=== PATIENT | female | born 1975 | race Caucasian/White ===

== ENCOUNTER 2017-11-04 00:32 | Emergency (ER) | payer OTHER, SELFPAY ==
[2017-11-04 00:33] VITALS: BP 125/83; PULSE 104; RESP 15; TEMP 37.2; O2SAT 99; BMI 38.2
--- NOTE | 2017-11-04 01:26 | RAD_ITS ---
STUDY: X-RAY CHEST REASON FOR EXAM: Female, 42 years old. Shortness of breath. TECHNIQUE: PA and lateral views of the chest. COMPARISON: Prior comparison studies are not available for review at this time. FINDINGS: The lungs are clear and expanded. There is no demonstrated pleural abnormality. Normal size heart. Normal mediastinum and tristian. Normal visualized pulmonary arteries. Normal visualized aortic arch and descending thoracic aorta. Normal visualized thoracic spine. Normal visualized ribs, clavicles, and shoulders. There is no demonstrated abnormality of the visualized soft tissue structures of the upper abdomen. RAD/Chest PA and Lateral IMPRESSION: Normal x-ray examination of the chest. Electronically Signed: Pérez Britton MD at 2:25 EST Tel , Service support ,
[2017-11-04] MEDS: Triamcinolone Acetonide 40 MG/ML Vial 80 MG IM (01:34)
[2017-11-04 01:36] VITALS: PULSE 98; RESP 18
[2017-11-04] MEDS: Ipratropium/Albuterol Sulfate 3 ML AMPUL.NEB INHALATION (01:36)
[2017-11-04 02:46] VITALS: O2SAT 99
[2017-11-04 02:49] VITALS: BP 117/66; PULSE 106; RESP 20; O2SAT 99
--- NOTE | 2017-11-04 02:56 | ED.VISSUMM ---
- ER Visit Summary Date of Service: 11/04/17 Chief Complaint: [Cough, shortness of breath] History of Present Illness: The patient is a 42 F [] Physical Examination: [Heart rate 106 other vitals within normal limits WN WD NAD PERRL EOMI MMM NECK supple and nontender, no masses RRR no murmur rub or gallop, no peripheral edema, symmetric radial pulses End expiratory wheezing and slightly diminished breath sounds no respiratory distress ABDOMEN is soft and nontender, normal bowel sounds, no distension, no rebound or guarding SKIN is warm and dry no rashes Alert and Oriented x3, CN II-XII in tact, no motor or sensory deficits, gait normal No lymphadenopathy ] Test Results: [] Emergency Department Course and Treatment: [Chest x-ray was obtained and shows no acute process. Influenza swab was negative. Patient was going DuoNeb and felt slightly better. She was given a shot of Kenalog. She continued to have end expiratory wheezing however slightly improved air movement. She is not in any respiratory distress. She was ambulated without respiratory distress. Her pulse ox remained 99%. This time she will go home to do albuterol nebulizers every 4 hours and will take the steroid as prescribed by urgent care earlier today. She is given precautions for which to return. I do not feel antibiotics are indicated at this time.] Treatment Plan: [] Disposition: [Discharge] Impression: [1. Viral URI 2. Acute asthma exacerbation] This note was generated with [employer] dictation software. It may contain incorrect words, spelling, and punctuation that were not noted in review of the chart prior to signing ED Disposition - Plan for ED Patient: Chief Complaint: Asthma Referrals: Jesus Manuel Worley DO [Primary Care Provider] -
--- NOTE | 2017-11-04 02:59 | ED.DEP ---
ED Disposition - Plan for ED Patient: Chief Complaint: Asthma Instructions: ED Bronchitis Asthmatic Referrals: Jesus Manuel Worley DO [Primary Care Provider] - 3-5 Days if not improving
[2017-11-04 03:10] VITALS: PULSE 101; RESP 19; O2SAT 96
--- NOTE | 2017-11-04 03:11 | ED.RN ---
DISCHARGE INSTRUCTIONS GIVEN TO AND REVIEWED WITH PATIENT, PATIENT DENIES QUESTIONS OR CONCERNS AND VOICES UNDERSTANDING OF DISCHARGE INSTRUCTIONS. PT AMBULATES OUT OF ROOM WITHOUT DIFFICULTY.
== END 2017-11-04 03:12 | disposition home or self-care (01) ==
PROVIDERS: Emergency Provider Emergency Medicine; Family Provider Student in an Organized Health Care Education/Training Program; PCP Student in an Organized Health Care Education/Training Program
DX: J06.9 Acute upper respiratory infection, unspecified (principal); J45.901 Unspecified asthma with (acute) exacerbation; F41.9 Anxiety disorder, unspecified; Z79.899 Other long term (current) drug therapy
CPT/HCPCS: 71046; 87804; 94640; 96372; 99282

== ENCOUNTER → 2021-01-02 09:47 | Outpatient (CLI) | payer OTHER, SELFPAY ==
--- NOTE | 2021-01-02 09:56 | ECHOD_ITS ---
Reason For Study: Dyspnea Procedure This was a 2D Doppler, Color Flow transthoracic echocardiogram. Exam performed in department. Left Ventricle Normal LV size. Left ventricular systolic function is normal. The estimated ejection fraction is 55 %. Stage 1 diastolic dysfunction. No regional wall motion abnormalities noted. Right Ventricle Normal RV size. Normal systolic function. Atria Normal left atrium. Normal right atrium. Mitral Valve Normal mitral valve. Tricuspid Valve Normal tricuspid valve. Aortic Valve Normal aortic valve. Trisinus/trileaflet aortic valve. Pulmonic Valve Normal pulmonic valve. Great Vessels Normal aortic root. The pulmonary artery is normal size. Normal inferior vena cava. Pericardium/Pleural No pericardial effusion. MMode/2D Measurements & Calculations LVIDd: 4.4 cm IVSd: 1.1 cm Ao root diam: 3.4 cm LVIDs: 2.4 cm LVPWd: 0.96 cm RVDd: 3.5 cm FS: 44.7 % LAV(MOD-bp): 30.4 ml LA A4 area: 13.2 cm2 LA dimension(2D): 3.7 cm LAV(MOD-bp) Indexed: 15.8 ml/m2 LAV(MOD-sp2): 29.9 ml LAV(MOD-sp4): 27.9 ml RA A4 area: 12.3 cm2 Doppler Measurements & Calculations MV E max kal: 48.7 cm/sec Lat Peak E' Kal: 12.3 cm/sec Med Peak E' Kal: 8.0 cm/sec MV A max kal: 59.6 cm/sec E/E' lat: 4.0 E/E' med: 6.1 MV E/A: 0.82 Ao V2 max: 110.0 cm/sec LV V1 max: 91.3 cm/sec PA V2 max: 75.1 cm/sec Ao max P.8 mmHg LV V1 max P.3 mmHg Ao V2 mean: 79.2 cm/sec Ao mean P.7 mmHg Ao V2 VTI: 21.2 cm ECHO/Echo Complete Interpretation Summary Normal LV size. Left ventricular systolic function is normal. The estimated ejection fraction is 55 %. Stage 1 diastolic dysfunction. Ordering Physician: Jesus Manuel Worley Referring Physician: Jesus Manuel Worley Performed By: Snehal Medina RDCS, RVT
--- NOTE | 2021-01-02 16:43 | STRESSREP ---
Stress Test Report Exercise stress test. 45-year-old lady with a history of dyspnea. Stress protocol: Resting EKG demonstrates sinus bradycardia with a rate of 59 bpm normal intervals are noted resting blood pressure is 122/84 mmHg. Patient exercised according to the regular Boni protocol for a total duration of 9 minutes and 27 seconds. Patient completed 27 seconds into stage IV of the Boni protocol the maximum heart rate attained was 171 bpm which was 96% of max impacted heart rate the maximum workload was 10.8 metabolic equivalents. At rest there were no ST or T wave changes noted to suggest ischemia and at peak exercise upsloping ST changes were noted which did not meet the criteria for ischemia. No clinical angina was noted the test was terminated due to the target heart rate being achieved. No clinical angina was present. The peak blood pressure was 138/90 mmHg which was a good blood pressure response to exercise. No arrhythmias were noted. Conclusion: Exercise stress test with no EKG criteria for ischemia at a high workload. Good functional aerobic capacity. No arrhythmias or angina noted.
== END ==
PROVIDERS: PCP Student in an Organized Health Care Education/Training Program; Referring Provider Student in an Organized Health Care Education/Training Program; Visit Provider Student in an Organized Health Care Education/Training Program
DX: R06.00 Dyspnea, unspecified (principal)
CPT/HCPCS: 93017; 93306

== ENCOUNTER 2022-06-13 00:28 | Emergency (ER) | payer OTHER, SELFPAY ==
[2022-06-13 00:29] VITALS: BP 162/119; PULSE 134; RESP 20; TEMP 37; O2SAT 99; BMI 36.6
--- NOTE | 2022-06-13 00:46 | EX.ED.DYSGE1 ---
HPI History of Present Illness Chief Complaint: Allergic Reaction Informant: patient Narrative Narrative: Presents for evaluation concerning allergic reaction with rash. Concern for secondary antibiotic of Keflex. She was started on this a week ago from urgent care for recurrent UTI. She had previous UTI in May. She is on day 4 or 5 antibiotic noted urticarial lesions. She is self treating with Pepcid and Zyrtec. She returned to urgent care 4 days ago put on prednisone taper was told to try to finish antibiotic due to still having dysuria and UTI. She took a dose that Saturday evening states hives worsen. She called back the following day stop the antibiotic. She has been on prednisone. She has seen urology since then referred by them has outpatient ultrasound at this time. She is seeing urologist in [place]. No current dysuria. She had 2 tabs left of a 7-day supply. This evening concerns for throat tightness she contemplated taking her son's epinephrine however she did not. She took 4 children's Benadryl this evening. She is down to 20 mg of prednisone for which he takes in the morning. No trouble swallowing. There is rash on her arms and abdomen which is improving. Prior similar symptoms: Yes PFSH PFSH Home Medications sertraline 50 mg tablet 50 mg PO DAILY 06/23/16 [History Last Taken 06/23/16] budesonide 180 mcg/actuation breath activated powder inhaler (Pulmicort Flexhaler) 1 puff inhalation BID 11/04/17 [History Last Taken Unknown] epinephrine 0.3 mg/0.3 mL injection, auto-injector (EpiPen 2-Oscar) 0.3 mg (0.3 mL) IM Q10M PRN PRN anaphylaxis #2 ea 06/13/22 [Rx Last Taken Unknown] prednisone 20 mg tablet 60 mg PO DAILY #9 tabs 06/13/22 [Rx Last Taken Unknown] Allergy/AdvReac Type Severity Reaction Status Date / Time azithromycin Allergy Hives Verified 06/13/22 00:33 [From Zithromax Z-Oscar] bacitracin Allergy Hives Verified 06/13/22 00:33 [From Neosporin ([id number])] cephalexin [From Keflex] Allergy Hives Verified 06/13/22 01:52 citric acid [From Bicitra] Allergy Hives Verified 06/13/22 00:33 neomycin Allergy Hives Verified 06/13/22 00:33 [From Neosporin ([id number])] polymyxin B Allergy Hives Verified 06/13/22 00:33 [From Neosporin ([id number])] sodium citrate [From Bicitra] Allergy Hives Verified 06/13/22 00:33 Social History Smoking Status: Never smoker ROS ROS ED Constitutional Constitutional ED: Denies chills, fever(s) or sweats Eyes Eyes: Denies change in vision ENT ENT ED: Denies dysphagia or sore throat Cardiovascular Cardiovascular: Denies chest pain, leg edema, palpitations or racing heartbeat Respiratory/Chest Respiratory/Chest: Denies cough, dyspnea or dyspnea on exertion Gastrointestinal Gastrointestinal: Denies abdominal pain, diarrhea, nausea or vomiting Genitourinary Genitourinary ED: Denies dysuria, hematuria or urinary frequency Musculoskeletal Musculoskeletal: Denies back pain, extremity pain or neck pain Integumentary Reports rash; Denies wounds Neurologic Neurologic: Denies headache(s), paresthesias or weakness EXAM Physical Exam Const Vital Signs: 06/13/22 00:29 Temperature 98.6 F Temperature Source Oral Pulse Rate 134 H Respiratory Rate 20 H Blood Pressure 162/119 H Blood Pressure Mean 133 Pulse Ox 99 Oxygen Delivery Method Room Air Positive well nourished and well developed Constitutional Narrative: Anxious, nontoxic General Appearance ED: well developed and NAD HEENT Reports moist mucous membranes HEENT Narrative: No lip or tongue swelling. No stridor. Airway patent. normocephalic and atraumatic Eyes PERRL, EOMs intact bilaterally and conjunctivae normal General Eye ED: Yes normal appearance of both eyes Neck no lymphadenopathy and supple General: Negative for tenderness Chest Wall Chest: Negative for tenderness Resp normal respiratory effort and normal air movement Effort and Inspection: symmetric chest movement; Negative for respiratory distress Cardio regular rhythm and no murmurs Rate: tachycardic Peripheral Pulses: pulses 2+ throughout GI normal to inspection, nondistended, normoactive bowel sounds and non-tender Palpation: Negative for guarding or rebound tenderness present Back/Spine no CVA tenderness and no thoracic nor lumbar tenderness Extremity normal to inspection General Extremety ED: Negative for edema or tenderness General Extremity: Negative for edema Neuro oriented x3 and no sensory deficits noted Sensorium / Orientation: awake and alert Skin no wounds Skin Narrative: Rash noted bilateral forearms right greater than left. There is erythematous rash abdomen under her breasts. There is no urticarial lesions. MDM MDM MDM Narrative Medical decision making narrative: Patient nontoxic, no airway compromise. No stridor. Denies any new or different foods. Heart rate 134 on arrival during my evaluation in the low 100s. She will be optimized with her prednisone in the ED at 60 mg, additional Pepcid. We will plan on holding Keflex in place as an allergy due to recurrent worsening symptoms when she tried retaking it Saturday night. Is been 4 days since her last dose. She took her Benadryl this evening. 0130: Heart rate improved with monitoring. No progression of symptoms. Treated for additional 3 days of 60 mg prednisone. She will take her Pepcid at home twice a day for 3 days. Benadryl as needed. Prescription also for epinephrine pen. Follow-up as an outpatient. All questions were answered. Discharge Plan Triage Chief Complaint: Allergic Reaction ED Provider: Kong Mai Dx/Rx/DC Orders Clinical Impression: Allergic drug rash, History of UTI Instructions: ED General Allergic Reactions Prescriptions: New prednisone 20 mg tablet 60 mg PO DAILY Qty: 9 0RF epinephrine [EpiPen 2-Oscar] 0.3 mg/0.3 mL auto-injector 0.3 mg IM Q10M PRN PRN (Reason: anaphylaxis) Qty: 2 0RF Rx Instructions: for 2 doses No Action sertraline 50 MG tablet 50 mg PO DAILY Label Comments: mental health Pulmicort Flexhaler 1 PUFF inhaler 1 puff inhalation BID Primary Care Provider: Jesus Manuel Worley Referrals: Jesus Manuel Worley, [Primary Care Provider] - 3-5 Days if not improving Activity Restrictions/Additional Instructions: Start Keflex. Take prednisone 60 mg for 3 more days. Pepcid 20 mg twice a day for 3 days. Benadryl 25 to 50 mg as needed. Disposition Disposition: Home, Self Care Discharge Date/Time: 06/13/22 01:52
[2022-06-13] MEDS: Famotidine 20 MG Tablet PO (00:48)
[2022-06-13] MEDS: predniSONE 20 MG Tablet 60 MG PO (00:48)
== END 2022-06-13 01:52 | disposition home or self-care (01) ==
PROVIDERS: Emergency Provider Emergency Medicine; PCP Student in an Organized Health Care Education/Training Program; Visit Provider Emergency Medicine
DX: L27.0 Generalized skin eruption due to drugs and medicaments taken internally (principal); T36.1X5A Adverse effect of cephalosporins and other beta-lactam antibiotics, initial encounter; N39.0 Urinary tract infection, site not specified; Z87.440 Personal history of urinary (tract) infections
CPT/HCPCS: 99283

== ENCOUNTER 2023-10-05 13:55 | Emergency (ER) | payer OTHER, SELFPAY ==
[2023-10-05 13:56] VITALS: BP 138/100; PULSE 78; RESP 14; TEMP 36.2; O2SAT 99; BMI 29.3
--- NOTE | 2023-10-05 14:05 | ED.VIS.GI ---
HPI HPI - GI History of Present Illness Chief Complaint: Abd Pain Informant: patient Abdominal Pain/Flank Pain Onset: Days Context: Gradual Onset Timing: Waxes and wanes Quality: Dull Location: Epigastric Current Severity: Moderate Maximum Severity: Moderate Narrative Narrative: Patient presents secondary to epigastric abdominal pain. She states pains been present for about a week but has recently become much more severe. She feels nauseated and has not eaten much. She denies fever or chills. No recent diarrhea. No vomiting. She went to urgent care but there was concern for possible pancreatitis that she is on Ozempic and was sent to the emergency room. [facility] Medical History Depression Home Medications sertraline 50 mg tablet 50 mg PO DAILY 06/23/16 [History Last Taken 06/23/16] epinephrine 0.3 mg/0.3 mL injection, auto-injector (EpiPen 2-Oscar) 0.3 mg (0.3 mL) IM Q10M PRN PRN anaphylaxis #2 ea 06/13/22 [Rx Last Taken Unknown] etonogestrel 0.12 mg-ethinyl estradiol 0.015 mg/24 hr vaginal ring (NuvaRing) 1 vag ring vaginal Q4W 09/09/23 [History Last Taken Unknown] metoclopramide HCl 10 mg tablet (Reglan) 10 mg PO Q6H PRN nausea and vomiting #14 tabs 10/05/23 [Rx Last Taken Unknown] ondansetron 4 mg disintegrating tablet 4 mg PO Q8H PRN PRN Nausea #10 tabs 10/05/23 [Rx Last Taken Unknown] pantoprazole 40 mg tablet,delayed release (Protonix) 40 mg PO DAILY #30 tabs 10/05/23 [Rx Last Taken Unknown] Allergy/AdvReac Type Severity Reaction Status Date / Time azithromycin Allergy Hives Verified 10/05/23 13:56 [From Zithromax Z-Oscar] bacitracin Allergy Hives Verified 10/05/23 13:56 [From Neosporin ([id number])] cephalexin [From Keflex] Allergy Hives Verified 10/05/23 13:56 citric acid [From Bicitra] Allergy Hives Verified 10/05/23 13:56 neomycin Allergy Hives Verified 10/05/23 13:56 [From Neosporin ([id number])] polymyxin B Allergy Hives Verified 10/05/23 13:56 [From Neosporin ([id number])] sodium citrate [From Bicitra] Allergy Hives Verified 10/05/23 13:56 Family History Father Cancer, Onset Age: 71 multiple, lymphoma Sudden cardiac Hypertension Mother Fibroids Surgical History History of Hx laparoscopic cholecystectomy Social History adopted: No household members: family number of children: 2 current occupational status: employed 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 - [employer] current occupational exposures/hazards: No pets and animals: Yes (foster cats) leisure activities: exercise history of recent travel: No sexually active: Yes Smoking Status: Never smoker alcohol intake: current alcohol intake frequency: holidays/special occasions only Alcohol type: hard liquor details: very rare, family history of alcohol use substance use type: does not use diet: vegan and vegetarian well-balanced diet: daily or most days caffeine: Yes (black coffee ) eating out: rarely or never during the past year weight has: decreased > 10 lbs what type of physical activity do you participate in: weight training and other details: barre and pilates frequency: 3-4 times per week seatbelt use: always do you feel safe at home: Yes additional social history: Jew[employer]AY ED Constitutional Constitutional ED: Denies chills or fever(s) Eyes Eyes: Denies discharge from eye(s) ENT ENT ED: Denies discharge from eye(s), rhinorrhea or sore throat Cardiovascular Cardiovascular: Denies chest pain or palpitations Respiratory/Chest Respiratory/Chest: Denies cough or dyspnea Gastrointestinal Gastrointestinal: Reports abdominal pain and nausea; Denies diarrhea or vomiting Genitourinary Genitourinary ED: Denies dysuria Musculoskeletal Musculoskeletal: Denies back pain or extremity pain Integumentary Denies Abrasions or rash Neurologic Neurologic: Denies headache(s) or weakness Psychiatric Psychiatric: Denies anxiety or depression Allergic/Immunologic Allergic/Immunologic ED: Denies lip swelling or urticaria EXAM Physical Exam Const Vital Signs: 10/05/23 13:56 Temperature 97.2 F L Temperature Source Temporal Pulse Rate 78 Respiratory Rate 14 Blood Pressure 138/100 H Blood Pressure Mean 112 Pulse Ox 99 Oxygen Delivery Method Room Air Positive well nourished and well developed General Appearance ED: well developed HEENT Reports moist mucous membranes Eyes EOMs intact bilaterally Resp normal respiratory effort and clear to auscultation bilaterally Cardio regular rate and regular rhythm GI GI Narrative: Abdomen soft with mild tenderness in the epigastrium. No guarding or rebound. Hypoactive but present bowel sounds are noted. Extremity full ROM Neuro CN's II-XII intact bilaterally and moves all extremities Skin no wounds MDM MDM MDM Narrative Medical decision making narrative: IV line initiated. Patient given IV fluids and Zofran along with a dose of Protonix. Labwork obtained to evaluate for leukocytosis, anemia, and electrolyte derangement. History & Record Review Discussion w/independent historian: Patient Additional record(s) reviewed:: Prior outpatient record and Prior labs Lab Data Attestation: I reviewed the patient's lab results. Labs: Laboratory Results - last 24 hr 10/05/23 14:42 WBC 11.3 H RBC 4.74 Hgb 13.6 Hct 42.8 MCV 90.3 MCH 28.7 MCHC 31.8 L RDW Std Deviation 43.2 RDW Coeff of [place] 13.1 Plt Count 270 MPV 10.1 Immature Gran % (Auto) 0.400 Neut % (Auto) 76.6 H Lymph % (Auto) 14.9 L [place] % (Auto) 6.3 Eos % (Auto) 1.7 Baso % (Auto) 0.1 Absolute Neuts (auto) 8.6 H Absolute Lymphs (auto) 1.68 Nucleated RBC % 0 Sodium 141 Potassium 3.5 Chloride 110 H Carbon Dioxide 24.0 Anion Gap 7 BUN 10 Creatinine 0.67 Estim Creat Clear Calc 94.41 Est GFR (MDRD) Af Amer 122 Est GFR (MDRD) Non-Af 100 BUN/Creatinine Ratio 14.9 Glucose 90 Calcium 8.5 Total Bilirubin 0.80 Direct Bilirubin 0.40 H AST 88 H ALT 57 H Alkaline Phosphatase 83 Total Protein 6.1 L Albumin 2.9 L Globulin 3.2 Lipase 36 Radiography Diagnostic Testing: Clinical Impression(s) from Imaging Studies Abdomen/Pelvis CT 10/05/23 15:13 IMPRESSION: Mild intrahepatic bile duct distention. No other definite acute or significant abnormality seen. Electronically Signed: Dick Santana MD at 16:16 EST , Treatment and Re-Evaluation :: CBC reveals white count 11.3 with 76% neutrophils. Hemoglobin is 13.6. Chemistry studies reveal normal renal function. Glucose is normal at 90. LFTs significant for an AST of 88 and an ALT of 57. Alk phos is normal. Bilirubin is not significantly elevated. I was able to review prior labs and the patient just had lab work done on October 03. At that time her AST was 14 and her ALT was 16. Lipase is normal. Given the patient has had an acute change in her LFTs in the past [address] scan of the abdomen pelvis with IV contrast is obtained. She has already had a cholecystectomy. CT scan reveals mildly dilated hepatic ducts but no acute abnormality noted. Patient is noted on my review of imaging does still have food debris in her stomach. She states she last ate early this morning. She did receive some improvement in her nausea with Zofran but states it is already returning. I will give her a dose of Reglan. I also gave her IV Protonix. Hepatitis panel will be sent to ensure no evidence of acute hepatitis. She will be given prescriptions for Protonix, Zofran, and Reglan. She is to follow with her PCP in the next 1 to 2 weeks for repeat labs. This was all discussed with her and she is in agreement with the plan. Discharge Plan Triage Chief Complaint: Abd Pain ED Provider: Vane Bradley Dx/Rx/DC Orders Clinical Impression: Elevated LFTs, Nausea, Acute epigastric pain Instructions: ED Abdominal Pain Unkn Cause Fem Prescriptions: New ondansetron 4 mg tablet,disintegrating 4 mg PO Q8H PRN PRN (Reason: Nausea) Qty: 10 0RF metoclopramide HCl [Reglan] 10 mg tablet 10 mg PO Q6H PRN (Reason: nausea and vomiting) Qty: 14 0RF pantoprazole [Protonix] 40 mg tablet,delayed release (DR/EC) 40 mg PO DAILY Qty: 30 0RF No Action etonogestrel-ethinyl estradiol [NuvaRing] 0.12-0.015 mg/24 hr ring 1 vag ring vaginal Q4W Rx Instructions: leave in place for 3 weeks of a 4-week cycle sertraline 50 MG tablet 50 mg PO DAILY Patient Comments: mental health epinephrine [EpiPen 2-Oscar] 0.3 mg/0.3 mL auto-injector 0.3 mg IM Q10M PRN PRN (Reason: anaphylaxis) Qty: 2 0RF Rx Instructions: for 2 doses Primary Care Provider: Jesus Manuel Worley Referrals: Jesus Manuel Worley, DO [Primary Care Provider] - 1-2 Weeks Activity Restrictions/Additional Instructions: As discussed, please follow-up with Dr. Worley in 1 to 2 weeks to have repeat liver testing performed. Disposition Disposition: Home, Self Care
[2023-10-05] MEDS: 0.9% Normal Saline (1000mL) 1,000 ML 1000 ML IV (14:31)
[2023-10-05] MEDS: Pantoprazole Sodium 40 MG in 0.9% Normal Saline (100mL MB+) 100 ML 330 MG IV (14:32)
[2023-10-05] MEDS: Ondansetron 4 MG/2 ML Vial IV (14:33)
--- OUTSIDE RECORDS SUMMARY | 2023-10-05 14:37 | XMS RPT_ITS | CCD ---
Author Name Unknown Address [address] [place] [address] Organization [facility] Care Team Providers Care Recreation Program Specialist Name Role Phone Jesus Manuel Barth DO Primary Care Provider VANI AMOS Attending Unavailable JEN HUMPHREY Referring Unavailable BARTH, JESUS MANUEL Eric Primary Care Unavailable Barth DO Jesus Manuel Eric Primary Care Provider Jesus Manuel Barth DO Primary Care Provider [phone] MEIR JESUS MANUEL L Referring Unavailable BARTH, JESUS MANUEL L Primary Care Unavailable BARTH, JESUS MANUEL L Referring Unavailable BARTH, JESUS MANUEL L Primary Care Unavailable BARTH, JESUS MANUEL L Primary Care Unavailable BARTH, JESUS MANUEL L Attending Unavailable BARTH, JESUS MANUEL L Primary Care Unavailable BARTH, JESUS MANUEL L Primary Care Unavailable SESAR RICHMOND Attending Unavailable BARTH, JESUS MANUEL L Referring Unavailable BARTH, JESUS MANUEL L Primary Care Unavailable BARTH, JESUS MANUEL L Attending Unavailable BARTH, JESUS MANUEL L Primary Care Unavailable BARTH, JESUS MANUEL L Primary Care Unavailable BARTH, JESUS MANUEL L Primary Care Unavailable CHANTAL, ESTEFANÍA Referring Unavailable BARTH, JESUS MANUEL L Primary Care Unavailable MEGHAN HARPER Attending Unavailable BARTH, JESUS MANUEL L Primary Care Unavailable MOSLEY, ESTEFANÍA Attending Unavailable BARTH, JESUS MANUEL L Primary Care Unavailable Allergies Allergy Classification Reported Allergen(s) Allergy Type Date of Onset Reaction(s) Facility (20 sources) Azithromycin; Translations: [AZITHROMYCIN] Drug Allergy 6 Hives, Swelling [facility] Work Phone: (20 sources) bacitracin / neomycin / polymyxin b; Translations: [NEOMYCIN-BACITRA MAHAD-POLYMYXIN] Drug Allergy 5 [facility] Work Phone: (20 sources) Citric Acid / sodium citrate; Translations: [SODIUM CITRATE-CITRIC ACID] Drug Allergy 1 Rash [facility] Work Phone: (20 sources) environmental [Other] Propensity to adverse reactions 5 [facility] Work Phone: (20 sources) seasonal allergies [Other] Propensity to adverse reactions 5 Other: See Comments [facility] Work Phone: (20 sources) Bacitracin; Translations: [BACITRACIN] Drug Allergy 8 Unknown [facility] (20 sources) Citric Acid; Translations: [CITRIC ACID] Drug Allergy 8 Unknown [facility] (20 sources) Neomycin; Translations: [NEOMYCIN] Drug Allergy 8 Unknown [facility] (20 sources) Polymyxin B; Translations: [POLYMYXIN B] Drug Allergy 8 Unknown [facility] (20 sources) Cephalexin; Translations: [CEPHALEXIN] Drug Allergy 2 [facility] Work Phone: (2 sources) OTHER; Translations: [OTHER] Propensity to adverse reactions (disorder) 5 [facility] Other [facility] (2 sources) Pollen; Translations: [POLLEN EXTRACTS] Drug Allergy 3 Itching [facility] Work Phone: Medications Current Medications Medication Drug Class(es) Dates Sig (Normalized) Sig (Original) cephalexin 500 mg oral capsule (5 sources) Cephalosporin Antibacterial Start: 06-03-2022 End: 06-10-2022 take 1 capsule by mouth twice daily cephALEXin (KEFLEX) 500 mg capsule Take 1 capsule by mouth twice daily for 7 days. 14 capsule 0 06/03/2022 06/10/2022 Active Completed/Discontinued Medications Medication Drug Class(es) Dates Sig (Normalized) Sig (Original) [id number] 200 actuat albuterol 0.09 mg/actuat metered dose inhaler (20 sources) beta2-Adrenergic Agonist Start: 10-04-2021 take 2 puff(s) by inhalation every four hours as needed albuterol HFA (VENTOLIN HFA) 90 mcg/actuation inhaler Indications: Asthma, allergic Inhale 2 Puffs as instructed every 4 hours as needed. 36 g 3 07/10/2021 Active Problems Active Problems Problem Classification Problem Date Documented Date Episodic/Chronic Anxiety disorders (20 sources) Mixed anxiety and depressive disorder; Translations: [Other specified anxiety disorders] Onset: 11-13-2019 11-13-2019 Chronic Asthma (20 sources) Mild intermittent asthma; Translations: [Mild intermittent asthma, uncomplicated] Onset: 11-16-2005 10-02-2021 Chronic Benign neoplasm of uterus (2 sources) Uterine leiomyoma; Translations: [Leiomyoma of uterus, unspecified] Episodic Complications of surgical procedures or medical care (1 source) Non dose-related adverse reaction to medication; Translations: [Unspecified adverse effect of drug or medicament, initial encounter] Episodic Contraceptive and procreative management (1 source) Contraception status; Translations: [Encounter for surveillance of vaginal ring hormonal contraceptive device] Episodic Disorders of lipid metabolism (20 sources) Hypertriglyceridemia; Translations: [Pure hyperglyceridemia] Onset: 07-11-2021 07-11-2021 Chronic Genitourinary symptoms and ill-defined conditions (3 sources) Increased frequency of urination; Translations: [Frequency of micturition] Onset: 06-06-2022 Episodic Immunizations and screening for infectious disease (2 sources) Vaccination needed; Translations: [Encounter for immunization] Onset: 08-05-2023 Episodic Menopausal disorders (20 sources) Perimenopausal state; Translations: [Menopausal and female climacteric states] Onset: 08-07-2022 Chronic Mood disorders (20 sources) Depressive disorder; Translations: [Depression] Onset: 10-06-2005 10-24-2015 Chronic Other diseases of bladder and urethra (1 source) Disorder of bladder; Translations: [Overactive bladder] Chronic Other inflammatory condition of skin (4 sources) Seborrheic dermatitis; Translations: [Seborrheic dermatitis, unspecified] Episodic Other inflammatory condition of skin (1 source) Seborrheic dermatitis, unspecified; Translations: [Seborrheic dermatitis] Onset: 09-16-2023 Episodic Other nutritional; endocrine; and metabolic disorders (20 sources) Obese class I; Translations: [Obesity, unspecified] Onset: 12-14-2020 12-14-2020 Chronic Other nutritional; endocrine; and metabolic disorders (20 sources) Obese class II; Translations: [Obesity, unspecified] Onset: 12-14-2020 Chronic Other nutritional; endocrine; and metabolic disorders (2 sources) Metabolic syndrome X; Translations: [Dysmetabolic syndrome] Onset: 09-16-2023 09-16-2023 Chronic Other nutritional; endocrine; and metabolic disorders (1 source) Obesity, unspecified; Translations: [Obesity, Class I, BMI 30-34.9] Onset: 09-16-2023 Chronic Other skin disorders (1 source) History of urticaria; Translations: [Personal history of diseases of the skin and subcutaneous tissue] Episodic Other upper respiratory disease (20 sources) Chronic rhinitis; Translations: [Chronic rhinitis] Onset: 11-16-2005 07-18-2010 Chronic Other upper respiratory disease (1 source) Allergic rhinitis; Translations: [Allergic rhinitis, unspecified] Chronic Skin and subcutaneous tissue infections (1 source) Paronychia of finger of left hand; Translations: [Cellulitis of left finger] Episodic Unclassified (1 source) Dysmetabolic syndrome; Translations: [Dysmetabolic syndrome] Onset: 09-16-2023 Unclassified (1 source) questions about citric acid allergy Onset: 10-31-2022 Urinary tract infections (4 sources) Recurrent urinary tract infection; Translations: [Urinary tract infection, site not specified] Onset: 06-06-2022 Episodic Past or Other Problems Problem Classification Problem Date Documented Date Episodic/Chronic Abdominal pain (20 sources) Epigastric pain; Translations: [Epigastric pain] Onset: 8 09-01-2018 Episodic Allergic reactions (20 sources) Urticaria; Translations: [Urticaria, unspecified] Onset: Episodic Biliary tract disease (20 sources) Postcholecystectomy syndrome; 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] Onset: 5 08-29-2015 Episodic Diabetes mellitus without complication (20 sources) Hyperglycemia; Translations: [Hyperglycemia, unspecified] Onset: 1 07-11-2021 Episodic Other and unspecified benign neoplasm (20 sources) Dysplastic nevus of skin; Translations: [Melanocytic nevi, unspecified] Onset: 8 02-07-2018 Episodic Other circulatory disease (20 sources) Feeling of lump in throat; Translations: [Other specified symptoms and signs involving the circulatory and respiratory systems] Onset: 8 02-07-2018 Episodic Other connective tissue disease (20 sources) Iliotibial band friction syndrome of right knee; Translations: [Iliotibial band syndrome, right leg] Onset: 8 02-07-2018 Episodic Other nutritional; endocrine; and metabolic disorders (20 sources) Body mass index 25-29 - overweight; Translations: [Overweight] Onset: 1 07-11-2021 Episodic Other nutritional; endocrine; and metabolic disorders (20 sources) Weight gain; Translations: [Abnormal weight gain] Onset: 2 Episodic Other screening for suspected conditions (not mental disorders or infectious disease) (9 sources) Patient encounter status; Translations: [Encounter for screening mammogram for malignant neoplasm of breast] Onset: 3 Episodic Viral infection (20 sources) Herpes simplex type 1 infection; Translations: [Herpesviral infection, unspecified] Onset: 1 07-11-2021 Episodic Results Test Name Value Interpretation Reference Range Facil ity Vital Signs Date Time Vital Sign Value Performing Clinician Siria tompkins 09-16-2023 15:58-0500 Body temperature 98.4 [degF] Jesus Manuel Barth DO Work Phone: [facility] 09-16-2023 15:58-0500 Body weight 81.65 kg Jesus Manuel Barth DO Work Phone: [facility] 09-16-2023 15:58-0500 Diastolic blood pressure 80 mm[Hg] Jesus Manuel Barth DO Work Phone: [facility] 09-16-2023 15:58-0500 Heart rate 80 /min Jesus Manuel Barth DO Work Phone: [facility] 09-16-2023 15:58-0500 Respiratory rate 16 /min Jesus Manuel Barth DO Work Phone: [facility] 09-16-2023 15:58-0500 Systolic blood pressure 110 mm[Hg] Jesus Manuel Barth DO Work Phone: [facility] 07-19-2023 07:23-0400 Body temperature 97.3 [degF] Gabriela Praisler-Wood MISSION MANAGER.SHINGLER Work Phone: [facility] 07-19-2023 07:23-0400 Body weight 88.36 kg Gabriela Praisler-Wood MISSION MANAGER.SHINGLER Work Phone: [facility] 07-19-2023 07:23-0400 Diastolic blood pressure 80 mm[Hg] Gabriela Praisler-Wood MISSION MANAGER.SHINGLER Work Phone: [facility] 07-19-2023 07:23-0400 Heart rate 70 /min Gabriela Praisler-Wood MISSION MANAGER.[employer]INGLER Work Phone: [facility] 07-19-2023 07:23-0400 Respiratory rate 21 /min Gabriela Praisler-Wood MISSION MANAGER.SHINGLER Work Phone: [facility] 07-19-2023 07:23-0400 SaO2% (BldA) [Mass fraction] 96 % Gabriela Praisler-Wood MISSION MANAGER.SHINGLER Work Phone: [facility] 07-19-2023 07:23-0400 Systolic blood pressure 104 mm[Hg] Gabriela Praisler-Wood MISSION MANAGER.SHINGLER Work Phone: [facility] 05-22-2023 10:58-0400 Body weight 91.9 kg Estefanía Mosley MISSION MANAGER.[employer] Work Phone: [facility] 05-22-2023 10:58-0400 Diastolic blood pressure 70 mm[Hg] Estefanía Mosley MISSION MANAGER.[employer]ER Work Phone: [facility] 05-22-2023 10:58-0400 Heart rate 72 /min Estefanía Mosley MISSION MANAGER.[employer] Work Phone: [facility] 05-22-2023 10:58-0400 Respiratory rate 12 /min Estefanía Mosley MISSION MANAGER.[employer] Work Phone: [facility] 05-22-2023 10:58-0400 Systolic blood pressure 104 mm[Hg] Estefanía Mosley MISSION MANAGER.[employer]INGLER Work Phone: [facility] 03-13-2023 12:00-0400 Body height 165 cm Jesus Manuel Barth DO Work Phone: [facility] 03-13-2023 12:00-0400 Body temperature 97 [degF] Jesus Manuel Barth DO Work Phone: [facility] 03-13-2023 12:00-0400 Body weight 86.18 kg Jesus Manuel Barth DO Work Phone: [facility] 03-13-2023 12:00-0400 Diastolic blood pressure 60 mm[Hg] Jesus Manuel Barth DO Work Phone: [facility] 03-13-2023 12:00-0400 Heart rate 64 /min Jesus Manuel Barth DO Work Phone: [facility] 03-13-2023 12:00-0400 Respiratory rate 16 /min Jesus Manuel Barth DO Work Phone: [facility] 03-13-2023 12:00-0400 Systolic blood pressure 100 mm[Hg] Jesus Manuel Barth DO Work Phone: [facility] 03-10-2023 10:46-0400 Body temperature 98.91 [degF] Horacio Pendkenyon MISSION MANAGER.SHINGLER Work Phone: [facility] 03-10-2023 10:46-0400 Body weight 88 kg Horacio Blair MISSION MANAGER.[employer]ING[employer]ER Work Phone: [facility] 03-10-2023 10:46-0400 Diastolic blood pressure 78 mm[Hg] Horacio Pendlebury MISSION MANAGER.[employer]INGLER Work Phone: [facility] 03-10-2023 10:46-0400 Heart rate 70 /min Horacio Pendlebury MISSION MANAGER.[employer]INGLER Work Phone: [facility] 03-10-2023 10:46-0400 Respiratory rate 20 /min Horacio Pendlebury MISSION MANAGER.SHINGLER Work Phone: [facility] 03-10-2023 10:46-0400 SaO2% (BldA) [Mass fraction] 96 % Horacio Blair MISSION MANAGER.SHINGLER Work Phone: [facility] 03-10-2023 10:46-0400 Systolic blood pressure 102 mm[Hg] Horacio Blair MISSION MANAGER.SHINGLER Work Phone: [facility] 09-11-2022 15:28-0500 Body temperature 96.8 [degF] Jesus Manuel Barth DO Work Phone: [facility] 09-11-2022 15:28-0500 Body weight 103.42 kg Jesus Manuel Barth DO Work Phone: [facility] 09-11-2022 15:28-0500 Diastolic blood pressure 70 mm[Hg] Jesus Manuel Barth DO Work Phone: [facility] 09-11-2022 15:28-0500 Heart rate 76 /min Jesus Manuel Barth DO Work Phone: [facility] 09-11-2022 15:28-0500 Respiratory rate 16 /min Jesus Manuel Barth DO Work Phone: [facility] 09-11-2022 15:28-0500 Systolic blood pressure 100 mm[Hg] Jesus Manuel Barth DO Work Phone: [facility] 08-06-2022 15:30-0400 Body temperature 97.81 [degF] Jesus Manuel Barth DO Work Phone: [facility] 08-06-2022 15:30-0400 Body weight 103.87 kg Jesus Manuel Barth DO Work Phone: [facility] 08-06-2022 15:30-0400 Diastolic blood pressure 60 mm[Hg] Jesus Manuel Barth DO Work Phone: [facility] 08-06-2022 15:30-0400 Heart rate 64 /min Jesus Manuel Barth DO Work Phone: [facility] 08-06-2022 15:30-0400 Respiratory rate 16 /min Jesus Manuel Barth DO Work Phone: [facility] 08-06-2022 15:30-0400 Systolic blood pressure 120 mm[Hg] Jesus Manuel Barth DO Work Phone: [facility] 06-09-2022 10:05-0400 Body temperature 98.4 [degF] Jen Humphrey APRN.SHINGLER Work Phone: [facility] 06-09-2022 10:05-0400 Body weight 97.07 kg Jen Humphrey APRN.SHINGLER Work Phone: [facility] 06-09-2022 10:05-0400 Diastolic blood pressure 76 mm[Hg] Jen Humphrey APRN.SHINGLER Work Phone: [facility] 06-09-2022 10:05-0400 Heart rate 67 /min Jen Humphrey APRN.SHINGLER Work Phone: [facility] 06-09-2022 10:05-0400 Respiratory rate 16 /min Jen Humphrey APRN.SHINGLER Work Phone: [facility] 06-09-2022 10:05-0400 SaO2% (BldA) [Mass fraction] 99 % Jen Humphrey APRN.SHINGLER Work Phone: [facility] 06-09-2022 10:05-0400 Systolic blood pressure 118 mm[Hg] Jen Humphrey APRN.SHINGLER Work Phone: [facility] 06-06-2022 10:43-0400 Body height 165.1 cm Vani Kovachik PA-C Work Phone: [facility] 06-06-2022 10:43-0400 Body weight 94.35 kg Vani Kovachik PA-C Work Phone: [facility] 06-06-2022 10:43-0400 Diastolic blood pressure 78 mm[Hg] Vani Kovachik PA-C Work Phone: [facility] 06-06-2022 10:43-0400 Systolic blood pressure 132 mm[Hg] Vani Kovachik PA-C Work Phone: [facility] 04-26-2022 19:18-0400 Body temperature 98.6 [degF] Carolina Athy PA-C Work Phone: [facility] 04-26-2022 19:18-0400 Body weight 89.63 kg Carolina Athy PA-C Work Phone: [facility] 04-26-2022 19:18-0400 Diastolic blood pressure 70 mm[Hg] Carolina Athy PA-C Work Phone: [facility] 04-26-2022 19:18-0400 Heart rate 63 /min Carolina Athy PA-C Work Phone: [facility] 04-26-2022 19:18-0400 Respiratory rate 16 /min Carolina Athy PA-C Work Phone: [facility] 04-26-2022 19:18-0400 SaO2% (BldA) [Mass fraction] 98 % Carolina Athy PA-C Work Phone: [facility] 04-26-2022 19:18-0400 Systolic blood pressure 126 mm[Hg] Carolina Athy PA-C Work Phone: [facility] Encounters Encounter Date Encounter Type Care Provider Facility Start: 10-03-2023 End: 10-04-2023 ambulatory JESUS MANUEL BARTH Facility:[facility] Start: 09-16-2023 End: 09-17-2023 ambulatory JESUS MANUEL BARTH Facility:[facility] Start: 09-16-2023 End: 09-16-2023 Patient encounter procedure Jesus Manuel Barth DO Work Phone: [facility] [place] Procedures Date Procedure Procedure Detail Performing Clinician Start: 08-05-2023 [employer] COVI D-19 VACCINE ( SEASON) AGE 12+ YR Meghan Toribio MD Work Phone: Start: 07-19-2023 Urnls dip stick/tabl et rgnt auto w/o microscopy Charlotte Celis MISSION MANAGER.SHINGLER Work Phone: Start: 07-01-2023 Us pelvic nonobstetr ic image dcmtn limited/f/u Estefanía Mosley APRN.SHINGLER Work Phone: Start: 04-29-2023 End: 04-29-2023 Mammography Jesus Manuel Barth DO Work Phone: Start: 09-11-2022 [employer] COVI D-19 BIVALENT BOOSTER VACCINE, AGE 12+ YR Jesus Manuel Barth DO Work Phone: Start: 08-09-2022 Lipid 1996 panel - S colton or Plasma Zohreh Cabrera RN Start: 07-11-2022 Mri pelvis w/o & w/c ontrast material Maria R Humphrey MD Work Phone: Start: 06-15-2022 Us retroperitoneal r eal time w/image complete Vani Amos PA-C Work Phone: Start: 06-06-2022 Urnls dip stick/tabl et rgnt auto w/o microscopy Vani Amos PA-C Work Phone: Start: 04-27-2022 Mammography Mammograph y Coordinator Start: 04-26-2022 Urnls dip stick/tabl et rgnt auto w/o microscopy [facility] Work Phone: Start: 04-20-2021 Mammography Jesus Manuel yeung DO Work Phone: Start: 06-16-2019 Colonoscopy Jen Humphrey APRN.SHINGLER Work Phone: Plan of Treatment Date Care Activity Detail Author Start: 03-13-2028 HPV TESTING HPV TESTING [facility] Start: 03-13-2028 PAP TESTING PAP TESTING [facility] Start: 08-09-2027 Lipid 1996 panel - S colton or Plasma Lipid Screening [facility] Start: 08-09-2027 LIPID SCREEN LIPID SCREEN [facility] Start: 02-05-2027 Urine microalbumin profile [facility] Start: 07-08-2026 LIPID SCREEN LIPID SCREEN [facility] Start: 08-09-2025 DIABETES SCREEN DIABETES SCREEN [facility] Start: 08-09-2025 Diabetes Screening Diabetes Screenin g [facility] Start: 09-16-2024 Annual PCP Team Senior Business Development Analyst lui Disease Visit Annual PCP Team Chronic Disease Visit [facility] Start: 07-08-2024 DIABETES SCREEN DIABETES SCREEN [facility] Start: 06-17-2024 Annual PCP Team Senior Business Development Analyst lui Disease Visit Annual PCP Team Chronic Disease Visit [facility] Start: 05-22-2024 ANNUAL PCP TEAM WARP DRAWER LUI DISEASE VISIT ANNUAL PCP TEAM CHRONIC DISEASE VISIT [facility] Start: 04-29-2024 Mammography [facility] Start: 03-13-2024 ANNUAL PCP TEAM WARP DRAWER LUI DISEASE VISIT ANNUAL PCP TEAM CHRONIC DISEASE VISIT [facility] Start: 09-16-2023 End: 12-16-2023 CBC W Auto Differential panel - Blood CBC + DIFF Lab Routine Well adult exam Expected: 09/16/2023, Expires: 12/16/2023 [facility] Work Phone: Immunizations Immunization Date Immunization Notes Care Provider Ilene salas 08-05-2023 COVID-19 vaccine, ag e 12+ yr, season ([employer]) Nurse Coleman [facility] 06-17-2023 influenza, injectabl e, quadrivalent, contains preservative Zohreh Cabrera RN [facility] 05-22-2023 pneumococcal (PCV20) vaccine, 20 valent (PREVNAR 20) Estefanía Mosley APRN.CNP Work Phone: [facility] 05-22-2023 pneumococcal Conjuga te, unspecified formulation Estefanía Mosley MISSION MANAGERYESSENIA Work Phone: [facility] Work Phone: 09-11-2022 COVID-19 booster vaccine, age 12+ yr, bivalent ([employer]) Jesus Manuel Barth DO Work Phone: [facility] Work Phone: 11-01-2021 influenza, injectabl e, quadrivalent, preservative free Jesus Manuel Barth DO Work Phone: [facility] 07-21-2020 influenza, injectabl e, quadrivalent, contains preservative Jesus Manuel Barth DO Work Phone: [facility] 08-23-2019 influenza virus vaccine, unspecified formulation Jesus Manuel Barth DO Work Phone: [facility] 08-19-2018 influenza, injectabl e, quadrivalent, contains preservative Jesus Manuel Barth DO Work Phone: [facility] 10-31-2017 influenza, injectabl e, quadrivalent, contains preservative Jesus Manuel Barth DO Work Phone: [facility] Work Phone: 02-05-2017 tetanus toxoid, redu zain diphtheria toxoid, and acellular pertussis vaccine, adsorbed Jesus Manuel Barth DO Work Phone: [facility] Work Phone: 05-08-2012 tetanus toxoid, redu zain diphtheria toxoid, and acellular pertussis vaccine, adsorbed Jesus Manuel Barth DO Work Phone: [facility] 08-10-2009 novel [id number], preservative-free, injectable Jesus Manuel Barth DO Work Phone: [facility] 11-16-2005 tetanus and diphther ia toxoids, adsorbed, preservative free, for adult use (2 Lf of tetanus toxoid and 2 Lf of diphtheria toxoid) Jesus Manuel Barth DO Work Phone: [facility] Payers Date Payer Category Payer Unknown O [employer] [id number] 2019-Present [phone] [address] [place] [address] [facility] [id number] 2019 Unknown [id number] 2019 Unknown [id number] Social History Date Type Detail Facility Start: 06-03-2022 Tobacco smoking stat [facility] Never smoked tobacco [facility] Work Phone: Start: 09-16-2021 End: 09-16-2023 Alcohol intake Current non-drinker of alcohol (finding) [facility] Start: 04-20-2020 End: 09-04-2022 History SDOH Alcohol Frequency 2 [facility] Start: 04-20-2020 End: 09-04-2022 History SDOH Alcohol Std Drinks 1 [facility] Start: 07-10-2008 History SDOH Alcohol Comment Rarely,NOT WHILE [facility] Start: 05-04-2020 End: 09-04-2022 History SDOH Social Connections Phone 5 [facility] Start: 05-04-2020 End: 09-04-2022 History SDOH Social Connections Get Together 4 [facility] Start: 11-06-2019 End: 09-04-2022 History SDOH Social Connections Living 3 [facility] Start: 11-06-2019 Education 18 [facility] Start: 1975 Sex Assigned At Not on file C [facility] Start: 04-16-2022 End: 08-06-2022 Exposure to SARS-CoV-2 (event) Not sure [facility] Start: 06-03-2022 Tobacco use and exposure Smoke less tobacco non-user [facility] Start: 09-04-2022 History SDOH Social Connections Living 8 [facility] Start: 09-04-2022 End: 03-13-2023 History of Social function [facility] Start: 09-04-2022 End: 03-13-2023 Social connection and isolation panel [facility] Do you belong to any clubs or organizations such as anabaptist groups, unions, fraternal or athletic groups, or school groups? No [facility] Are you now , , , , never or living with a partner? Living with partner [facility] How often to you hav e a drink containing alcohol? Monthly or less [facility] How many standard dr inks containing alcohol do you have on a typical day? 1 or 2 [facility] How often do you hav e 6 or more drinks on 1 occasion? Never [facility] How hard is it for y ou to pay for the very basics like food, housing, medical care, and heating Not hard at all [facility] Do you feel stress - tense, restless, nervous, or anxious, or unable to sleep at night because your mind is troubled all the time - these days [OSQ] Only a little [facility] (I/We) worried wheth er (my/our) food would run out before (I/we) got money to buy more. Never true [facility] Clinical Notes 10-25-2014 to 09-16-2023 Jesus Manuel Barth, - 09/16/2023 5:17 PM ESTTelephone Encounter - Yvonne Sharpe MA - 07/20/2023 2:32 PM EDTTelephone Encounter - Yvonne Sharpe MA - 07/20/2023 2:28 PM EDT Note Date & Type Note Facility 09-16-2023 Note HNO ID: [id number] Author: Jesus Manuel Barth DO Service: ? Author Type: Physician Type: Progress Notes Filed: 09/16/2023 5:21 PM Note Text: CC: Meghan Jeffrey is a 48 year old female who presents to the office for follow up HPI: IFG, obesity, dysmetabolic syndrome. Has been on ozempic x 1 month through [facility] but not able to afford brand name medication. Was tolerating medication well without any SE, was able to control her appetite and overeating. Then was getting rx through compounding pharmacy semaglutide which she is tolerating. Now weight is down from 202 lbs in May and now weight 180 lbs. She would like to continue through our office with monitoring. Had some pelvic discomfort this last fall, had pelvic US which confirms her known uterine fibroids. PAST MEDICAL HISTORY Diagnosis Date Allergy Seasonal and Environmental Allergies Depressive disorder, not elsewhere classified Diffuse cystic mastopathy History of echocardiogram 01/02/2021 at [facility]-Dr. Swain-EF 55% Low HDL (under 40) 12/05/2014 Unspecified asthma(493.90) Vitamin D deficiency 12/05/2014 PAST SURGICAL HISTORY Procedure Laterality Date DELIVERY ONLY 03/20/2011 , low transverse DELIVERY+ CARE March 02, 2009 COLONOSCOPY FLX DX W/COLLJ SPEC WHEN PFRMD 06/16/2019 Colonoscopy ESOPHAGOGASTRODUODENOSCOPY TRANSORAL DIAGNOSTIC 09/02/2018 EGD LAPS SURG CHOLECYSTECTOMY W/CHOLANGIOGRAPHY 04/2015 in [facility]. PAST SURGICAL HISTORY OF wisdom teeth extraction Current Outpatient Medications Medication Sig sertraline (ZOLOFT) 50 mg tablet Take 1 tablet by mouth once daily. cranberry fruit extract (CRANBERRY EXTRACT ORAL) Take 1 tablet by mouth once daily. Etonogestrel-Ethinyl Estradiol (NUVARING) 0.12-0.015 mg/24 hr vaginal ring Use 1 Each vaginally as directed. Insert vaginally and leave in place for 3 consecutive weeks, then remove and place a new ring and skip menses. budesonide (PULMICORT FLEXHALER) 180 mcg/actuation aepb Inhale 2 Puffs as instructed twice daily. albuterol HFA (VENTOLIN HFA) 90 mcg/actuation inhaler Inhale 2 Puffs as instructed every 4 hours as needed. albuterol (PROVENTIL) 2.5 mg /3 mL (0.083 %) nebulizer solution Use 3 mL via nebulizer every 4 hours as needed. Use over 5-15minutes. ketoconazole (NIZORAL) 2 % shampoo Massage into damp scalp 3 times weekly. Allow to sit for 5 minutes prior to rinsing. ibuprofen (MOTRIN) 600 mg tablet Take 1 tablet by mouth every 6 hours as needed for pain. EPINEPHrine (EPIPEN) 0.3 mg/0.3 mL auto-injector As directed. If needed: have someone drive you the emergency room after for observation. Cholecalciferol, Vitamin D3, 2,000 unit cap Take 1 tablet by mouth once daily. No current facility-administered medications for this visit. ALLERGIES Allergen Reactions Keflex [Cephalexin] Rash Type 4 DTH Drug rash during course of treatment 06/2022. See A/I note 06/13/22 for details Neosporin [Neomycin* Rash Azithromycin Hives, Swelling Urticaria and angioedema Bicitra [Sodium Cit* Rash Patient tolerates foods containing citric acid without adverse reaction Citric Acid Unknown Neomycin Unknown Pollen Extracts Itching trees and grass, allergic rhinitis, asthma dust mites, animal dander, mold Polymyxin B Unknown Social History Tobacco Use Smoking status: Never Smokeless tobacco: Never Vaping Use Vaping Use: Never used Substance Use Topics Alcohol use: No Drug use: No ROS See HPI PE: BP 110/80 Pulse 80 Temp (Src) 98.4 (Right Tympanic) Resp 16 Wt 180 lb (81.6kg) LMP 02/13/2022 Gen: AANDOX3, NAD, non-toxic appearing HEENT: PERRLA, EOMs intact b/l, nares without drainage, pharynx without erythema, exudate, lesions, or drainage. Uvula midline. Neck: No LAD, no thyromegaly, no meningismus. CV: RRR, no murmur Lungs: CTA b/l, no wheezing Skin: No rashes, lesions, or wounds on exposed skin. Central obesity ASSESSMENT/PLAN: 1. IFG (impaired fasting glucose) - ICD9: 790.21, ICD10: R73.01 (primary diagnosis) - diet controlled, has been taking semaglutide medication through [facility] and doing well with this. Will continue rx through [facility]- she is agreeable and she is aware of possible SE with medication 2. Seborrheic dermatitis - ICD9: 690.10, ICD10: L21.9 - KETOCONAZOLE 2 % SHAMPOO 3. Perimenopausal - ICD9: 627.2, ICD10: N95.1 - diet controlled, has been taking semaglutide medication through [facility] and doing well with this. Will continue rx through [facility]- she is agreeable and she is aware of possible SE with medication 4. Well adult exam - ICD9: V70.0, ICD10: Z00.00 - COMP METABOLIC PANEL - CBC + DIFF - HGB A1C - LIPID PANEL BASIC - TSH BLD - T4 FREE/FREE THYROX 5. Obesity, Class I, BMI 30-34.9 - ICD9: 278.00, ICD10: E66.9 - diet controlled, has been taking semagl (more content not included)... [facility] 09-16-2023 History of Present illness Narrative CC: Meghan Jeffrey is a 48 year old female who presents to the office for follow up HPI: IFG, obesity, dysmetabolic syndrome. Has been on ozempic x 1 month through [facility] but not able to afford brand name medication. Was tolerating medication well without any SE, was able to control her appetite and overeating. Then was getting rx through [facility] semaglutide which she is tolerating. Now weight is down from 202 lbs in May and now weight 180 lbs. She would like to continue through our office with monitoring. Had some pelvic discomfort this last fall, had pelvic US which confirms her known uterine fibroids. PAST MEDICAL HISTORY Diagnosis Date Allergy Seasonal and Environmental Allergies Depressive disorder, not elsewhere classified Diffuse cystic mastopathy History of echocardiogram 01/02/2021 at [facility]-Dr. Swain-EF 55% Low HDL (under 40) 12/05/2014 Unspecified asthma(493.90) Vitamin D deficiency 12/05/2014 PAST SURGICAL HISTORY Procedure Laterality Date DELIVERY ONLY 03/20/2011 , low transverse DELIVERY+ CARE March 02, 2009 COLONOSCOPY FLX DX W/COLLJ SPEC WHEN PFRMD 06/16/2019 Colonoscopy ESOPHAGOGASTRODUODENOSCOPY TRANSORAL DIAGNOSTIC 09/02/2018 EGD LAPS SURG CHOLECYSTECTOMY W/CHOLANGIOGRAPHY 04/2015 in [facility]. PAST SURGICAL HISTORY OF wisdom teeth extraction Current Outpatient Medications Medication Sig sertraline (ZOLOFT) 50 mg tablet Take 1 tablet by mouth once daily. cranberry fruit extract (CRANBERRY EXTRACT ORAL) Take 1 tablet by mouth once daily. Etonogestrel-Ethinyl Estradiol (NUVARING) 0.12-0.015 mg/24 hr vaginal ring Use 1 Each vaginally as directed. Insert vaginally and leave in place for 3 consecutive weeks, then remove and place a new ring and skip menses. budesonide (PULMICORT FLEXHALER) 180 mcg/actuation aepb Inhale 2 Puffs as instructed twice daily. albuterol HFA (VENTOLIN HFA) 90 mcg/actuation inhaler Inhale 2 Puffs as instructed every 4 hours as needed. albuterol (PROVENTIL) 2.5 mg /3 mL (0.083 %) nebulizer solution Use 3 mL via nebulizer every 4 hours as needed. Use over 5-15minutes. ketoconazole (NIZORAL) 2 % shampoo Massage into damp scalp 3 times weekly. Allow to sit for 5 minutes prior to rinsing. ibuprofen (MOTRIN) 600 mg tablet Take 1 tablet by mouth every 6 hours as needed for pain. EPINEPHrine (EPIPEN) 0.3 mg/0.3 mL auto-injector As directed. If needed: have someone drive you the emergency room after for observation. Cholecalciferol, Vitamin D3, 2,000 unit cap Take 1 tablet by mouth once daily. No current facility-administered medications for this visit. ALLERGIES Allergen Reactions Keflex [Cephalexin] Rash Type 4 DTH Drug rash during course of treatment 06/2022. See A/I note 06/13/22 for details Neosporin [Neomycin* Rash Azithromycin Hives, Swelling Urticaria and angioedema Bicitra [Sodium Cit* Rash Patient tolerates foods containing citric acid without adverse reaction Citric Acid Unknown Neomycin Unknown Pollen Extracts Itching trees and grass, allergic rhinitis, asthma dust mites, animal dander, mold Polymyxin B Unknown Social History Tobacco Use Smoking status: Never Smokeless tobacco: Never Vaping Use Vaping Use: Never used Substance Use Topics Alcohol use: No Drug use: No ROS See HPI PE: BP 110/80 Pulse 80 Temp (Src) 98.4 (Right Tympanic) Resp 16 Wt 180 lb (81.6kg) LMP 02/13/2022 Gen: A&OX3, NAD, non-toxic appearing HEENT: PERRLA, EOMs intact b/l, nares without drainage, pharynx without erythema, exudate, lesions, or drainage. Uvula midline. Neck: No LAD, no thyromegaly, no meningismus. CV: RRR, no murmur Lungs: CTA b/l, no wheezing Skin: No rashes, lesions, or wounds on exposed skin. Central obesity ASSESSMENT/PLAN: 1. IFG (impaired fasting glucose) - ICD9: 790.21, ICD10: R73.01 (primary diagnosis) - diet controlled, has been taking [facility]ag[facility]ide medication [facility] and doing well with this. Will continue rx through [facility]- she is agreeable and she is aware of possible SE with medication 2. Seborrheic dermatitis - ICD9: 690.10, ICD10: L21.9 - KETOCONAZOLE 2 % SHAMPOO 3. Perimenopausal - ICD9: 627.2, ICD10: N95.1 - diet controlled, has been taking semaglutide medication through [facility] and doing well with this. Will continue rx through [facility]- she is agreeable and she is aware of possible SE with medication 4. Well adult exam - ICD9: V70.0, ICD10: Z00.00 - COMP METABOLIC PANEL - CBC + DIFF - HGB A1C - LIPID PANEL BASIC - TSH BLD - T4 FREE/FREE THYROX 5. Obesity, Class I, BMI 30-34.9 - ICD9: 278.00, ICD10: E66.9 - diet controlled, has been taking semaglutide medication through [facility] and doing well with this. Will continue rx through [facility] pharmacy- she is agreeable and she is aware of possible SE with medication 6. Dysmetabolic syndrome - ICD9: 277.7, ICD10: E88.810 - diet controlled, has been taking semaglutide medication through compounding pharmacy and doing well with this. Will continue rx through [facility] pharmacy- she is agreeable and she is aware of possible SE with medication Jesus Manuel Barth DO Return if no improvement. Follow up with Jesus Manuel Barth DO. To ER if develops chest pain, shortness of breath. Discussed risks, benefits, alternatives, and potential side effects of medications. Patient/Guardian expressed understanding and agreed with the plan. See patient instructions. Jesus Manuel Barth DO [address] [place] [address] documented in this encounter [facility] 07-20-2023 Miscellaneous Notes Patient notified of results, verbalized understanding of instructions given. Yvonne Sharpe MA ----- Message from Gabriela Tristan APRN.SHINGLER sent at 07/20/2023 1:17 PM EDT ----- Urine culture did not show clear evidence of infection, however it appears sample may have been contaminated with skin bacteria during collection. She may continue to take antibiotic if it has been helpful. Recommend follow up with PCP to ensure hematuria has resolved. Gabriela Tristan CNP documented in this encounter [facility] 07-19-2023 Note HNO ID: [id number] Author: Gabriela Tristan APRN.GRANT Service: ? Author Type: Nurse Practitioner Type: Progress Notes Filed: 07/19/2023 8:12 AM Note Text: Subjective UTI Associated symptoms include chills, nausea, frequency and urgency. Pertinent negatives include no vomiting, no hematuria and no flank pain. Meghan Jeffrey is a 48 year old female who presents with UTI symptoms x 6 days. She has had dysuria, frequency and urgency. She has had some chills and nausea. Denies fever or new back pain. She has not taken any medication at home for her symptoms. Review of Systems Constitutional: Positive for chills. Negative for fever. Respiratory: Negative. Cardiovascular: Negative. Gastrointestinal: Positive for nausea. Negative for abdominal pain, diarrhea and vomiting. Genitourinary: Positive for dysuria, frequency and urgency. Negative for flank pain and hematuria. Musculoskeletal: Negative for back pain. BP 104/80 Pulse 70 Temp 36.3 ?C (97.3 ?F) Resp 21 Wt 88.4 kg (194 lb 12.8 oz) LMP 02/13/2022 SpO2 96% BMI 32.46 kg/m? PAST MEDICAL HISTORY Diagnosis Date Allergy Seasonal and Environmental Allergies Depressive disorder, not elsewhere classified Diffuse cystic mastopathy History of echocardiogram 01/02/2021 at [facility]-Dr. Swain-EF 55% Low HDL (under 40) 12/05/2014 Unspecified asthma(493.90) Vitamin D deficiency 12/05/2014 PAST SURGICAL HISTORY Procedure Laterality Date DELIVERY ONLY 03/20/2011 , low transverse DELIVERY+ CARE March 02, 2009 COLONOSCOPY FLX DX W/COLLJ SPEC WHEN PFRMD 06/16/2019 Colonoscopy ESOPHAGOGASTRODUODENOSCOPY TRANSORAL DIAGNOSTIC 09/02/2018 EGD LAPS SURG CHOLECYSTECTOMY W/CHOLANGIOGRAPHY 04/2015 in [facility]. PAST SURGICAL HISTORY OF wisdom teeth extraction ALLERGIES Keflex [Cephalexin], Neosporin [Efljamwg-Vigjvdsopf-Zunqwsgax], Azithromycin, Bacitracin, Bicitra [Sodium Citrate-Citric Acid], Citric Acid, Environmental [Other], Neomycin, Polymyxin B, and Seasonal Allergies [Other] MEDICATIONS albuterol (PROVENTIL) 2.5 mg /3 mL (0.083 %) nebulizer solution Use 3 mL via nebulizer every 4 hours as needed. Use over 5-15minutes. albuterol HFA (VENTOLIN HFA) 90 mcg/actuation inhaler Inhale 2 Puffs as instructed every 4 hours as needed. budesonide (PULMICORT FLEXHALER) 180 mcg/actuation aepb Inhale 2 Puffs as instructed twice daily. buPROPion XL (WELLBUTRIN XL) 150 mg 24 hr tablet Take 1 tablet by mouth once daily. Cholecalciferol, Vitamin D3, 2,000 unit cap Take 1 tablet by mouth once daily. cranberry fruit extract (CRANBERRY EXTRACT ORAL) Take 1 tablet by mouth once daily. EPINEPHrine (EPIPEN) 0.3 mg/0.3 mL auto-injector As directed. If needed: have someone drive you the emergency room after for observation. Etonogestrel-Ethinyl Estradiol (NUVARING) 0.12-0.015 mg/24 hr vaginal ring Use 1 Each vaginally as directed. Insert vaginally and leave in place for 3 consecutive weeks, then remove and place a new ring and skip menses. ibuprofen (MOTRIN) 600 mg tablet Take 1 tablet by mouth every 6 hours as needed for pain. ketoconazole (NIZORAL) 2 % shampoo Massage into damp scalp 3 times weekly. Allow to sit for 5 minutes prior to rinsing. semaglutide (OZEMPIC) 0.25 mg or 0.5 mg (2 mg/3 mL) pen Inject 0.25 mg subcutaneously one time a week. sertraline (ZOLOFT) 50 mg tablet Take 1 tablet by mouth once daily. sulfamethoxazole-trimethoprim (BACTRIM DS) 800-160 mg per tablet Take 1 tablet by mouth two times a day for 7 days. FAMILY HISTORY Problem Relation Age of Onset Hypertension Mother Lipids Mother High Cholesterol Hypertension Father Lipids Father High Cholesterol Alcohol/Drug Father Allergies Father other (JEFFREY) Father other (Melanoma dx age 73 currently 73 (on forehead)) Father other (Non-Hodgkin's lymphoma dx 72 + Agent orange exposure) Father other (Sarcoma dx age 72 + Agent orange exposure) Father other (Colon Cancer dx 80 currently age 100) Maternal Grandmother Alcohol/Drug Paternal Grandmother ETOH other (LUNG CANCER +TOB use) Paternal Grandmother Heart Paternal Grandfather Alcohol/Drug Paternal Grandfather ETOH other (Heart Attack d. in his 40s) Paternal Grandfather Breast Cancer Other GREAT AUNT Social History Tobacco Use Smoking status: Never Smokeless tobacco: Never Vaping Use Vaping Use: Never used Substance Use Topics Alcohol use: No Drug use: No Objective Physical Exam Vitals and nursing note reviewed. Constitutional: General: She is not in acute distress. Appearance: Normal appearance. She is not ill-appearing. Cardiovascular: Rate and Rhythm: Normal rate and regular rhythm. Heart sounds: Normal heart sounds. Pulmonary: Effort: Pulmonary effort is normal. No respiratory distress. Breath sounds: Normal breath sounds. No wheezing or rales. Abdominal: General: There is no distension. Palpatio (more content not included)... [facility] 07-19-2023 History of Present illness Narrative Subjective UTI Associated symptoms include chills, nausea, frequency and urgency. Pertinent negatives include no vomiting, no hematuria and no flank pain. Meghan Jeffrey is a 48 year old female who presents with UTI symptoms x 6 days. She has had dysuria, frequency and urgency. She has had some chills and nausea. Denies fever or new back pain. She has not taken any medication at home for her symptoms. Review of Systems Constitutional: Positive for chills. Negative for fever. Respiratory: Negative. Cardiovascular: Negative. Gastrointestinal: Positive for nausea. Negative for abdominal pain, diarrhea and vomiting. Genitourinary: Positive for dysuria, frequency and urgency. Negative for flank pain and hematuria. Musculoskeletal: Negative for back pain. BP 104/80 Pulse 70 Temp 36.3 C (97.3 F) Resp 21 Wt 88.4 kg (194 lb 12.8 oz) LMP 02/13/2022 SpO2 96% BMI 32.46 kg/m PAST MEDICAL HISTORY Diagnosis Date Allergy Seasonal and Environmental Allergies Depressive disorder, not elsewhere classified Diffuse cystic mastopathy History of echocardiogram 01/02/2021 at [facility]-Dr. Swain-EF 55% Low HDL (under 40) 12/05/2014 Unspecified asthma(493.90) Vitamin D deficiency 12/05/2014 PAST SURGICAL HISTORY Procedure Laterality Date DELIVERY ONLY 03/20/2011 , low transverse DELIVERY+ CARE March 02, 2009 COLONOSCOPY FLX DX W/COLLJ SPEC WHEN PFRMD 06/16/2019 Colonoscopy ESOPHAGOGASTRODUODENOSCOPY TRANSORAL DIAGNOSTIC 09/02/2018 EGD LAPS SURG CHOLECYSTECTOMY W/CHOLANGIOGRAPHY 04/2015 in [facility]. PAST SURGICAL HISTORY OF wisdom teeth extraction ALLERGIES Keflex [Cephalexin], Neosporin [Mpsrbvle-Kkhmrxemfh-Dhpnuinfh], Azithromycin, Bacitracin, Bicitra [Sodium Citrate-Citric Acid], Citric Acid, Environmental [Other], Neomycin, Polymyxin B, and Seasonal Allergies [Other] MEDICATIONS albuterol (PROVENTIL) 2.5 mg /3 mL (0.083 %) nebulizer solution Use 3 mL via nebulizer every 4 hours as needed. Use over 5-15minutes. albuterol HFA (VENTOLIN HFA) 90 mcg/actuation inhaler Inhale 2 Puffs as instructed every 4 hours as needed. budesonide (PULMICORT FLEXHALER) 180 mcg/actuation aepb Inhale 2 Puffs as instructed twice daily. buPROPion XL (WELLBUTRIN XL) 150 mg 24 hr tablet Take 1 tablet by mouth once daily. Cholecalciferol, Vitamin D3, 2,000 unit cap Take 1 tablet by mouth once daily. cranberry fruit extract (CRANBERRY EXTRACT ORAL) Take 1 tablet by mouth once daily. EPINEPHrine (EPIPEN) 0.3 mg/0.3 mL auto-injector As directed. If needed: have someone drive you the emergency room after for observation. Etonogestrel-Ethinyl Estradiol (NUVARING) 0.12-0.015 mg/24 hr vaginal ring Use 1 Each vaginally as directed. Insert vaginally and leave in place for 3 consecutive weeks, then remove and place a new ring and skip menses. ibuprofen (MOTRIN) 600 mg tablet Take 1 tablet by mouth every 6 hours as needed for pain. ketoconazole (NIZORAL) 2 % shampoo Massage into damp scalp 3 times weekly. Allow to sit for 5 minutes prior to rinsing. semaglutide (OZEMPIC) 0.25 mg or 0.5 mg (2 mg/3 mL) pen Inject 0.25 mg subcutaneously one time a week. sertraline (ZOLOFT) 50 mg tablet Take 1 tablet by mouth once daily. sulfamethoxazole-trimethoprim (BACTRIM DS) 800-160 mg per tablet Take 1 tablet by mouth two times a day for 7 days. FAMILY HISTORY Problem Relation Age of Onset Hypertension Mother Lipids Mother High Cholesterol Hypertension Father Lipids Father High Cholesterol Alcohol/Drug Father Allergies Father other (JEFFREY) Father other (Melanoma dx age 73 currently 73 (on forehead)) Father other (Non-Hodgkin's lymphoma dx 72 + Agent orange exposure) Father other (Sarcoma dx age 72 + Agent orange exposure) Father other (Colon Cancer dx 80 currently age 100) Maternal Grandmother Alcohol/Drug Paternal Grandmother ETOH other (LUNG CANCER +TOB use) Paternal Grandmother Heart Paternal Grandfather Alcohol/Drug Paternal Grandfather ETOH other (Heart Attack d. in his 40s) Paternal Grandfather Breast Cancer Other GREAT AUNT Social History Tobacco Use Smoking status: Never Smokeless tobacco: Never Vaping Use Vaping Use: Never used Substance Use Topics Alcohol use: No Drug use: No Objective Physical Exam Vitals and nursing note reviewed. Constitutional: General: She is not in acute distress. Appearance: Normal appearance. She is not ill-appearing. Cardiovascular: Rate and Rhythm: Normal rate and regular rhythm. Heart sounds: Normal heart sounds. Pulmonary: Effort: Pulmonary effort is normal. No respiratory distress. Breath sounds: Normal breath sounds. No wheezing or rales. Abdominal: General: There is no distension. Palpations: Abdomen is soft. There is no mass. Tenderness: There is abdominal tenderness in the suprapubic area. There is no right CVA tenderness, left CVA tenderness or guarding. Skin: General: Skin is warm and dry. Neurological: Mental Status: She is alert. Office Visit on 07/19/2023 Component Date Value Ref Range Status GLUCOSE UA (POCT) 07/19/2023 Negative Negative mg/dL Final BILIRUBIN UA (POCT) 07/19/2023 Small (A) Negative Final KETONE UA (POCT) 07/19/2023 Trace Negative mg/dL Final SPECIFIC GRAVITY UA (POCT) 07/19/2023 1.025 1.005 - 1.030 Final HEMOGLOBIN/BLOOD UA (POCT) 07/19/2023 Moderate (A) Negative Final PH UA (POCT) 07/19/2023 6.0 4.5 - 8.0 Final PROTEIN UA (POCT) 07/19/2023 100 (A) Negative mg/dL Final UROBILINOGEN UA (POCT) 07/19/2023 0.2 Normal E.U./dL Final NITRITE UA (POCT) 07/19/2023 Negative Negative Final LEUKOCYTES UA (POCT) 07/19/2023 Moderate (A) Negative Final COLOR UA (POCT) 07/19/2023 Dark yellow Final CLARITY UA (POCT) 07/19/2023 Cloudy Final Last labs for kidney function: Component Latest Ref Rng & Units 08/09/2022 Protein, Total 6.3 - 8.0 g/dL 6.0 (L) Albumin 3.9 - 4.9 g/dL 3.7 (L) Calcium 8.5 - 10.2 mg/dL 9.2 Bilirubin, Total 0.2 - 1.3 mg/dL 0.2 Alkaline Phosphatase 34 - 123 U/L 63 AST 13 - 35 U/L 22 ALT 7 - 38 U/L 14 Glucose 74 - 99 mg/dL 78 BUN 7 - 21 mg/dL 11 Creatinine 0.58 - 0.96 mg/dL 0.71 Sodium 136 - 144 mmol/L 141 Potassium 3.7 - 5.1 mmol/L 4.0 Chloride 97 - 105 mmol/L 106 (H) CO2 22 - 30 mmol/L 23 Anion Gap 9 - 18 mmol/L 12 eGFR >=60 mL/min/1.73m 107 ASSESSMENT/PLAN: 1. Urinary frequency - ICD9: 788.41, ICD10: R35.0 acute - UA positive for bianca esterase, hematuria, and proteinuria - Send urine for culture - Begin treatment with Bactrim DS BID for 7 days - Patient education for prevention given - UA DIP, URINE (POC) - URINE CULTURE - SULFAMETHOXAZOLE 800 MG-TRIMETHOPRIM 160 MG TABLET - Follow-up with your PCP in 3-5 days if symptoms have not improved or sooner if symptoms worsen - Discussed red flags and need for immediate medical evaluation if any occur. - Discussed supportive care treatment with fluids, rest and analgesia. - Discussed expected course of illness Gabriela Tristan APRN.CNP documented in this encounter [facility] 07-19-2023 Instructions Gabriela Tristan APRN.CNP - 07/19/2023 7:39 AM EDT ASSESSMENT/PLAN: 1. Urinary frequency - ICD9: 788.41, ICD10: R35.0 acute - UA positive for bianca esterase, hematuria, and proteinuria - Send urine for culture - Begin treatment with Bactrim DS BID for 7 days - Patient education for prevention given - UA DIP, URINE (POC) - URINE CULTURE - SULFAMETHOXAZOLE 800 MG-TRIMETHOPRIM 160 MG TABLET - Follow-up with your PCP in 3-5 days if symptoms have not improved or sooner if symptoms worsen - Discussed red flags and need for immediate medical evaluation if any occur. - Discussed supportive care treatment with fluids, rest and analgesia. - Discussed expected course of illness Gabriela Tristan APRN.[facility] PATIENT INFO BLADDER INFECTION OVERVIEW Bladder infections are one of the most common infections, causing symptoms of burning with urination and needing to urinate frequently. A bladder infection is a type of urinary tract infection (UTI). Bladder infections are more common is women than men. Most women have an uncomplicated bladder infection that is easily treated with a short course of antibiotics. In men, bladder infections may also affect the prostate gland, and a longer course of treatment may be needed. BLADDER INFECTION CAUSES The urinary tract includes the kidneys (which filter urine), ureters (the tube that carries urine from the kidneys to the bladder), the bladder (which stores urine), and urethra (the tube that carries urine out of the bladder). Bacteria do not normally live in these areas. However, bacteria normally live close to the urethra in women and men who are not circumcised. Bladder infections occur when bacteria travel up the urethra into the bladder. Factors that increase the risk of developing a bladder infection include: Vaginal sex Use of spermicides History of past bladder infections Diabetes In men, not being circumcised or having anal sex increase the risk of bladder infections. BLADDER INFECTION SYMPTOMS The typical symptoms of a bladder infection include: Pain or burning when urinating Frequent need to urinate Urgent need to urinate Blood in the urine Fever, back pain, nausea, or vomiting are not common symptoms of a bladder infection, but can occur in people with a kidney infection (pyelonephritis). If you have these symptoms, you should call your doctor or nurse immediately. Is it a bladder infection or something else? -- Burning with urination can also occur in people with vaginitis (eg, yeast infection) or urethritis (inflammation of the urethra). For this reason, it is important to call your healthcare provider before assuming you have a bladder infection. BLADDER INFECTION DIAGNOSIS Simple bladder infections are usually diagnosed based upon your symptoms alone. However, most patients, especially those who have bladder infection symptoms for the first time, should see a healthcare provider for urine testing. Urine culture -- A urine culture is a test that uses a sample of urine to try and grow bacteria in a laboratory. It usually requires about 48 hours to get results. However, a urine culture is not always required to diagnose a bladder infection. Urine culture is often recommended if: You have never had a bladder infection before You have symptoms that are not typical for bladder infection You have had resistant bladder infections before You have frequent bladder infections You do not begin to feel better within 24 to 48 hours after starting antibiotics You are BLADDER INFECTION TREATMENT Bladder infection -- In young, healthy adolescents and adults with a bladder infection, the usual treatment includes a three to seven day course of antibiotics. The typical drugs chosen are: trimethoprim-sulfamethoxazole (Bactrim ), nitrofurantoin (Macrobid ), ciprofloxacin (Cipro ) or levofloxacin (Levaquin ). In men, the infection may involve your prostate gland and treatment is usually given for at least 7 days. Your symptoms should begin to resolve within one day after starting treatment. It is important to take the full course of antibiotics to completely eliminate the infection. If your symptoms persist for more than two or three days after starting treatment, call your healthcare provider. If needed, you can take a prescription medication that numbs the bladder and urethra (phenazopyridine [Pyridium ]) to reduce the burning pain of some UTIs. A similar medication is available without a prescription (eg, Uristat). Both medications change the color of the urine (usually blue or orange) and can interfere with laboratory testing. You should not take these medications for more than 48 hours due to the risk of side effects. These medications do not treat the infection and must be taken along with an antibiotic. Some providers recommend drinking more fluids while treating bladder infections to help flush bacteria from the bladder. Others believe that drinking more fluids may dilute the antibiotic in the bladder and make the medication less effective. No studies have been performed to address this issue. There are also no good studies on the effectiveness of cranberry juice for treating a bladder infection; we do not recommend using cranberry juice to treat bladder infections. Follow-up care -- Follow-up testing is not needed in healthy, young men or women with a bladder infection if symptoms resolve. women are usually asked to have a repeat urine culture one to two weeks after treatment has ended to make sure the bacteria are no longer in the urine. RECURRENT BLADDER INFECTIONS Bladder infections versus other causes -- Some adults, especially women, develop bladder infections frequently. In this case, it is important to confirm that your symptoms (eg, pain or burning, frequency, and urgency) are caused by a bladder infection. Symptoms are usually similar from one infection to another. The best way to confirm an infection is to have a urine culture. If your urine culture is negative for infection, other causes of pain, burning, and frequency should be investigated. There is no reason to take antibiotics if your urine culture is negative. Need for further testing -- If you continue to develop bladder infections, you may require further testing. If you continue to notice blood in your urine after your bladder infection has cleared, you should have further testing. Preventing recurrent UTIs -- Women with recurrent urinary tract infections may be advised to take steps to prevent bladder infections, including one or more of the following: Changes in control -- Women who develop frequent bladder infections and use spermicides, particularly those who also use a diaphragm, may be encouraged to use an alternate method of control. Cranberry products -- Taking cranberry juice or cranberry tablets has been promoted as one way to help prevent frequent bladder infections. However, this has not been proven. Drinking more fluid and urinating after intercourse -- Although studies have not proven that drinking more fluids or urinating soon after intercourse can prevent infection, some healthcare providers recommend these measures since they are not harmful. Drinking more fluid may help to wash out bacteria that enter the bladder. Postmenopausal women -- Postmenopausal women who develop recurrent bladder infections may benefit from using vaginal estrogen. Vaginal estrogen is available in a flexible ring that is worn in the vagina for three months (eg, Estring ), a small tablet (Vagifem ), or a cream (eg, Premarin or Estrace ). Vaginal estrogen is discussed in more detail in a separate topic review. Antibiotics -- A preventive antibiotic treatment may be recommended if you repeatedly develop bladder infections and have not responded to other preventive measures. Antibiotics are highly effective in preventing recurrent bladder infections and can be taken in several different ways. Preventive antibiotic -- You can take a low dose of an antibiotic once per day or three times per week for six months to several years. Antibiotics following intercourse -- In women who develop urinary tract infections after sex, taking a single low dose antibiotic after intercourse can help to prevent bladder infections. Self-treatment -- A plan to begin antibiotics at the first sign of a bladder infection may be recommended in some situations. Before starting this regimen, it is important that you have had testing (urine cultures) to confirm that your symptoms are caused by a bladder infection; some people have symptoms of a bladder infection but do not actually have an infection. documented in this encounter [facility] 07-01-2023 Note HNO ID: [id number] Author: Mady Ahmadi RDMS Service: ? Author Type: Heater Operator Type: Progress Notes Filed: 07/01/2023 4:47 PM Note Text: Radiology Service Progress Note PATIENT NAME: Meghan Jeffrey DATE OF SERVICE: July 01, 2023 TIME: 4:47 PM PATIENT IDENTITY VERIFICATION COMPLETED USING TWO (2) IDENTIFIERS: Name and Date of confirmed by patient verbally. FALL SCREENING: Has the patient had 2 falls in the last year or 1 fall with injury or currently using an Ambulatory Assistive Device (Walker, Cane, Wheelchair, Crutches, etc.)? No PATIENT GENDER DATA: Female. status: : No status: NO. PATIENT RELEVANT IMPLANT DATA REVIEWED: Not Applicable RADIOLOGY DEPARTMENT: Ultrasound PERIPHERAL IV DATA: Not applicable SIGNED BY: Mady Ahmadi RDMS July 01, 2023 4:47 PM [facility] 07-01-2023 History of Present illness Narrative Radiology Service Progress Note PATIENT NAME: Meghan Jeffrey DATE OF SERVICE: July 01, 2023 TIME: 4:47 PM PATIENT IDENTITY VERIFICATION COMPLETED USING TWO (2) IDENTIFIERS: Name and Date of confirmed by patient verbally. FALL SCREENING: Has the patient had 2 falls in the last year or 1 fall with injury or currently using an Ambulatory Assistive Device (Walker, Cane, Wheelchair, Crutches, etc.)? No PATIENT GENDER DATA: Female. status: : No status: NO. PATIENT RELEVANT IMPLANT DATA REVIEWED: Not Applicable RADIOLOGY DEPARTMENT: Ultrasound PERIPHERAL IV DATA: Not applicable SIGNED BY: Mady Ahmadi RDMS July 01, 2023 4:47 PM documented in this encounter [facility] 06-26-2023 Miscellaneous Notes Octavio--05/22/23 Nov--09/16/23 Last review--05/22/23 3ml with 0 refills Last labs--08/09/22 documented in this encounter [facility] 06-23-2023 Miscellaneous Notes Returned page at 2:25 PM Patient scratched her eye earlier today on a plastic bag. Originally painful, I was crying, pain has since resolved, but it is still tearing. Small red spot on the white part of her eye. No vision changes. I advised she use lubricating eye drops. She is aware that she may call back anytime should her condition worsen or should she change her mind or have any further questions. Encouraged to call us back or proceed immediately to the Emergency Room if patient develops vision loss or severe pain, or if her current symptoms worsen. 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 Patient was advised that [facility] cares do not include eye exams in their scope of service. Patient was conferenced to Main campus vacuum drier operator, Fiona, to speak to Ophthalmology construction job titles and was advised to call back for scheduling if she does not receive a return call; she verbalized understanding. Reason for Disposition Scratch on white of the eye (sclera) Answer Assessment - Initial Assessment Questions 1. MECHANISM: corner of plastic bag with cocoa powder in it made contact with left eyeball when she bent over 2. ONSET: 1315 3. LOCATION: lateral left sclera 4. APPEARANCE: looks bloodshot 5. VISION: normal 6. PAIN: denies 7. SIZE: 1/2 centimeter; u shaped 8. TETANUS: 9. CONTACTS: no 10. OTHER SYMPTOMS: none 11. : no; LMP unknown; is perimenopausal Protocols used: Eye [id number] documented in this encounter [facility] 05-22-2023 Miscellaneous Notes Electronic PA completed for ozempic. This was denied. It note it could be covered with dx of diabetes. At this time pt does not meet criteria for ozempic. documented in this encounter [facility] 05-22-2023 Miscellaneous Notes Called pt gave information below she voices understanding Will call and find out. Is she able to continue to use coupon monthly? If not, have her call insurance company to see if mounjaro or wegovy will be covered. Thank you, Estefanía Mosley APRN.[facility] Patient calls and states that she picked up her first dose Ozempic today and used coupon. Patient reports that she has already given herself first dose. Patient states that she was contacted by pharmacy via email that insurance will not cover future prescriptions. Patient asking what she should do now? Please review and advise, Viola Narvaez RN documented in this encounter [facility] 05-22-2023 Note HNO ID: [id number] Author: Estefanía Mosley APRN.GRANT Service: ? Author Type: Nurse Practitioner Type: Progress Notes Filed: 05/22/2023 12:14 PM Note Text: Chief Complaint Patient presents with: Discussion: About meds an fibroids HPI Meghan Jeffrey is a 47 year old female who presents here today for Above Complaints.. Meghan is an established patient of Dr. Meir DO. She is a new patient to me today. Concerns today.. Pelvic pain -- Hx of uterine fibroids -- found on an incidental finding of US of abd in 2021. No bleeding or pain prior. Now pt c/o 2 months of uterine cramping and pelvic pain intermittently. 6/10 discomfort when it hits. No bleeding remains. Wondering if fibroids worsening or enlarging. Family hx of mother with fibroids that led to hysterectomy. Weight management -- Taking wellbutrin 300 mg daily with no relief with weight. 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 Weight continues to increase. Diet-- sweets and sugar are her temptation. Otherwise eats very healthy. Numerous veggies in diet. Vegetarian. Despite Initial weight: 202lbs Past medical history, appointments, medications, allergies reviewed. Previous Medical History PAST MEDICAL HISTORY Diagnosis Date Allergy Seasonal and Environmental Allergies Depressive disorder, not elsewhere classified Diffuse cystic mastopathy History of echocardiogram 01/02/2021 at [facility]-Dr. Swain-EF 55% Low HDL (under 40) 12/05/2014 Unspecified asthma(493.90) Vitamin D deficiency 12/05/2014 Previous Surgical History PAST SURGICAL HISTORY Procedure Laterality Date DELIVERY ONLY 03/20/2011 , low transverse DELIVERY+ CARE March 02, 2009 COLONOSCOPY FLX DX W/COLLJ SPEC WHEN PFRMD 06/16/2019 Colonoscopy ESOPHAGOGASTRODUODENOSCOPY TRANSORAL DIAGNOSTIC 09/02/2018 EGD LAPS SURG CHOLECYSTECTOMY W/CHOLANGIOGRAPHY 04/2015 in [facility]. PAST SURGICAL HISTORY OF wisdom teeth extraction Family History FAMILY HISTORY Problem Relation Age of Onset Hypertension Mother Lipids Mother High Cholesterol Hypertension Father Lipids Father High Cholesterol Alcohol/Drug Father Allergies Father other (JEFFREY) Father other (Melanoma dx age 73 currently 73 (on forehead)) Father other (Non-Hodgkin's lymphoma dx 72 + Agent orange exposure) Father other (Sarcoma dx age 72 + Agent orange exposure) Father other (Colon Cancer dx 80 currently age 100) Maternal Grandmother Alcohol/Drug Paternal Grandmother ETOH other (LUNG CANCER +TOB use) Paternal Grandmother Heart Paternal Grandfather Alcohol/Drug Paternal Grandfather ETOH other (Heart Attack d. in his 40s) Paternal Grandfather Breast Cancer Other GREAT AUNT Patient Allergies ALLERGIES Allergen Reactions Keflex [Cephalexin] Rash Type 4 DTH Drug rash during course of treatment 06/2022. See A/I note 06/13/22 for details Neosporin [Neomycin* Rash Azithromycin Hives, Swelling Urticaria and angioedema Bacitracin Unknown Bicitra [Sodium Cit* Rash Patient tolerates foods containing citric acid without adverse reaction Citric Acid Unknown Environmental [Othe* dust mites, animal dander, mold Neomycin Unknown Polymyxin B Unknown Seasonal Allergies * Other: See Comments trees and grass, allergic rhinitis, asthma Current Medications Current Outpatient Medications on File Prior to Visit Medication Sig ketoconazole (NIZORAL) 2 % shampoo Massage into damp scalp 3 times weekly. Allow to sit for 5 minutes prior to rinsing. buPROPion XL (WELLBUTRIN XL) 150 mg 24 hr tablet Take 1 tablet by mouth once daily. sertraline (ZOLOFT) 50 mg tablet Take 1 tablet by mouth once daily. cranberry fruit extract (CRANBERRY EXTRACT ORAL) Take 1 tablet by mouth once daily. Etonogestrel-Ethinyl Estradiol (NUVARING) 0.12-0.015 mg/24 hr vaginal ring Use 1 Each vaginally as directed. Insert vaginally and leave in place for 3 consecutive weeks, then remove and place a new ring and skip menses. budesonide (PULMICORT FLEXHALER) 180 mcg/actuation aepb Inhale 2 Puffs as instructed twice daily. albuterol HFA (VENTOLIN HFA) 90 mcg/actuation inhaler Inhale 2 Puffs as instructed every 4 hours as needed. albuterol (PROVENTIL) 2.5 mg /3 mL (0.083 %) nebulizer solution Use 3 mL via nebulizer every 4 hours as needed. Use over 5-15minutes. Cholecalciferol, Vitamin D3, 2,000 unit cap Take 1 tablet by mouth once daily. predniSONE (DELTASONE) 10 mg tablet Take by mouth 4 tablets daily for 4 days, then 3 tablets daily for 4 days, 2 tablets daily for 4 days and 1 tablet daily for 4 days. (Patient not taking: Reported on 05/22/2023) ibuprofen (MOTRIN) 600 mg tablet Take 1 tablet by mouth every 6 hours as needed for pain. EPINEPHrine (EPIPEN) 0.3 mg/0.3 mL auto-injector As directed. If (more content not included)... [facility] 05-22-2023 Nurse Note Pt received her pneumonvax 20 as ordered . Tolerated well. documented in this encounter [facility] 05-22-2023 History of Present illness Narrative Chief Complaint Patient presents with: Discussion: About meds an fibroids HPI Meghan Jeffrey is a 47 year old female who presents here today for Above Complaints.. Meghan is an established patient of Dr. Meir DO. She is a new patient to me today. Concerns today.. Pelvic pain -- Hx of uterine fibroids -- found on an incidental finding of US of abd in 2021. No bleeding or pain prior. Now pt c/o 2 months of uterine cramping and pelvic pain intermittently. 6/10 discomfort when it hits. No bleeding remains. Wondering if fibroids worsening or enlarging. Family hx of mother with fibroids that led to hysterectomy. Weight management -- Taking wellbutrin 300 mg daily with no relief with weight. 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 Weight continues to increase. Diet-- sweets and sugar are her temptation. Otherwise eats very healthy. Numerous veggies in diet. Vegetarian. Despite Initial weight: 202lbs Past medical history, appointments, medications, allergies reviewed. Previous Medical History PAST MEDICAL HISTORY Diagnosis Date Allergy Seasonal and Environmental Allergies Depressive disorder, not elsewhere classified Diffuse cystic mastopathy History of echocardiogram 01/02/2021 at [facility]-Dr. Swain-EF 55% Low HDL (under 40) 12/05/2014 Unspecified asthma(493.90) Vitamin D deficiency 12/05/2014 Previous Surgical History PAST SURGICAL HISTORY Procedure Laterality Date DELIVERY ONLY 03/20/2011 , low transverse DELIVERY+ CARE March 02, 2009 COLONOSCOPY FLX DX W/COLLJ SPEC WHEN PFRMD 06/16/2019 Colonoscopy ESOPHAGOGASTRODUODENOSCOPY TRANSORAL DIAGNOSTIC 09/02/2018 EGD LAPS SURG CHOLECYSTECTOMY W/CHOLANGIOGRAPHY 04/2015 in [facility]. PAST SURGICAL HISTORY OF wisdom teeth extraction Family History FAMILY HISTORY Problem Relation Age of Onset Hypertension Mother Lipids Mother High Cholesterol Hypertension Father Lipids Father High Cholesterol Alcohol/Drug Father Allergies Father other (JEFFREY) Father other (Melanoma dx age 73 currently 73 (on forehead)) Father other (Non-Hodgkin's lymphoma dx 72 + Agent orange exposure) Father other (Sarcoma dx age 72 + Agent orange exposure) Father other (Colon Cancer dx 80 currently age 100) Maternal Grandmother Alcohol/Drug Paternal Grandmother ETOH other (LUNG CANCER +TOB use) Paternal Grandmother Heart Paternal Grandfather Alcohol/Drug Paternal Grandfather ETOH other (Heart Attack d. in his 40s) Paternal Grandfather Breast Cancer Other GREAT AUNT Patient Allergies ALLERGIES Allergen Reactions Keflex [Cephalexin] Rash Type 4 DTH Drug rash during course of treatment 06/2022. See A/I note 06/13/22 for details Neosporin [Neomycin* Rash Azithromycin Hives, Swelling Urticaria and angioedema Bacitracin Unknown Bicitra [Sodium Cit* Rash Patient tolerates foods containing citric acid without adverse reaction Citric Acid Unknown Environmental [Othe* dust mites, animal dander, mold Neomycin Unknown Polymyxin B Unknown Seasonal Allergies * Other: See Comments trees and grass, allergic rhinitis, asthma Current Medications Current Outpatient Medications on File Prior to Visit Medication Sig ketoconazole (NIZORAL) 2 % shampoo Massage into damp scalp 3 times weekly. Allow to sit for 5 minutes prior to rinsing. buPROPion XL (WELLBUTRIN XL) 150 mg 24 hr tablet Take 1 tablet by mouth once daily. sertraline (ZOLOFT) 50 mg tablet Take 1 tablet by mouth once daily. cranberry fruit extract (CRANBERRY EXTRACT ORAL) Take 1 tablet by mouth once daily. Etonogestrel-Ethinyl Estradiol (NUVARING) 0.12-0.015 mg/24 hr vaginal ring Use 1 Each vaginally as directed. Insert vaginally and leave in place for 3 consecutive weeks, then remove and place a new ring and skip menses. budesonide (PULMICORT FLEXHALER) 180 mcg/actuation aepb Inhale 2 Puffs as instructed twice daily. albuterol HFA (VENTOLIN HFA) 90 mcg/actuation inhaler Inhale 2 Puffs as instructed every 4 hours as needed. albuterol (PROVENTIL) 2.5 mg /3 mL (0.083 %) nebulizer solution Use 3 mL via nebulizer every 4 hours as needed. Use over 5-15minutes. Cholecalciferol, Vitamin D3, 2,000 unit cap Take 1 tablet by mouth once daily. predniSONE (DELTASONE) 10 mg tablet Take by mouth 4 tablets daily for 4 days, then 3 tablets daily for 4 days, 2 tablets daily for 4 days and 1 tablet daily for 4 days. (Patient not taking: Reported on 05/22/2023) ibuprofen (MOTRIN) 600 mg tablet Take 1 tablet by mouth every 6 hours as needed for pain. EPINEPHrine (EPIPEN) 0.3 mg/0.3 mL auto-injector As directed. If needed: have someone drive you the emergency room after for observation. No current facility-administered medications on file prior to visit. Social History Social History Tobacco Use Smoking status: Never Smokeless tobacco: Never Vaping Use Vaping Use: Never used Substance Use Topics Alcohol use: No Drug use: No REVIEW OF SYSTEMS: as above Reviewed relevant PMHx, PSHx, Social Hx, current medications and allergies. Review of Symptoms REVIEW OF SYSTEMS See HPI. EXAM: BP 104/70 (BP Site: Left Arm, BP Position: Sitting, BP Cuff Size: Large Adult) Pulse 72 Resp 12 Wt 91.9 kg (202 lb 9.6 oz) LMP 02/13/2022 BMI 33.75 kg/m General Appearance: Well appearing, alert, in no acute distress, well-hydrated, well nourished.. Skin: Skin color, texture, turgor normal, no suspicious rashes or lesions. Head: Normocephalic, no masses, lesions, tenderness or abnormalities. Lungs: Lungs clear to auscultation. No wheezing, rhonchi, rales.. Heart: RRR without murmur, gallop, or rubs. No ectopy. Abdomen: Normal abdominal exam, Abdomen soft, non-tender. Bowel sounds normal. No masses, organomegaly. Health Maintenance List HEPATITIS B(1 of 3 - 3-dose series) Never done PNEUMOCOCCAL(1 - PCV) Never done SPIROMETRY Never done HEPATITIS C SCREENING Never done COLORECTAL CANCER SCREENING due on 2022 INFLUENZA(1) due on 06/07/2023 ANNUAL PCP TEAM CHRONIC DISEASE VISIT due on 03/13/2024 MAMMOGRAM due on 04/29/2024 DIABETES SCREEN due on 08/09/2025 DTAP,TDAP,TD(3 - Td or Tdap) due on 02/05/2027 LIPID SCREEN due on 08/09/2027 PAP TESTING due on 03/13/2028 HPV TESTING due on 03/13/2028 HIV SCREENING Completed COVID-19 VACCINE Completed HPV VACCINE Aged Out ASSESSMENT/PLAN: 1. Encounter for immunization - ICD9: V03.89, ICD10: Z23 (primary diagnosis) - PNEUMOCOCCAL VACCINE (PREVNAR 20) 2. Weight gain - ICD9: 783.1, ICD10: R63.5 Start ozempic SQ weekly. Discussed side effects of medication. Continue wellbutrin if helping mood/depression. - SEMAGLUTIDE 0.25 MG OR 0.5 MG (2 MG/3 ML) SUBCUTANEOUS PEN INJECTOR - SEMAGLUTIDE 0.25 MG OR 0.5 MG (2 MG/3 ML) SUBCUTANEOUS PEN INJECTOR 3. Obesity, Class I, BMI 30-34.9 - ICD9: 278.00, ICD10: E66.9 Stable - SEMAGLUTIDE 0.25 MG OR 0.5 MG (2 MG/3 ML) SUBCUTANEOUS PEN INJECTOR - SEMAGLUTIDE 0.25 MG OR 0.5 MG (2 MG/3 ML) SUBCUTANEOUS PEN INJECTOR 4. Pelvic pain - ICD9: RNU0032, ICD10: R10.2 US as ordered -- compare fibroids to prior US. - US FEMALE PELVIS TRANSABD LTD - US FEMALE PELVIS TRANSVAG 5. Dyslipidemia - ICD9: 272.4, ICD10: E78.5 - SEMAGLUTIDE 0.25 MG OR 0.5 MG (2 MG/3 ML) SUBCUTANEOUS PEN INJECTOR 6. IFG (impaired fasting glucose) - ICD9: 790.21, ICD10: R73.01 - SEMAGLUTIDE 0.25 MG OR 0.5 MG (2 MG/3 ML) SUBCUTANEOUS PEN INJECTOR RTO as needed. Prescription instructions reviewed with patient as applicable. Potential red flag symptoms discussed with the patient. Reviewed appropriate action plan to take if red flag symptoms occur. Patient agreeable to treatment plan. Estefanía Dasilva APRN.SHINGLER [address] [place] [address] documented in this encounter [facility] 05-15-2023 Miscellaneous Notes Pt calling and states she is frustrated as she has always fought weight issues over the years. She takes Wellbutrin and when she last saw Dr. Barth, Dr. Barth told her she could double her Wellbutrin from 150 mg to 300 mg to see if that would help with the weight loss. Pt states it hasn't helped and she thinks she is up 10# from when she saw Dr. Barth last. Wanting to know if she can come in and talk with someone about it. Appt made with Estefanía Mosley on 05/22. documented in this encounter [facility] 04-30-2023 Miscellaneous Notes May 01, 2023 PID: [id number] Meghan Jeffrey [address] [place] [id number] Dear Ms. Jeffrey, We are pleased to inform you that the results of your recent breast imaging exam on 04/29/2023 are normal. Early detection of cancer is very important. We also understand recommendations regarding breast cancer screening are controversial. Please discuss with your primary care provider which strategy is best for you and whether a mammogram is right for you. Your imaging studies and report will be kept on file at [facility] as part of your permanent medical record and are available for your continuing care. Thank you for allowing us to help in meeting your health care needs. Sincerely, Dr. Ruby Interpreting Radiologist [facility] (Normal over 40) documented in this encounter [facility] 04-29-2023 Note HNO ID: [id number] Author: Ludmila Jung RT(R) Service: ? Author Type: Technologist Type: Progress Notes Filed: 04/29/2023 7:24 AM Note Text: Radiology Service Progress Note PATIENT NAME: Meghan Jeffrey DATE OF SERVICE: April 29, 2023 TIME: 7:24 AM PATIENT IDENTITY VERIFICATION COMPLETED USING TWO (2) IDENTIFIERS: Name and Date of confirmed by patient verbally. FALL SCREENING: Has the patient had 2 falls in the last year or 1 fall with injury or currently using an Ambulatory Assistive Device (Walker, Cane, Wheelchair, Crutches, etc.)? No PATIENT GENDER DATA: Female. status: : No status: NO. PATIENT RELEVANT IMPLANT DATA REVIEWED: Not Applicable RADIOLOGY DEPARTMENT: Mammography PERIPHERAL IV DATA: Not applicable SIGNED BY: RT Maida(R) April 29, 2023 7:24 AM [facility] 04-29-2023 History of Present illness Narrative Radiology Service Progress Note PATIENT NAME: Meghan Jeffrey DATE OF SERVICE: April 29, 2023 TIME: 7:24 AM PATIENT IDENTITY VERIFICATION COMPLETED USING TWO (2) IDENTIFIERS: Name and Date of confirmed by patient verbally. FALL SCREENING: Has the patient had 2 falls in the last year or 1 fall with injury or currently using an Ambulatory Assistive Device (Walker, Cane, Wheelchair, Crutches, etc.)? No PATIENT GENDER DATA: Female. status: : No status: NO. PATIENT RELEVANT IMPLANT DATA REVIEWED: Not Applicable RADIOLOGY DEPARTMENT: Mammography PERIPHERAL IV DATA: Not applicable SIGNED BY: RT Maida(R) April 29, 2023 7:24 AM documented in this encounter [facility] 03-13-2023 Miscellaneous Notes Addended by: JESUS MANUEL BARTH on: 03/13/2023 08:20 PM Modules accepted: Orders documented in this encounter [facility] 03-13-2023 Note HNO ID: [id number] Author: Jesus Manuel Barth DO Service: ? Author Type: Physician Type: Progress Notes Filed: 03/13/2023 1:54 PM Note Text: CC: Meghan Jeffrey is a 47 year old female who presents to the office for a well woman examination. HPI: She is currently without any complaints. She is using Nuvaring for menses management FSH in Nov was 5-6. She denies any vaginitis or vaginal discharge or vaginal dryness. She uses nuvaring for control. Currently her menstrual cycle is rare due to being on the nuvaring and using it continuously. She denies irregular bleeding, menorrhagia, menometrorrhagia. She is not on estrogen replacement and has no past history of estrogen replacement. Hx of uterine fibroids- no vaginal pain or discomfort Working on weight loss process. Has been exercising and keeping her carbohydrates low and increasing her protein intake. Mood, stable, taking zoloft and wellbutrin. PAST MEDICAL HISTORY Diagnosis Date Allergy Seasonal and Environmental Allergies Depressive disorder, not elsewhere classified Diffuse cystic mastopathy History of echocardiogram 01/02/2021 at [facility]-Dr. Swain-EF 55% Low HDL (under 40) 12/05/2014 Unspecified asthma(493.90) Vitamin D deficiency 12/05/2014 PAST SURGICAL HISTORY Procedure Laterality Date DELIVERY ONLY 03/20/2011 , low transverse DELIVERY+ CARE March 02, 2009 COLONOSCOPY FLX DX W/COLLJ SPEC WHEN PFRMD 06/16/2019 Colonoscopy ESOPHAGOGASTRODUODENOSCOPY TRANSORAL DIAGNOSTIC 09/02/2018 EGD LAPS SURG CHOLECYSTECTOMY W/CHOLANGIOGRAPHY 04/2015 in [facility]. PAST SURGICAL HISTORY OF wisdom teeth extraction Social History: Social History Tobacco Use Smoking status: Never Smokeless tobacco: Never Vaping Use Vaping Use: Never used Substance Use Topics Alcohol use: No Drug use: No FAMILY HISTORY Problem Relation Age of Onset Hypertension Mother Lipids Mother High Cholesterol Hypertension Father Lipids Father High Cholesterol Alcohol/Drug Father Allergies Father other (JEFFREY) Father other (Melanoma dx age 73 currently 73 (on forehead)) Father other (Non-Hodgkin's lymphoma dx 72 + Agent orange exposure) Father other (Sarcoma dx age 72 + Agent orange exposure) Father other (Colon Cancer dx 80 currently age 100) Maternal Grandmother Alcohol/Drug Paternal Grandmother ETOH other (LUNG CANCER +TOB use) Paternal Grandmother Heart Paternal Grandfather Alcohol/Drug Paternal Grandfather ETOH other (Heart Attack d. in his 40s) Paternal Grandfather Breast Cancer Other GREAT AUNT Current Outpatient prescriptions: mupirocin (BACTROBAN) 2 % ointment Apply to affected area twice daily for 5 days. sertraline (ZOLOFT) 50 mg tablet Take 1 tablet by mouth once daily. cranberry fruit extract (CRANBERRY EXTRACT ORAL) Take 1 tablet by mouth once daily. Etonogestrel-Ethinyl Estradiol (NUVARING) 0.12-0.015 mg/24 hr vaginal ring Use 1 Each vaginally as directed. Insert vaginally and leave in place for 3 consecutive weeks, then remove and place a new ring and skip menses. budesonide (PULMICORT FLEXHALER) 180 mcg/actuation aepb Inhale 2 Puffs as instructed twice daily. albuterol HFA (VENTOLIN HFA) 90 mcg/actuation inhaler Inhale 2 Puffs as instructed every 4 hours as needed. albuterol (PROVENTIL) 2.5 mg /3 mL (0.083 %) nebulizer solution Use 3 mL via nebulizer every 4 hours as needed. Use over 5-15minutes. ketoconazole (NIZORAL) 2 % shampoo Massage into damp scalp 3 times weekly. Allow to sit for 5 minutes prior to rinsing. buPROPion XL (WELLBUTRIN XL) 150 mg 24 hr tablet Take 1 tablet by mouth once daily. ibuprofen (MOTRIN) 600 mg tablet Take 1 tablet by mouth every 6 hours as needed for pain. EPINEPHrine (EPIPEN) 0.3 mg/0.3 mL auto-injector As directed. If needed: have someone drive you the emergency room after for observation. Cholecalciferol, Vitamin D3, 2,000 unit cap Take 1 tablet by mouth once daily. Allergies: ALLERGIES Allergen Reactions Keflex [Cephalexin] Rash Type 4 DTH Drug rash during course of treatment 06/2022. See A/I note 06/13/22 for details Neosporin [Neomycin* Rash Azithromycin Hives, Swelling Urticaria and angioedema Bacitracin Unknown Bicitra [Sodium Cit* Rash Patient tolerates foods containing citric acid without adverse reaction Citric Acid Unknown Environmental [Othe* dust mites, animal dander, mold Neomycin Unknown Polymyxin B Unknown Seasonal Allergies * Other: See Comments trees and grass, allergic rhinitis, asthma ROS: See HPI PE: 03/13/23 1200 BP: 100/60 Pulse: 64 Resp: 16 Temp: 36.1 ?C (97 ?F) TempSrc: Left Tympanic Weight: 86.2 kg (190 lb) Height: 165 cm (5' 4.96 ) Gen: AANDO, NAD, non-toxic appearing, Pleasant, cooperative HEENT: NT/AC, PERRLA, EOMs intact b/l, nares clear and patent b/l, pharynx without erythema, exudate or lesions. Uvula midline. EACs without (more content not included)... [facility] 03-13-2023 History of Present illness Narrative CC: Meghan Jeffrey is a 47 year old female who presents to the office for a well woman examination. HPI: She is currently without any complaints. She is using Nuvaring for menses management FSH in Nov was 5-6. She denies any vaginitis or vaginal discharge or vaginal dryness. She uses nuvaring for control. Currently her menstrual cycle is rare due to being on the nuvaring and using it continuously. She denies irregular bleeding, menorrhagia, menometrorrhagia. She is not on estrogen replacement and has no past history of estrogen replacement. Hx of uterine fibroids- no vaginal pain or discomfort Working on weight loss process. Has been exercising and keeping her carbohydrates low and increasing her protein intake. Mood, stable, taking zoloft and wellbutrin. PAST MEDICAL HISTORY Diagnosis Date Allergy Seasonal and Environmental Allergies Depressive disorder, not elsewhere classified Diffuse cystic mastopathy History of echocardiogram 01/02/2021 at [facility]-Dr. Swain-EF 55% Low HDL (under 40) 12/05/2014 Unspecified asthma(493.90) Vitamin D deficiency 12/05/2014 PAST SURGICAL HISTORY Procedure Laterality Date DELIVERY ONLY 03/20/2011 , low transverse DELIVERY+ CARE March 02, 2009 COLONOSCOPY FLX DX W/COLLJ SPEC WHEN PFRMD 06/16/2019 Colonoscopy ESOPHAGOGASTRODUODENOSCOPY TRANSORAL DIAGNOSTIC 09/02/2018 EGD LAPS SURG CHOLECYSTECTOMY W/CHOLANGIOGRAPHY 04/2015 in [facility]. PAST SURGICAL HISTORY OF wisdom teeth extraction Social History: Social History Tobacco Use Smoking status: Never Smokeless tobacco: Never Vaping Use Vaping Use: Never used Substance Use Topics Alcohol use: No Drug use: No FAMILY HISTORY Problem Relation Age of Onset Hypertension Mother Lipids Mother High Cholesterol Hypertension Father Lipids Father High Cholesterol Alcohol/Drug Father Allergies Father other (JEFFREY) Father other (Melanoma dx age 73 currently 73 (on forehead)) Father other (Non-Hodgkin's lymphoma dx 72 + Agent orange exposure) Father other (Sarcoma dx age 72 + Agent orange exposure) Father other (Colon Cancer dx 80 currently age 100) Maternal Grandmother Alcohol/Drug Paternal Grandmother ETOH other (LUNG CANCER +TOB use) Paternal Grandmother Heart Paternal Grandfather Alcohol/Drug Paternal Grandfather ETOH other (Heart Attack d. in his 40s) Paternal Grandfather Breast Cancer Other GREAT AUNT Current Outpatient prescriptions: mupirocin (BACTROBAN) 2 % ointment Apply to affected area twice daily for 5 days. sertraline (ZOLOFT) 50 mg tablet Take 1 tablet by mouth once daily. cranberry fruit extract (CRANBERRY EXTRACT ORAL) Take 1 tablet by mouth once daily. Etonogestrel-Ethinyl Estradiol (NUVARING) 0.12-0.015 mg/24 hr vaginal ring Use 1 Each vaginally as directed. Insert vaginally and leave in place for 3 consecutive weeks, then remove and place a new ring and skip menses. budesonide (PULMICORT FLEXHALER) 180 mcg/actuation aepb Inhale 2 Puffs as instructed twice daily. albuterol HFA (VENTOLIN HFA) 90 mcg/actuation inhaler Inhale 2 Puffs as instructed every 4 hours as needed. albuterol (PROVENTIL) 2.5 mg /3 mL (0.083 %) nebulizer solution Use 3 mL via nebulizer every 4 hours as needed. Use over 5-15minutes. ketoconazole (NIZORAL) 2 % shampoo Massage into damp scalp 3 times weekly. Allow to sit for 5 minutes prior to rinsing. buPROPion XL (WELLBUTRIN XL) 150 mg 24 hr tablet Take 1 tablet by mouth once daily. ibuprofen (MOTRIN) 600 mg tablet Take 1 tablet by mouth every 6 hours as needed for pain. EPINEPHrine (EPIPEN) 0.3 mg/0.3 mL auto-injector As directed. If needed: have someone drive you the emergency room after for observation. Cholecalciferol, Vitamin D3, 2,000 unit cap Take 1 tablet by mouth once daily. Allergies: ALLERGIES Allergen Reactions Keflex [Cephalexin] Rash Type 4 DTH Drug rash during course of treatment 06/2022. See A/I note 06/13/22 for details Neosporin [Neomycin* Rash Azithromycin Hives, Swelling Urticaria and angioedema Bacitracin Unknown Bicitra [Sodium Cit* Rash Patient tolerates foods containing citric acid without adverse reaction Citric Acid Unknown Environmental [Othe* dust mites, animal dander, mold Neomycin Unknown Polymyxin B Unknown Seasonal Allergies * Other: See Comments trees and grass, allergic rhinitis, asthma ROS: See HPI PE: 03/13/23 1200 BP: 100/60 Pulse: 64 Resp: 16 Temp: 36.1 C (97 F) TempSrc: Left Tympanic Weight: 86.2 kg (190 lb) Height: 165 cm (5' 4.96 ) Gen: A&O, NAD, non-toxic appearing, Pleasant, cooperative HEENT: NT/AC, PERRLA, EOMs intact b/l, nares clear and patent b/l, pharynx without erythema, exudate or lesions. Uvula midline. EACs without erythema or debris. TMs pearly diane with intact landmarks b/l. Neck: supple, No cervical LAD, no thyromegaly, no carotid bruits CV: RRR, normal S1 and S2, no murmurs, no gallops, no rubs, Pulses 2+ and symmetric in UE and LE b/l Lungs: normal respiratory effort, CTA b/l, no wheezing or rhonchi or rales Abd: soft, NT, ND, +BS, no hepatosplenomegaly Breasts: large size without any skin abnormalities or skin lesions. Nipples without skin changes, drainage or bleeding. No lumps or masses or pain on examination. No axillary LAD. Genitourinary: Urethral meatus intact without lesions externally, External genitalia appear normal without atrophy or lesions. Vagina is normal appearing, pink, without lesions or discharge or pain during examination. Cervix appears normal without bleeding or discharge. Bimanual examination reveals uterus to be mobile, normal size and non tender. No adnexal tenderness b/l. Skin: warm, dry, intact, No rashes or lesions on exposed skin. ASSESSMENT/PLAN: 1. Encounter for screening mammogram for malignant neoplasm of breast - ICD9: V76.12, ICD10: Z12.31 (primary diagnosis) - Completed pelvic and breast exam - Completed pap exam - Set up for mammogram, yearly mammogram recommended - Encouraged monthly BSE - Increase calcium intake with supplements or by diet (goal of 7197-1784 mg/day - Follow up for annual exam in one year. - WHITNEY SCREENING W LUAN 2. Seborrheic dermatitis - ICD9: 690.10, ICD10: L21.9 - KETOCONAZOLE 2 % SHAMPOO 3. Perimenopausal - ICD9: 627.2, ICD10: N95.1 stable - BUPROPION XL 150 MG TAB 4. Anxiety with depression - ICD9: 300.4, ICD10: F41.8 stable 5. Elevated TSH - ICD9: 794.5, ICD10: R79.89 Recheck labs - TSH BLD - T4 FREE/FREE THYROX - T3 FREE BLD 6. IFG (impaired fasting glucose) - ICD9: 790.21, ICD10: R73.01 Stable, continue efforts with weight loss. 7. Dyslipidemia - ICD9: 272.4, ICD10: E78.5 - Uncontrolled - Counseled on healthy diet and regular exercise - Discussed need for and benefit of weight loss. BMI 31.66 kg/(m^2) - LIPID PANEL BASIC - COMP METABOLIC PANEL 8. Well woman exam with routine gynecological exam - ICD9: V72.31, ICD10: Z01.419 - Completed pelvic and breast exam - Completed pap exam - Set up for mammogram, yearly mammogram recommended - Encouraged monthly BSE - Increase calcium intake with supplements or by diet (goal of 5842-8185 mg/day - Follow up for annual exam in one year. - LIPID PANEL BASIC - COMP METABOLIC PANEL - TSH BLD - T4 FREE/FREE THYROX - T3 FREE BLD 9. Obesity, Class I, BMI 30-34.9 - ICD9: 278.00, ICD10: E66.9 Weight decreasing - Behavioral intervention, - PSMF, and - Eat well program Jesus Manuel Barth DO To ER if develops chest pain, shortness of breath, or severe worsening of symptoms. Discussed risks, benefits, alternatives, and potential side effects of medications. Patient expressed understanding and agreed with the plan. Jesus Manuel Barth DO [address] [place] [address] documented in this encounter [facility] 03-10-2023 Note HNO ID: [id number] Author: Horacio Blair APRN.SHINGLER Service: ? Author Type: Nurse Practitioner Type: Progress Notes Filed: 03/10/2023 11:15 AM Note Text: Subjective HPI Nontoxic-appearing female presents urgent care chief complaint finger infection. Duration of symptoms 1 week. Associated symptoms swelling along fourth digit left hand cuticle fold. History of paronychia this feels similar. States she does pick at her nails. No OTC medication use. Mild pain if she pushes over the area. Denies any fever body aches chills productive cough chest pain shortness of breath pleuritic pain hemoptysis nausea vomiting abdominal pain change in bowel or bladder habits. Past medical history prescription medication use and allergies reviewed. .Patient presents with: infection: Possible infection on left hand ring finger x 1 week PAST MEDICAL HISTORY Diagnosis Date Allergy Seasonal and Environmental Allergies Depressive disorder, not elsewhere classified Diffuse cystic mastopathy History of echocardiogram 01/02/2021 at [facility]-Dr. Swain-EF 55% Low HDL (under 40) 12/05/2014 Unspecified asthma(493.90) Vitamin D deficiency 12/05/2014 PAST SURGICAL HISTORY Procedure Laterality Date DELIVERY ONLY 03/20/2011 , low transverse DELIVERY+ CARE March 02, 2009 COLONOSCOPY FLX DX W/COLLJ SPEC WHEN PFRMD 06/16/2019 Colonoscopy ESOPHAGOGASTRODUODENOSCOPY TRANSORAL DIAGNOSTIC 09/02/2018 EGD LAPS SURG CHOLECYSTECTOMY W/CHOLANGIOGRAPHY 04/2015 in [facility]. PAST SURGICAL HISTORY OF wisdom teeth extraction ALLERGIES Keflex [Cephalexin], Neosporin [Wpobpybh-Bnmluzmjcb-Royvxewgx], Azithromycin, Bacitracin, Bicitra [Sodium Citrate-Citric Acid], Citric Acid, Environmental [Other], Neomycin, Polymyxin B, and Seasonal Allergies [Other] MEDICATIONS sertraline (ZOLOFT) 50 mg tablet Take 1 tablet by mouth once daily. cranberry fruit extract (CRANBERRY EXTRACT ORAL) Take 1 tablet by mouth once daily. Etonogestrel-Ethinyl Estradiol (NUVARING) 0.12-0.015 mg/24 hr vaginal ring Use 1 Each vaginally as directed. Insert vaginally and leave in place for 3 consecutive weeks, then remove and place a new ring and skip menses. buPROPion XL (WELLBUTRIN XL) 150 mg 24 hr tablet Take 1 tablet by mouth once daily. ketoconazole (NIZORAL) 2 % shampoo Massage into damp scalp 3 times weekly. Allow to sit for 5 minutes prior to rinsing. budesonide (PULMICORT FLEXHALER) 180 mcg/actuation aepb Inhale 2 Puffs as instructed twice daily. albuterol HFA (VENTOLIN HFA) 90 mcg/actuation inhaler Inhale 2 Puffs as instructed every 4 hours as needed. ibuprofen (MOTRIN) 600 mg tablet Take 1 tablet by mouth every 6 hours as needed for pain. albuterol (PROVENTIL) 2.5 mg /3 mL (0.083 %) nebulizer solution Use 3 mL via nebulizer every 4 hours as needed. Use over 5-15minutes. EPINEPHrine (EPIPEN) 0.3 mg/0.3 mL auto-injector As directed. If needed: have someone drive you the emergency room after for observation. Cholecalciferol, Vitamin D3, 2,000 unit cap Take 1 tablet by mouth once daily. FAMILY HISTORY Problem Relation Age of Onset Hypertension Mother Lipids Mother High Cholesterol Hypertension Father Lipids Father High Cholesterol Alcohol/Drug Father Allergies Father other (JEFFREY) Father other (Melanoma dx age 73 currently 73 (on forehead)) Father other (Non-Hodgkin's lymphoma dx 72 + Agent orange exposure) Father other (Sarcoma dx age 72 + Agent orange exposure) Father other (Colon Cancer dx 80 currently age 100) Maternal Grandmother Alcohol/Drug Paternal Grandmother ETOH other (LUNG CANCER +TOB use) Paternal Grandmother Heart Paternal Grandfather Alcohol/Drug Paternal Grandfather ETOH other (Heart Attack d. in his 40s) Paternal Grandfather Breast Cancer Other GREAT AUNT Social History Tobacco Use Smoking status: Never Smokeless tobacco: Never Vaping Use Vaping Use: Never used Substance Use Topics Alcohol use: No Drug use: No BP 102/78 Pulse 70 Temp 37.2 ?C (98.9 ?F) Resp 20 Wt 88 kg (194 lb) LMP 02/13/2022 SpO2 96% BMI 32.28 kg/m? Review of Systems Constitutional: Negative for chills, fever and malaise/fatigue. HENT: Negative for congestion, ear discharge, ear pain, sinus pain and sore throat. Eyes: Negative for blurred vision, pain, discharge and redness. Respiratory: Negative for cough, hemoptysis, sputum production, shortness of breath, wheezing and stridor. Cardiovascular: Negative for chest pain. Gastrointestinal: Negative for abdominal pain, diarrhea, nausea and vomiting. Musculoskeletal: Negative for myalgias. Skin: Negative for itching and rash. Neurological: Negative for dizziness and headaches. Objective Physical Exam Constitutional: General: She is not in acute distress. Appearance: She is not diaphoretic. HENT: Head: Normocephalic. Eyes: Conjunctiva/sclera: Conjunctivae normal. Pup (more content not included)... [facility] 03-10-[facility]23 History of Present illness Narrative Images from the original note were not included. Subjective HPI Nontoxic-appearing female presents urgent care chief complaint finger infection. Duration of symptoms 1 week. Associated symptoms swelling along fourth digit left hand cuticle fold. History of paronychia this feels similar. States she does pick at her nails. No OTC medication use. Mild pain if she pushes over the area. Denies any fever body aches chills productive cough chest pain shortness of breath pleuritic pain hemoptysis nausea vomiting abdominal pain change in bowel or bladder habits. Past medical history prescription medication use and allergies reviewed. .Patient presents with: infection: Possible infection on left hand ring finger x 1 week PAST MEDICAL HISTORY Diagnosis Date Allergy Seasonal and Environmental Allergies Depressive disorder, not elsewhere classified Diffuse cystic mastopathy History of echocardiogram 01/02/2021 at [facility]-Dr. Swain-EF 55% Low HDL (under 40) 12/05/2014 Unspecified asthma(493.90) Vitamin D deficiency 12/05/2014 PAST SURGICAL HISTORY Procedure Laterality Date DELIVERY ONLY 03/20/2011 , low transverse DELIVERY+ CARE March 02, 2009 COLONOSCOPY FLX DX W/COLLJ SPEC WHEN PFRMD 06/16/2019 Colonoscopy ESOPHAGOGASTRODUODENOSCOPY TRANSORAL DIAGNOSTIC 09/02/2018 EGD LAPS SURG CHOLECYSTECTOMY W/CHOLANGIOGRAPHY 04/2015 in [facility]. PAST SURGICAL HISTORY OF wisdom teeth extraction ALLERGIES Keflex [Cephalexin], Neosporin [Jtrezume-Ullhhchpbb-Akwkgueoc], Azithromycin, Bacitracin, Bicitra [Sodium Citrate-Citric Acid], Citric Acid, Environmental [Other], Neomycin, Polymyxin B, and Seasonal Allergies [Other] MEDICATIONS sertraline (ZOLOFT) 50 mg tablet Take 1 tablet by mouth once daily. cranberry fruit extract (CRANBERRY EXTRACT ORAL) Take 1 tablet by mouth once daily. Etonogestrel-Ethinyl Estradiol (NUVARING) 0.12-0.015 mg/24 hr vaginal ring Use 1 Each vaginally as directed. Insert vaginally and leave in place for 3 consecutive weeks, then remove and place a new ring and skip menses. buPROPion XL (WELLBUTRIN XL) 150 mg 24 hr tablet Take 1 tablet by mouth once daily. ketoconazole (NIZORAL) 2 % shampoo Massage into damp scalp 3 times weekly. Allow to sit for 5 minutes prior to rinsing. budesonide (PULMICORT FLEXHALER) 180 mcg/actuation aepb Inhale 2 Puffs as instructed twice daily. albuterol HFA (VENTOLIN HFA) 90 mcg/actuation inhaler Inhale 2 Puffs as instructed every 4 hours as needed. ibuprofen (MOTRIN) 600 mg tablet Take 1 tablet by mouth every 6 hours as needed for pain. albuterol (PROVENTIL) 2.5 mg /3 mL (0.083 %) nebulizer solution Use 3 mL via nebulizer every 4 hours as needed. Use over 5-15minutes. EPINEPHrine (EPIPEN) 0.3 mg/0.3 mL auto-injector As directed. If needed: have someone drive you the emergency room after for observation. Cholecalciferol, Vitamin D3, 2,000 unit cap Take 1 tablet by mouth once daily. FAMILY HISTORY Problem Relation Age of Onset Hypertension Mother Lipids Mother High Cholesterol Hypertension Father Lipids Father High Cholesterol Alcohol/Drug Father Allergies Father other (JEFFREY) Father other (Melanoma dx age 73 currently 73 (on forehead)) Father other (Non-Hodgkin's lymphoma dx 72 + Agent orange exposure) Father other (Sarcoma dx age 72 + Agent orange exposure) Father other (Colon Cancer dx 80 currently age 100) Maternal Grandmother Alcohol/Drug Paternal Grandmother ETOH other (LUNG CANCER +TOB use) Paternal Grandmother Heart Paternal Grandfather Alcohol/Drug Paternal Grandfather ETOH other (Heart Attack d. in his 40s) Paternal Grandfather Breast Cancer Other GREAT AUNT Social History Tobacco Use Smoking status: Never Smokeless tobacco: Never Vaping Use Vaping Use: Never used Substance Use Topics Alcohol use: No Drug use: No BP 102/78 Pulse 70 Temp 37.2 C (98.9 F) Resp 20 Wt 88 kg (194 lb) LMP 02/13/2022 SpO2 96% BMI 32.28 kg/m Review of Systems Constitutional: Negative for chills, fever and malaise/fatigue. HENT: Negative for congestion, ear discharge, ear pain, sinus pain and sore throat. Eyes: Negative for blurred vision, pain, discharge and redness. Respiratory: Negative for cough, hemoptysis, sputum production, shortness of breath, wheezing and stridor. Cardiovascular: Negative for chest pain. Gastrointestinal: Negative for abdominal pain, diarrhea, nausea and vomiting. Musculoskeletal: Negative for myalgias. Skin: Negative for itching and rash. Neurological: Negative for dizziness and headaches. Objective Physical Exam Constitutional: General: She is not in acute distress. Appearance: She is not diaphoretic. HENT: Head: Normocephalic. Eyes: Conjunctiva/sclera: Conjunctivae normal. Pupils: Pupils are equal, round, and reactive to light. Cardiovascular: Rate and Rhythm: Normal rate and regular rhythm. Heart sounds: Normal heart sounds. Pulmonary: Effort: Pulmonary effort is normal. No tachypnea, accessory muscle usage or respiratory distress. Breath sounds: Normal breath sounds. No stridor. No wheezing, rhonchi or rales. Musculoskeletal: Hands: Cervical back: Normal range of motion. Comments: Edema noted. No erythema. Pain with palpation highlighted area. Area cleansed with alcohol prep. 18-gauge needle used to remove moderate amount of purulent drainage. Patient tolerated well. Dressing applied. Skin: General: Skin is warm and dry. Neurological: Mental Status: She is alert and oriented to person, place, and time. ASSESSMENT/PLAN: 1. Paronychia of finger, left - ICD9: 681.02, ICD10: L03.012 Diagnosed with paronychia. Will use mupirocin. warm soaks discussed. Patient was educated on supportive therapies. Patient will follow up with primary care provider as needed. Patient was instructed to immediately proceed to emergency room for any new, worsening, or symptoms lasting longer than anticipated. The patient's clinical presentation is otherwise unremarkable at this time. Based on exam and clinical finding, the patient is stable for discharge. Plan of care was discussed with patient. Patient verbalizes understanding and agrees to plan of care. This note was generated using [employer] software. It may contain errors in wording, punctuation, or spelling. Horacio Blair APRN.GRANT documented in this encounter [facility] 01-07-2023 Miscellaneous Notes Patient has been identified by name and date of : Yes Requested Prescriptions Pending Prescriptions Disp Refills sertraline (ZOLOFT) 50 mg tablet 90 tablet 3 Sig: Take 1 tablet by mouth once daily. RX INSTRUCTIONS: Patient aware RX will be sent to pharmacy. No need to notify patient. Autumn Humphrey MA Octavio: 09/2022 Nov: 03/2023 Last refill; 01/2022 documented in this encounter [facility] 10-31-2022 Note HNO ID: [id number] Author: Sesar Richmond MD Service: ? Author Type: Physician Type: Progress Notes Filed: 11/01/2022 9:54 AM Note Text: Meghan Jeffrey is a 47 year old female with a history of allergic rhinitis, asthma and urticaria who presents for a follow-up visit. Her primary concern is a possible allergy to citric acid. Pt states in 2010 was given bicitra to drink before c section. A few minutes later, when anesthesia was placing the spinal, the anesthesiologist commented on a blotchy rash on her back. Patient does not recall itching. She does not recall seeing a rash herself. When she saw an DOCTOR OSTEOPATHIC for follow-up later (of note, the DOCTOR OSTEOPATHIC was not present for the ), the DOCTOR OSTEOPATHIC added Bicitra (sodium citrate and citric acid) to her list of medication allergies as a precaution. Patient has been taking Wellbutrin for a few months and tolerating it without adverse reaction. She recently received Wellbutrin tablets made from a different audio specialist that contain citric acid. She has not taken any of these tablets yet. It is not clear whether or not she has taken previous medications or supplements containing citric acid. She ingests citrus fruits including oranges and tolerates these without adverse reaction. She notes some rhinorrhea and sniffling. She has been taking Zyrtec on almost a daily basis for the symptoms. She most recently had allergy testing completed at [facility] 15 to 20 years ago. She had multiple allergies at that time. Notes occasional cough, wheezing, chest tightness and shortness of breath. Uses Pulmicort 2 puffs twice daily. Uses albuterol 3-4 times per week for acute symptoms. She believes her increased nasal and asthma symptoms are secondary to dust exposure at a family member's home that is undergoing renovations. She is also exposed to cats in that home and her home. (From 11/17/20: This is a consultation requested by Michelle Rodriges PA-C for an allergy and immunology evaluation. A copy of my clinic note will be forwarded to the referring provider via electronic medical record or [place] mail. Meghan Jeffrey is a 45 year old female with a history of allergic rhinitis, asthma and urticaria who [facility]. Her last visit in this office was in 2015. At that time, I saw her after an episode of urticaria and angioedema resulting in hospitalization thought to be secondary to azithromycin. In mid October, she developed a recurrence of hives. Skin lesions are described as red raised pruritic and evanescent welts. Individual lesions resolved without residual bruising or hyperpigmentation.. Denies angioedema. Symptoms resolved shortly after starting famotidine 20 mg twice daily to take in addition to Zyrtec 10 mg twice daily and Benadryl at bedtime. She complained of excess dryness of her mouth associated with use of Zyrtec. She occasionally takes aspirin/NSAIDs without worsening symptoms. She believes her watch wristband was the cause of her hives. She began wearing the watch in August,. She previously noted mild itching beneath the wristband without skin rash or skin lesions. There are no other identified triggers to these symptoms. She denies concurrent symptoms including fevers, chills, night sweats and unintentional weight loss. Denies URI and gastrointestinal symptoms associated with urticaria. Denies a history of thyroid, liver or kidney disease. In June,, she also developed urticaria. The urticaria persisted for 3 to 4 weeks. There were no clear triggers to her symptoms. Since then, she has noted areas of hypopigmentation on her upper extremities which she feels is secondary to the urticaria. She used topical ketoconazole without relief. She is scheduled for dermatology evaluation. Her asthma symptoms have flared up somewhat in the past week. She notes cough and chest tightness. She has used her albuterol 4 times in the past week. Denies nocturnal awakenings due to respiratory symptoms. Denies treatment with systemic corticosteroids for asthma the past year. Denies emergency room visits or hospitalizations for asthma. She uses Pulmicort 180 1 inhalation once daily. Patient reports she will typically develop 1 asthma exacerbation per year. She notes occasional nasal and ocular symptoms, particularly in the spring and fall. She takes Zyrtec as needed with relief. She is no longer receiving subcutaneous allergy immunotherapy through [facility] as she felt her allergy symptoms were mild and did not require ongoing treatment. REVIEW OF SYSTEMS: Negative for fevers, chills, night sweats and unintentional weight loss. All other review of systems negative except for those listed above. PAST MEDICAL HISTORY Diagnosis Date Allergy Seasonal and Environmental Allergies Depressive disorder, not elsewhere classified Diffuse cystic mastopathy [facility]more [facility] not [facility] 10[facility] Nurse Note Patient having virtual visit for concern regarding citric acid allergy. Wants to know if she can take Wellbutrin. Otherwise asthma well controlled and no hives outbreak. Currently taking Pulmicort daily but plans on stopping in spring/summer. Recently needing Albuterol due to construction dust in home. No other concerns. documented in this encounter [facility] 10-31-2022 History of Present illness Narrative Meghan Jeffrey is a 47 year old female with a history of allergic rhinitis, asthma and urticaria who presents for a follow-up visit. Her primary concern is a possible allergy to citric acid. Pt states in 2010 was given bicitra to drink before c section. A few minutes later, when anesthesia was placing the spinal, the anesthesiologist commented on a blotchy rash on her back. Patient does not recall itching. She does not recall seeing a rash herself. When she saw an DOCTOR OSTEOPATHIC for follow-up later (of note, the DOCTOR OSTEOPATHIC was not present for the ), the DOCTOR OSTEOPATHIC added Bicitra (sodium citrate and citric acid) to her list of medication allergies as a precaution. Patient has been taking Wellbutrin for a few months and tolerating it without adverse reaction. She recently received Wellbutrin tablets made from a different audio specialist that contain citric acid. She has not taken any of these tablets yet. It is not clear whether or not she has taken previous medications or supplements containing citric acid. She ingests citrus fruits including oranges and tolerates these without adverse reaction. She notes some rhinorrhea and sniffling. She has been taking Zyrtec on almost a daily basis for the symptoms. She most recently had allergy testing completed at [facility] 15 to 20 years ago. She had multiple allergies at that time. Notes occasional cough, wheezing, chest tightness and shortness of breath. Uses Pulmicort 2 puffs twice daily. Uses albuterol 3-4 times per week for acute symptoms. She believes her increased nasal and asthma symptoms are secondary to dust exposure at a family member's home that is undergoing renovations. She is also exposed to cats in that home and her home. (From 11/17/20: This is a consultation requested by Michelle Rodriges PA-C for an allergy and immunology evaluation. A copy of my clinic note will be forwarded to the referring provider via electronic medical record or [place] mail. Meghan Jeffrey is a 45 year old female with a history of allergic rhinitis, asthma and urticaria who presents to [facility]. Her last visit in this office was in 2015. At that time, I saw her after an episode of urticaria and angioedema resulting in hospitalization thought to be secondary to azithromycin. In mid October, she developed a recurrence of hives. Skin lesions are described as red raised pruritic and evanescent welts. Individual lesions resolved without residual bruising or hyperpigmentation.. Denies angioedema. Symptoms resolved shortly after starting famotidine 20 mg twice daily to take in addition to Zyrtec 10 mg twice daily and Benadryl at bedtime. She complained of excess dryness of her mouth associated with use of Zyrtec. She occasionally takes aspirin/NSAIDs without worsening symptoms. She believes her watch wristband was the cause of her hives. She began wearing the watch in August,. She previously noted mild itching beneath the wristband without skin rash or skin lesions. There are no other identified triggers to these symptoms. She denies concurrent symptoms including fevers, chills, night sweats and unintentional weight loss. Denies URI and gastrointestinal symptoms associated with urticaria. Denies a history of thyroid, liver or kidney disease. In June,, she also developed urticaria. The urticaria persisted for 3 to 4 weeks. There were no clear triggers to her symptoms. Since then, she has noted areas of hypopigmentation on her upper extremities which she feels is secondary to the urticaria. She used topical ketoconazole without relief. She is scheduled for dermatology evaluation. Her asthma symptoms have flared up somewhat in the past week. She notes cough and chest tightness. She has used her albuterol 4 times in the past week. Denies nocturnal awakenings due to respiratory symptoms. Denies treatment with systemic corticosteroids for asthma the past year. Denies emergency room visits or hospitalizations for asthma. She uses Pulmicort 180 1 inhalation once daily. Patient reports she will typically develop 1 asthma exacerbation per year. She notes occasional nasal and ocular symptoms, particularly in the spring and fall. She takes Zyrtec as needed with relief. She is no longer receiving subcutaneous allergy immunotherapy through [facility] as she felt her allergy symptoms were mild and did not require ongoing treatment. REVIEW OF SYSTEMS: Negative for fevers, chills, night sweats and unintentional weight loss. All other review of systems negative except for those listed above. PAST MEDICAL HISTORY Diagnosis Date Allergy Seasonal and Environmental Allergies Depressive disorder, not elsewhere classified Diffuse cystic mastopathy History of echocardiogram 01/02/2021 at [facility]-Dr. Swain-EF 55% Low HDL (under 40) 12/05/2014 Unspecified asthma(493.90) Vitamin D deficiency 12/05/2014 MEDICATIONS: cranberry fruit extract (CRANBERRY EXTRACT ORAL) Take 1 tablet by mouth once daily. Etonogestrel-Ethinyl Estradiol (NUVARING) 0.12-0.015 mg/24 hr vaginal ring Use 1 Each vaginally as directed. Insert vaginally and leave in place for 3 consecutive weeks, then remove and place a new ring and skip menses. buPROPion XL (WELLBUTRIN XL) 150 mg 24 hr tablet Take 1 tablet by mouth once daily. ketoconazole (NIZORAL) 2 % shampoo Massage into damp scalp 3 times weekly. Allow to sit for 5 minutes prior to rinsing. sertraline (ZOLOFT) 50 mg tablet Take 1 tablet by mouth once daily. budesonide (PULMICORT FLEXHALER) 180 mcg/actuation aepb Inhale 2 Puffs as instructed twice daily. albuterol HFA (VENTOLIN HFA) 90 mcg/actuation inhaler Inhale 2 Puffs as instructed every 4 hours as needed. ibuprofen (MOTRIN) 600 mg tablet Take 1 tablet by mouth every 6 hours as needed for pain. albuterol (PROVENTIL) 2.5 mg /3 mL (0.083 %) nebulizer solution Use 3 mL via nebulizer every 4 hours as needed. Use over 5-15minutes. EPINEPHrine (EPIPEN) 0.3 mg/0.3 mL auto-injector As directed. If needed: have someone drive you the emergency room after for observation. Cholecalciferol, Vitamin D3, 2,000 unit cap Take 1 tablet by mouth once daily. ALLERGIES: Allergies As of Date: 10/31/2022 Allergen Noted Reaction KEFLEX [CEPHALEXIN] 06/13/2022 Rash NEOSPORIN [COBIPOEL-NZBWILUDCJ-XP* 5 Rash AZITHROMYCIN 06/26/2016 Hives and Swelling BACITRACIN 11/04/2017 Unknown BICITRA [SODIUM CITRATE-CITRIC AC*04/02/2011 Rash CITRIC ACID 11/04/2017 Unknown ENVIRONMENTAL [OTHER] 10/05/2005 NEOMYCIN 11/04/2017 Unknown POLYMYXIN B 11/04/2017 Unknown SEASONAL ALLERGIES [OTHER] 10/05/2005 Other: See Comments Fully Assessed 10/31/2022 PAST SURGICAL HISTORY Procedure Laterality Date DELIVERY ONLY 03/20/2011 , low transverse DELIVERY+ CARE March 02, 2009 COLONOSCOPY FLX DX W/COLLJ SPEC WHEN PFRMD 06/16/2019 Colonoscopy ESOPHAGOGASTRODUODENOSCOPY TRANSORAL DIAGNOSTIC 09/02/2018 EGD LAPS SURG CHOLECYSTECTOMY W/CHOLANGIOGRAPHY 04/2015 in [facility]. PAST SURGICAL HISTORY OF wisdom teeth extraction FAMILY HISTORY: Allergic rhinitis:yes: dad and son. Asthma: yes: dad and son. Eczema: yes: dad. Cystic fibrosis: no. Immunodeficiency: no. 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 Pets in the home: 2 cats Outdoor animals: There are no outdoor animals Tobacco smoke: No exposure in the home. VIDEO EXAM: (if completed, performed via video enabled technology) GENERAL: alert and appropriate, in no distress, well-hydrated, well nourished and happy, smiling, interactive SKIN: Scattered areas of hypopigmentation on the arms bilaterally HEAD: normocephalic, no abnormality or lesion noted EYES: no injection and visual acuity is grossly normal EARS: external ears normal NOSE: external nose normal without rhinorrhea NECK: full ROM, no cervical LNs noted RESPIRATORY: breathing non-labored NEUROLOGIC: no obvious deficit ASSESSMENT/PLAN: 1.) History of possible allergy to Bicitra: Patient's history is not consistent with IgE mediated allergy to citric acid as she includes foods containing citric acid in her diet and tolerates them without adverse reaction. Discussed the possibility of taking the first dose of Wellbutrin containing citric acid as an inert ingredient in the office versus at home. Patient is comfortable starting this medication at home. 2.) Mild persistent asthma: Continue Pulmicort 180 mcg 2 puffs twice daily Continue albuterol HFA inhaler with spacer 2 puffs or albuterol 2.5 mg nebulized every 4 hours as needed. 3.) Allergic rhinitis: Start fluticasone nasal spray 1 to 2 sprays each nostril once daily. Continue Zyrtec 10 mg once daily as needed. Depending on clinical course and patient preference, allergy skin tests to inhalant allergens may be completed at a future visit. 4.) History of spontaneous urticaria: If she develops hives, she should begin taking Zyrtec 10 mg twice daily and Pepcid 20 mg twice daily. The patient may also take benadryl 25-50 mg every 6 hours as needed. 5.) Discussed medication dosage, usage, side effects, and goals of treatment in detail. 6.) Follow-up in PRN - patient will return sooner should new symptoms or problems arise. Sesar Richmond MD documented in this encounter [facility] 10-29-2022 Miscellaneous Notes Patient has been identified by name and date of : Yes, Provider Melina Choudhury RN Date 10/29/2022 Time 4:57 pm Patient phones for refill(s): Requested Prescriptions Pending Prescriptions Disp Refills Etonogestrel-Ethinyl Estradiol (NUVARING) 0.12-0.015 mg/24 hr vaginal ring Sig: Use 1 Each vaginally as directed. Insert vaginally and leave in place for 3 consecutive weeks, then remove for [address] [facility] phoned for prescription. Contacted patient who verified refill was needed. Date of last office visit with pcp: 09/11/2022 Future visit: none Last 2 Encounter Wt Readings: Date: Wt: 09/11/2022 103.4 kg (228 lb) 08/06/2022 103.9 kg (229 lb) Previous labs/tests for medication: Blood Pressure: BUN (mg/dL) Date Value 08/09/2022 11 07/08/2021 6 Sodium (mmol/L) Date Value 08/09/2022 141 07/08/2021 143 Last 1 Encounter BP Readings: Date: BP: 09/11/2022 100/70 Liver Function: ALT (U/L) Date Value 08/09/2022 14 07/08/2021 21 AST (U/L) Date Value 08/09/2022 22 07/08/2021 30 Please advise. Thank you. Melina Choudhury RN documented in this encounter [facility] 10-29-2022 Miscellaneous Notes Opened in error. Tona Reynolds LPN documented in this encounter [facility] 10-29-2022 Miscellaneous Notes Pt states in 2010 was given bicitra to drink before c section. Pt states afterward while they were placing the spinal a few minutes later, she broke out in splotches Ever since has had Bicitra on her allergy list in case. Pt states was placed on wellbutrin by pcp a few months ago. Pt recently switched to a home delivery pharmacy. Pt states home delivery only has wellbutrin pill that has citric acid in it. Pt wanting to know if this is safe to take. Pt states she eats different acidic fruits without any problems. Please advise. Pt added on for 11/01 at 4pm to discuss further. is going to have her pcp send one month supply of wellbutrin to the local pharmacy in the mean time. OCTAVIO 06/13/22 documented in this encounter [facility] 10-13-2022 Miscellaneous Notes Patient has been identified by name and date of : Yes Requested Prescriptions Pending Prescriptions Disp Refills buPROPion XL (WELLBUTRIN XL) 150 mg 24 hr tablet [Pharmacy Med Name: BUPROPION HCL XL 150 MG TABLET] 15 tablet 0 Sig: take 1 tablet by mouth once daily RX INSTRUCTIONS: Patient aware RX will be sent to pharmacy. No need to notify patient. Autumn Humphrey MA Octavio: 09/2022 No appointment scheduled Last refill: 10/04/2022 15 tablets documented in this encounter [facility] 09-20-2022 Miscellaneous Notes Please review pt's message when she sent this prescription request in. Also asking for a 90 day supply to [facility]. Patient has been identified by name and date of : Yes Patient phones for refill(s): Requested Prescriptions Pending Prescriptions Disp Refills buPROPion XL (WELLBUTRIN XL) 150 mg 24 hr tablet 90 tablet 1 Sig: Take 1 tablet by mouth once daily. Date of last office visit in primary care: 09/11/22 Last 2 Encounter Wt Readings: Date: Wt: 09/11/2022 103.4 kg (228 lb) 08/06/2022 103.9 kg (229 lb) Previous labs/tests for medication: Not applicable Thank you. Tona Reynolds LPN documented in this encounter [facility] 09-14-2022 History of Present illness Narrative CC: Meghan Jeffrey is a 47 year old female who presents to the office for follow up HPI: Seen in office 5-6 weeks ago, at that time Urticaria, has had symptoms in the past in 2016 triggered by azithromycin and most recently about 1-2 months ago with use of Keflex for UTI. Has been seen by Affiliate Marketing Manager whom suggests use of antihistamine medication and Pepcid during these episodes, she does also have an epi pen for use. Has had a globus sensation in the past as well. Has had 2-3 episodes of idiopathic hives that haven't been determined to a cause specific reason. Obesity, weight gain, weight is 229 lbs. She is very frustrated with herself because she knows that she has been stress eating. Has been trying to follow weight watchers program but feels she has used all her points up by noon and then still very hungry after this. Admits that she is depressed as well- has gone through a lot of family stressors that she feels are also triggering this. Willing to trial on a medication as well. She was started on Wellbutrin medication soon after Currently She has been working on cutting back on simple carbohydrates and trying to avoid any artifical sugar and white sugar, trying to eat more lentils and plant based proteins since she doesn't eat meat or much dairy products. 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 Is feeling more satisfied. Glucose (mg/dL) Date Value 08/09/2022 78 07/08/2021 75 Potassium (mmol/L) Date Value 08/09/2022 4.0 07/08/2021 4.1 Sodium (mmol/L) Date Value 08/09/2022 141 07/08/2021 143 Chloride (mmol/L) Date Value 08/09/2022 106 07/08/2021 107 CO2 (mmol/L) Date Value 08/09/2022 23 07/08/2021 21 Creatinine (mg/dL) Date Value 08/09/2022 0.71 07/08/2021 0.69 BUN (mg/dL) Date Value 08/09/2022 11 07/08/2021 6 Anion Gap (mmol/L) Date Value 08/09/2022 12 07/08/2021 15 Calcium (mg/dL) Date Value 07/08/2021 8.9 Calcium, Total (mg/dL) Date Value 08/09/2022 9.2 Protein, Total (g/dL) Date Value 08/09/2022 6.0 07/08/2021 5.9 Albumin (g/dL) Date Value 08/09/2022 3.7 07/08/2021 3.7 Bilirubin, Total (mg/dL) Date Value 08/09/2022 0.2 07/08/2021 0.2 Alkaline Phosphatase (U/L) Date Value 08/09/2022 63 07/08/2021 46 AST (U/L) Date Value 08/09/2022 22 07/08/2021 30 ALT (U/L) Date Value 08/09/2022 14 07/08/2021 21 Hemoglobin (g/dL) Date Value 08/09/2022 12.8 07/08/2021 13.2 Hematocrit (%) Date Value 08/09/2022 41.1 07/08/2021 42.7 WBC (k/uL) Date Value 08/09/2022 8.63 07/08/2021 9.81 Cholesterol, Total Date Value Ref Range Status 08/09/2022 201 (H) <200 mg/dL Final Comment: <200 mg/dL, Desirable 200-239 mg/dL, Borderline high >239 mg/dL, High HDL Cholesterol Date Value Ref Range Status 08/09/2022 84 >39 mg/dL Final Comment: 40-59 mg/dL, Acceptable >59 mg/dL, High: Negative risk factor for coronary heart disease <40 mg/dL, Low: Positive risk factor for coronary heart disease LDL Cholesterol Date Value Ref Range Status 08/09/2022 97 <100 mg/dL Final Comment: <100 mg/dL, Optimal 100-129 mg/dL, Near optimal/above optimal 130-159 mg/dL, Borderline high 160-189 mg/dL, High >189 mg/dL, Very high Secondary prevention optimal LDL Cholesterol levels are recommended to be < 70 mg/dL Triglyceride Date Value Ref Range Status 08/09/2022 100 <150 mg/dL Final Comment: <150 mg/dL, Normal 150-199 mg/dL, Borderline high 200-499 mg/dL, High >499 mg/dL, Very high Elevated TSH levels, no previous history of hypothyroidism, does have fatigue, weight concerns and dry skin TSH Date Value Ref Range Status 08/09/2022 5.460 (H) 0.270 - 4.200 mIU/L Final Comment: If the patient is , TSH reference range varies by gestational period: First Trimester (weeks 9-12): 0.180-2.990 mIU/L Second Trimester: 0.110-3.980 mIU/L Third Trimester: 0.480-4.710 mIU/L Rajesh Reyes et al. A Practical Approach for the Verifications and Determination of Site- and Trimester-Specific Reference Intervals for Thyroid Function tests in . Thyroid, 2019:29:3:412-420. Farhat Orourke, et al. 2017 Guidelines of the [place] Thy[employer] for the Diagnosis and Management of Thyroid Disease during and the . Thyroid, 2017:27:3:315-389. PAST MEDICAL HISTORY Diagnosis Date Allergy Seasonal and Environmental Allergies Depressive disorder, not elsewhere classified Diffuse cystic mastopathy History of echocardiogram 01/02/2021 at [facility]-Dr. Swain-EF 55% Low HDL (under 40) 12/05/2014 Unspecified asthma(493.90) Vitamin D deficiency 12/05/2014 PAST SURGICAL HISTORY Procedure Laterality Date DELIVERY ONLY 03/20/2011 , low transverse DELIVERY+ CARE March 02, 2009 COLONOSCOPY FLX DX W/COLLJ SPEC WHEN PFRMD 06/16/2019 Colonoscopy ESOPHAGOGASTRODUODENOSCOPY TRANSORAL DIAGNOSTIC 09/02/2018 EGD LAPS SURG CHOLECYSTECTOMY W/CHOLANGIOGRAPHY 04/2015 in [facility]. PAST SURGICAL HISTORY OF wisdom teeth extraction Current Outpatient Medications Medication Sig buPROPion XL (WELLBUTRIN XL) 150 mg 24 hr tablet Take 1 tablet by mouth once daily. sertraline (ZOLOFT) 50 mg tablet Take 1 tablet by mouth once daily. Etonogestrel-Ethinyl Estradiol (NUVARING) 0.12-0.015 mg/24 hr vaginal ring Use 1 Each vaginally as directed. Insert vaginally and leave in place for 3 consecutive weeks, then remove and place a new ring and skip menses. budesonide (PULMICORT FLEXHALER) 180 mcg/actuation aepb Inhale 2 Puffs as instructed twice daily. albuterol HFA (VENTOLIN HFA) 90 mcg/actuation inhaler Inhale 2 Puffs as instructed every 4 hours as needed. eyitxmaqmoFGNLH-xqgzxp-aebiahehn (BMX 1:1:1) 1:1:1 liqd Mix in equal amounts - 1 T every 2hrs as needed for mouth pain, Swish/swallow or expectorate. (8oz) ibuprofen (MOTRIN) 600 mg tablet Take 1 tablet by mouth every 6 hours as needed for pain. gnbanvej-bmxnxsywn-kgqubphnqelqms (CORTISPORIN) 3.5-10,000-1 mg/mL-unit/mL-% otic suspension Use 3 Drops in the left ear four times daily. Etonogestrel-Ethinyl Estradiol (NUVARING) 0.12-0.015 mg/24 hr vaginal ring Use 1 Each vaginally as directed. Insert vaginally and leave in place for 3 consecutive weeks, then remove for 1 week. albuterol (PROVENTIL) 2.5 mg /3 mL (0.083 %) nebulizer solution Use 3 mL via nebulizer every 4 hours as needed. Use over 5-15minutes. ketoconazole (NIZORAL) 2 % shampoo Massage into damp scalp 3 times weekly. Allow to sit for 5 minutes prior to rinsing. triamcinolone acetonide (KENALOG) 0.1 % cream Apply 1 application to affected area twice daily as needed. Avoid use on the face. valACYclovir (VALTREX) 1 gram Take 2 tablets by mouth twice daily. for 1 day tretinoin (RETIN-A) 0.025 % topical cream Apply a pea size amount to affected area every other night for 2 weeks then increase to nightly as tolerated famotidine (PEPCID) 20 mg tablet Take 1 tablet by mouth twice daily. EPINEPHrine (EPIPEN) 0.3 mg/0.3 mL auto-injector As directed. If needed: have someone drive you the emergency room after for observation. Cholecalciferol, Vitamin D3, 2,000 unit cap Take 1 tablet by mouth once daily. No current facility-administered medications for this visit. ALLERGIES Allergen Reactions Keflex [Cephalexin] Rash Type 4 DTH Drug rash during course of treatment 06/2022. See A/I note 06/13/22 for details Neosporin [Neomycin* Rash Azithromycin Hives, Swelling Urticaria and angioedema Bacitracin Unknown Bicitra [Sodium Cit* Rash Citric Acid Unknown Environmental [Othe* dust mites, animal dander, mold Neomycin Unknown Polymyxin B Unknown Seasonal Allergies * Other: See Comments trees and grass, allergic rhinitis, asthma Social History Tobacco Use Smoking status: Never Smokeless tobacco: Never Vaping Use Vaping Use: Never used Substance Use Topics Alcohol use: No Drug use: No ROS: See HPI PE: BP 100/70 Pulse 76 Temp (Src) 96.8 (Right Tympanic) Resp 16 Wt 228 lb (103.4kg) LMP 02/13/2022 Gen: A&OX3, NAD, non-toxic appearing HEENT: PERRLA, EOMs intact b/l, nares without drainage, pharynx without erythema, exudate, lesions, or drainage. Uvula midline. Neck: No LAD, no thyromegaly, no meningismus. CV: RRR, no murmur Lungs: CTA b/l, no wheezing Skin: No rashes, lesions, or wounds on exposed skin. No edema, normal pulses Obese ASSESSMENT/PLAN: 1. Elevated TSH - ICD9: 794.5, ICD10: R79.89 (primary diagnosis) Recheck labs in 4-6 weeks, start on selenium supplement, need for low inflammatory diet and weight loss - THYROID PEROXIDASE ANTIBODY BLOOD - TSH BLD - T4 FREE/FREE THYROX - T3 FREE BLD 2. Seborrheic dermatitis - ICD9: 690.10, ICD10: L21.9 rx refilled. - KETOCONAZOLE 2 % SHAMPOO 3. Need for COVID-19 vaccine - ICD9: V04.89, ICD10: Z23 - PFIZER-BIONTECH COVID-19 BIVALENT BOOSTER VACCINE, AGE 12+ YR 4. Obesity, Class II, BMI 35-39.9 - ICD9: 278.00, ICD10: E66.9 Stable - Behavioral intervention, - Pharmacological intervention, and - Eat well program 5. Perimenopausal - ICD9: 627.2, ICD10: N95.1 See above, need for exercise and cutting out sugars from diet and regular sleep routine Jesus Manuel Barth DO Return if no improvement. Follow up with Jesus Manuel Barth DO. To ER if develops chest pain, shortness of breath Discussed risks, benefits, alternatives, and potential side effects of medications. Patient/Guardian expressed understanding and agreed with the plan. See patient instructions. Jesus Manuel Barth DO [address] [place] [address] documented in this encounter [facility] 09-11-2022 Instructions Jesus Manuel Barth DO - 09/11/2022 4:17 PM EST Recheck thyroid labs in the next 4-8 weeks Selenium at least 200 mg a day - or selenium rich healthy foods. Vitamin D daily - 2000 international unit(s) a day documented in this encounter [facility] 08-06-2022 History of Present illness Narrative CC: Meghan Jeffrey is a 47 year old female who presents to the office for follow up HPI: Urticaria, has had symptoms in the past in 2016 triggered by azithromycin and most recently about 1-2 months ago with use of Keflex for UTI. Has been seen by Affiliate Marketing Manager whom suggests use of antihistamine medication and Pepcid during these episodes, she does also have an epi pen for use. Has had a globus sensation in the past as well. Has had 2-3 episodes of idiopathic hives that haven't been determined to a cause specific reason. Obesity, weight gain, weight is 229 lbs. She is very frustrated with herself because she knows that she has been stress eating. Has been trying to follow weight watchers program but feels she has used all her points up by noon and then still very hungry after this. Admits that she is depressed as well- has gone through a lot of family stressors that she feels are also triggering this. Willing to trial on a medication as well. PAST MEDICAL HISTORY Diagnosis Date Allergy Seasonal and Environmental Allergies Depressive disorder, not elsewhere classified Diffuse cystic mastopathy History of echocardiogram 01/02/2021 at [facility]-Dr. Swain-EF 55% Low HDL (under 40) 12/05/2014 Unspecified asthma(493.90) Vitamin D deficiency 12/05/2014 PAST SURGICAL HISTORY Procedure Laterality Date DELIVERY ONLY 03/20/2011 , low transverse DELIVERY+ CARE March 02, 2009 COLONOSCOPY FLX DX W/COLLJ SPEC WHEN PFRMD 06/16/2019 Colonoscopy ESOPHAGOGASTRODUODENOSCOPY TRANSORAL DIAGNOSTIC 09/02/2018 EGD LAPS SURG CHOLECYSTECTOMY W/CHOLANGIOGRAPHY 04/2015 in [facility]. PAST SURGICAL HISTORY OF wisdom teeth extraction Social History: Social History Tobacco Use Smoking status: Never Smokeless tobacco: Never Vaping Use Vaping Use: Never used Substance Use Topics Alcohol use: No Drug use: No FAMILY HISTORY Problem Relation Age of Onset Hypertension Mother Lipids Mother High Cholesterol Hypertension Father Lipids Father High Cholesterol Alcohol/Drug Father Allergies Father other (JEFFREY) Father other (Melanoma dx age 73 currently 73 (on forehead)) Father other (Non-Hodgkin's lymphoma dx 72 + Agent orange exposure) Father other (Sarcoma dx age 72 + Agent orange exposure) Father other (Colon Cancer dx 80 currently age 100) Maternal Grandmother Alcohol/Drug Paternal Grandmother ETOH other (LUNG CANCER +TOB use) Paternal Grandmother Heart Paternal Grandfather Alcohol/Drug Paternal Grandfather ETOH other (Heart Attack d. in his 40s) Paternal Grandfather Breast Cancer Other GREAT AUNT Current Outpatient prescriptions: triamcinolone acetonide (KENALOG) 0.1 % cream Apply 1 application to affected area twice daily as needed. Avoid use on the face. sertraline (ZOLOFT) 50 mg tablet Take 1 tablet by mouth once daily. Etonogestrel-Ethinyl Estradiol (NUVARING) 0.12-0.015 mg/24 hr vaginal ring Use 1 Each vaginally as directed. Insert vaginally and leave in place for 3 consecutive weeks, then remove and place a new ring and skip menses. ketoconazole (NIZORAL) 2 % shampoo Massage into damp scalp 3 times weekly. Allow to sit for 5 minutes prior to rinsing. budesonide (PULMICORT FLEXHALER) 180 mcg/actuation aepb Inhale 2 Puffs as instructed twice daily. albuterol HFA (VENTOLIN HFA) 90 mcg/actuation inhaler Inhale 2 Puffs as instructed every 4 hours as needed. ekwwmctfmyJMYCC-avxben-jjvqerled (BMX 1:1:1) 1:1:1 liqd Mix in equal amounts - 1 T every 2hrs as needed for mouth pain, Swish/swallow or expectorate. (8oz) valACYclovir (VALTREX) 1 gram Take 2 tablets by mouth twice daily. for 1 day ibuprofen (MOTRIN) 600 mg tablet Take 1 tablet by mouth every 6 hours as needed for pain. wanytaoi-ojsyfqmpr-qymrlybbwksgqz (CORTISPORIN) 3.5-10,000-1 mg/mL-unit/mL-% otic suspension Use 3 Drops in the left ear four times daily. tretinoin (RETIN-A) 0.025 % topical cream Apply a pea size amount to affected area every other night for 2 weeks then increase to nightly as tolerated famotidine (PEPCID) 20 mg tablet Take 1 tablet by mouth twice daily. Etonogestrel-Ethinyl Estradiol (NUVARING) 0.12-0.015 mg/24 hr vaginal ring Use 1 Each vaginally as directed. Insert vaginally and leave in place for 3 consecutive weeks, then remove for 1 week. albuterol (PROVENTIL) 2.5 mg /3 mL (0.083 %) nebulizer solution Use 3 mL via nebulizer every 4 hours as needed. Use over 5-15minutes. EPINEPHrine (EPIPEN) 0.3 mg/0.3 mL auto-injector As directed. If needed: have someone drive you the emergency room after for observation. Cholecalciferol, Vitamin D3, 2,000 unit cap Take 1 tablet by mouth once daily. buPROPion XL (WELLBUTRIN XL) 150 mg 24 hr tablet Take 1 tablet by mouth once daily. Allergies: ALLERGIES Allergen Reactions Keflex [Cephalexin] Rash Type 4 DTH Drug rash during course of treatment 06/2022. See A/I note 06/13/22 for details Neosporin [Neomycin* Rash Azithromycin Hives, Swelling Urticaria and angioedema Bacitracin Unknown Bicitra [Sodium Cit* Rash Citric Acid Unknown Environmental [Othe* dust mites, animal dander, mold Neomycin Unknown Polymyxin B Unknown Seasonal Allergies * Other: See Comments trees and grass, allergic rhinitis, asthma ROS: See HPI PE: 08/06/22 1530 BP: 120/60 Pulse: 64 Resp: 16 Temp: 36.6 C (97.8 F) TempSrc: Left Tympanic Weight: 103.9 kg (229 lb) Gen: A&O, NAD, non-toxic appearing, Pleasant, cooperative HEENT: NT/AC, PERRLA, EOMs intact b/l, nares clear and patent b/l, pharynx without erythema, exudate or lesions. Uvula midline. MMM Neck: supple, No cervical LAD, no thyromegaly, no carotid bruits CV: RRR, normal S1 and S2, no murmurs, no gallops, no rubs, Pulses 2+ and symmetric in UE and LE b/l Lungs: normal respiratory effort, CTA b/l, no wheezing or rhonchi or rales, no distress obese Abd: soft, NT, ND, +BS, no hepatosplenomegaly MS: FROM all 4 extremities Neuro: CN II-XII intact b/l Skin: warm, dry, intact, urticarial rash on chest and arms ASSESSMENT/PLAN: 1. Weight gain - ICD9: 783.1, ICD10: R63.5 (primary diagnosis) Need for labs to be rechecked, concerns for insulin resistance as well, may need to consider metformin or topamax or weight loss medication or GLP1 medication, she is aware. Will trial on Wellbutrin to help depressive symptoms to see if this helps with weight control/eating habits. She will track and log food intake as well. - COMP METABOLIC PANEL - CBC + DIFF - TSH BLD - T4 FREE/FREE THYROX 2. IFG (impaired fasting glucose) - ICD9: 790.21, ICD10: R73.01 Need for labs to be rechecked, concerns for insulin resistance as well, may need to consider metformin or topamax or weight loss medication or GLP1 medication, she is aware. Will trial on Wellbutrin to help depressive symptoms to see if this helps with weight control/eating habits. She will track and log food intake as well. - HGB A1C 3. Urticaria - ICD9: 708.9, ICD10: L50.9 - Likely viral or allergic etiology discussed with patient - Follow up if symptoms persist or worsen. - TRYPTASE BLOOD 4. Globus sensation - ICD9: 784.99, ICD10: R09.89 - TRYPTASE BLOOD 5. Perimenopausal - ICD9: 627.2, ICD10: N95.1 Need for labs to be rechecked, concerns for insulin resistance as well, may need to consider metformin or topamax or weight loss medication or GLP1 medication, she is aware. Will trial on Wellbutrin to help depressive symptoms to see if this helps with weight control/eating habits. She will track and log food intake as well. - FSH BLD - BUPROPION XL 150 MG TAB 6. Dyslipidemia - ICD9: 272.4, ICD10: E78.5 - to be determined upon return of lab results - Encouraged following a low fat, low cholesterol diet. - Discussed the benefits of regular aerobic exercise and weight loss. - Check fasting lipid panel - LIPID PANEL BASIC 7. Obesity, Class II, BMI 35-39.9 - ICD9: 278.00, ICD10: E66.9 Weight increasing - Behavioral intervention, - Pharmacological intervention, and - Eat well programNeed for labs to be rechecked, concerns for insulin resistance as well, may need to consider metformin or topamax or weight loss medication or GLP1 medication, she is aware. Will trial on Wellbutrin to help depressive symptoms to see if this helps with weight control/eating habits. She will track and log food intake as well. Jesus Manuel Barth DO To ER if develops chest pain, shortness of breath, or severe worsening of symptoms. Discussed risks, benefits, alternatives, and potential side effects of medications. Patient expressed understanding and agreed with the plan. Jesus Manuel Barth DO [address] [place] [address] documented in this encounter [facility] 08-06-2022 Instructions Jesus Manuel Barth DO - 08/06/2022 4:09 PM EDT Pepcid 40 mg twice a day (H2 damian for hives) Zyrtec 10 mg twice a day or Daisy 80-160 mg twice a day (H1 damian for hives) Can take these together Topamax Or Metformin Or Qsymia or Contrave Or Alternative if a1c is elevated in prediabetes range such as trulicity or Ozempic once a week injectable documented in this encounter [facility] 07-25-2022 Miscellaneous Notes Message was sent to patient requesting she make an appointment Appointment Needed documented in this encounter [facility] 07-11-2022 History of Present illness Narrative Radiology Service Progress Note DATE OF SERVICE: July 11, 2022 TIME: 3:41 PM PATIENT IDENTITY VERIFICATION COMPLETED USING TWO (2) STANDARD IDENTIFIERS: Name and Date of confirmed by patient verbally. FALL SCREENING: Has the patient had 2 falls in the last year or 1 fall with injury or currently using an Ambulatory Assistive Device (Walker, Cane, Wheelchair, Crutches, etc.)? No PATIENT GENDER DATA: Female. status: : No status: NO. PATIENT RELEVANT IMPLANT DATA REVIEWED: Yes ALLERGIES: Reviewed and unchanged CONTRAST ALLERGY: NO. EXAM: MRI - CONTRAST TYPE: GROUP II PERIPHERAL IV DATA: Ambulatory: A peripheral IV was started in the Right antecubital site with a Angio cath: 22 gauge. RADIOLOGY DEPARTMENT: MR; Exam(s) Completed: Body: Female Pelvis SIGNATURE: RT Michelle(R) PATIENT NAME: Meghan Jeffrey DATE: July 11, 2022 TIME: 3:41 PM documented in this encounter [facility] 06-28-2022 Miscellaneous Notes When patient was in the office with her son today, she noted that she continues to have a pruritic rash. Rash developed 5 days into a course of Keflex. She was evaluated by Dr. Rivera at [facility]. She took a prednisone taper with some improvement. She has been taking Zyrtec 20 mg twice daily and Pepcid 20 mg twice daily. Prescription provided for triamcinolone cream 0.1% apply twice a day as needed to affected areas. Avoid use on the face The following approved medication requests have been transmitted electronically. Requested Prescriptions Signed Prescriptions Disp Refills triamcinolone acetonide (KENALOG) 0.1 % cream 60 g 1 Sig: Apply 1 application to affected area twice daily as needed. Avoid use on the face. Authorizing Provider: SESAR RICHMOND MD documented in this encounter [facility] 06-21-2022 Miscellaneous Notes Please contact patient to schedule MRI. Steffi Phillips RN Done Maria R Humphrey MD Patient notified. Would like to proceed with pelvic MRI. Please file order and forward to golf sales manager to assist patient with making an appointment. Vane Finnegan RN ----- Message from Maria R Humphrey MD sent at 06/21/2022 12:25 PM EDT ----- Likely has an exophytic fibroid (a fibroid that extends outside the uterus & is likely benign) Recommend pelvic MRI for further evaluation Maria R Humphrey MD documented in this encounter [facility] 06-18-2022 History of Present illness Narrative Radiology Service Progress Note PATIENT NAME: Meghan Jeffrey DATE OF SERVICE: June 18, 2022 TIME: 3:54 PM PATIENT IDENTITY VERIFICATION COMPLETED USING TWO (2) IDENTIFIERS: Name and Date of confirmed by patient verbally. FALL SCREENING: Has the patient had 2 falls in the last year or 1 fall with injury or currently using an Ambulatory Assistive Device (Walker, Cane, Wheelchair, Crutches, etc.)? No PATIENT GENDER DATA: Female. status: : No status: NO. PATIENT RELEVANT IMPLANT DATA REVIEWED: Not Applicable RADIOLOGY DEPARTMENT: Ultrasound PERIPHERAL IV DATA: Not applicable SIGNED BY: RT Negin(R) June 18, 2022 3:54 PM documented in this encounter [facility] 06-18-2022 Miscellaneous Notes Done Maria R Humphrey MD Patient scheduled for today. Please file transvaginal u/s order too. Steffi Phillips RN Done Maria R Humphrey MD SW patient last seen in 2019. Patient had a kidney/bladder ultrasound and was advised to follow-up with DOCTOR OSTEOPATHIC for the following finding: Other: Incidental finding of a solid left adnexal mass measuring 3.3 x 2.6 x 2.5 cm. 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 There are openings in Radiology downstairs. Order pending. Please file and then we will assist patient with scheduling. Thank you. Vane Finnegan RN documented in this encounter [facility] 06-15-2022 History of Present illness Narrative Radiology Service Progress Note PATIENT NAME: Meghan Jeffrey DATE OF SERVICE: June 15, 2022 TIME: 3:41 PM PATIENT IDENTITY VERIFICATION COMPLETED USING TWO (2) IDENTIFIERS: Name and Date of confirmed by patient verbally. FALL SCREENING: Has the patient had 2 falls in the last year or 1 fall with injury or currently using an Ambulatory Assistive Device (Walker, Cane, Wheelchair, Crutches, etc.)? No PATIENT GENDER DATA: Female. status: : No status: NO. PATIENT RELEVANT IMPLANT DATA REVIEWED: Not Applicable RADIOLOGY DEPARTMENT: Ultrasound PERIPHERAL IV DATA: Not applicable SIGNED BY: Azul Magana RDMS RVT June 15, 2022 3:41 PM documented in this encounter [facility] 06-14-2022 Miscellaneous Notes Message turned into TE per JG Veronique Moore Ma documented in this encounter [facility] 06-10-2022 Miscellaneous Notes Reason for call: Patient calling and requesting permission to discontinue Keflex. Patient states she was seen in [facility] yesterday for hives and given prednisone, but instructed to complete Keflex prescription. Patient states she went home and took evening dose of Keflex and suffered from increased hives and itching. Outcome: Conferenced patient to nurse Nova at [facility] for further assistance. documented in this encounter [facility] 06-09-2022 History of Present illness Narrative Images from the original note were not included. Subjective Patient came in with complaints of hives on her chest right arm. Patient says she has been getting hives breaks out several different times for no apparent reason that she can think of. Patient had allergy testing but its been about 20 years ago. Patient is unsure of what could be causing the hives nothing seems to be related. Patient denies any shortness of breath or difficulty breathing. Patient is on Keflex and only has 2 days left but this is happened before not on antibiotics. The history is provided by the patient. No bilingual speech language pathologist was used. Hives Review of Systems Constitutional: Negative. Skin: Negative. Objective Physical Exam Constitutional: Appearance: Normal appearance. Pulmonary: Effort: Pulmonary effort is normal. Skin: General: Skin is warm. Comments: Patient does have raised erythematic areas where marked above. Consistent with hives. Neurological: Mental Status: She is alert. PAST MEDICAL HISTORY Diagnosis Date Allergy Seasonal and Environmental Allergies Depressive disorder, not elsewhere classified Diffuse cystic mastopathy History of echocardiogram 01/02/2021 at [facility]-Dr. Swain-EF 55% Low HDL (under 40) 12/05/2014 Unspecified asthma(493.90) Vitamin D deficiency 12/05/2014 PAST SURGICAL HISTORY Procedure Laterality Date DELIVERY ONLY 03/20/2011 , low transverse DELIVERY+ CARE March 02, 2009 COLONOSCOPY FLX DX W/COLLJ SPEC WHEN PFRMD 06/16/2019 Colonoscopy ESOPHAGOGASTRODUODENOSCOPY TRANSORAL DIAGNOSTIC 09/02/2018 EGD LAPS SURG CHOLECYSTECTOMY W/CHOLANGIOGRAPHY 04/2015 in [facility]. PAST SURGICAL HISTORY OF wisdom teeth extraction ALLERGIES Neosporin [Evmvstdy-Elvukzkjuv-Jawwlxpvl], Azithromycin, Bacitracin, Bicitra [Sodium Citrate-Citric Acid], Citric Acid, Environmental [Other], Neomycin, Polymyxin B, and Seasonal Allergies [Other] MEDICATIONS predniSONE (DELTASONE) 10 mg tablet Take 4 tabs daily for 3 days, then 2 tabs daily for 3 days, then 1 tab daily for 3 days with food. cephALEXin (KEFLEX) 500 mg capsule Take 1 capsule by mouth twice daily for 7 days. sertraline (ZOLOFT) 50 mg tablet Take 1 tablet by mouth once daily. Etonogestrel-Ethinyl Estradiol (NUVARING) 0.12-0.015 mg/24 hr vaginal ring Use 1 Each vaginally as directed. Insert vaginally and leave in place for 3 consecutive weeks, then remove and place a new ring and skip menses. ketoconazole (NIZORAL) 2 % shampoo Massage into damp scalp 3 times weekly. Allow to sit for 5 minutes prior to rinsing. budesonide (PULMICORT FLEXHALER) 180 mcg/actuation aepb Inhale 2 Puffs as instructed twice daily. albuterol HFA (VENTOLIN HFA) 90 mcg/actuation inhaler Inhale 2 Puffs as instructed every 4 hours as needed. jypbmfqychUTAXG-wpagas-ropvuzuma (BMX 1:1:1) 1:1:1 liqd Mix in equal amounts - 1 T every 2hrs as needed for mouth pain, Swish/swallow or expectorate. (8oz) (Patient not taking: No sig reported) valACYclovir (VALTREX) 1 gram Take 2 tablets by mouth twice daily. for 1 day (Patient not taking: No sig reported) ibuprofen (MOTRIN) 600 mg tablet Take 1 tablet by mouth every 6 hours as needed for pain. gugumnbg-icalykuwk-vvrimbbzwfspbj (CORTISPORIN) 3.5-10,000-1 mg/mL-unit/mL-% otic suspension Use 3 Drops in the left ear four times daily. (Patient not taking: No sig reported) tretinoin (RETIN-A) 0.025 % topical cream Apply a pea size amount to affected area every other night for 2 weeks then increase to nightly as tolerated (Patient not taking: No sig reported) famotidine (PEPCID) 20 mg tablet Take 1 tablet by mouth twice daily. (Patient not taking: No sig reported) Etonogestrel-Ethinyl Estradiol (NUVARING) 0.12-0.015 mg/24 hr vaginal ring Use 1 Each vaginally as directed. Insert vaginally and leave in place for 3 consecutive weeks, then remove for 1 week. albuterol (PROVENTIL) 2.5 mg /3 mL (0.083 %) nebulizer solution Use 3 mL via nebulizer every 4 hours as needed. Use over 5-15minutes. EPINEPHrine (EPIPEN) 0.3 mg/0.3 mL auto-injector As directed. If needed: have someone drive you the emergency room after for observation. Cholecalciferol, Vitamin D3, 2,000 unit cap Take 1 tablet by mouth once daily. FAMILY HISTORY Problem Relation Age of Onset Hypertension Mother Lipids Mother High Cholesterol Hypertension Father Lipids Father High Cholesterol Alcohol/Drug Father Allergies Father other (JEFFREY) Father other (Melanoma dx age 73 currently 73 (on forehead)) Father other (Non-Hodgkin's lymphoma dx 72 + Agent orange exposure) Father other (Sarcoma dx age 72 + Agent orange exposure) Father other (Colon Cancer dx 80 currently age 100) Maternal Grandmother Alcohol/Drug Paternal Grandmother ETOH other (LUNG CANCER +TOB use) Paternal Grandmother Heart Paternal Grandfather Alcohol/Drug Paternal Grandfather ETOH other (Heart Attack d. in his 40s) Paternal Grandfather Breast Cancer Other GREAT AUNT Social History Tobacco Use Smoking status: Never Smokeless tobacco: Never Vaping Use Vaping Use: Never used Substance Use Topics Alcohol use: No Drug use: No ASSESSMENT/PLAN: 1. Hives - ICD9: 708.9, ICD10: L50.9 - CONSULT TO ALLERGY/IMMUNOLOGY She was placed on a 9-day steroid taper. Patient is going to make her own appointment for allergy consult. Patient will follow up if signs and symptoms seem to be getting worse not better. Patient was okay with this care plan. Jen Humphrey APRN.SHINGLER documented in this encounter [facility] 06-08-2022 Miscellaneous Notes Lm informing no infection. Told to call office on Saturday to set up a 2 week follow up. Vane FOX Please call pt, no infection in urine, follow up in 2 weeks to see if infection has returned. Vani Amos PA-C documented in this encounter [facility] 06-06-2022 Note HNO ID: [id number] Author: Vani Amos PA-C Service: ? Author Type: Physician Demolition Engineer Type: Progress Notes Filed: 06/06/2022 2:54 PM Note Text: NEW PATIENT HISTORY AND PHYSICAL EXAM PATIENT INFO: Meghan Jeffrey 47 year old REFERRING PROVIDER: LOWELL RICO PCP: Jesus Manuel Barth DO HPI Meghan Jeffrey is a 47 year old female with urgency, frequency and recent bout of uti's, usually treated by urgent care. Pt does feel better when on antibiotics. Symptoms are bladder pain/pressure, dysuria. Urgency and frequency has been present for many months. 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 No bladder irritants in diet. No new medications. No history of kidney stones. Discussed uti prevention with cranberry tablets. Review of Systems LAB: Creatinine Date Value Ref Range Status 07/08/2021 0.69 0.58 - 0.96 mg/dL Final No results found for: PSA Glucose, Urine (mg/dL) Date Value 08/16/2015 Negative Bilirubin, Urine (no units) Date Value 08/16/2015 Negative Ketones, Urine (no units) Date Value 08/16/2015 Negative Specific [place], Ur (no units) Date Value 08/16/2015 1.008 Hemoglobin/Blood,Ur ( ) Date Value 08/16/2015 1+ pH, Urine (no units) Date Value 08/16/2015 7.0 Protein, Urine (mg/dL) Date Value 08/16/2015 Negative Urobilinogen, Urine (EU) Date Value 08/16/2015 normal Nitrites (no units) Date Value 08/16/2015 Negative Leukocytes (no units) Date Value 08/16/2015 neg WBC, Urine (/HPF) Date Value 08/16/2015 0-5 Color/Appearance (comment:) Date Value 08/16/2015 yellow MEDICATIONS: cephALEXin (KEFLEX) 500 mg capsule Take 1 capsule by mouth twice daily for 7 days. sertraline (ZOLOFT) 50 mg tablet Take 1 tablet by mouth once daily. Etonogestrel-Ethinyl Estradiol (NUVARING) 0.12-0.015 mg/24 hr vaginal ring Use 1 Each vaginally as directed. Insert vaginally and leave in place for 3 consecutive weeks, then remove and place a new ring and skip menses. ketoconazole (NIZORAL) 2 % shampoo Massage into damp scalp 3 times weekly. Allow to sit for 5 minutes prior to rinsing. budesonide (PULMICORT FLEXHALER) 180 mcg/actuation aepb Inhale 2 Puffs as instructed twice daily. albuterol HFA (VENTOLIN HFA) 90 mcg/actuation inhaler Inhale 2 Puffs as instructed every 4 hours as needed. ibuprofen (MOTRIN) 600 mg tablet Take 1 tablet by mouth every 6 hours as needed for pain. Etonogestrel-Ethinyl Estradiol (NUVARING) 0.12-0.015 mg/24 hr vaginal ring Use 1 Each vaginally as directed. Insert vaginally and leave in place for 3 consecutive weeks, then remove for 1 week. albuterol (PROVENTIL) 2.5 mg /3 mL (0.083 %) nebulizer solution Use 3 mL via nebulizer every 4 hours as needed. Use over 5-15minutes. EPINEPHrine (EPIPEN) 0.3 mg/0.3 mL auto-injector As directed. If needed: have someone drive you the emergency room after for observation. Cholecalciferol, Vitamin D3, 2,000 unit cap Take 1 tablet by mouth once daily. kwdywhnvzyTOVXH-bsidfu-ewgrgsahz (BMX 1:1:1) 1:1:1 liqd Mix in equal amounts - 1 T every 2hrs as needed for mouth pain, Swish/swallow or expectorate. (8oz) (Patient not taking: No sig reported) valACYclovir (VALTREX) 1 gram Take 2 tablets by mouth twice daily. for 1 day (Patient not taking: No sig reported) jmkfrwqu-znadnybme-vxkhipgjdoiufv (CORTISPORIN) 3.5-10,000-1 mg/mL-unit/mL-% otic suspension Use 3 Drops in the left ear four times daily. (Patient not taking: No sig reported) tretinoin (RETIN-A) 0.025 % topical cream Apply a pea size amount to affected area every other night for 2 weeks then increase to nightly as tolerated (Patient not taking: No sig reported) famotidine (PEPCID) 20 mg tablet Take 1 tablet by mouth twice daily. (Patient not taking: No sig reported) HISTORIES PAST MEDICAL HISTORY Diagnosis Date Allergy Seasonal and Environmental Allergies Depressive disorder, not elsewhere classified Diffuse cystic mastopathy History of echocardiogram 01/02/2021 at [facility]-Dr. Swain-EF 55% Low HDL (under 40) 12/05/2014 Unspecified asthma(493.90) Vitamin D deficiency 12/05/2014 FAMILY HISTORY Problem Relation Age of Onset Hypertension Mother Lipids Mother High Cholesterol Hypertension Father Lipids Father High Cholesterol Alcohol/Drug Father Allergies Father other (JEFFREY) Father other (Melanoma dx age 73 currently 73 (on forehead)) Father other (Non-Hodgkin's lymphoma dx 72 + Agent orange exposure) Father other (Sarcoma dx age 72 + Agent orange exposure) Father other (Colon Cancer dx 80 currently age 100) Maternal Grandmother Alcohol/Drug Paternal Grandmother ETOH other (LUNG CANCER +TOB use) Paternal Grandmother Heart Paternal Grandfather Alcohol/Drug Paternal Grandfather ETOH other (Heart Attack d. in his 40s) Paternal Grandfather Breast Cancer Other GREAT AUNT SOCIAL HISTORY Social History Tobacco Use Sm (more content not included)... [facility] 06-06-2022 History of Present illness Narrative NEW PATIENT HISTORY AND PHYSICAL EXAM PATIENT INFO: Meghan Jeffrey 47 year old REFERRING PROVIDER: LOWELL RICO PCP: DO JOHN Navarro Meghan Jeffrey is a 47 year old female with urgency, frequency and recent bout of uti's, usually treated by urgent care. Pt does feel better when on antibiotics. Symptoms are bladder pain/pressure, dysuria. Urgency and frequency has been present for many months. 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 No bladder irritants in diet. No new medications. No history of kidney stones. Discussed uti prevention with cranberry tablets. Review of Systems LAB: Creatinine Date Value Ref Range Status 07/08/2021 0.69 0.58 - 0.96 mg/dL Final No results found for: PSA Glucose, Urine (mg/dL) Date Value 08/16/2015 Negative Bilirubin, Urine (no units) Date Value 08/16/2015 Negative Ketones, Urine (no units) Date Value 08/16/2015 Negative Specific [place], Ur (no units) Date Value 08/16/2015 1.008 Hemoglobin/Blood,Ur ( ) Date Value 08/16/2015 1+ pH, Urine (no units) Date Value 08/16/2015 7.0 Protein, Urine (mg/dL) Date Value 08/16/2015 Negative Urobilinogen, Urine (EU) Date Value 08/16/2015 normal Nitrites (no units) Date Value 08/16/2015 Negative Leukocytes (no units) Date Value 08/16/2015 neg WBC, Urine (/HPF) Date Value 08/16/2015 0-5 Color/Appearance (comment:) Date Value 08/16/2015 yellow MEDICATIONS: cephALEXin (KEFLEX) 500 mg capsule Take 1 capsule by mouth twice daily for 7 days. sertraline (ZOLOFT) 50 mg tablet Take 1 tablet by mouth once daily. Etonogestrel-Ethinyl Estradiol (NUVARING) 0.12-0.015 mg/24 hr vaginal ring Use 1 Each vaginally as directed. Insert vaginally and leave in place for 3 consecutive weeks, then remove and place a new ring and skip menses. ketoconazole (NIZORAL) 2 % shampoo Massage into damp scalp 3 times weekly. Allow to sit for 5 minutes prior to rinsing. budesonide (PULMICORT FLEXHALER) 180 mcg/actuation aepb Inhale 2 Puffs as instructed twice daily. albuterol HFA (VENTOLIN HFA) 90 mcg/actuation inhaler Inhale 2 Puffs as instructed every 4 hours as needed. ibuprofen (MOTRIN) 600 mg tablet Take 1 tablet by mouth every 6 hours as needed for pain. Etonogestrel-Ethinyl Estradiol (NUVARING) 0.12-0.015 mg/24 hr vaginal ring Use 1 Each vaginally as directed. Insert vaginally and leave in place for 3 consecutive weeks, then remove for 1 week. albuterol (PROVENTIL) 2.5 mg /3 mL (0.083 %) nebulizer solution Use 3 mL via nebulizer every 4 hours as needed. Use over 5-15minutes. EPINEPHrine (EPIPEN) 0.3 mg/0.3 mL auto-injector As directed. If needed: have someone drive you the emergency room after for observation. Cholecalciferol, Vitamin D3, 2,000 unit cap Take 1 tablet by mouth once daily. qzdovgyqqrTIQBG-lmvqtx-nxrmjcrbe (BMX 1:1:1) 1:1:1 liqd Mix in equal amounts - 1 T every 2hrs as needed for mouth pain, Swish/swallow or expectorate. (8oz) (Patient not taking: No sig reported) valACYclovir (VALTREX) 1 gram Take 2 tablets by mouth twice daily. for 1 day (Patient not taking: No sig reported) jekumqtp-scvrovnci-mtnurpzrtuhmhm (CORTISPORIN) 3.5-10,000-1 mg/mL-unit/mL-% otic suspension Use 3 Drops in the left ear four times daily. (Patient not taking: No sig reported) tretinoin (RETIN-A) 0.025 % topical cream Apply a pea size amount to affected area every other night for 2 weeks then increase to nightly as tolerated (Patient not taking: No sig reported) famotidine (PEPCID) 20 mg tablet Take 1 tablet by mouth twice daily. (Patient not taking: No sig reported) HISTORIES PAST MEDICAL HISTORY Diagnosis Date Allergy Seasonal and Environmental Allergies Depressive disorder, not elsewhere classified Diffuse cystic mastopathy History of echocardiogram 01/02/2021 at [facility]-Dr. Swain-EF 55% Low HDL (under 40) 12/05/2014 Unspecified asthma(493.90) Vitamin D deficiency 12/05/2014 FAMILY HISTORY Problem Relation Age of Onset Hypertension Mother Lipids Mother High Cholesterol Hypertension Father Lipids Father High Cholesterol Alcohol/Drug Father Allergies Father other (JEFFREY) Father other (Melanoma dx age 73 currently 73 (on forehead)) Father other (Non-Hodgkin's lymphoma dx 72 + Agent orange exposure) Father other (Sarcoma dx age 72 + Agent orange exposure) Father other (Colon Cancer dx 80 currently age 100) Maternal Grandmother Alcohol/Drug Paternal Grandmother ETOH other (LUNG CANCER +TOB use) Paternal Grandmother Heart Paternal Grandfather Alcohol/Drug Paternal Grandfather ETOH other (Heart Attack d. in his 40s) Paternal Grandfather Breast Cancer Other GREAT AUNT SOCIAL HISTORY Social History Tobacco Use Smoking status: Never Smokeless tobacco: Never Vaping Use Vaping Use: Never used Substance Use Topics Alcohol use: No Drug use: No PHYSICAL EXAMINATION BP 132/78 Ht 5' 5 (1.65m) Wt 208 lb (94.3kg) LMP 02/13/2022 BMI 34.61 kg/(m^2). Constitutional: Well appearing, alert, in no acute distress, and well-hydrated, well nourished Skin: Skin color, texture, turgor normal, no suspicious rashes or lesions Eyes: Normocephalic, no masses, lesions, tenderness or abnormalities Neuro: Supple, no adenopathy; thyroid symmetric, normal size, no bruits Respiratory: +effort Cardiovascular: not examined Gastrointestinal: Deferred Musculoskeletal: Extremities normal. No deformities, edema, or skin discoloration.. Genitourinary: FEMALE EXAM: Exam NOT Indicated ASSESSMENT/PLAN: 1. Recurrent UTI - ICD9: 599.0, ICD10: N39.0 (primary diagnosis) acute - US KIDNEY/BLADDER - URINALYSIS, WITH MICROSCOPIC - URINE CULTURE Cranberry tablets 2. 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 documented in this encounter [facility] 06-04-2022 Miscellaneous Notes Left detailed message on a secured voicemail. Meghan Castillo No growth of bacteria in urine culture. Just make sure symptoms are improving. If they are worsening on the keflex follow up for further evaluation with PCP. Thank you documented in this encounter [facility] 04-27-2022 Miscellaneous Notes April 27, 2022 PID: [id number] Meghan Jeffrey [address] [place] [id number] Dear Ms. Jeffrey, We are pleased to inform you that the results of your recent breast imaging exam on 04/27/2022 are normal. Early detection of cancer is very important. We also understand recommendations regarding breast cancer screening are controversial. Please discuss with your primary care provider which strategy is best for you and whether a mammogram is right for you. Your imaging studies and report will be kept on file at [facility] as part of your permanent medical record and are available for your continuing care. Thank you for allowing us to help in meeting your health care needs. Sincerely, Dr. Ott Interpreting Radiologist [facility] (Normal over 40) documented in this encounter [facility] 04-26-2022 History of Present illness Narrative This note was created using [employer]. Subjective Meghan Jeffrey is a 46 year old female. HPI Presents with urinary frequency and dysuria for 2 days. She denies any blood in her urine. No back pain. She is got some lower abdominal pressure. No fever or vomiting. She has had some nausea. No vaginal itching or discharge. She is on the NuvaRing, denies chance of . Review of Systems Constitutional: Negative. HENT: Negative. Gastrointestinal: Positive for abdominal pain and nausea. Negative for diarrhea and vomiting. Genitourinary: Positive for dysuria, frequency and urgency. Negative for hematuria, vaginal discharge and vaginal pain. Musculoskeletal: Negative for back pain. All other systems reviewed and are negative. PAST MEDICAL HISTORY Diagnosis Date Allergy Seasonal and Environmental Allergies Depressive disorder, not elsewhere classified Diffuse cystic mastopathy History of echocardiogram 01/02/2021 at [facility]-Dr. Swain-EF 55% Low HDL (under 40) 12/05/2014 Unspecified asthma(493.90) Vitamin D deficiency 12/05/2014 Current Outpatient Medications Medication Sig Dispense Refill sertraline (ZOLOFT) 50 mg tablet Take 1 tablet by mouth once daily. 90 tablet 3 Etonogestrel-Ethinyl Estradiol (NUVARING) 0.12-0.015 mg/24 hr vaginal ring Use 1 Each vaginally as directed. Insert vaginally and leave in place for 3 consecutive weeks, then remove and place a new ring and skip menses. 4 Each 3 ketoconazole (NIZORAL) 2 % shampoo Massage into damp scalp 3 times weekly. Allow to sit for 5 minutes prior to rinsing. 120 mL 5 budesonide (PULMICORT FLEXHALER) 180 mcg/actuation aepb Inhale 2 Puffs as instructed twice daily. 3 Each 3 albuterol HFA (VENTOLIN HFA) 90 mcg/actuation inhaler Inhale 2 Puffs as instructed every 4 hours as needed. 36 g 3 ibuprofen (MOTRIN) 600 mg tablet Take 1 tablet by mouth every 6 hours as needed for pain. 30 tablet 0 albuterol (PROVENTIL) 2.5 mg /3 mL (0.083 %) nebulizer solution Use 3 mL via nebulizer every 4 hours as needed. Use over 5-15minutes. 1 Package 0 Cholecalciferol, Vitamin D3, 2,000 unit cap Take 1 tablet by mouth once daily. 90 capsule 1 nitrofurantoin monohydrate and macrocrystal (MACROBID) 100 mg capsule Take 1 capsule by mouth twice daily with meals for 5 days. 10 capsule 0 ldhpcjzmjgMBVYR-wvkdpn-irhfzjwvu (BMX 1:1:1) 1:1:1 liqd Mix in equal amounts - 1 T every 2hrs as needed for mouth pain, Swish/swallow or expectorate. (8oz) (Patient not taking: Reported on 07/10/2021 ) 240 mL 0 valACYclovir (VALTREX) 1 gram Take 2 tablets by mouth twice daily. for 1 day (Patient not taking: Reported on 07/10/2021 ) 4 tablet 0 dcvamfcb-oflyqidmh-ndtxapykxdrkvm (CORTISPORIN) 3.5-10,000-1 mg/mL-unit/mL-% otic suspension Use 3 Drops in the left ear four times daily. (Patient not taking: Reported on 04/07/2021 ) 1 Bottle 0 tretinoin (RETIN-A) 0.025 % topical cream Apply a pea size amount to affected area every other night for 2 weeks then increase to nightly as tolerated (Patient not taking: Reported on 04/07/2021 ) 45 g 3 famotidine (PEPCID) 20 mg tablet Take 1 tablet by mouth twice daily. (Patient not taking: Reported on 04/07/2021 ) 60 tablet 1 Etonogestrel-Ethinyl Estradiol (NUVARING) 0.12-0.015 mg/24 hr vaginal ring Use 1 Each vaginally as directed. Insert vaginally and leave in place for 3 consecutive weeks, then remove for 1 week. 1 Each 0 EPINEPHrine (EPIPEN) 0.3 mg/0.3 mL auto-injector As directed. If needed: have someone drive you the emergency room after for observation. 2 Each 1 No current facility-administered medications for this visit. PAST SURGICAL HISTORY Procedure Laterality Date DELIVERY ONLY 03/20/2011 , low transverse DELIVERY+ CARE March 02, 2009 COLONOSCOPY FLX DX W/COLLJ SPEC WHEN PFRMD 06/16/2019 Colonoscopy ESOPHAGOGASTRODUODENOSCOPY TRANSORAL DIAGNOSTIC 09/02/2018 EGD LAPS SURG CHOLECYSTECTOMY W/CHOLANGIOGRAPHY 04/2015 in [facility]. PAST SURGICAL HISTORY OF wisdom teeth extraction FAMILY HISTORY Problem Relation Age of Onset Hypertension Mother Lipids Mother High Cholesterol Hypertension Father Lipids Father High Cholesterol Alcohol/Drug Father Allergies Father other (JEFFREY) Father other (Melanoma dx age 73 currently 73 (on forehead)) Father other (Non-Hodgkin's lymphoma dx 72 + Agent orange exposure) Father other (Sarcoma dx age 72 + Agent orange exposure) Father other (Colon Cancer dx 80 currently age 100) Maternal Grandmother Alcohol/Drug Paternal Grandmother ETOH other (LUNG CANCER +TOB use) Paternal Grandmother Heart Paternal Grandfather Alcohol/Drug Paternal Grandfather ETOH other (Heart Attack d. in his 40s) Paternal Grandfather Breast Cancer Other GREAT AUNT Social History Tobacco Use Smoking status: Never Smoker Smokeless tobacco: Never Used Vaping Use Vaping Use: Never used Substance Use Topics Alcohol use: No Drug use: No Objective BP 126/70 Pulse 63 Temp 37 C (98.6 F) Resp 16 Wt 89.6 kg (197 lb 9.6 oz) LMP 02/13/2022 SpO2 98% BMI 32.92 kg/m Physical Exam Vitals reviewed. Constitutional: Appearance: Normal appearance. HENT: Head: Normocephalic and atraumatic. Cardiovascular: Rate and Rhythm: Normal rate and regular rhythm. Heart sounds: Normal heart sounds. Pulmonary: Effort: Pulmonary effort is normal. Breath sounds: Normal breath sounds. Abdominal: General: Abdomen is flat. Palpations: Abdomen is soft. Tenderness: There is no abdominal tenderness. There is no right CVA tenderness, left CVA tenderness or guarding. Musculoskeletal: Cervical back: Neck supple. Skin: General: Skin is warm and dry. Neurological: General: No focal deficit present. Mental Status: She is alert and oriented to person, place, and time. Assessment and Plan ASSESSMENT/PLAN: 1. Urinary frequency - ICD9: 788.41, ICD10: R35.0 acute - UA positive for bianca esterase and hematuria - Send urine for culture - Begin treatment with Macrobid 100 mg BID for 5 days - UA DIP, URINE (POC) - URINE CULTURE Carolina Hwang PA-C documented in this encounter [facility] 04-18-2022 Miscellaneous Notes Spoke with pt and information listed below given. Pt verbalizes understanding. Transferred to scheduling. Tona Reynolds LPN Please inform patient mammogram is ordered Jesus Manuel Barth DO Pt requesting orders for mammogram to be done. Please advise pt once orders are approved. 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 07/15/2011 10/25/2014 Keratosis pilaris 07/15/2011 10/25/2014 Fapz-ye-ghbx spots 07/15/2011 10/25/2014 Postinflammatory skin changes 07/15/2011 Xerosis cutis 07/15/2011 10/25/2014 Previous section 11/20/20102011 Abdominal pain, generalized 11/02/201010/07 Irregular menses 05/03/2010 06/03/2012 Supervision of normal first 07/10/2008 05/03/2010 Cellulitis and abscess of unspecified digit 10/0 03/200610/25/2014 documented as of this encounter (statuses as of 04/26/2022) [facility]01-19-2015 History of Past illness Narrative* Problem Noted Date Resolved Date Morbidly obese 10/25/2014 06/27/2019 Pes cavus 04/24/2012 10/25/2014 Sprain of foot, unspecified site 07/17/2011 10/25/2014 Tendonitis of ankle 07/17/2011 10/25/2014 Melanocytic nevus of face 07/15/20112014 Intradermal nevus 07/15/2011 10/25/2014 Melanocytic nevus of neck 07/15/20112014 Melanocytic nevi of trunk 07/15/20112014 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 07/15/2011 10/25/2014 Keratosis pilaris 07/15/2011 10/25/2014 Knmj-um-udkn spots 07/15/2011 10/25/2014 Postinflammatory skin changes 07/15/2011 Xerosis cutis 07/15/2011 10/25/2014 Previous section 11/20/20102011 Abdominal pain, generalized 11/02/201010/07 Irregular menses 05/03/2010 06/03/2012 Supervision of normal first 07/10/2008 05/03/2010 Cellulitis and abscess of unspecified digit 10/0 03/200610/25/2014 documented as of this encounter (statuses as of 05/01/2022) [facility]2015 History of Past illness Narrative* Problem Noted Date Resolved Date Morbidly obese 10/25/2014 06/27/2019 Pes cavus 04/24/2012 10/25/2014 Sprain of foot, unspecified site 07/17/2011 10/25/2014 Tendonitis of ankle 07/17/2011 10/25/2014 Melanocytic nevus of face 07/15/20112014 Intradermal nevus 07/15/2011 10/25/2014 Melanocytic nevus of neck 07/15/20112014 Melanocytic nevi of trunk 07/15/20112014 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 07/15/2011 10/25/2014 Keratosis pilaris 07/15/2011 10/25/2014 Evbd-zu-oltu spots 07/15/2011 10/25/2014 Postinflammatory skin changes 07/15/2011 Xerosis cutis 07/15/2011 10/25/2014 Previous section 11/20/20102011 Abdominal pain, generalized 11/02/201010/07 Irregular menses 05/03/2010 06/03/2012 Supervision of normal first 07/10/2008 05/03/2010 Cellulitis and abscess of unspecified digit 03/200610/25/2014 documented as of this encounter (statuses as of 06/04/2022) [facility] History of Past illness Narrative* Problem Noted Date Resolved Date Morbidly obese 10/25/2014 06/27/2019 Pes cavus 04/24/2012 10/25/2014 Sprain of foot, unspecified site 07/17/2011 10/25/2014 Tendonitis of ankle 07/17/2011 10/25/2014 Melanocytic nevus of face 07/15/20112014 Intradermal nevus 07/15/2011 10/25/2014 Melanocytic nevus of neck 07/15/20112014 Melanocytic nevi of trunk 07/15/20112014 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 07/15/2011 10/25/2014 Keratosis pilaris 07/15/2011 10/25/2014 Tios-uy-othk spots 07/15/2011 10/25/2014 Postinflammatory skin changes 07/15/2011 Xerosis cutis 07/15/2011 10/25/2014 Previous section 11/20/20102011 Abdominal pain, generalized 11/02/201010/07 Irregular menses 05/03/2010 06/03/2012 Supervision of normal first 07/10/2008 05/03/2010 Cellulitis and abscess of unspecified digit 10/0 03/200610/25/2014 documented as of this encounter (statuses as of 06/06/2022) [facility]2015 History of Past illness Narrative* Problem Noted Date Resolved Date Morbidly obese 10/25/2014 06/27/2019 Pes cavus 04/24/2012 10/25/2014 Sprain of foot, unspecified site 07/17/2011 10/25/2014 Tendonitis of ankle 07/17/2011 10/25/2014 Melanocytic nevus of face 07/15/20112014 Intradermal nevus 07/15/2011 10/25/2014 Melanocytic nevus of neck 07/15/20112014 Melanocytic nevi of trunk 07/15/20112014 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 07/15/2011 10/25/2014 Keratosis pilaris 07/15/2011 10/25/2014 Hdgh-aw-chxp spots 07/15/2011 10/25/2014 Postinflammatory skin changes 07/15/2011 Xerosis cutis 07/15/2011 10/25/2014 Previous section 11/20/20102011 Abdominal pain, generalized 11/02/201010/07 Irregular menses 05/03/2010 06/03/2012 Supervision of normal first 07/10/2008 05/03/2010 Cellulitis and abscess of unspecified digit 10/0 03/200610/25/2014 documented as of this encounter (statuses as of 06/08/2022) [facility]2015 History of Past illness Narrative* Problem Noted Date Resolved Date Morbidly obese 10/25/2014 06/27/2019 Pes cavus 04/24/2012 10/25/2014 Sprain of foot, unspecified site 07/17/2011 10/25/2014 Tendonitis of ankle 07/17/2011 10/25/2014 Melanocytic nevus of face 07/15/20112014 Intradermal nevus 07/15/2011 10/25/2014 Melanocytic nevus of neck 07/15/20112014 Melanocytic nevi of trunk 07/15/20112014 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 07/15/2011 10/25/2014 Keratosis pilaris 07/15/2011 10/25/2014 Ckyh-qn-gtex spots 07/15/2011 10/25/2014 Postinflammatory skin changes 07/15/2011 Xerosis cutis 07/15/2011 10/25/2014 Previous section 11/20/20102011 Abdominal pain, generalized 11/02/201010/07 Irregular menses 05/03/2010 06/03/2012 Supervision of normal first 07/10/2008 05/03/2010 Cellulitis and abscess of unspecified digit /03/200610/25/2014 documented as of this encounter (statuses as of 06/09/2022) [facility]2015 History of Past illness Narrative* Problem Noted Date Resolved Date Morbidly obese 10/25/2014 06/27/2019 Pes cavus 04/24/2012 10/25/2014 Sprain of foot, unspecified site 07/17/2011 10/25/2014 Tendonitis of ankle 07/17/2011 10/25/2014 Melanocytic nevus of face 07/15/20112014 Intradermal nevus 07/15/2011 10/25/2014 Melanocytic nevus of neck 07/15/20112014 Melanocytic nevi of trunk 07/15/20112014 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 07/15/2011 10/25/2014 Keratosis pilaris 07/15/2011 10/25/2014 Sifk-xt-nned spots 07/15/2011 10/25/2014 Postinflammatory skin changes 07/15/2011 Xerosis cutis 07/15/2011 10/25/2014 Previous section 11/20/20102011 Abdominal pain, generalized 11/02/201010/07 Irregular menses 05/03/2010 06/03/2012 Supervision of normal first 07/10/2008 05/03/2010 Cellulitis and abscess of unspecified digit 10/0 03/200610/25/2014 documented as of this encounter (statuses as of 06/10/2022) [facility]2015 History of Past illness Narrative* Problem Noted Date Resolved Date Morbidly obese 10/25/2014 06/27/2019 Pes cavus 04/24/2012 10/25/2014 Sprain of foot, unspecified site 07/17/2011 10/25/2014 Tendonitis of ankle 07/17/2011 10/25/2014 Melanocytic nevus of face 07/15/20112014 Intradermal nevus 07/15/2011 10/25/2014 Melanocytic nevus of neck 07/15/20112014 Melanocytic nevi of trunk 07/15/20112014 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 07/15/2011 10/25/2014 Keratosis pilaris 07/15/2011 10/25/2014 Bhsi-uq-uvpr spots 07/15/2011 10/25/2014 Postinflammatory skin changes 07/15/2011 Xerosis cutis 07/15/2011 10/25/2014 Previous section 11/20/20102011 Abdominal pain, generalized 11/02/201010/07 Irregular menses 05/03/2010 06/03/2012 Supervision of normal first 07/10/2008 05/03/2010 Cellulitis and abscess of unspecified digit 10/0 03/200610/25/2014 documented as of this encounter (statuses as of 06/14/2022) [facility]2015 History of Past illness Narrative* Problem Noted Date Resolved Date Morbidly obese 10/25/2014 06/27/2019 Pes cavus 04/24/2012 10/25/2014 Sprain of foot, unspecified site 07/17/2011 10/25/2014 Tendonitis of ankle 07/17/2011 10/25/2014 Melanocytic nevus of face 07/15/20112014 Intradermal nevus 07/15/2011 10/25/2014 Melanocytic nevus of neck 07/15/20112014 Melanocytic nevi of trunk 07/15/20112014 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 07/15/2011 10/25/2014 Keratosis pilaris 07/15/2011 10/25/2014 Trmu-yf-celt spots 07/15/2011 10/25/2014 Postinflammatory skin changes 07/15/2011 Xerosis cutis 07/15/2011 10/25/2014 Previous section 11/20/20102011 Abdominal pain, generalized 11/02/201010/07 Irregular menses 05/03/2010 06/03/2012 Supervision of normal first 07/10/2008 05/03/2010 Cellulitis and abscess of unspecified digit 1003/200610/25/2014 documented as of this encounter (statuses as of 06/16/2022) [facility]2015 History of Past illness Narrative* Problem Noted Date Resolved Date Morbidly obese 10/25/2014 06/27/2019 Pes cavus 04/24/2012 10/25/2014 Sprain of foot, unspecified site 07/17/2011 10/25/2014 Tendonitis of ankle 07/17/2011 10/25/2014 Melanocytic nevus of face 07/15/20112014 Intradermal nevus 07/15/2011 10/25/2014 Melanocytic nevus of neck 07/15/20112014 Melanocytic nevi of trunk 07/15/20112014 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 07/15/2011 10/25/2014 Keratosis pilaris 07/15/2011 10/25/2014 Prod-wv-agai spots 07/15/2011 10/25/2014 Postinflammatory skin changes 07/15/2011 Xerosis cutis 07/15/2011 10/25/2014 Previous section 11/20/20102011 Abdominal pain, generalized 11/02/201010/07 Irregular menses 05/03/2010 06/03/2012 Supervision of normal first 07/10/2008 05/03/2010 Cellulitis and abscess of unspecified digit 10/0 03/200610/25/2014 documented as of this encounter (statuses as of 06/18/2022) [facility]2015 History of Past illness Narrative* Problem Noted Date Resolved Date Morbidly obese 10/25/2014 06/27/2019 Pes cavus 04/24/2012 10/25/2014 Sprain of foot, unspecified site 07/17/2011 10/25/2014 Tendonitis of ankle 07/17/2011 10/25/2014 Melanocytic nevus of face 07/15/20112014 Intradermal nevus 07/15/2011 10/25/2014 Melanocytic nevus of neck 07/15/20112014 Melanocytic nevi of trunk 07/15/20112014 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 07/15/2011 10/25/2014 Keratosis pilaris 07/15/2011 10/25/2014 Rwfm-nw-qxox spots 07/15/2011 10/25/2014 Postinflammatory skin changes 07/15/2011 Xerosis cutis 07/15/2011 10/25/2014 Previous section 11/20/20102011 Abdominal pain, generalized 11/02/201010/07 Irregular menses 05/03/2010 06/03/2012 Supervision of normal first 07/10/2008 05/03/2010 Cellulitis and abscess of unspecified digit 10/0 03/200610/25/2014 documented as of this encounter (statuses as of 06/19/2022) [facility]2015 History of Past illness Narrative* Problem Noted Date Resolved Date Morbidly obese 10/25/2014 06/27/2019 Pes cavus 04/24/2012 10/25/2014 Sprain of foot, unspecified site 07/17/2011 10/25/2014 Tendonitis of ankle 07/17/2011 10/25/2014 Melanocytic nevus of face 07/15/20112014 Intradermal nevus 07/15/2011 10/25/2014 Melanocytic nevus of neck 07/15/20112014 Melanocytic nevi of trunk 07/15/20112014 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 07/15/2011 10/25/2014 Keratosis pilaris 07/15/2011 10/25/2014 Jfyd-qj-vcwg spots 07/15/2011 10/25/2014 Postinflammatory skin changes 07/15/2011 Xerosis cutis 07/15/2011 10/25/2014 Previous section 11/20/20102011 Abdominal pain, generalized 11/02/201010/07 Irregular menses 05/03/2010 06/03/2012 Supervision of normal first 07/10/2008 05/03/2010 Cellulitis and abscess of unspecified digit 10/0 03/200610/25/2014 documented as of this encounter (statuses as of 06/25/2022) [facility]2015 History of Past illness Narrative* Problem Noted Date Resolved Date Morbidly obese 10/25/2014 06/27/2019 Pes cavus 04/24/2012 10/25/2014 Sprain of foot, unspecified site 07/17/2011 10/25/2014 Tendonitis of ankle 07/17/2011 10/25/2014 Melanocytic nevus of face 07/15/20112014 Intradermal nevus 07/15/2011 10/25/2014 Melanocytic nevus of neck 07/15/20112014 Melanocytic nevi of trunk 07/15/20112014 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 07/15/2011 10/25/2014 Keratosis pilaris 07/15/2011 10/25/2014 Znor-fe-hsea spots 07/15/2011 10/25/2014 Postinflammatory skin changes 07/15/2011 Xerosis cutis 07/15/2011 10/25/2014 Previous section 11/20/20102011 Abdominal pain, generalized 11/02/201010/07 Irregular menses 05/03/2010 06/03/2012 Supervision of normal first 07/10/2008 05/03/2010 Cellulitis and abscess of unspecified digit 10/0 03/200610/25/2014 documented as of this encounter (statuses as of 06/28/2022) [facility]2015 History of Past illness Narrative* Problem Noted Date Resolved Date Morbidly obese 10/25/2014 06/27/2019 Pes cavus 04/24/2012 10/25/2014 Sprain of foot, unspecified site 07/17/2011 10/25/2014 Tendonitis of ankle 07/17/2011 10/25/2014 Melanocytic nevus of face 07/15/20112014 Intradermal nevus 07/15/2011 10/25/2014 Melanocytic nevus of neck 07/15/20112014 Melanocytic nevi of trunk 07/15/20112014 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 07/15/2011 10/25/2014 Keratosis pilaris 07/15/2011 10/25/2014 Xtvr-kr-tbxu spots 07/15/2011 10/25/2014 Postinflammatory skin changes 07/15/2011 Xerosis cutis 07/15/2011 10/25/2014 Previous section 11/20/20102011 Abdominal pain, generalized 11/02/201010/07 Irregular menses 05/03/2010 06/03/2012 Supervision of normal first 07/10/2008 05/03/2010 Cellulitis and abscess of unspecified digit /03/200610/25/2014 documented as of this encounter (statuses as of 07/12/2022) [facility]2015 History of Past illness Narrative* Problem Noted Date Resolved Date Morbidly obese 10/25/2014 06/27/2019 Pes cavus 04/24/2012 10/25/2014 Sprain of foot, unspecified site 07/17/2011 10/25/2014 Tendonitis of ankle 07/17/2011 10/25/2014 Melanocytic nevus of face 07/15/20112014 Intradermal nevus 07/15/2011 10/25/2014 Melanocytic nevus of neck 07/15/20112014 Melanocytic nevi of trunk 07/15/20112014 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 07/15/2011 10/25/2014 Keratosis pilaris 07/15/2011 10/25/2014 Eprb-cc-zmuw spots 07/15/2011 10/25/2014 Postinflammatory skin changes 07/15/2011 Xerosis cutis 07/15/2011 10/25/2014 Previous section 11/20/20102011 Abdominal pain, generalized 11/02/201010/07 Irregular menses 05/03/2010 06/03/2012 Supervision of normal first 07/10/2008 05/03/2010 Cellulitis and abscess of unspecified digit 10/0 03/200610/25/2014 documented as of this encounter (statuses as of 07/25/2022) [facility]2015 History of Past illness Narrative* Problem Noted Date Resolved Date Morbidly obese 10/25/2014 06/27/2019 Pes cavus 04/24/2012 10/25/2014 Sprain of foot, unspecified site 07/17/2011 10/25/2014 Tendonitis of ankle 07/17/2011 10/25/2014 Melanocytic nevus of face 07/15/20112014 Intradermal nevus 07/15/2011 10/25/2014 Melanocytic nevus of neck 07/15/20112014 Melanocytic nevi of trunk 07/15/20112014 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 07/15/2011 10/25/2014 Keratosis pilaris 07/15/2011 10/25/2014 Ujji-rh-jozx spots 07/15/2011 10/25/2014 Postinflammatory skin changes 07/15/2011 Xerosis cutis 07/15/2011 10/25/2014 Previous section 11/20/20102011 Abdominal pain, generalized 11/02/201010/07 Irregular menses 05/03/2010 06/03/2012 Supervision of normal first 07/10/2008 05/03/2010 Cellulitis and abscess of unspecified digit 10/0 03/200610/25/2014 documented as of this encounter (statuses as of 08/07/2022) [facility]2015 History of Past illness Narrative* Problem Noted Date Resolved Date Morbidly obese 10/25/2014 06/27/2019 Pes cavus 04/24/2012 10/25/2014 Sprain of foot, unspecified site 07/17/2011 10/25/2014 Tendonitis of ankle 07/17/2011 10/25/2014 Melanocytic nevus of face 07/15/20112014 Intradermal nevus 07/15/2011 10/25/2014 Melanocytic nevus of neck 07/15/20112014 Melanocytic nevi of trunk 07/15/20112014 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 07/15/2011 10/25/2014 Keratosis pilaris 07/15/2011 10/25/2014 Xovh-uu-lyjg spots 07/15/2011 10/25/2014 Postinflammatory skin changes 07/15/2011 Xerosis cutis 07/15/2011 10/25/2014 Previous section 11/20/20102011 Abdominal pain, generalized 11/02/201010/07 Irregular menses 05/03/2010 06/03/2012 Supervision of normal first 07/10/2008 05/03/2010 Cellulitis and abscess of unspecified digit 10/0 03/200610/25/2014 documented as of this encounter (statuses as of 09/14/2022) [facility]2015 History of Past illness Narrative* Problem Noted Date Resolved Date Morbidly obese 10/25/2014 06/27/2019 Pes cavus 04/24/2012 10/25/2014 Sprain of foot, unspecified site 07/17/2011 10/25/2014 Tendonitis of ankle 07/17/2011 10/25/2014 Melanocytic nevus of face 07/15/20112014 Intradermal nevus 07/15/2011 10/25/2014 Melanocytic nevus of neck 07/15/20112014 Melanocytic nevi of trunk 07/15/20112014 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 07/15/2011 10/25/2014 Keratosis pilaris 07/15/2011 10/25/2014 Vpli-nu-zoxs spots 07/15/2011 10/25/2014 Postinflammatory skin changes 07/15/2011 Xerosis cutis 07/15/2011 10/25/2014 Previous section 11/20/20102011 Abdominal pain, generalized 11/02/201010/07 Irregular menses 05/03/2010 06/03/2012 Supervision of normal first 07/10/2008 05/03/2010 Cellulitis and abscess of unspecified digit 10/0 03/200610/25/2014 documented as of this encounter (statuses as of 09/20/2022) [facility]2015 History of Past illness Narrative* Problem Noted Date Resolved Date Morbidly obese 10/25/2014 06/27/2019 Pes cavus 04/24/2012 10/25/2014 Sprain of foot, unspecified site 07/17/2011 10/25/2014 Tendonitis of ankle 07/17/2011 10/25/2014 Melanocytic nevus of face 07/15/20112014 Intradermal nevus 07/15/2011 10/25/2014 Melanocytic nevus of neck 07/15/20112014 Melanocytic nevi of trunk 07/15/20112014 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 07/15/2011 10/25/2014 Keratosis pilaris 07/15/2011 10/25/2014 Yqog-oc-qmpb spots 07/15/2011 10/25/2014 Postinflammatory skin changes 07/15/2011 Xerosis cutis 07/15/2011 10/25/2014 Previous section 11/20/20102011 Abdominal pain, generalized 11/02/201010/07 Irregular menses 05/03/2010 06/03/2012 Supervision of normal first 07/10/2008 05/03/2010 Cellulitis and abscess of unspecified digit 10/0 03/200610/25/2014 documented as of this encounter (statuses as of 10/01/2022) [facility] History of Past illness Narrative* Problem Noted Date Resolved Date Morbidly obese 10/25/2014 06/27/2019 Pes cavus 04/24/2012 10/25/2014 Sprain of foot, unspecified site 07/17/2011 10/25/2014 Tendonitis of ankle 07/17/2011 10/25/2014 Melanocytic nevus of face 07/15/20112014 Intradermal nevus 07/15/2011 10/25/2014 Melanocytic nevus of neck 07/15/20112014 Melanocytic nevi of trunk 07/15/20112014 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 07/15/2011 10/25/2014 Keratosis pilaris 07/15/2011 10/25/2014 Nnas-ea-gwyv spots 07/15/2011 10/25/2014 Postinflammatory skin changes 07/15/2011 Xerosis cutis 07/15/2011 10/25/2014 Previous section 11/20/20102011 Abdominal pain, generalized 11/02/201010/07 Irregular menses 05/03/2010 06/03/2012 Supervision of normal first 07/10/2008 05/03/2010 Cellulitis and abscess of unspecified digit 03/200610/25/2014 documented as of this encounter (statuses as of 10/15/2022) [facility]2015 History of Past illness Narrative* Problem Noted Date Resolved Date Morbidly obese 10/25/2014 06/27/2019 Pes cavus 04/24/2012 10/25/2014 Sprain of foot, unspecified site 07/17/2011 10/25/2014 Tendonitis of ankle 07/17/2011 10/25/2014 Melanocytic nevus of face 07/15/20112014 Intradermal nevus 07/15/2011 10/25/2014 Melanocytic nevus of neck 07/15/20112014 Melanocytic nevi of trunk 07/15/20112014 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 07/15/2011 10/25/2014 Keratosis pilaris 07/15/2011 10/25/2014 Shqu-bv-grpq spots 07/15/2011 10/25/2014 Postinflammatory skin changes 07/15/2011 Xerosis cutis 07/15/2011 10/25/2014 Previous section 11/20/20102011 Abdominal pain, generalized 11/02/201010/07 Irregular menses 05/03/2010 06/03/2012 Supervision of normal first 07/10/2008 05/03/2010 Cellulitis and abscess of unspecified digit 10/0 03/200610/25/2014 documented as of this encounter (statuses as of 10/29/2022) [facility] History of Past illness Narrative* Problem Noted Date Resolved Date Morbidly obese 10/25/2014 06/27/2019 Pes cavus 04/24/2012 10/25/2014 Sprain of foot, unspecified site 07/17/2011 10/25/2014 Tendonitis of ankle 07/17/2011 10/25/2014 Melanocytic nevus of face 07/15/20112014 Intradermal nevus 07/15/2011 10/25/2014 Melanocytic nevus of neck 07/15/20112014 Melanocytic nevi of trunk 07/15/20112014 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 07/15/2011 10/25/2014 Keratosis pilaris 07/15/2011 10/25/2014 Udev-sb-stfu spots 07/15/2011 10/25/2014 Postinflammatory skin changes 07/15/2011 Xerosis cutis 07/15/2011 10/25/2014 Previous section 11/20/20102011 Abdominal pain, generalized 11/02/201010/07 Irregular menses 05/03/2010 06/03/2012 Supervision of normal first 07/10/2008 05/03/2010 Cellulitis and abscess of unspecified digit 10/0 03/200610/25/2014 documented as of this encounter (statuses as of 10/30/2022) [facility] History of Past illness Narrative* Problem Noted Date Resolved Date Morbidly obese 10/25/2014 06/27/2019 Pes cavus 04/24/2012 10/25/2014 Sprain of foot, unspecified site 07/17/2011 10/25/2014 Tendonitis of ankle 07/17/2011 10/25/2014 Melanocytic nevus of face 07/15/20112014 Intradermal nevus 07/15/2011 10/25/2014 Melanocytic nevus of neck 07/15/20112014 Melanocytic nevi of trunk 07/15/20112014 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 07/15/2011 10/25/2014 Keratosis pilaris 07/15/2011 10/25/2014 Dtks-bc-pbjn spots 07/15/2011 10/25/2014 Postinflammatory skin changes 07/15/2011 Xerosis cutis 07/15/2011 10/25/2014 Previous section 11/20/20102011 Abdominal pain, generalized 11/02/201010/07 Irregular menses 05/03/2010 06/03/2012 Supervision of normal first 07/10/2008 05/03/2010 Cellulitis and abscess of unspecified digit 03/200610/25/2014 documented as of this encounter (statuses as of 10/30/2022) [facility] History of Past illness Narrative* Problem Noted Date Resolved Date Morbidly obese 10/25/2014 06/27/2019 Pes cavus 04/24/2012 10/25/2014 Sprain of foot, unspecified site 07/17/2011 10/25/2014 Tendonitis of ankle 07/17/2011 10/25/2014 Melanocytic nevus of face 07/15/20112014 Intradermal nevus 07/15/2011 10/25/2014 Melanocytic nevus of neck 07/15/20112014 Melanocytic nevi of trunk 07/15/20112014 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 07/15/2011 10/25/2014 Keratosis pilaris 07/15/2011 10/25/2014 Ncze-ms-mdlh spots 07/15/2011 10/25/2014 Postinflammatory skin changes 07/15/2011 Xerosis cutis 07/15/2011 10/25/2014 Previous section 11/20/20102011 Abdominal pain, generalized 11/02/201010/07 Irregular menses 05/03/2010 06/03/2012 Supervision of normal first 07/10/2008 05/03/2010 Cellulitis and abscess of unspecified digit 10/0 03/200610/25/2014 documented as of this encounter (statuses as of 11/01/2022) [facility] History of Past illness Narrative* Problem Noted Date Resolved Date Morbidly obese 10/25/2014 06/27/2019 Pes cavus 04/24/2012 10/25/2014 Sprain of foot, unspecified site 07/17/2011 10/25/2014 Tendonitis of ankle 07/17/2011 10/25/2014 Melanocytic nevus of face 07/15/20112014 Intradermal nevus 07/15/2011 10/25/2014 Melanocytic nevus of neck 07/15/20112014 Melanocytic nevi of trunk 07/15/20112014 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 07/15/2011 10/25/2014 Keratosis pilaris 07/15/2011 10/25/2014 Smvh-oc-pcly spots 07/15/2011 10/25/2014 Postinflammatory skin changes 07/15/2011 Xerosis cutis 07/15/2011 10/25/2014 Previous section 11/20/20102011 Abdominal pain, generalized 11/02/201010/07 Irregular menses 05/03/2010 06/03/2012 Supervision of normal first 07/10/2008 05/03/2010 Cellulitis and abscess of unspecified digit 10/0 03/200610/25/2014 documented as of this encounter (statuses as of 01/07/2023) [facility]2015 History of Past illness Narrative* Problem Noted Date Resolved Date Morbidly obese 10/25/2014 06/27/2019 Pes cavus 04/24/2012 10/25/2014 Sprain of foot, unspecified site 07/17/2011 10/25/2014 Tendonitis of ankle 07/17/2011 10/25/2014 Melanocytic nevus of face 07/15/20112014 Intradermal nevus 07/15/2011 10/25/2014 Melanocytic nevus of neck 07/15/20112014 Melanocytic nevi of trunk 07/15/20112014 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 07/15/2011 10/25/2014 Keratosis pilaris 07/15/2011 10/25/2014 Lwkd-nw-jzgz spots 07/15/2011 10/25/2014 Postinflammatory skin changes 07/15/2011 Xerosis cutis 07/15/2011 10/25/2014 Previous section 11/20/20102011 Abdominal pain, generalized 11/02/201010/07 Irregular menses 05/03/2010 06/03/2012 Supervision of normal first 07/10/2008 05/03/2010 Cellulitis and abscess of unspecified digit 10/0 03/200610/25/2014 documented as of this encounter (statuses as of 03/10/2023) [facility]01-19-2015 History of Past illness Narrative* Problem Noted Date Resolved Date Morbidly obese 10/25/2014 06/27/2019 Pes cavus 04/24/2012 10/25/2014 Sprain of foot, unspecified site 07/17/2011 10/25/2014 Tendonitis of ankle 07/17/2011 10/25/2014 Melanocytic nevus of face 07/15/20112014 Intradermal nevus 07/15/2011 10/25/2014 Melanocytic nevus of neck 07/15/20112014 Melanocytic nevi of trunk 07/15/20112014 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 07/15/2011 10/25/2014 Keratosis pilaris 07/15/2011 10/25/2014 Xqkj-qr-kwwz spots 07/15/2011 10/25/2014 Postinflammatory skin changes 07/15/2011 Xerosis cutis 07/15/2011 10/25/2014 Previous section 11/20/20102011 Abdominal pain, generalized 11/02/201010/07 Irregular menses 05/03/2010 06/03/2012 Supervision of normal first 07/10/2008 05/03/2010 Cellulitis and abscess of unspecified digit 10/0 03/200610/25/2014 documented as of this encounter (statuses as of 03/13/2023) [facility] History of Past illness Narrative* Problem Noted Date Diagnosed Date Resolved Date Morbidly obese 10/25/2014 06/27/2019 Pes cavus 04/24/2012 10/25/2014 Sprain of foot, unspecified site 07/17/2011 10/25/2014 Tendonitis of ankle 07/17/2011 10/25/19 15 Melanocytic nevus of face 07/15/2011 Intradermal nevus 07/15/2011 10/25/2014 Melanocytic nevus of neck 07/15/2011 Melanocytic nevi of trunk 07/15/2011 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 07/15/2011 015 Keratosis pilaris 07/15/2011 10/25/2014 Fdzy-hz-kbki spots 07/15/2011 5 Postinflammatory skin changes 07/15/2011 10/25/2014 Xerosis cutis 07/15/2011 10/25/2014 Previous section 11/20/2010 Abdominal pain, generalized 11/02/2010 10/25/2014 Irregular menses 05/03/2010 06/03/2012 Supervision of normal first 07/10/2008 05/03/2010 Cellulitis and abscess of unspecified digit 07/12/2006 10/25/2014 documented as of this encounter (statuses as of 05/02/2023) [facility] History of Past illness Narrative* Problem Noted Date Diagnosed Date Resolved Date Morbidly obese 10/25/2014 06/27/2019 Pes cavus 04/24/2012 10/25/2014 Sprain of foot, unspecified site 07/17/2011 10/25/2014 Tendonitis of ankle 07/17/2011 10/25/19 15 Melanocytic nevus of face 07/15/2011 Intradermal nevus 07/15/2011 10/25/2014 Melanocytic nevus of neck 07/15/2011 Melanocytic nevi of trunk 07/15/2011 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 07/15/2011 015 Keratosis pilaris 07/15/2011 10/25/2014 Sdbe-gu-whrq spots 07/15/2011 5 Postinflammatory skin changes 07/15/2011 10/25/2014 Xerosis cutis 07/15/2011 10/25/2014 Previous section 11/20/2010 Abdominal pain, generalized 11/02/2010 10/25/2014 Irregular menses 05/03/2010 06/03/2012 Supervision of normal first 07/10/2008 05/03/2010 Cellulitis and abscess of unspecified digit 07/12/2006 10/25/2014 documented as of this encounter (statuses as of 05/16/2023) [facility] History of Past illness Narrative* Problem Noted Date Diagnosed Date Resolved Date Morbidly obese 10/25/2014 06/27/2019 Pes cavus 04/24/2012 10/25/2014 Sprain of foot, unspecified site 07/17/2011 10/25/2014 Tendonitis of ankle 07/17/2011 10/25/19 15 Melanocytic nevus of face 07/15/2011 Intradermal nevus 07/15/2011 10/25/2014 Melanocytic nevus of neck 07/15/2011 Melanocytic nevi of trunk 07/15/2011 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 07/15/2011 015 Keratosis pilaris 07/15/2011 10/25/2014 Dbzh-vt-pbcu spots 07/15/2011 5 Postinflammatory skin changes 07/15/2011 10/25/2014 Xerosis cutis 07/15/2011 10/25/2014 Previous section 11/20/2010 Abdominal pain, generalized 11/02/2010 10/25/2014 Irregular menses 05/03/2010 06/03/2012 Supervision of normal first 07/10/2008 05/03/2010 Cellulitis and abscess of unspecified digit 07/12/2006 10/25/2014 documented as of this encounter (statuses as of 05/23/2023) [facility] History of Past illness Narrative* Problem Noted Date Diagnosed Date Resolved Date Morbidly obese 10/25/2014 06/27/2019 Pes cavus 04/24/2012 10/25/2014 Sprain of foot, unspecified site 07/17/2011 10/25/2014 Tendonitis of ankle 07/17/2011 10/25/19 15 Melanocytic nevus of face 07/15/2011 Intradermal nevus 07/15/2011 10/25/2014 Melanocytic nevus of neck 07/15/2011 Melanocytic nevi of trunk 07/15/2011 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 07/15/2011 015 Keratosis pilaris 07/15/2011 10/25/2014 Txhi-fb-zwep spots 07/15/2011 5 Postinflammatory skin changes 07/15/2011 10/25/2014 Xerosis cutis 07/15/2011 10/25/2014 Previous section 11/20/2010 Abdominal pain, generalized 11/02/2010 10/25/2014 Irregular menses 05/03/2010 06/03/2012 Supervision of normal first 07/10/2008 05/03/2010 Cellulitis and abscess of unspecified digit 07/12/2006 10/25/2014 documented as of this encounter (statuses as of 05/23/2023) [facility] History of Past illness Narrative* Problem Noted Date Diagnosed Date Resolved Date Morbidly obese 10/25/2014 06/27/2019 Pes cavus 04/24/2012 10/25/2014 Sprain of foot, unspecified site 07/17/2011 10/25/2014 Tendonitis of ankle 07/17/2011 10/25/19 15 Melanocytic nevus of face 07/15/2011 Intradermal nevus 07/15/2011 10/25/2014 Melanocytic nevus of neck 07/15/2011 Melanocytic nevi of trunk 07/15/2011 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 07/15/2011 015 Keratosis pilaris 07/15/2011 10/25/2014 Xnsu-ac-fcek spots 07/15/2011 01/19/201 5 Postinflammatory skin changes 07/15/2011 10/25/2014 Xerosis cutis 07/15/2011 10/25/2014 Previous section 11/20/2010 Abdominal pain, generalized 11/02/2010 10/25/2014 Irregular menses 05/03/2010 06/03/2012 Supervision of normal first 07/10/2008 05/03/2010 Cellulitis and abscess of unspecified digit 07/12/2006 10/25/2014 documented as of this encounter (statuses as of 05/25/2023) [facility] History of Past illness Narrative* Problem Noted Date Diagnosed Date Resolved Date Morbidly obese 10/25/2014 06/27/2019 Pes cavus 04/24/2012 10/25/2014 Sprain of foot, unspecified site 07/17/2011 10/25/2014 Tendonitis of ankle 07/17/2011 10/25/19 15 Melanocytic nevus of face 07/15/2011 Intradermal nevus 07/15/2011 10/25/2014 Melanocytic nevus of neck 07/15/2011 Melanocytic nevi of trunk 07/15/2011 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 07/15/2011 015 Keratosis pilaris 07/15/2011 10/25/2014 Lekt-mq-vwts spots 07/15/2011 5 Postinflammatory skin changes 07/15/2011 10/25/2014 Xerosis cutis 07/15/2011 10/25/2014 Previous section 11/20/2010 Abdominal pain, generalized 11/02/2010 10/25/2014 Irregular menses 05/03/2010 06/03/2012 Supervision of normal first 07/10/2008 05/03/2010 Cellulitis and abscess of unspecified digit 07/12/2006 10/25/2014 documented as of this encounter (statuses as of 06/23/2023) [facility] History of Past illness Narrative* Problem Noted Date Diagnosed Date Resolved Date Morbidly obese 10/25/2014 06/27/2019 Pes cavus 04/24/2012 10/25/2014 Sprain of foot, unspecified site 07/17/2011 10/25/2014 Tendonitis of ankle 07/17/2011 10/25/19 15 Melanocytic nevus of face 07/15/2011 Intradermal nevus 07/15/2011 10/25/2014 Melanocytic nevus of neck 07/15/2011 Melanocytic nevi of trunk 07/15/2011 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 07/15/2011 015 Keratosis pilaris 07/15/2011 10/25/2014 Jsxk-gu-hhjf spots 07/15/2011 5 Postinflammatory skin changes 07/15/2011 10/25/2014 Xerosis cutis 07/15/2011 10/25/2014 Previous section 11/20/2010 Abdominal pain, generalized 11/02/2010 10/25/2014 Irregular menses 05/03/2010 06/03/2012 Supervision of normal first 07/10/2008 05/03/2010 Cellulitis and abscess of unspecified digit 07/12/2006 10/25/2014 documented as of this encounter (statuses as of 06/23/2023) [facility] History of Past illness Narrative* Problem Noted Date Diagnosed Date Resolved Date Morbidly obese 10/25/2014 06/27/2019 Pes cavus 04/24/2012 10/25/2014 Sprain of foot, unspecified site 07/17/2011 10/25/2014 Tendonitis of ankle 07/17/2011 10/25/19 15 Melanocytic nevus of face 07/15/2011 Intradermal nevus 07/15/2011 10/25/2014 Melanocytic nevus of neck 07/15/2011 Melanocytic nevi of trunk 07/15/2011 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 07/15/2011 015 Keratosis pilaris 07/15/2011 10/25/2014 Nakr-go-uimi spots 07/15/2011 5 Postinflammatory skin changes 07/15/2011 10/25/2014 Xerosis cutis 07/15/2011 10/25/2014 Previous section 11/20/2010 Abdominal pain, generalized 11/02/2010 10/25/2014 Irregular menses 05/03/2010 06/03/2012 Supervision of normal first 07/10/2008 05/03/2010 Cellulitis and abscess of unspecified digit 07/12/2006 10/25/2014 documented as of this encounter (statuses as of 06/27/2023) [facility] History of Past illness Narrative* Problem Noted Date Diagnosed Date Resolved Date Morbidly obese 10/25/2014 06/27/2019 Pes cavus 04/24/2012 10/25/2014 Sprain of foot, unspecified site 07/17/2011 10/25/2014 Tendonitis of ankle 07/17/2011 10/25/19 15 Melanocytic nevus of face 07/15/2011 Intradermal nevus 07/15/2011 10/25/2014 Melanocytic nevus of neck 07/15/2011 Melanocytic nevi of trunk 07/15/2011 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 07/15/2011 015 Keratosis pilaris 07/15/2011 10/25/2014 Qwrc-gj-uxjs spots 07/15/2011 5 Postinflammatory skin changes 07/15/2011 10/25/2014 Xerosis cutis 07/15/2011 10/25/2014 Previous section 11/20/2010 Abdominal pain, generalized 11/02/2010 10/25/2014 Irregular menses 05/03/2010 06/03/2012 Supervision of normal first 07/10/2008 05/03/2010 Cellulitis and abscess of unspecified digit 07/12/2006 10/25/2014 documented as of this encounter (statuses as of 07/19/2023) [facility] History of Past illness Narrative* Problem Noted Date Diagnosed Date Resolved Date Morbidly obese 10/25/2014 06/27/2019 Pes cavus 04/24/2012 10/25/2014 Sprain of foot, unspecified site 07/17/2011 10/25/2014 Tendonitis of ankle 07/17/2011 10/25/19 15 Melanocytic nevus of face 07/15/2011 Intradermal nevus 07/15/2011 10/25/2014 Melanocytic nevus of neck 07/15/2011 Melanocytic nevi of trunk 07/15/2011 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 07/15/2011 015 Keratosis pilaris 07/15/2011 10/25/2014 Nerz-mc-zfat spots 07/15/2011 5 Postinflammatory skin changes 07/15/2011 10/25/2014 Xerosis cutis 07/15/2011 10/25/2014 Previous section 11/20/2010 Abdominal pain, generalized 11/02/2010 10/25/2014 Irregular menses 05/03/2010 06/03/2012 Supervision of normal first 07/10/2008 05/03/2010 Cellulitis and abscess of unspecified digit 07/12/2006 10/25/2014 documented as of this encounter (statuses as of 07/20/2023) [facility] History of Past illness Narrative* Problem Noted Date Diagnosed Date Resolved Date Morbidly obese 10/25/2014 06/27/2019 Pes cavus 04/24/2012 10/25/2014 Sprain of foot, unspecified site 07/17/2011 10/25/2014 Tendonitis of ankle 07/17/2011 10/25/19 15 Melanocytic nevus of face 07/15/2011 Intradermal nevus 07/15/2011 10/25/2014 Melanocytic nevus of neck 07/15/2011 Melanocytic nevi of trunk 07/15/2011 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 07/15/2011 015 Keratosis pilaris 07/15/2011 10/25/2014 Tnrl-pv-gkif spots 07/15/2011 5 Postinflammatory skin changes 07/15/2011 10/25/2014 Xerosis cutis 07/15/2011 10/25/2014 Previous section 11/20/2010 Abdominal pain, generalized 11/02/2010 10/25/2014 Irregular menses 05/03/2010 06/03/2012 Supervision of normal first 07/10/2008 05/03/2010 Cellulitis and abscess of unspecified digit 07/12/2006 10/25/2014 documented as of this encounter (statuses as of 08/10/2023) [facility] History of Past illness Narrative* Problem Noted Date Diagnosed Date Resolved Date Morbidly obese 10/25/2014 06/27/2019 Pes cavus 04/24/2012 10/25/2014 Sprain of foot, unspecified site 07/17/2011 10/25/2014 Tendonitis of ankle 07/17/2011 10/25/19 15 Melanocytic nevus of face 07/15/2011 Intradermal nevus 07/15/2011 10/25/2014 Melanocytic nevus of neck 07/15/2011 Melanocytic nevi of trunk 07/15/2011 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 07/15/2011 015 Keratosis pilaris 07/15/2011 10/25/2014 Ynmy-fj-nxfy spots 07/15/2011 5 Postinflammatory skin changes 07/15/2011 10/25/2014 Xerosis cutis 07/15/2011 10/25/2014 Previous section 11/20/2010 Abdominal pain, generalized 11/02/2010 10/25/2014 Irregular menses 05/03/2010 06/03/2012 Supervision of normal first 07/10/2008 05/03/2010 Cellulitis and abscess of unspecified digit 07/12/2006 10/25/2014 documented as of this encounter (statuses as of 08/11/2023) [facility] History of Past illness Narrative* Problem Noted Date Diagnosed Date Resolved Date Morbidly obese 10/25/2014 06/27/2019 Pes cavus 04/24/2012 10/25/2014 Sprain of foot, unspecified site 07/17/2011 10/25/2014 Tendonitis of ankle 07/17/2011 10/25/19 15 Melanocytic nevus of face 07/15/2011 Intradermal nevus 07/15/2011 10/25/2014 Melanocytic nevus of neck 07/15/2011 Melanocytic nevi of trunk 07/15/2011 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 07/15/2011 015 Keratosis pilaris 07/15/2011 10/25/2014 Qcec-eu-osal spots 07/15/2011 5 Postinflammatory skin changes 07/15/2011 10/25/2014 Xerosis cutis 07/15/2011 10/25/2014 Previous section 11/20/2010 Abdominal pain, generalized 11/02/2010 10/25/2014 Irregular menses 05/03/2010 06/03/2012 Supervision of normal first 07/10/2008 05/03/2010 Cellulitis and abscess of unspecified digit 07/12/2006 10/25/2014 documented as of this encounter (statuses as of 08/11/2023) [facility] History of Past illness Narrative* Problem Noted Date Diagnosed Date Resolved Date Morbidly obese 10/25/2014 06/27/2019 Pes cavus 04/24/2012 10/25/2014 Sprain of foot, unspecified site 07/17/2011 10/25/2014 Tendonitis of ankle 07/17/2011 10/25/19 15 Melanocytic nevus of face 07/15/2011 Intradermal nevus 07/15/2011 10/25/2014 Melanocytic nevus of neck 07/15/2011 Melanocytic nevi of trunk 07/15/2011 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 07/15/2011 015 Keratosis pilaris 07/15/2011 10/25/2014 Bbhy-pz-qizj spots 07/15/2011 5 Postinflammatory skin changes 07/15/2011 10/25/2014 Xerosis cutis 07/15/2011 10/25/2014 Previous section 11/20/2010 Abdominal pain, generalized 11/02/2010 10/25/2014 Irregular menses 05/03/2010 06/03/2012 Supervision of normal first 07/10/2008 05/03/2010 Cellulitis and abscess of unspecified digit 07/12/2006 10/25/2014 documented as of this encounter (statuses as of 08/11/2023) [facility] History of Past illness Narrative* Problem Noted Date Diagnosed Date Resolved Date Morbidly obese 10/25/2014 06/27/2019 Pes cavus 04/24/2012 10/25/2014 Sprain of foot, unspecified site 07/17/2011 10/25/2014 Tendonitis of ankle 07/17/2011 10/25/19 15 Melanocytic nevus of face 07/15/2011 Intradermal nevus 07/15/2011 10/25/2014 Melanocytic nevus of neck 07/15/2011 Melanocytic nevi of trunk 07/15/2011 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 07/15/2011 015 Keratosis pilaris 07/15/2011 10/25/2014 Jxbp-rm-lffh spots 07/15/2011 5 Postinflammatory skin changes 07/15/2011 10/25/2014 Xerosis cutis 07/15/2011 10/25/2014 Previous section 11/20/2010 Abdominal pain, generalized 11/02/2010 10/25/2014 Irregular menses 05/03/2010 06/03/2012 Supervision of normal first 07/10/2008 05/03/2010 Cellulitis and abscess of unspecified digit 07/12/2006 10/25/2014 documented as of this encounter (statuses as of 09/17/2023) [facility] Diagnosis Encounter for screening mammogram for malignant neoplasm of breast- Primary Other screening [facility] Diagnosis Urinary frequency- Primary [facility] Diagnosis Recurrent UTI- Primary Urinary tract infection, site not specified Urgency-frequency syndrome Hypertonicity of bladder [facility] Diagnosis Hives- Primary Urticaria, unspecified [facility] Diagnosis Recurrent UTI Urinary tract infection, site not specified [facility] Diagnosis Pelvic pain- Primary documented in this encounter [facility] note* Diagnosis Pelvic pain documented in this encounter [facility] note* Diagnosis Uterine leiomyoma, unspecified location- Primary documented in this encounter [facility] note* Diagnosis Uterine leiomyoma, unspecified location documented in this encounter [facility] note* Diagnosis Seborrheic dermatitis Seborrheic dermatitis, unspecified documented in this encounter [facility] note* Diagnosis Weight gain- Primary Abnormal weight gain IFG (impaired fasting glucose) Impaired fasting glucose Urticaria Urticaria, unspecified Globus sensation Gastrointestinal malfunction arising from mental factors Perimenopausal Symptomatic menopausal or female climacteric states Dyslipidemia Other and unspecified hyperlipidemia Obesity, Class II, BMI 35-39.9 Obesity, unspecified documented in this encounter [facility] note* Diagnosis Elevated TSH- Primary Nonspecific abnormal results of thyroid function study Seborrheic dermatitis Seborrheic dermatitis, unspecified Need for COVID-19 vaccine Obesity, Class II, BMI 35-39.9 Obesity, unspecified Perimenopausal Symptomatic menopausal or female climacteric states documented in this encounter [facility] note* Diagnosis Perimenopausal Symptomatic menopausal or female climacteric states documented in this encounter [facility] note* Diagnosis Perimenopausal Symptomatic menopausal or female climacteric states documented in this encounter [facility] note* Diagnosis Perimenopausal Symptomatic menopausal or female climacteric states documented in this encounter [facility] note* Diagnosis Encounter for surveillance of vaginal ring hormonal contraceptive device documented in this encounter [facility] note* Diagnosis Zcp-vsyk-elkblli adverse effect of medication, initial encounter- Primary Allergic rhinitis, unspecified seasonality, unspecified trigger Mild persistent asthma without complication Unspecified asthma History of urticaria Personal history of diseases of skin and subcutaneous tissue documented in this encounter [facility] note* Diagnosis Anxiety Anxiety state, unspecified Anxiety with depression documented in this encounter [facility] note* Diagnosis Paronychia of finger, left- Primary documented in this encounter [facility] note* Diagnosis Well woman exam with routine gynecological exam- Primary Routine gynecological examination Seborrheic dermatitis Seborrheic dermatitis, unspecified Perimenopausal Symptomatic menopausal or female climacteric states Encounter for screening mammogram for malignant neoplasm of breast Other screening mammogram Anxiety with depression Elevated TSH Nonspecific abnormal results of thyroid function study IFG (impaired fasting glucose) Impaired fasting glucose Dyslipidemia Other and unspecified hyperlipidemia Obesity, Class I, BMI 30-34.9 Obesity, unspecified documented in this encounter [facility] note* Diagnosis Encounter for immunization- Primary Need for other specified prophylactic vaccination against single bacterial disease Weight gain Abnormal weight gain Obesity, Class I, BMI 30-34.9 Obesity, unspecified Pelvic pain Dyslipidemia Other and unspecified hyperlipidemia IFG (impaired fasting glucose) Impaired fasting glucose documented in this encounter [facility] note* Diagnosis Encounter for immunization Need for other specified prophylactic vaccination against single bacterial disease Weight gain Abnormal weight gain Obesity, Class I, BMI 30-34.9 Obesity, unspecified Dyslipidemia Other and unspecified hyperlipidemia IFG (impaired fasting glucose) Impaired fasting glucose documented in this encounter [facility] note* Diagnosis Urinary frequency- Primary documented in this encounter [facility] note* Diagnosis Encounter for immunization- Primary Need for other specified prophylactic vaccination against single bacterial disease documented in this encounter [facility] note* Diagnosis Encounter for screening mammogram for malignant neoplasm of breast Other screening mammogram documented in this encounter [facility] note* Diagnosis Pelvic pain documented in this encounter [facility] note* Diagnosis IFG (impaired fasting glucose)- Primary Impaired fasting glucose Seborrheic dermatitis Seborrheic dermatitis, unspecified Perimenopausal Symptomatic menopausal or female climacteric states Well adult exam Routine general medical examination at a health care facility Obesity, Class I, BMI 30-34.9 Obesity, unspecified Dysmetabolic syndrome Dysmetabolic Syndrome X documented in this encounter [facility] for referral (narrative)* Diagnostic Procedure Only (Routine) - Authorized Specialty Diagnoses / Procedures Referred By Ana Maria t Referred To Contact [facility] Diagnoses Encounter for screening mammogram for malignant neoplasm of breast Procedures WHITNEY SCREENING W LUAN SCREENING DIGITAL BREAST TOMOSYNTHESIS BI SCREENING MAMMOGRAPHY BI 2-VIEW BREAST INC Jesus Manuel Anders DO [address] [place] [address] [facility] [address] [place] [address] Referral ID Status Reason Start Date Expiration Date Visits Requested Visits Authorized [id number] Authorized Auto-Generat ed Referral 04/17/2022 05/17/2023 1 1 [facility] for referral (narrative)* Diagnostic Procedure Only (Routine) - Authorized Specialty Diagnoses / Procedures Referred By Contac t Referred To Contact [facility] Diagnoses Recurrent UTI Procedures US KIDNEY/BLADDER US RETROPERITONEAL REAL TIME W/IMAGE COMPLETE Vani Amos PA-C [address] [place], [place] [id number] [facility] Referral ID Status Reason Start Date Expiration Date Visits Requested Visits Authorized [id number] Authorized Auto-Generat ed Referral 06/06/2022 07/06/2023 1 1 [facility] for referral (narrative)* Diagnostic Procedure Only (Routine) - Closed Specialty Diagnoses / Procedures Referred By Contac t Referred To Contact [facility] Diagnoses Recurrent UTI Procedures US KIDNEY/BLADDER US RETROPERITONEAL REAL TIME W/IMAGE COMPLETE Vani Amos PA-C [address] [place], [place] [id number] [facility] Referral ID Status Reason Start Date Expiration Date V isits Requested Visits Authorized [id number] Closed Auto-Generate d Referral 06/06/2022 07/06/2023 1 1 [facility] for referral (narrative)* Diagnostic Procedure Only (Routine) - Closed Specialty Diagnoses / Procedures Referred By Contac t Referred To Contact [facility] Diagnoses Pelvic pain Procedures US FEMALE PELVIS TRANSVAG US TRANSVAGINAL Maria R Humphrey MD [address] [place] [address] [facility] Referral ID Status Reason Start Date Expiration Date V isits Requested Visits Authorized [id number] Closed Auto-Generate d Referral 06/18/2022 07/18/2023 1 1 * Diagnostic Procedure Only (Routine) - Closed Specialty Diagnoses / Procedures Referred By Contac t Referred To Contact US IMAG[facility] Diagnoses Pelvic pain Procedures US FEMALE PELVIS TRANSABD LTD US PELVIC [facility]RIC [facility]U Maria R Humphrey MD [address] [place] [address] Us Imaging Referral ID Status Reason Start Date Expiration Date V isits Requested Visits Authorized [id number] Closed Auto-Generate d Referral 06/18/2022 07/18/2023 1 1 [facility] for referral (narrative)* Diagnostic Procedure Only (Routine) - Closed Specialty Diagnoses / Procedures Referred By Contac t Referred To Contact US IMAGING Diagnoses Pelvic pain Procedures US FEMALE PELVIS TRANSVAG US TRANSVAGINAL Maria R Humphrey MD [address] [place] [address] Us Imaging Referral ID Status Reason Start Date Expiration Date V isits Requested Visits Authorized [id number] Closed Auto-Generate d Referral 06/18/2022 07/18/2023 1 1 * Diagnostic Procedure Only (Routine) - Closed Specialty Diagnoses / Procedures Referred By Contac t Referred To Contact US IMAGING Diagnoses Pelvic pain Procedures US FEMALE PELVIS TRANSABD LTD US P[facility]U Maria R Humphrey MD [address] [place] [address] Us Imaging Referral ID Status Reason Start Date Expiration Date V isits Requested Visits Authorized [id number] Closed Auto-Generate d Referral 06/18/2022 07/18/2023 1 1 [facility] for referral (narrative)* Diagnostic Procedure Only (Routine) - Authorized Specialty Diagnoses / Procedures Referred By Contac t Referred To Contact BR IMAGING Diagnoses Encounter for screening mammogram for malignant neoplasm of breast Procedures WHITNEY SCREENING W LUAN SCREENING DIGITAL BREAST TOMOSYNTHESIS BI SCREENING MAMMOGRAPHY BI 2-VIEW BREAST INC Jesus Manuel Anders, DO [address] [place] [address] Br Imaging [address] [place] [address] Referral ID Status Reason Start Date Expiration Date Visits Requested Visits Authorized [id number] Authorized Auto-Generat ed Referral 03/13/2023 04/11/2024 1 1 [facility] for referral (narrative)* Diagnostic Procedure Only (Routine) - Authorized Specialty Diagnoses / Procedures Referred By Contac t Referred To Contact US IMAGING Diagnoses Pelvic pain Procedures US FEMALE PELVIS TRANSVAG US TRANSVAGINAL Estefanía Mosley APRN.SHINGLER [address] [place] [address] [place] [address] Referral ID Status Reason Start Date Expiration Date Visits Requested Visits Authorized [id number] Authorized Auto-Generat ed Referral 05/22/2023 06/20/2024 1 1 * Diagnostic Procedure Only (Routine) - Authorized Specialty Diagnoses / Procedures Referred By Contac t Referred To Contact US IMAGING Diagnoses Pelvic pain Procedures US FEMALE PELVIS TRANSABD LTD US PELVIC NONOBSTETRIC IMAGE [facility] LIMITED/F/U Estefanía Mosley APRN.SHINGLER [address] [place] [address] [place] [address] Referral ID Status Reason Start Date Expiration Date Visits Requested Visits Authorized [id number] Authorized Auto-Generat ed Referral 05/22/2023 06/20/2024 1 1 [facility] for referral (narrative)* Diagnostic Procedure Only (Routine) - Closed Specialty Diagnoses / Procedures Referred By Contac t Referred To Contact BR IMAGING Diagnoses Encounter for screening mammogram for malignant neoplasm of breast Procedures WHITNEY SCREENING W LUAN SCREENING DIGITAL BREAST TOMOSYNTHESIS BI SCREENING MAMMOGRAPHY BI 2-VIEW BREAST INC Jesus Manuel Anders DO [address] [place] [address] Br Imaging [address] [place] [address] Referral ID Status Reason Start Date Expiration Date V isits Requested Visits Authorized [id number] Closed Auto-Generate d Referral 03/13/2023 04/11/2024 1 1 [facility] for referral (narrative)* Diagnostic Procedure Only (Routine) - Closed Specialty Diagnoses / Procedures Referred By Contac t Referred To Contact US IMAGING Diagnoses Pelvic pain Procedures US FEMALE PELVIS TRANSVAG US TRANSVAGINAL Estefanía Mosley APRN.SHINGLER [address] [place] [address] [place] [address] Referral ID Status Reason Start Date Expiration Date V isits Requested Visits Authorized [id number] Closed Auto-Generate d Referral 05/22/2023 06/20/2024 1 1 * Diagnostic Procedure Only (Routine) - Closed Specialty Diagnoses / Procedures Referred By Contac t Referred To Contact US IMAGING Diagnoses Pelvic pain Procedures US FEMALE PELVIS TRANSABD LTD US PELVIC NONOBSTETRIC IMAGE [facility] LIMITED/F/U Estefanía Mosley APRN.SHINGLER [address] [place] [address] [place] [address] Referral ID Status Reason Start Date Expiration Date V isits Requested Visits Authorized [id number] Closed Auto-Generate d Referral 05/22/2023 06/20/2024 1 1 [facility] for visit Narrative* Diagnostic Procedure Only (Routine) - Closed Specialty Diagnoses / Procedures Referred By Contac t Referred To Contact BR IMAGING Diagnoses Encounter for screening mammogram for malignant neoplasm of breast Procedures WHITNEY SCREENING W LUAN SCREENING DIGITAL BREAST TOMOSYNTHESIS BI SCREENING MAMMOGRAPHY BI 2-VIEW BREAST INC Jesus Manuel Anders DO [address] [place] [address] Br Imaging [address] [place] [address] Referral ID Status Reason Start Date Expiration Date V isits Requested Visits Authorized [id number] Closed Auto-Generate d Referral 03/13/2023 04/11/2024 1 1 [facility] Diagnostic Procedure Only (Routine) - Closed Specialty Diagnoses / Procedures Referred By Contac t Referred To Contact US IMAGING Diagnoses Pelvic pain Procedures US FEMALE PELVIS TRANSABD LTD US PELVIC NONOBSTETRIC IMAGE [facility] LIMITED/F/U Estefanía Mosley, MISSION MANAGER.SHINGLER [address] [place] [address] [place] [address] Referral ID Status Reason Start Date Expiration Date V isits Requested Visits Authorized [id number] Closed Auto-Generate d Referral 05/22/2023 06/20/2024 1 1 [facility] Advance Directives No Advanced Directives Records FoundDocuments on File Type Date Recorded 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 Advance Directive(s) 06/16/2019 7:38 AM Advance Directive(s) 09/02/2018 1:43 PM Documents on File Type Date Recorded 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 Advance Directive(s) 06/16/2019 7:38 AM Advance Directive(s) 09/02/2018 1:43 PM Reason for Referral Specialty Diagnoses / Procedures Referred By Contac t Referred To Contact Allergy Diagnoses Hives Procedures CONSULT TO ALLERGY/IMMUNOLOGY OFFICE/OUTPATIENT [facility] MDM 60-74 MINUTES Jen Humphrey APRN.SHINGLER [address] [place] [address] Referral ID Status Reason Start Date Expiration Date Visits Requested Visits Authorized [id number] Authorized PCP Requested Referral 06/09/2022 06/09/2023 1 1 Specialty Diagnoses / Procedures Referred By Contac t Referred To Contact MR IMAGING Diagnoses Uterine leiomyoma, unspecified location Procedures MRI FEMALE PELVIS WO/W IVCON MRI PELVIS W/O & W/CONTRAST MATERIAL Mari aR Humphrey MD [address] [place] [address] Mr Imaging Referral ID Status Reason Start Date Expiration Date Visits Requested Visits Authorized [id number] Authorized Auto-Generat ed Referral 06/21/2022 08/06/2022 1 1 Referral ID Status Reason Start Date Expiration Date V isits Requested Visits Authorized [id number] Closed Auto-Generate d Referral 06/21/2022 08/06/2022 1 1 Summary Purpose Family History No Family History Records FoundNo Family History Records Found Additional Source Comments Source Comments (unrecognize d section and content) In the event this informatio n is protected by the Federal Confidentiality of Alcohol and Drug Abuse Patient Records regulations: The Federal rules restrict any use of the information to criminally investigate or prosecute any alcohol or drug abuse patient.[facility] the event this information is protected by the Federal Confidentiality of Alcohol and Drug Abuse Patient Records regulations: The Federal rules restrict any use of the information to criminally investigate or prosecute any alcohol or drug abuse patient.[facility] the event this information is protected by the Federal Confidentiality of Alcohol and Drug Abuse Patient Records regulations: The Federal rules restrict any use of the information to criminally investigate or prosecute any alcohol or drug abuse patient.[facility] the event this information is protected by the Federal Confidentiality of Alcohol and Drug Abuse Patient Records regulations: The Federal rules restrict any use of the information to criminally investigate or prosecute any alcohol or drug abuse patient.[facility] the event this information is protected by the Federal Confidentiality of Alcohol and Drug Abuse Patient Records regulations: The Federal rules restrict any use of the information to criminally investigate or prosecute any alcohol or drug abuse patient.[facility] the event this information is protected by the Federal Confidentiality of Alcohol and Drug Abuse Patient Records regulations: The Federal rules restrict any use of the information to criminally investigate or prosecute any alcohol or drug abuse patient.[facility]In the event this information is protected by the Federal Confidentiality of Alcohol and Drug Abuse Patient Records regulations: The Federal rules restrict any use of the information to criminally investigate or prosecute any alcohol or drug abuse patient.[facility] GeneralIn the event this information is protected by the Federal Confidentiality of Alcohol and Drug Abuse Patient Records regulations: The Federal rules restrict any use of the information to criminally investigate or prosecute any alcohol or drug abuse patient.[facility] the event this information is protected by the Federal Confidentiality of Alcohol and Drug Abuse Patient Records regulations: The Federal rules restrict any use of the information to criminally investigate or prosecute any alcohol or drug abuse patient.[facility] the event this information is protected by the Federal Confidentiality of Alcohol and Drug Abuse Patient Records regulations: The Federal rules restrict any use of the information to criminally investigate or prosecute any alcohol or drug abuse patient.[facility] the event this information is protected by the Federal Confidentiality of Alcohol and Drug Abuse Patient Records regulations: The Federal rules restrict any use of the information to criminally investigate or prosecute any alcohol or drug abuse patient.[facility] the event this information is protected by the Federal Confidentiality of Alcohol and Drug Abuse Patient Records regulations: The Federal rules restrict any use of the information to criminally investigate or prosecute any alcohol or drug abuse patient.[facility]In the event this information is protected by the Federal Confidentiality of Alcohol and Drug Abuse Patient Records regulations: The Federal rules restrict any use of the information to criminally investigate or prosecute any alcohol or drug abuse patient.[facility] the event this information is protected by the Federal Confidentiality of Alcohol and Drug Abuse Patient Records regulations: The Federal rules restrict any use of the information to criminally investigate or prosecute any alcohol or drug abuse patient.[facility] the event this information is protected by the Federal Confidentiality of Alcohol and Drug Abuse Patient Records regulations: The Federal rules restrict any use of the information to criminally investigate or prosecute any alcohol or drug abuse patient.[facility]In the event this information is protected by the Federal Confidentiality of Alcohol and Drug Abuse Patient Records regulations: The Federal rules restrict any use of the information to criminally investigate or prosecute any alcohol or drug abuse patient.[facility] the event this information is protected by the Federal Confidentiality of Alcohol and Drug Abuse Patient Records regulations: The Federal rules restrict any use of the information to criminally investigate or prosecute any alcohol or drug abuse patient.[facility] GeneralIn the event this information is protected by the Federal Confidentiality of Alcohol and Drug Abuse Patient Records regulations: The Federal rules restrict any use of the information to criminally investigate or prosecute any alcohol or drug abuse patient.[facility] GeneralIn the event this information is protected by the Federal Confidentiality of Alcohol and Drug Abuse Patient Records regulations: The Federal rules restrict any use of the information to criminally investigate or prosecute any alcohol or drug abuse patient.[facility] GeneralIn the event this information is protected by the Federal Confidentiality of Alcohol and Drug Abuse Patient Records regulations: The Federal rules restrict any use of the information to criminally investigate or prosecute any alcohol or drug abuse patient.[facility] GeneralIn the event this information is protected by the Federal Confidentiality of Alcohol and Drug Abuse Patient Records regulations: The Federal rules restrict any use of the information to criminally investigate or prosecute any alcohol or drug abuse patient.[facility] the event this information is protected by the Federal Confidentiality of Alcohol and Drug Abuse Patient Records regulations: The Federal rules restrict any use of the information to criminally investigate or prosecute any alcohol or drug abuse patient.[facility]In the event this information is protected by the Federal Confidentiality of Alcohol and Drug Abuse Patient Records regulations: The Federal rules restrict any use of the information to criminally investigate or prosecute any alcohol or drug abuse patient.[facility]In the event this information is protected by the Federal Confidentiality of Alcohol and Drug Abuse Patient Records regulations: The Federal rules restrict any use of the information to criminally investigate or prosecute any alcohol or drug abuse patient.[facility] GeneralIn the event this information is protected by the Federal Confidentiality of Alcohol and Drug Abuse Patient Records regulations: The Federal rules restrict any use of the information to criminally investigate or prosecute any alcohol or drug abuse patient.[facility] the event this information is protected by the Federal Confidentiality of Alcohol and Drug Abuse Patient Records regulations: The Federal rules restrict any use of the information to criminally investigate or prosecute any alcohol or drug abuse patient.[facility] the event this information is protected by the Federal Confidentiality of Alcohol and Drug Abuse Patient Records regulations: The Federal rules restrict any use of the information to criminally investigate or prosecute any alcohol or drug abuse patient.[facility]In the event this information is protected by the Federal Confidentiality of Alcohol and Drug Abuse Patient Records regulations: The Federal rules restrict any use of the information to criminally investigate or prosecute any alcohol or drug abuse patient.[facility]In the event this information is protected by the Federal Confidentiality of Alcohol and Drug Abuse Patient Records regulations: The Federal rules restrict any use of the information to criminally investigate or prosecute any alcohol or drug abuse patient.[facility]In the event this information is protected by the Federal Confidentiality of Alcohol and Drug Abuse Patient Records regulations: The Federal rules restrict any use of the information to criminally investigate or prosecute any alcohol or drug abuse patient.[facility] the event this information is protected by the Federal Confidentiality of Alcohol and Drug Abuse Patient Records regulations: The Federal rules restrict any use of the information to criminally investigate or prosecute any alcohol or drug abuse patient.[facility]In the event this information is protected by the Federal Confidentiality of Alcohol and Drug Abuse Patient Records regulations: The Federal rules restrict any use of the information to criminally investigate or prosecute any alcohol or drug abuse patient.[facility]In the event this information is protected by the Federal Confidentiality of Alcohol and Drug Abuse Patient Records regulations: The Federal rules restrict any use of the information to criminally investigate or prosecute any alcohol or drug abuse patient.[facility]In the event this information is protected by the Federal Confidentiality of Alcohol and Drug Abuse Patient Records regulations: The Federal rules restrict any use of the information to criminally investigate or prosecute any alcohol or drug abuse patient.[facility]In the event this information is protected by the Federal Confidentiality of Alcohol and Drug Abuse Patient Records regulations: The Federal rules restrict any use of the information to criminally investigate or prosecute any alcohol or drug abuse patient.[facility]In the event this information is protected by the Federal Confidentiality of Alcohol and Drug Abuse Patient Records regulations: The Federal rules restrict any use of the information to criminally investigate or prosecute any alcohol or drug abuse patient.[facility]In the event this information is protected by the Federal Confidentiality of Alcohol and Drug Abuse Patient Records regulations: The Federal rules restrict any use of the information to criminally investigate or prosecute any alcohol or drug abuse patient.[facility]In the event this information is protected by the Federal Confidentiality of Alcohol and Drug Abuse Patient Records regulations: The Federal rules restrict any use of the information to criminally investigate or prosecute any alcohol or drug abuse patient.[facility]In the event this information is protected by the Federal Confidentiality of Alcohol and Drug Abuse Patient Records regulations: The Federal rules restrict any use of the information to criminally investigate or prosecute any alcohol or drug abuse patient.[facility]In the event this information is protected by the Federal Confidentiality of Alcohol and Drug Abuse Patient Records regulations: The Federal rules restrict any use of the information to criminally investigate or prosecute any alcohol or drug abuse patient.[facility]In the event this information is protected by the Federal Confidentiality of Alcohol and Drug Abuse Patient Records regulations: The Federal rules restrict any use of the information to criminally investigate or prosecute any alcohol or drug abuse patient.[facility]In the event this information is protected by the Federal Confidentiality of Alcohol and Drug Abuse Patient Records regulations: The Federal rules restrict any use of the information to criminally investigate or prosecute any alcohol or drug abuse patient.[facility]In the event this information is protected by the Federal Confidentiality of Alcohol and Drug Abuse Patient Records regulations: The Federal rules restrict any use of the information to criminally investigate or prosecute any alcohol or drug abuse patient.[facility] Reason for Visit (unrecogniz ed section and content) Reason Comments Urinary Urgency frequency , burning x2 days Reason Comments Results Reason Comments Urinary Frequency Specialty Diagnoses / Procedures Referred By Contac t Referred To Contact Urology Diagnoses Urinary frequency Frequent UTI Procedures CONSULT TO UROLOGY OFFICE/OUTPATIENT [facility] MDM 60-74 MINUTES Jen Humphrey, SORIN.SHINGLER [address] [place] [address] Referral ID Status Reason Start Date Expiration Date V isits Requested Visits Authorized [id number] Closed PCP Requested Referral 06/03/2022 06/03/2023 1 1 Reason Comments Hives Hives all over body x 3 days Reason Comments Information Reason Comments Radiology US Specialty Diagnoses / Procedures Referred By Contac t Referred To Contact US IMAGING Diagnoses Recurrent UTI Procedures US KIDNEY/BLADDER US RETROPERITONEAL REAL TIME W/IMAGE COMPLETE Vani Amos PA-C [address] [place] [address] Us Imaging Referral ID Status Reason Start Date Expiration Date V isits Requested Visits Authorized [id number] Closed Auto-Generate d Referral 06/06/2022 07/06/2023 1 1 Reason Comments Orders Reason Comments Radiology US Specialty Diagnoses / Procedures Referred By Contac t Referred To Contact US IMAGING Diagnoses Pelvic pain Procedures US FEMALE PELVIS TRANSABD LTD US PELVIC NONOBSTETRIC IMAGE [facility] LIMITED/F/U Maria R Humphrey MD [address] [place] [place] [address] Us Imaging Referral ID Status Reason Start Date Expiration Date V isits Requested Visits Authorized [id number] Closed Auto-Generate d Referral 06/18/2022 07/18/2023 1 1 Reason Onset Date Comments Refill Request 06/25/2022 Reason Comments Rash Specialty Diagnoses / Procedures Referred By Contac t Referred To Contact MR IMAGING Diagnoses Uterine leiomyoma, unspecified location Procedures MRI FEMALE PELVIS WO/W IVCON MRI PELVIS W/O & W/CONTRAST MATERIAL Maria R Humphrey MD [address] [place] [address] Mr Imaging Referral ID Status Reason Start Date Expiration Date V isits Requested Visits Authorized [id number] Closed Auto-Generate d Referral 06/21/2022 08/06/2022 1 1 Reason Onset Date Comments Refill Request 07/20/2022 Reason Comments Follow Up Reason Comments Follow Up 6 weeks Reason Onset Date Comments Refill Request 09/19/2022 Reason Comments Refill Request Reason Onset Date Comments Opened In Error 10/29/2022 Reason Onset Date Comments Refill Request 10/29/2022 Reason Comments Patient Question Reason Comments questions about citric acid allergy Reason Onset Date Comments Refill Request 01/07/2023 Reason Comments infection Possible infection o n left hand ring finger x 1 week Reason Comments Yearly Exam Reason Comments Weight Problem Reason Comments Discussion About meds an fibroi ds Reason Comments Insurance Authorization Reason Comments Medication Problem Reason Comments Eye Injury Left Eye Reason Onset Date Comments Refill Request 06/26/2023 Reason Comments UTI Painful urination, f requency, urgency x 6 days Reason Comments Imm/Inj Reason Comments 6 Month Exam Care Teams (unrecognized sec tion and content) Recreation Program Specialist Relationship Specialty Start Date End Date Jesus Manuel Barth DO [address] [place], [place] [id number] PCP - General Family Practice 12/13/14 Recreation Program Specialist Relationship Specialty Start Date End Date Jesus Manuel Barth DO [address] [place], [place] [id number] PCP - General Family Practice 12/13/14 Recreation Program Specialist Relationship Specialty Start Date End Date Jesus Manuel Barth, DO [address] [place] [address] PCP - General Family Practice 12/13/14 Recreation Program Specialist Relationship Specialty Start Date End Date Jesus Manuel Barth, DO [address] [place] [address] PCP - General Family Practice 12/13/14 Recreation Program Specialist Relationship Specialty Start Date End Date Jesus Manuel Barth, DO [address] [place] [address] PCP - General Family Practice 12/13/14 Recreation Program Specialist Relationship Specialty Start Date End Date Jesus Manuel Barth, DO [address] [place] [address] PCP - General Family Practice 12/13/14 Recreation Program Specialist Relationship Specialty Start Date End Date JesusM anuel Barth, DO [address] [place] [address] PCP - General Family Practice 12/13/14 Recreation Program Specialist Relationship Specialty Start Date End Date Jesus Manuel Barth, DO [address] [place] [address] PCP - General Family Practice 12/13/14 Recreation Program Specialist Relationship Specialty Start Date End Date Jesus Manuel Barth, DO [address] [place] [address] PCP - General Family Practice 12/13/14 Recreation Program Specialist Relationship Specialty Start Date End Date Jesus Manuel Barth, DO [address] [place] [address] PCP - General Family Practice 12/13/14 Recreation Program Specialist Relationship Specialty Start Date End Date Jesus Manuel Barth, DO [address] [place] [address] PCP - General Family Medicine 12/13/14 Recreation Program Specialist Relationship Specialty Start Date End Date Jesus Manuel Barth, DO [address] [place] [address] PCP - General Family Medicine 12/13/14 Recreation Program Specialist Relationship Specialty Start Date End Date Jesus Manuel Barth, DO [address] [place] [address] PCP - General Family Medicine 12/13/14 Recreation Program Specialist Relationship Specialty Start Date End Date Jesus Manuel Barth, DO [address] [place] [address] PCP - General Family Medicine 12/13/14 Recreation Program Specialist Relationship Specialty Start Date End Date Jesus Manuel Barth, DO [address] [place] [address] PCP - General Family Medicine 12/13/14 Recreation Program Specialist Relationship Specialty Start Date End Date Jesus Manuel Barth, DO [address] [place] [address] PCP - General Family Medicine 12/13/14 Recreation Program Specialist Relationship Specialty Start Date End Date Jesus Manuel Barth, DO [address] [place] [address] PCP - General Family Medicine 12/13/14 Recreation Program Specialist Relationship Specialty Start Date End Date Jesus Manuel Barth, DO [address] [place] [address] PCP - General Family Medicine 12/13/14 Recreation Program Specialist Relationship Specialty Start Date End Date Jesus Manuel Barth, DO [address] [place] [address] PCP - General Family Medicine 12/13/14 Recreation Program Specialist Relationship Specialty Start Date End Date Jesus Manuel Barth, DO [address] [place] [address] PCP - General Family Medicine 12/13/14 Recreation Program Specialist Relationship Specialty Start Date End Date Jesus Manuel Barth DO [address] [facility] [place] [address] PCP - General Family Medicine 12/13/14 Recreation Program Specialist Relationship Specialty Start Date End Date Jesus Manuel Barth DO [address] [facility] [place] [address] PCP - General Family Medicine 12/13/14 Recreation Program Specialist Relationship Specialty Start Date End Date Jesus Manuel Barth DO [address] [facility] [place] [address] PCP - General Family Medicine 12/13/14 Recreation Program Specialist Relationship Specialty Start Date End Date Jesus Manuel Barth DO [address] [facility] [place] [address] PCP - General Family Medicine 12/13/14 Recreation Program Specialist Relationship Specialty Start Date End Date Jesus Manuel Barth DO [address] [facility] [place] [address] PCP - General Family Medicine 12/13/14 Recreation Program Specialist Relationship Specialty Start Date End Date Jesus Manuel Barth DO [address] [facility] [place] [address] PCP - General Family Medicine 12/13/14 Recreation Program Specialist Relationship Specialty Start Date End Date Jesus Manuel Barth DO [address] [facility] [place] [address] PCP - General Family Medicine 12/13/14 Recreation Program Specialist Relationship Specialty Start Date End Date Jesus Manuel Barth DO [address] [facility] [place] [address] PCP - General Family Medicine 12/13/14 Recreation Program Specialist Relationship Specialty Start Date End Date Jesus Manuel Barth DO [address] [place] [address] PCP - General Family Medicine 12/13/14 Recreation Program Specialist Relationship Specialty Start Date End Date Jesus Manuel Barth DO [address] [place] [address] PCP - General Family Medicine 12/13/14 Recreation Program Specialist Relationship Specialty Start Date End Date Jesus Manuel Barth DO [address] [place] [address] PCP - General Family Medicine 12/13/14 Recreation Program Specialist Relationship Specialty Start Date End Date Jesus Manuel Barth DO [address] [place] [address] PCP - General Family Medicine 12/13/14 Recreation Program Specialist Relationship Specialty Start Date End Date Jesus Manuel Barth DO [address] [place] [address] PCP - General Family Medicine 12/13/14 Recreation Program Specialist Relationship Specialty Start Date End Date Jesus Manuel Barth DO [address] [place] [address] PCP - General Family Medicine 12/13/14 Recreation Program Specialist Relationship Specialty Start Date End Date Jesus Manuel Barth DO [address] [place] [address] PCP - General Family Medicine 12/13/14 Recreation Program Specialist Relationship Specialty Start Date End Date Jesus Manuel Barth DO [address] [place] [address] PCP - General Family Medicine 12/13/14 INFORMATION SOURCE (unrecogn ized section and content) DATE CREATED AUTHOR AUTHOR'S ORIN ISRAADEN 10/05/2023 [facility] FOR RECORDS PERTAINING TO PATIENTS WHO ARE OR HAVE BEEN ENROLLED IN A CHEMICAL DEPENDENCY/SUBSTANCEABUSE PROGRAM, SOME INFORMATION MAY BE OMITTED. This clinical summary was aggregated from multiple sources. Caution should be exercised in using it in the provision of clinical care. This summary normalizes information from multiple sources, and as a consequence, information in this document may materially change the coding, format and clinical context of patient data. In addition, data may be omitted in some cases. CLINICAL DECISIONS SHOULD BE BASED ON THE PRIMARY CLINICAL RECORDS. [employer] provides no warranty or guarantee of the accuracy or completeness of information in this document.
[2023-10-05 14:49] LABS: Absolute Lymphocyte Count 1.68 X10^3/uL (0.83-4.51); Absolute Neutrophil Count 8.6 X10^3/uL (2.0-7.7); Basophil# 0.01 X10^3/uL; Basophil% 0.1 % (0-1); Eosinophil# 0.19 X10^3/uL; Eosinophils% 1.7 % (0-5); Hematocrit 42.8 % (37-47); Hemoglobin 13.6 g/dL (12.0-15.0); Lymphocyte # 1.68 X10^3/ul (0.83-4.51); Lymphocyte % 14.9 % (19-41); Mean Corp Hgb Conc 31.8 g/dL (32-36); Mean Corpuscular Hgb 28.7 pg (27.0-32.0); Mean Corpuscular Volume 90.3 fL (81-99); Mean Platelet Vol. 10.1 fl (6.2-12.0); Monocyte# 0.71 X10^3/uL; Monocyte% 6.3 % (0-10); NRBC Flagged by Analyzer 0 % (0-5); Neutrophil # 8.62 X10^3/uL (2.7-7.7); Neutrophil % 76.6 % (47-70); Platelet Count 270 K/mm3 (150-450); RBC Distribution Width CV 13.1 % (11.6-14.6); RBC Distribution Width SD 43.2 fl (35.1-43.9); Red Blood Count 4.74 M/mm3 (4.2-5.4); White Blood Count 11.3 K/mm3 (4.4-11.0)
[2023-10-05 15:05] LABS: AST(SGOT) 88 U/L (15-37); Alanine Aminotransfer ALT/SGPT 57 U/L (13-56); Albumin, Serum 2.9 g/dL (3.2-5.0); Alkaline Phosphatase 83 U/L (45-117); Anion Gap 7 (5-15); BUN 10 mg/dL (7-18); BUN/Creat Ratio 14.9 RATIO (10-20); Calcium,Total 8.5 mg/dL (8.5-10.1); Chloride 110 mmol/L (98-107); Creatinine, Serum 0.67 mg/dL (0.55-1.02); EST Glomerular Filtration Rate 100 mL/min (>60); Est Glom Filt Rate - Afr Amer 122 mL/min (>60); Estimated Creatinine Clearance 94.41 ml/min; Globulin 3.2 g/dL (2.2-4.2); Glucose 90 mg/dL (74-106); Lipase 36 U/L (13-75); Potassium 3.5 mmol/L (3.5-5.1); Protein, Total 6.1 g/dL (6.4-8.2); Sodium Level 141 mmol/L (136-145)
--- NOTE | 2023-10-05 15:13 | CT_ITS ---
EXAM: CT ABDOMEN AND PELVIS WITH INTRAVENOUS CONTRAST CLINICAL INDICATION: abd pain, abn LFTs TECHNIQUE: Helically acquired images were obtained of the abdomen and pelvis with intravenous contrast. This CT exam was performed using one or more of the following dose reduction techniques: automated exposure control, adjustment of the mA and/or kV according to patient size, and/or use of iterative reconstruction technique. CONTRAST: IV 100mL Isovue-370 RADIATION DOSE: CTDIvol = 16.48 mGy, DLP = 1018.95 mGy-cm COMPARISON: No relevant prior studies available. FINDINGS: LOWER THORAX: Unremarkable. Lung bases are clear. No cardiomegaly. No significant pericardial effusion. ABDOMEN: LIVER: Hepatomegaly, mild intrahepatic bile duct distention. No masses. GALLBLADDER AND BILE DUCTS: Cholecystectomy. No extrahepatic biliary ductal dilation. PANCREAS: Unremarkable. No focal cystic or solid mass. SPLEEN: Unremarkable. Normal size without focal cystic or solid mass. ADRENALS: Unremarkable. No nodules. KIDNEYS AND URETERS: Unremarkable. Normal renal size and position. No hydronephrosis. STOMACH AND BOWEL: Evaluation of the GI tract is limited by absence of oral contrast. Cannot exclude stomach wall thickening. No dilated loops of bowel or evidence for obstruction. Cannot exclude segmental thickening of the hunt of the small or large bowel. Cannot exclude enteritis or colitis. Appendix within normal limits. PELVIS: APPENDIX: No evidence of acute appendicitis. BLADDER: Unremarkable. REPRODUCTIVE: Probable several small fibroids otherwise unremarkable as visualized. No mass. ABDOMEN and PELVIS: INTRAPERITONEAL SPACE: Unremarkable. No ascites or other fluid collection. No free air. BONES/JOINTS: Unremarkable. No suspicious lytic or blastic abnormality. SOFT TISSUES: Small fat-containing umbilical hernia. VASCULATURE: Unremarkable. Abdominal aorta is non-dilated. LYMPH NODES: Unremarkable. No enlarged lymph nodes. CT/Abdomen/Pelvis W IV Cont ONLY IMPRESSION: Mild intrahepatic bile duct distention. No other definite acute or significant abnormality seen. Electronically Signed: Dick Santana MD at 16:16 EST ,
[2023-10-05] MEDS: Metoclopramide 10 MG/10 ML UDC PO (17:10)
[2023-10-05 17:20] VITALS: BP 116/74
[2023-10-09 07:08] LABS: HEPATITIS B SURFACE AG Negative (Negative); Hep C Antibodies Non Reactive (Non Reactive); Hepatitis A IgM Antibody Negative (Negative); Hepatitis B Core AB IgM Negative (Negative)
== END 2023-10-05 17:25 | disposition home or self-care (01) ==
PROVIDERS: Emergency Provider Emergency Medicine; PCP Student in an Organized Health Care Education/Training Program; Visit Provider Emergency Medicine
DX: R10.13 Epigastric pain (principal); R11.0 Nausea; R94.5 Abnormal results of liver function studies; Z90.49 Acquired absence of other specified parts of digestive tract
CPT/HCPCS: 74177; 80048; 80074; 80076; 83690; 85025; 96365; 96366; 96375; 99282; J7030; Q9967; A4216; J2405

== ENCOUNTER 2025-06-27 06:01 | Emergency (ER) | payer OTHER, SELFPAY ==
[2025-06-27 06:02] VITALS: BP 117/89; PULSE 87; RESP 18; TEMP 36.9; O2SAT 97; BMI 26.1
--- NOTE | 2025-06-27 06:17 | EX.ED.DYSGE1 ---
HPI History of Present Illness Chief Complaint: Allergic Reaction Informant: patient Narrative Narrative: Patient is a 50-year-old female with past medical history of depression. She states she went to bed as she normally would last night and then awoke around 5:30 in the morning and she states she felt itchy and slightly swollen. She states she walked into the bathroom and looked in the mirror and she noticed hives across her face and arms and some swelling to her lips. She states she is unsure what time symptoms started as she was sleeping. She denies any new exposures. She denies any trouble breathing or swallowing at this time but with the sudden onset of the rash as well as some lip swelling she is concerned about anaphylaxis and therefore presents for evaluation [facility] Medical History Depression Home Medications ?Medication ?Instructions ?Recorded ?Last Taken ?Type sertraline 50 mg tablet 50 mg PO DAILY 06/23/16 06/23/16 History epinephrine 0.3 mg/0.3 mL 0.3 mg (0.3 mL) IM Q10M PRN PRN 06/13/22 Unknown Rx injection, auto-injector (EpiPen anaphylaxis #2 ea 2-Oscar) etonogestrel 0.12 mg-ethinyl 1 vag ring vaginal Q4W 09/09/23 Unknown History estradiol 0.015 mg/24 hr vaginal ring (NuvaRing) metoclopramide HCl 10 mg tablet 10 mg PO Q6H PRN nausea and 10/05/23 Unknown Rx (Reglan) vomiting #14 tabs ondansetron 4 mg disintegrating 4 mg PO Q8H PRN PRN Nausea #10 tabs 10/05/23 Unknown Rx tablet pantoprazole 40 mg tablet,delayed 40 mg PO DAILY #30 tabs 10/05/23 Unknown Rx release (Protonix) epinephrine 0.3 mg/0.3 mL 0.3 mg (0.3 mL) IM Q20M PRN 06/27/25 Unknown Rx injection, auto-injector anaphylaxis #2 ea prednisone 20 mg tablet 40 mg (2 x 20 mg) PO DAILY 5 days 06/27/25 Unknown Rx #10 tabs Allergy/AdvReac Type Severity Reaction Status Date / Time azithromycin (From Zithromax Allergy Hives Verified 06/27/25 06:02 Z-Oscar) bacitracin (From Neosporin Allergy Hives Verified 06/27/25 06:02 ([id number])) cephalexin (From Keflex) Allergy Hives Verified 06/27/25 06:02 citric acid (From Bicitra) Allergy Hives Verified 06/27/25 06:02 neomycin (From Neosporin Allergy Hives Verified 06/27/25 06:02 ([id number])) polymyxin B (From Neosporin Allergy Hives Verified 06/27/25 06:02 ([id number])) sodium citrate (From Bicitra) Allergy Hives Verified 06/27/25 06:02 Family History Father Cancer, Onset Age: 71 multiple, lymphoma Sudden cardiac Hypertension Mother Fibroids Surgical History History of Hx laparoscopic cholecystectomy Social History adopted: No household members: family number of children: 2 current occupational status: employed 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 - [employer] current occupational exposures/hazards: No pets and animals: Yes (foster cats) leisure activities: exercise history of recent travel: No sexually active: Yes Smoking Status: Never smoker alcohol intake: current alcohol intake frequency: holidays/special occasions only Alcohol type: hard liquor details: very rare, family history of alcohol use substance use type: does not use diet: vegan and vegetarian well-balanced diet: daily or most days caffeine: Yes (black coffee ) eating out: rarely or never during the past year weight has: decreased > 10 lbs what type of physical activity do you participate in: weight training and other details: barre and pilates frequency: 3-4 times per week seatbelt use: always do you feel safe at home: Yes additional social history: [employer] ED Constitutional Constitutional ED: Denies chills or fever(s) Eyes Eyes: Denies change in vision ENT ENT ED: Reports other Details: Positive lip swelling ; Denies rhinorrhea or sore throat Cardiovascular Cardiovascular: Denies chest pain, palpitations or racing heartbeat Respiratory/Chest Respiratory/Chest: Denies cough or dyspnea Gastrointestinal Gastrointestinal: Denies abdominal pain, diarrhea, nausea or vomiting Musculoskeletal Musculoskeletal: Denies myalgias Integumentary Reports rash Neurologic Neurologic: Denies headache(s) Hematologic/Lymphatic Hematologic/Lymphatic: Denies easy bleeding or easy bruising Allergic/Immunologic Allergic/Immunologic ED: Reports urticaria; Denies mouth swelling or tongue swelling EXAM Physical Exam Const Vital Signs: 06/27/25 06:02 Temperature 98.4 F Temperature Source Oral Pulse Rate 87 Respiratory Rate 18 Blood Pressure 117/89 H Blood Pressure Mean 98 Pulse Ox 97 Oxygen Delivery Method Room Air Positive well nourished and well developed General Appearance ED: well developed HEENT HEENT Narrative: Normocephalic atraumatic There is swelling externally to the upper and lower lip. However there is no tongue swelling or oral lesions or airway edema or compromise Eyes PERRL and EOMs intact bilaterally General Eye ED: Negative for scleral icterus Neck supple Neck Narrative: No nuchal rigidity or meningeal signs Resp normal respiratory effort and clear to auscultation bilaterally Resp Narrative: No nasal flaring retractions tachypnea accessory muscle use or stridor. No dyspnea with speech Cardio regular rate and regular rhythm Extremity normal to inspection Neuro oriented x3, CN's II-XII intact bilaterally and no sensory deficits noted Sensorium / Orientation: alert Motor Exam: strength 5/5 throughout Psych mental status grossly normal Skin Skin Narrative: Patient has erythematous blanchable urticarial lesions to bilateral legs arms abdomen back face and scalp No involvement of the palms or soles No sloughing of the skin tissue No vesicular or pustule changes MDM MDM MDM Narrative Medical decision making narrative: Patient arrived to the ER with stable vitals. She did have lip swelling but it was all external with no internal swelling or airway compromise and therefore I felt no need for emergent intubation or airway stabilization. Her history and exam is consistent with urticaria/acute allergic reaction but she has no new exposures. She was given Solu-Medrol Benadryl Pepcid and IM epinephrine secondary to the acute reaction. She was watched in the ER for approximately 2 hours after medication administration. On reevaluation she has had moderate improvement of her urticaria and no further lip swelling. She is able to tolerate her secretions without difficulty and has no increased work of breathing and her pulse ox remains 98 to 100% on room air. Therefore at this time there are no findings to suggest angioedema or anaphylaxis and therefore there is no need for further evaluation or observation in the ER and she is otherwise safe for discharge History & Record Review Discussion w/independent historian: Patient Discharge Plan Triage Chief Complaint: Allergic Reaction ED Provider: Artur Samson Dx/Rx/DC Orders Clinical Impression: Urticaria, Allergic reaction, Depression Instructions: ED General Allergic Reactions, ED Hives (Adult) Prescriptions: New prednisone 20 mg tablet 40 mg PO DAILY 5 Days Qty: 10 0RF epinephrine 0.3 mg/0.3 mL auto-injector 0.3 mg IM Q20M PRN (Reason: anaphylaxis) Qty: 2 0RF Rx Instructions: do not exceed 3 doses per episode No Action etonogestrel-ethinyl estradiol [NuvaRing] 0.12-0.015 mg/24 hr ring 1 vag ring vaginal Q4W Rx Instructions: leave in place for 3 weeks of a 4-week cycle sertraline 50 MG tablet 50 mg PO DAILY Patient Comments: mental health epinephrine [EpiPen 2-Oscra] 0.3 mg/0.3 mL auto-injector 0.3 mg IM Q10M PRN PRN (Reason: anaphylaxis) Qty: 2 0RF Rx Instructions: for 2 doses ondansetron 4 mg tablet,disintegrating 4 mg PO Q8H PRN PRN (Reason: Nausea) Qty: 10 0RF metoclopramide HCl [Reglan] 10 mg tablet 10 mg PO Q6H PRN (Reason: nausea and vomiting) Qty: 14 0RF pantoprazole [Protonix] 40 mg tablet,delayed release (DR/EC) 40 mg PO DAILY Qty: 30 0RF Primary Care Provider: Jesus Manuel Worley Referrals: Jesus Manuel Worley DO [Primary Care Provider, Medical] Activity Restrictions/Additional Instructions: Please begin taking the prednisone on Saturday morning as you do not need further steroids as they were given through the IV in the ER today. You can also take 1 or 2 Benadryl at a time up to 3 times a day to help with rash or itch. Or you can substitute out 1 Daisy/Claritin/Zyrtec up to twice a day. Please follow-up with your family doctor and/or mechanical and auto body car checker for further testing to elicit the cause of your reaction today. If you develop worsening symptoms or have any further concerns please return to the ER for repeat evaluation Print Language: Spanish Disposition Disposition: Home, Self Care
[2025-06-27] MEDS: DiphenhydrAMINE 50 MG/ML Syringe IV (06:24)
[2025-06-27] MEDS: Epi Pen (EQUIV) 0.3 MG Syringe IM (06:29)
[2025-06-27] MEDS: Famotidine 200 MG/20 ML MDV 40 MG in 0.9% Normal Saline (Pres. free 6 ML 300 MG IV (06:38)
--- OUTSIDE RECORDS SUMMARY | 2025-06-27 06:42 | XMS RPT_ITS | CCD ---
Author Organization [facility] Care Team Providers Care Pole Peeler Name Role Phone Jesus Manuel Worley DO Primary Care Provider VANI LAMAR Attending Unavailable JEN HUMPHREY Referring Unavailable JESUS MANUEL WORLEY Primary Care Unavailable Jesus Manuel Worley DO Primary Care Provider Jesus Manuel Worley DO Primary Care Provider Dr. Jesus Manuel Worley Primary Care Provider Dr. Jesus Manuel Worley Referring Provider Dr. Amarilis Richey Attending Provider Jesus Manuel Worley Primary Care Unavailable Amarilis Richey Attending Unavailable Jesus Manuel Worley Referring Unavailable Jesus Manuel Worley Primary Care Unavailable Amarilis Richey Attending Unavailable Jesus Manuel Worley Referring Unavailable Jesus Manuel Worley Primary Care Unavailable Vane Bradley Attending Unavailable Jesus Manuel Worley DO Primary Care Provider Dimitri MANAGER SHIFT.[employer] MANAGEREstefanía Unavailable [facility] MANAGER SHIFT.Beatris BURNS Unavailable Blanka MANAGER SHIFT.Dunia BURNS Unavailable JESUS MANUEL WORLEY Attending Unavailable JESUS MANUEL WORLEY Primary Care Unavailable JESUS MANUEL WORLEY Primary Care Unavailable LINH SANTILLAN Attending Unavailable JESUS MANUEL WORLEY Referring Unavailable JESUS MANUEL WORLEY Primary Care Unavailable JESUS MANUEL WORLEY Primary Care Unavailable JESUS MANUEL WORLEY Attending Unavailable SELF Referring Unavailable JESUS MANUEL WORLEY Primary Care Unavailable JESUS MANUEL WORLEY Referring Unavailable JESUS MANUEL WORLEY Primary Care Unavailable JEN SPEARS Attending Unavailable JESUS MANUEL WORLEY Primary Care Unavailable Allergies Allergy Classification Reported Allergen(s) Allergy Type Date of Onset Reaction(s) Facility Aminoglycosides (antibiotic) (2 sources) Neomycin Drug Allergy 11-04-19 18 Unknown [facility] bacitracin / neomycin / polymyxin b (2 sources) bacitracin / neomycin / polymyxin b Drug Allergy 09-19-20 05 [facility] Cephalosporins (antibiotic) (2 sources) Cephalexin Drug Allergy 06-13-20 22 [facility] Work Phone: Citric Acid (2 sources) Citric Acid Drug Allergy 11-04-19 18 Unknown [facility] Citric Acid / sodium citrate (2 sources) Citric Acid / sodium citrate Drug Allergy 04-02-20 11 [facility] Macrolides (antibiotic) (2 sources) Azithromycin Drug Allergy 06-26-20 16 Hives, Swelling [facility] Work Phone: Pollen (2 sources) Pollen Substance Allergy 09-16-20 23 Itching [facility] Polymyxin B (2 sources) Polymyxin B Drug Allergy 11-04-19 18 Unknown [facility] (20 sources) Azithromycin; Translations: [AZITHROMYCIN] Drug Allergy 06-26-20 16 Hives, Swelling [facility] Work Phone: (20 sources) bacitracin / neomycin / polymyxin b; Translations: [NEOMYCIN-BACITRA MAHAD-POLYMYXIN] Drug Allergy 09-19-20 05 [facility] Work Phone: (20 sources) Citric Acid / sodium citrate; Translations: [SODIUM CITRATE-CITRIC ACID] Drug Allergy 04-02-20 11 [facility] Work Phone: (20 sources) environmental [Other] Propensity to adverse reactions 10-05-20 05 [facility] Work Phone: (20 sources) seasonal allergies [Other] Propensity to adverse reactions 10-05-20 05 Other: See Comments [facility] Work Phone: (20 sources) Bacitracin; Translations: [BACITRACIN] Drug Allergy 11-04-19 18 Unknown [facility] (20 sources) Citric Acid; Translations: [CITRIC ACID] Drug Allergy 11-04-19 18 Unknown [facility] (20 sources) Neomycin; Translations: [NEOMYCIN] Drug Allergy 11-04-19 18 Unknown [facility] (20 sources) Polymyxin B; Translations: [POLYMYXIN B] Drug Allergy 11-04-19 18 Unknown [facility] (20 sources) Cephalexin; Translations: [CEPHALEXIN] Drug Allergy 06-13-20 22 Rash [facility] Work Phone: (5 sources) sodium citrate Drug Allergy 06-13-20 Hives [facility] (1 source) OTHER; Translations: [OTHER] Propensity to adverse reactions (disorder) 10-05-20 05 [facility] Other [facility] (20 sources) Pollen; Translations: [POLLEN EXTRACTS] Drug Allergy 09-16-20 Itching [facility] Work Phone: (1 source) Azithromycin Drug Allergy 10-05-20 23 [facility] (1 source) Bacitracin Drug Allergy 10-05-20 [facility] (1 source) Cephalexin Drug Allergy 10-05-20 23 [facility] (1 source) Citric Acid Drug Allergy 10-05-20 23 [facility] (1 source) Neomycin Drug Allergy 10-05-20 [facility] (1 source) sodium citrate Drug Allergy 10-05-20 [facility] (1 source) polymyxin B Drug allergy (disorder) 10-05-20 23 [facility] Medications Current Medications Medication Drug Class(es) Dates Sig (Normalized) Sig (Original) [id number] 200 actuat albuterol 0.09 mg/actuat metered dose inhaler (20 sources) beta2-Adrenergic Agonist Start: 07-10-2021 take 2 puff(s) by inhalation every four hours as needed albuterol HFA (VENTOLIN HFA) 90 mcg/actuation inhaler Indications: Asthma, allergic (HCC) Inhale 2 Puffs as instructed every 4 hours as needed. 36 g 3 07/10/2021 Active Start: 03-18-2019 albuterol (PRO VENTIL) 2.5 mg /3 mL (0.083 %) nebulizer solution Indications: Asthma, allergic (HCC) Use 3 mL via nebulizer every 4 hours as needed. Use over 5-15minutes. 1 Package 03/18/2019 Active Comment on above: Use 3 mL via nebuliz er every 4 hours as needed. Use over 5-15minutes. Inhale 2 Puffs as in structed every 4 hours as needed. 120 actuat budesonide 0.18 mg/actuat dry powder inhaler (20 sources) Corticosteroid Start: 07-10-20 21 take 2 puff(s) by inhalation twice daily budesonide (PULMICORT FLEXHALER) 180 mcg/actuation aepb Indications: Asthma, allergic (HCC) Inhale 2 Puffs as instructed twice daily. 3 Each 3 07/10/2021 Active Start: 11-04-2017 End: 09-09-2023 take 1 puff(s) by inhalation twice daily Budesonide (Pulmicort Inhaler 180 Mcg) 1 PUFF inhaler Discontinued 1 PUFF INHALATION TWICE A DAY November 04, 2017 12:00am September 09, 2023 10:13am Start: 11-04-2017 take 1 puff(s) by in halation twice daily Budesonide (Pulmicort Inhaler 180 Mcg) 1 PUFF inhaler Active 1 PUFF INHALATION TWICE A DAY November 04, 2017 12:00am Start: 11-04-2017 take 1 puff(s) by in halation twice daily Budesonide (Pulmicort Inhaler 180 Mcg) 1 PUFF inhaler Active 1 PUFF INHALATION TWICE A DAY November 04, 2017 1:00am Comment on above: Inhale 2 Puffs as in structed twice daily. cephalexin 500 mg oral capsule (5 sources) Cephalosporin Antibacterial Start: 06-03-20 22 End: 06-10-20 22 take 1 capsule by mouth twice daily cephALEXin (KEFLEX) 500 mg capsule Take 1 capsule by mouth twice daily for 7 days. 14 capsule 0 06/03/2022 06/10/2022 Active Comment on above: Take 1 capsule by [facility] twice daily for 7 days. cholecalciferol 0.05 mg oral capsule (20 sources) Vitamin D Start: 02-06-20 17 take 1 tablet by mouth once daily Cholecalciferol, Vitamin D3, 2,000 unit cap Indications: Vitamin D deficiency Take 1 tablet by mouth once daily. 90 capsule 1 02/05/2017 Active Comment on above: Take 1 tablet by [facility] once daily. [id number] 0.3 ml EPINEPHrine 1 mg/ml auto-injector (20 sources) alpha-Adrenergic Agonist, beta-Adrenergic Agonist, Catecholamine Start: 06-13-20 Epinephrine (Epipen 2-Oscar) 0.3 mg/0.3 mL auto-injector Active 0.3 MG IM EVERY 10 MINUTES NEEDED 2 June 12, 2022 11:00pm for 2 doses Start: 08-19-2018 End: 04-20-2024 EPINEPHrine (EPIPEN) 0.3 mg/ 0.3 mL auto-injector Indications: Allergic reaction, subsequent encounter As directed. If needed: have someone drive you the emergency room after for observation. 2 Each 1 08/19/2018 04/20/2024 Discontinued Comment on above: As directed. If need ed: have someone drive you the emergency room after for observation. 21 day ethinyl estradiol 0.080759 mg/hr / etonogestrel 0.005 mg/hr vaginal system (20 sources) Progestin, Estrogen Start: 11-12-2023 End: 03-10-2025 Etonogestrel-Ethinyl Estradiol (NUVARING) 0.12-0.015 mg/24 hr vaginal ring Indications: Encounter for surveillance of vaginal ring hormonal contraceptive device Use 1 each vaginally as directed. Insert vaginally and leave in place for 3 consecutive weeks, then remove and place a new ring and skip menses. 4 each 3 03/10/2025 Active Start: 09-09-2023 Etonogestrel-E thinyl Estradiol (Nuvaring) 0.12-0.015 mg/24 hr ring Active 1 VAG RING VAGINAL every 4 weeks September 09, 2023 12:00am leave in place for 3 weeks of a 4-week cycle Start: 09-28-2019 End: 10-31-2022 Etonogestrel-Ethinyl Estradi ol (NUVARING) 0.12-0.015 mg/24 hr vaginal ring Indications: Encounter for surveillance of vaginal ring hormonal contraceptive device Use 1 Each vaginally as directed. Insert vaginally and leave in place for 3 consecutive weeks, then remove and place a new ring and skip menses. 4 Each 3 10/30/2022 Active Comment on above: Use 1 Each vaginally as directed. Insert vaginally and leave in place for 3 consecutive weeks, then remove for 1 week. Use 1 Each vaginally as directed. Insert vaginally and leave in place for 3 consecutive weeks, then remove and place a new ring and skip menses. fluocinolone acetonide 0.1 mg/ml otic solution (5 sources) Corticosteroid Start: 03-10-2025 Fluocinolone Acetonide Oil 0.01 % drop Indications: Eczema of external ear, bilateral Use 1-2 drops in both ears two times a day as needed (ear itching, flaking). 20 mL 2 03/10/2025 Active ketoconazole 20 mg/ml topical cream (20 sources) Azole Antifungal Start: 09-23-2024 ketoconazole (NIZORAL) 2 % cream Indications: Intertrigo Apply 1 application to affected area once daily. Under breast rash 30 g 1 09/23/2024 Active Start: 07-17-2021 End: 09-16-2023 ketoconazole (NIZORAL) 2 % s hampoo Indications: Seborrheic dermatitis Massage into damp scalp 3 times weekly. Allow to sit for 5 minutes prior to rinsing. 120 mL 5 09/16/2023 Active Comment on above: Massage into damp sc alp 3 times weekly. Allow to sit for 5 minutes prior to rinsing. metoclopramide 10 mg oral tablet (1 source) Dopamine-2 Receptor Antagonist Start: take 1 tablet by mouth every six hours Metoclopramide Hcl (Reglan) 10 mg tablet Active 10 MG PO EVERY 6 HOURS October 05, 2023 12:00am metroNIDAZOLE 7.5 mg/ml topical cream (6 sources) Nitroimidazole Antimicrobial Start: 025 End: metroNIDAZOLE (METROCREAM) 0.75 % cream Indications: Rosacea Use twice daily to affected areas on face 45 g 3 02/10/2025 02/01/2026 Active mupirocin 0.02 mg/mg topical ointment (2 sources) RNA Synthetase Inhibitor Antibacterial Start: 023 End: mupirocin (BACTROBAN) 2 % ointment Apply to affected area twice daily for 5 days. 30 g 0 03/10/2023 03/15/2023 Active Comment on above: Apply to affected ar ea twice daily for 5 days. nitrofurantoin, macrocrystals 25 mg / nitrofurantoin, monohydrate 75 mg oral capsule (2 sources) Nitrofuran Antibacterial Start: End: take 1 capsule by mouth twice daily at mealtime nitrofurantoin monohydrate and macrocrystal (MACROBID) 100 mg capsule Take 1 capsule by mouth twice daily with meals for 5 days. 10 capsule 0 04/26/2022 05/01/2022 Active Comment on above: Take 1 capsule by [facility] twice daily with meals for 5 days. ofloxacin 3 mg/ml ophthalmic solution (2 sources) Quinolone Antimicrobial Start: End: take 2 drop(s) into the eye(s) every four hours ofloxacin (OCUFLOX) 0.3 % ophthalmic solution Indications: Hordeolum externum of left lower eyelid Use 2 Drops in the left eye every 4 hours for 7 days. 10 mL 0 02/07/2024 02/14/2024 Active ondansetron 4 mg disintegrating oral tablet (1 source) Serotonin-3 Receptor Antagonist Start: take 4 mg by mouth every eight hours as needed Ondansetron Active 4 MG PO EVERY 8 HOURS NEEDED October 05, 2023 12:00am semaglutide 7 mg oral tablet (3 sources) Start: take 1 tablet by mouth once daily before breakfast, then take 4 tablets by mouth once semaglutide (RYBELSUS) 7 mg tablet Take 1 tablet by mouth daily before breakfast. Take 30 minutes before the first food, beverage, or other oral medications of the day with no more than 4 ounces of plain water 14 tablet 03/17/2025 Active semaglutide (OZEMPIC) 0.25 mg or 0.5 mg (2 mg/3 mL) pen (20 sources) Start: End: semaglutide (OZEMPIC) 0.25 mg or 0.5 mg (2 mg/3 mL) pen Indications: Weight gain , Obesity, Class I, BMI 30-34.9 , IFG (impaired fasting glucose) Ordered through [facility], with B12. Current dose of 0.5mg 04/24/2024 06/05/2024 Discontinued Start: 04-24-2024 End: 04-24-2024 semaglutide (OZEMPIC) 0.25 m g or 0.5 mg (2 mg/3 mL) pen Indications: Weight gain , Obesity, Class I, BMI 30-34.9 , IFG (impaired fasting glucose) Ordered through [facility], with B12 0 04/24/2024 04/24/2024 Discontinued (Adjust Sig - Block E-Cancel) Start: 04-24-2024 semaglutide (O ZEMPIC) 0.25 mg or 0.5 mg (2 mg/3 mL) pen Indications: Weight gain , Obesity, Class I, BMI 30-34.9 , IFG (impaired fasting glucose) Ordered through [facility], with B12. Current dose of 0.5mg 0 04/24/2024 Active Start: 12-27-2023 End: 04-24-2024 semaglutide (OZEMPIC) 0.25 m g or 0.5 mg (2 mg/3 mL) pen Indications: Weight gain , Obesity, Class I, BMI 30-34.9 , IFG (impaired fasting glucose) Ordered through [facility] in [place], with B12 0 12/27/2023 04/24/2024 Discontinued (Adjust Sig - Block E-Cancel) Start: 12-27-2023 semaglutide (O ZEMPIC) 0.25 mg or 0.5 mg (2 mg/3 mL) pen Indications: Weight gain , Obesity, Class I, BMI 30-34.9 , IFG (impaired fasting glucose) Ordered through [facility] in [place], with B12 0 12/27/2023 Active Start: 12-04-2023 End: 01-03-2024 inject 0.5 mg by subcutaneous injection every week for obesity semaglutide (OZEMPIC) 0.25 mg or 0.5 mg (2 mg/3 mL) pen Indications: Encounter for immunization , Weight gain , Obesity, Class I, BMI 30-34.9 , Dyslipidemia , IFG (impaired fasting glucose) Inject 0.5 mg subcutaneously one time a week. 3 mL 0 12/04/2023 01/03/2024 Active Start: 06-26-2023 End: 07-26-2023 semaglutide (OZEMPIC) 0.25 m g or 0.5 mg (2 mg/3 mL) pen Indications: Encounter for immunization , Weight gain , Obesity, Class I, BMI 30-34.9 , Dyslipidemia , IFG (impaired fasting glucose) Inject 0.25 mg subcutaneously one time a week. 3 mL 0 06/26/2023 07/26/2023 Start: 06-26-2023 End: 07-26-2023 semaglutide (OZEMPIC) 0.25 m g or 0.5 mg (2 mg/3 mL) pen Indications: Encounter for immunization , Weight gain , Obesity, Class I, BMI 30-34.9 , Dyslipidemia , IFG (impaired fasting glucose) Inject 0.25 mg subcutaneously one time a week. 3 mL 0 06/26/2023 07/26/2023 Active Start: 05-22-2023 End: 06-21-2023 semaglutide (OZEMPIC) 0.25 m g or 0.5 mg (2 mg/3 mL) pen Indications: Encounter for immunization , Weight gain , Obesity, Class I, BMI 30-34.9 , Dyslipidemia , IFG (impaired fasting glucose) Inject 0.25 mg subcutaneously one time a week. 3 mL 0 05/22/2023 06/21/2023 Active Start: 05-22-2023 End: 05-22-2023 semaglutide (OZEMPIC) 0.25 m g or 0.5 mg (2 mg/3 mL) pen Indications: Weight gain , Obesity, Class I, BMI 30-34.9 Inject 0.25 mg subcutaneously one time a week. 3 mL 0 05/22/2023 05/22/2023 Discontinued Comment on above: Inject 0.25 mg subcu taneously one time a week. Inject 0.5 mg subcut aneously one time a week. Ordered through [facility] in [place], with B12 semaglutide (OZEMPIC) 2 mg/dose (8 mg/3 mL) pen injector (16 sources) Start: 025 inject 2 mg by subcutaneous injection every week semaglutide (OZEMPIC) 2 mg/dose (8 mg/3 mL) pen injector Inject 2 mg subcutaneously one time a week. 3 mL 2 02/03/2025 Active Start: 08-17-2024 End: 02-03-2025 inject 2 mg by subcutaneous injection every week semaglutide (OZEMPIC) 2 mg/dose (8 mg/3 mL) pen injector Inject 2 mg subcutaneously one time a week. 3 mL 2 08/17/2024 02/03/2025 Discontinued Start: 08-17-2024 inject 2 mg by subcu taneous injection every week semaglutide (OZEMPIC) 2 mg/dose (8 mg/3 mL) pen injector Inject 2 mg subcutaneously one time a week. 3 mL 2 08/17/2024 Active sertraline 50 mg oral tablet (20 sources) Serotonin Reuptake Inhibitor Start: 06-23-2016 End: 12-14-2024 sertraline (ZOLOFT) 50 mg tablet Indications: Anxiety , Anxiety with depression TAKE 1 TABLET ONCE DAILY 90 tablet 3 12/14/2024 Active Comment on above: Take 1 tablet by david once daily. sulfamethoxazole 800 mg / trimethoprim 160 mg oral tablet (2 sources) Dihydrofolate Reductase Inhibitor Antibacterial, Sulfonamide Antimicrobial Start: 07-19-2023 End: 07-26-2023 take 1 tablet by mouth twice daily sulfamethoxazole-t rimethoprim (BACTRIM DS) 800-160 mg per tablet Indications: Urinary frequency Take 1 tablet by mouth two times a day for 7 days. 14 tablet 0 07/19/2023 07/26/2023 Active Comment on above: Take 1 tablet by david two times a day for 7 days. triamcinolone acetonide 1 mg/ml topical cream (20 sources) Corticosteroid Start: 09-23-2024 triamcinolone acetonide (KENALOG) 0.1 % cream Indications: Intertrigo Apply to affected area two times a day as needed (under breast rash). 30 g 1 09/23/2024 Active Start: 06-28-2022 End: 10-31-2022 triamcinolone acetonide (MARCELA ALOG) 0.1 % cream Apply 1 application to affected area twice daily as needed. Avoid use on the face. 60 g 1 06/28/2022 10/31/2022 Discontinued (Other) Comment on above: Apply 1 application to affected area twice daily as needed. Avoid use on the face. Completed/Discontinued Medications Medication Drug Class(es) Dates Sig (Normalized) Sig (Original) 24 hr buPROPion hydrochloride 150 mg extended release oral tablet (20 sources) Aminoketone Start: 08-06-2022 End: 09-16-2023 take 1 tablet by mouth once daily buPROPion XL (WELLBUTRIN XL) 150 mg 24 hr tablet Indications: Perimenopausal Take 1 tablet by mouth once daily. 90 tablet 1 03/13/2023 09/16/2023 Discontinued Comment on above: Take 1 tablet by david th once daily. take 1 tablet by david th once daily cranberry fruit extract (CRANBERRY EXTRACT ORAL) (20 sources) End: 03-10-2025 take 1 tablet by mouth once daily cranberry fruit extract (CRANBERRY EXTRACT ORAL) Take 1 tablet by mouth once daily. 03/10/2025 Discontinued take 1 tablet by mouth once ryan y cranberry fruit extract (CRANBERRY EXTRACT ORAL) Take 1 tablet by mouth once daily. Active take 1 tablet by mouth once ryan y cranberry fruit extract (CRANBERRY EXTRACT ORAL) Take 1 tablet by mouth once daily. 0 Active Comment on above: Take 1 tablet by david th once daily. diphenhydrAMINE hydrochloride 25 mg oral capsule (5 sources) Histamine-1 Receptor Antagonist Start: 016 End: take 2 capsules by mouth every four hours as needed Diphenhydramine Hcl (Benadryl) 25 MG capsule Discontinued 50 MG PO EVERY 4 HOURS NEEDED June 22, 2016 11:00pm June 25, 2016 3:26pm diphenhydrAMINE-maalox- lidocaine (BMX 1:1:1) 1:1:1 liqd (20 sources) Start: 021 End: diphenhydrAMINE-maalox -lidocaine (BMX 1:1:1) 1:1:1 liqd Mix in equal amounts - 1 T every 2hrs as needed for mouth pain, Swish/swallow or expectorate. (8oz) 240 mL 0 07/03/2021 10/31/2022 Discontinued (Other) Start: 07-03-2021 diphenhydrAMIN G-ccekzv-wgybpvgnf (BMX 1:1:1) 1:1:1 liqd Mix in equal amounts - 1 T every 2hrs as needed for mouth pain, Swish/swallow or expectorate. (8oz) 240 mL 0 07/03/2021 Active Comment on above: Mix in equal amounts - 1 T every 2hrs as needed for mouth pain, Swish/swallow or expectorate. (8oz) famotidine 20 mg oral tablet (20 sources) Histamine-2 Receptor Antagonist Start: End: take 1 tablet by mouth twice daily famotidine (PEPCID) 20 mg tablet Take 1 tablet by mouth twice daily. 60 tablet 1 11/03/2020 10/31/2022 Discontinued (Other) Comment on above: Take 1 tablet by david th twice daily. hydrocortisone 10 mg/ml / neomycin 3.5 mg/ml / polymyxin b [id number] unt/ml otic suspension (20 sources) Aminoglycoside Antibacterial, Polymyxin-class Antibacterial, Corticosteroid Start: End: [id number] ydrocortisone (CORTISPORIN) 3.5-10,000-1 mg/mL-unit/mL-% otic suspension Indications: Acute otitis externa of left ear, unspecified type Use 3 Drops in the left ear four times daily. 1 Bottle 0 02/18/2021 10/31/2022 Discontinued (Other) Comment on above: Use 3 Drops in the l eft ear four times daily. ibuprofen 600 mg oral tablet (20 sources) Nonsteroidal Anti-inflammatory Drug Start: End: take 1 tablet by mouth every six hours as needed for pain ibuprofen (MOTRIN) 600 mg tablet Indications: Herpes labialis Take 1 tablet by mouth every 6 hours as needed for pain. 30 tablet 0 06/29/2021 04/20/2024 Discontinued Comment on above: Take 1 tablet by david every 6 hours as needed for pain. iv contrast (will be provided with radiology test) (1 source) Start: End: iv contrast (will be provided with radiology test) MRI Female Pelvis Inject, intravenously, once for 1 dose. No IV access, insert saline lock prior to the beginning of sedation, infusion, injection of imaging exam. Discontinue saline lock post exam. If Pt has a central line or IVAD, may access for administration according to line specific nursing protocol. Once exam is complete flush line and de-access according to line specific nursing protocol in the MR contrast administration guidelines link. 1 Each 0 06/21/2022 06/22/2022 Comment on above: MRI Female Pelvis In ject, intravenously, once for 1 dose. No IV access, insert saline lock prior to the beginning of sedation, infusion, injection of imaging exam. Discontinue saline lock post exam. If Pt has a central line or IVAD, may access for administration according to line specific nursing protocol. Once exam is complete flush line and de-access according to line specific nursing protocol in the MR contrast administration guidelines link. pantoprazole 40 mg delayed release oral tablet (12 sources) Proton Pump Inhibitor Start: End: take 1 tablet by mouth once daily before breakfast pantoprazole DR (PROTONIX) 40 mg tablet Indications: Epigastric pain Take 1 tablet by mouth daily before breakfast. Take on empty stomach, 1/2 hr before meal. 12 tablet 0 10/08/2023 04/20/2024 Discontinued Start: 10-05-2023 take 1 tablet by david th once daily Pantoprazole (Protonix) 40 mg tablet,delayed release (DR/EC) Active 40 MG PO DAILY October 05, 2023 12:00am Comment on above: Take 1 tablet by david th daily before breakfast. Take on empty stomach, 1/2 hr before meal. predniSONE 10 mg oral tablet (20 sources) Start: 3 End: 3 take 4 tablets by mouth once daily, then take 3 tablets by mouth once daily, then take 2 tablets by mouth once daily, then take 1 tablet by mouth once daily predniSONE (DELTASONE) 10 mg tablet Take by mouth 4 tablets daily for 4 days, then 3 tablets daily for 4 days, 2 tablets daily for 4 days and 1 tablet daily for 4 days. 40 tablet 0 03/28/2023 05/22/2023 Discontinued Start: 06-13-2022 End: 09-09-2023 take 60 mg by mouth once daily Prednisone Discontinued 60 MG PO DAILY June 12, 2022 11:00pm September 09, 2023 10:14am Start: 06-09-2022 End: 06-18-2022 predniSONE (DELTASONE) 10 mg tablet Take 4 tabs daily for 3 days, then 2 tabs daily for 3 days, then 1 tab daily for 3 days with food. 21 tablet 0 06/09/2022 06/18/2022 Start: 06-23-2016 End: 06-25-2016 take 10 mg by mouth once daily Prednisone Discontinued 10 MG PO DAILY June 22, 2016 11:00pm June 25, 2016 3:23pm Comment on above: Take 4 tabs daily fo r 3 days, then 2 tabs daily for 3 days, then 1 tab daily for 3 days with food. Take by mouth 4 tabl ets daily for 4 days, then 3 tablets daily for 4 days, 2 tablets daily for 4 days and 1 tablet daily for 4 days. promethazine hydrochloride 25 mg oral tablet (11 sources) Phenothiazine Start: End: take 1 tablet by mouth every six hours as needed for nausea and nausea promethazine (PHENERGAN) 25 mg tablet Indications: Nausea Take 1 tablet by mouth every 6 hours as needed. 30 tablet 0 10/08/2023 04/20/2024 Discontinued Comment on above: Take 1 tablet by david th every 6 hours as needed. semaglutide (OZEMPIC) 1 mg/dose (4 mg/3 mL) pen (16 sources) Start: End: inject 1 mg by subcutaneous injection every week semaglutide (OZEMPIC) 1 mg/dose (4 mg/3 mL) pen Indications: Weight gain , Overweight (BMI 25.0-29.9) Inject 1 mg subcutaneously one time a week. 3 mL 2 08/14/2024 03/10/2025 Discontinued Start: 08-14-2024 inject 1 mg by subcu taneous injection every week semaglutide (OZEMPIC) 1 mg/dose (4 mg/3 mL) pen Indications: Weight gain , Overweight (BMI 25.0-29.9) Inject 1 mg subcutaneously one time a week. 3 mL 2 08/14/2024 Active Start: 08-14-2024 End: 11-12-2024 inject 1 mg by subcutaneous injection every week semaglutide (OZEMPIC) 1 mg/dose (4 mg/3 mL) pen Indications: Weight gain , Overweight (BMI 25.0-29.9) Inject 1 mg subcutaneously one time a week. 3 mL 2 08/14/2024 11/12/2024 Active Start: 08-11-2024 End: 11-09-2024 inject 1 mg by subcutaneous injection every week semaglutide (OZEMPIC) 1 mg/dose (4 mg/3 mL) pen Indications: Weight gain , Overweight (BMI 25.0-29.9) Inject 1 mg subcutaneously one time a week. 3 mL 2 08/11/2024 11/09/2024 Active Start: 06-05-2024 End: 08-11-2024 inject 1 mg by subcutaneous injection every week semaglutide (OZEMPIC) 1 mg/dose (4 mg/3 mL) pen Indications: Weight gain , Overweight (BMI 25.0-29.9) Inject 1 mg subcutaneously one time a week. 3 mL 2 06/05/2024 08/11/2024 Discontinued Start: 06-05-2024 End: 09-03-2024 inject 1 mg by subcutaneous injection every week semaglutide (OZEMPIC) 1 mg/dose (4 mg/3 mL) pen Indications: Weight gain , Overweight (BMI 25.0-29.9) Inject 1 mg subcutaneously one time a week. 3 mL 2 06/05/2024 09/03/2024 Active tretinoin 0.25 mg/ml topical cream (20 sources) Retinoid Start: 12-02-2020 End: 10-31-2022 tretinoin (RETIN-A) 0.025 % topical cream Apply a pea size amount to affected area every other night for 2 weeks then increase to nightly as tolerated 45 g 3 12/02/2020 10/31/2022 Discontinued (Other) Comment on above: Apply a pea size min unt to affected area every other night for 2 weeks then increase to nightly as tolerated valACYclovir 1000 mg oral tablet (20 sources) Herpesvirus Nucleoside Analog DNA Polymerase Inhibitor, Herpes Simplex Virus Nucleoside Analog DNA Polymerase Inhibitor, Herpes Zoster Virus Nucleoside Analog DNA Polymerase Inhibitor Start: 06-29-2021 End: 10-31-2022 take 2 tablets by mouth twice daily valACYclovir (VALTREX) 1 gram Indications: Herpes labialis Take 2 tablets by mouth twice daily. for 1 day 4 tablet 0 06/29/2021 10/31/2022 Discontinued (Other) Comment on above: Take 2 tablets by mo ut twice daily. for 1 day Problems Active Problems Problem Classification Problem Date [...] initial encounter] Episodic Contraceptive and procreative management (3 sources) Contraception status; Translations: [Encounter for surveillance of vaginal ring hormonal contraceptive device] Onset: 03-10-2025 Episodic Disorders of lipid metabolism (20 sources) Hypertriglyceridemia; Translations: [Pure hyperglyceridemia] Onset: 07-11-2021 07-11-2021 Chronic Genitourinary symptoms and ill-defined conditions (8 sources) Increased frequency of urination; Translations: [Frequency of micturition] Onset: 06-06-2022 Episodic Inflammation; infection of eye (except that caused by tuberculosis or sexually transmitteddisease) (1 source) Hordeolum externum of left lower eyelid; Translations: [Hordeolum externum left lower eyelid] 02-07-2024 Episodic Menopausal disorders (20 sources) Perimenopausal state; Translations: [Menopausal and female climacteric states] Onset: 08-07-2022 Chronic Mood disorders (20 sources) Depressive disorder; Translations: [Depression] Onset: 10-06-2005 10-24-2015 Chronic Nausea and vomiting (1 source) Nausea; Translations: [Nausea] 10-05-2023 Episodic Other and unspecified benign neoplasm (1 source) Senile angioma; Translations: [Hemangioma of skin and subcutaneous tissue] 02-10-2025 Episodic Other and unspecified benign neoplasm (1 source) Multiple benign melanocytic nevi ; Translations: [Melanocytic nevi, unspecified] 02-10-2025 Episodic Other and unspecified benign neoplasm (1 source) Hemangioma of skin and subcutaneous tissue; Translations: [Orta angioma] Onset: 02-10-2025 Episodic Other and unspecified benign neoplasm (1 source) Melanocytic nevi, unspecified; Translations: [Multiple benign nevi] Onset: 02-10-2025 Episodic Other diseases of bladder and urethra (1 source) Disorder of bladder; Translations: [Overactive bladder] Chronic Other ear and sense organ disorders (1 source) Eczema of external auditory canal; Translations: [Acute eczematoid otitis externa, bilateral] 03-10-2025 Episodic Other ear and sense organ disorders (1 source) Acute eczematoid otitis externa, bilateral; Translations: [Eczema of external ear, bilateral] Onset: 03-10-2025 Episodic Other inflammatory condition of skin (1 source) Rosacea; Translations: [Rosacea, unspecified] 02-10-2025 Chronic Other inflammatory condition of skin (1 source) Rosacea, unspecified; Translations: [Rosacea] Onset: 02-10-2025 Chronic Other inflammatory condition of skin (4 sources) Seborrheic dermatitis; Translations: [Seborrheic dermatitis, unspecified] Episodic Other nutritional; endocrine; and metabolic disorders (20 sources) Obese class I; Translations: [Obesity, unspecified] Onset: 12-14-2020 12-14-2020 Chronic Other nutritional; endocrine; and metabolic disorders (20 sources) Obese class II; Translations: [Obesity, unspecified] Onset: 12-14-2020 Chronic Other nutritional; endocrine; and metabolic disorders (20 sources) Metabolic syndrome X; Translations: [Dysmetabolic syndrome] Onset: 09-16-2023 09-16-2023 Chronic Other nutritional; endocrine; and metabolic disorders (1 source) Obesity; Translations: [Other obesity] 09-09-2023 Chronic Other nutritional; endocrine; and metabolic disorders (2 sources) Body mass index 30+ - obesity; Translations: [Body mass index (BMI) 36.0-36.9, adult] 09-09-2023 Chronic Other nutritional; endocrine; and metabolic disorders (1 source) Body mass index (BMI) 30.0-30.9, adult; Translations: [Body Mass Index 30.0-30.9, adult] 09-09-2023 Chronic Other nutritional; endocrine; and metabolic disorders (1 source) Other obesity; Translations: [Obesity, unspecified] 09-09-2023 Chronic Other nutritional; endocrine; and metabolic disorders (20 sources) Weight gain; Translations: [Abnormal weight gain] Onset: 08-07-2022 Episodic Other screening for suspected conditions (not mental disorders or infectious disease) (18 sources) Patient encounter status; Translations: [Encounter for screening mammogram for malignant neoplasm of breast] Onset: 02-10-2025 Episodic Other skin disorders (1 source) History of urticaria; Translations: [Personal history of diseases of the skin and subcutaneous tissue] Episodic Other skin disorders (1 source) Solar lentigo; Translations: [Other melanin hyperpigmentation] 02-10-2025 Episodic Other skin disorders (1 source) Other melanin hyperpigmentation; Translations: [Solar lentigo] Onset: 02-10-2025 Episodic Other upper respiratory disease (20 sources) Chronic rhinitis; Translations: [Chronic rhinitis] Onset: 11-16-2005 07-18-2010 Chronic Other upper respiratory disease (1 source) Allergic rhinitis; Translations: [Allergic rhinitis, unspecified] Chronic Residual codes; unclassified (1 source) Procedure not indicated; Translations: [Procedure and treatment not carried out for other reasons] 03-14-2025 Episodic Unclassified (1 source) Dysmetabolic syndrome; Translations: [Dysmetabolic syndrome] Onset: 09-16-2023 Urinary tract infections (4 sources) Recurrent urinary tract infection; Translations: [Urinary tract infection, site not specified] Onset: 06-06-2022 Episodic Past or Other Problems Problem Classification Problem Date Documented Date Episodic/Chronic Abdominal pain (20 sources) Epigastric pain; Translations: [Epigastric pain] Onset: 1 Resolved: 5 09-01-2018 Episodic Acquired foot deformities (20 sources) Talipes cavus; Translations: [Congenital pes cavus, unspecified foot] Onset: 2 Resolved: 5 10-25-2014 Episodic Allergic reactions (20 sources) Urticaria; Translations: [Urticaria, unspecified] Onset: 2 Episodic Biliary tract disease (20 sources) Postcholecystectomy syndrome; 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] Onset: 5 08-29-2015 Episodic Diabetes mellitus without complication (20 sources) Hyperglycemia; Translations: [Hyperglycemia, unspecified] Onset: 1 07-11-2021 Episodic Immunizations and screening for infectious disease (2 sources) Vaccination needed; Translations: [Encounter for immunization] Onset: 4 Episodic Menstrual disorders (20 sources) Irregular periods; Translations: [Irregular menstruation, unspecified] Onset: 0 Resolved: 2 06-03-2012 Chronic Other and unspecified benign neoplasm (20 sources) Dysplastic nevus of skin; Translations: [Melanocytic nevi, unspecified] Onset: 8 02-07-2018 Episodic Other and unspecified benign neoplasm (20 sources) Melanocytic nevi of unspecified part of face; Translations: [Benign neoplasm of skin of other and unspecified parts of face] Onset: 1 Resolved: 5 10-25-2014 Episodic Other and unspecified benign neoplasm (20 sources) Dermal cellular nevus ; Translations: [Other benign neoplasm of skin, unspecified] Onset: 1 Resolved: 5 10-25-2014 Episodic Other and unspecified benign neoplasm (20 sources) Melanocytic nevus of neck; Translations: [Melanocytic nevi of scalp and neck] Onset: 1 Resolved: 5 10-25-2014 Episodic Other and unspecified benign neoplasm (20 sources) Melanocytic nevus of trunk; Translations: [Melanocytic nevi of trunk] Onset: 1 Resolved: 5 10-25-2014 Episodic Other circulatory disease (20 sources) Feeling of lump in throat; Translations: [Other specified symptoms and signs involving the circulatory and respiratory systems] Onset: 8 02-07-2018 Episodic Other connective tissue disease (20 sources) Iliotibial band friction syndrome of right knee; Translations: [Iliotibial band syndrome, right leg] Onset: 8 02-07-2018 Episodic Other connective tissue disease (20 sources) Tendinitis of ankle; Translations: [Other enthesopathy of unspecified foot and ankle] Onset: 1 Resolved: 5 10-25-2014 Episodic Other inflammatory condition of skin (20 sources) Prurigo nodularis; 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] Onset: 1 Resolved: 5 10-25-2014 Episodic Other inflammatory condition of skin (15 sources) Intertrigo; Translations: [Erythema intertrigo] Onset: 4 09-23-2024 Episodic Other inflammatory condition of skin (1 source) Erythema intertrigo; Translations: [Intertrigo] Onset: 4 Episodic Other nutritional; endocrine; and metabolic disorders (20 sources) Morbid obesity; Translations: [Morbid (severe) obesity due to excess calories] Onset: 5 Resolved: 9 06-27-2019 Chronic Other nutritional; endocrine; and metabolic disorders (20 sources) Body mass index 25-29 - overweight; Translations: [Overweight] Onset: 1 07-11-2021 Episodic Other nutritional; endocrine; and metabolic disorders (19 sources) Weight increased; Translations: [Abnormal weight gain] Onset: 2 08-07-2022 Episodic Other nutritional; endocrine; and metabolic disorders (1 source) Overweight; Translations: [Overweight (BMI 25.0-29.9)] Onset: 1 Episodic Other and delivery including normal (20 sources) Normal in primigravida; Translations: [Encounter for supervision of normal first , unspecified trimester] Onset: 8 Resolved: 0 05-03-2010 Episodic Other skin disorders (20 sources) Chronic folliculitis; Translations: [Follicular disorder, unspecified] Onset: 1 Resolved: 5 10-25-2014 Episodic Other skin disorders (20 sources) Keratosis pilaris; Translations: [Other specified epidermal thickening] Onset: 1 Resolved: 5 10-25-2014 Episodic Other skin disorders (20 sources) Cafe au lait spots; Translations: [Cafe au lait spots] Onset: 1 Resolved: 5 10-25-2014 Episodic Other skin disorders (20 sources) Changes in skin texture; Translations: [Other skin changes] Onset: 1 Resolved: 5 10-25-2014 Episodic Other skin disorders (20 sources) Asteatosis cutis; Translations: [Xerosis cutis] Onset: 1 Resolved: 5 10-25-2014 Episodic Skin and subcutaneous tissue infections (20 sources) Paronychia of finger of left hand; Translations: [Cellulitis of left finger] Onset: 6 Resolved: 5 Episodic Spondylosis; intervertebral disc disorders; other back problems (20 sources) Chronic low back pain; Translations: [Chronic midline low back pain without sciatica] Onset: 4 01-06-2024 Episodic Sprains and strains (20 sources) Sprain of foot; Translations: [Unspecified sprain of unspecified foot, initial encounter] Onset: 1 Resolved: 5 10-25-2014 Episodic Unclassified (2 sources) Patient encounter status 03-10-2025 Viral infection (20 sources) Herpes simplex type 1 infection; Translations: [Herpesviral infection, unspecified] Onset: 1 07-11-2021 Episodic Results Test Name Value Interpretation Reference Range Facility DBT Breast - bilateral scree jennifferpat 05-10-2025 IMPRESSION: There is no mammographic evidence of malignancy in either breast. Routine screening mammogram is recommended. Annual mammogram will be due in 1 year. BI-RADS Category 1: Negative RISK: Based on the Tyrer-Cuzick (TC) risk assessment model, this patient has a 8.4% lifetime risk of developing breast cancer, meaning they are at average risk for developing breast cancer. However, this is only an estimate based on available history provided on the patient's questionnaire. We encourage all patients to talk with their providers about these results, further recommendations for managing breast health, and appropriate supplemental screening options if the patient has dense breast tissue. Interpreting Radiologist: Myrna Rios M.D. Electronically signed on: 05/10/2025 Clinical Documentation Specialist: GARLAND Transcrijae Date/Time: May 10 2025 8:32A Dictated by: MYRNA RIOS MD This examination was interpreted and the report reviewed and electronically signed by: MYRNA RIOS MD on May 10 2025 9:27AM [facility] * * *Final Report* * * DATE OF EXAM: May 10 2025 8:59AM W [id number] - [facility] SCREENING W LUAN / PROCEDURE REASON: Encounter for screening mammogram for malignant neoplasm of breast * * * * Physician Interpretation * * * * RESULT: [facility] [address] [place] [address] #[id number] - [facility] SCREENING W LUAN HISTORY: 49 year-old patient presents for screening. Patient is asymptomatic in both breasts. Patient states no personal history of breast cancer. The patient has a family history of breast cancer. COMPARISON STUDIES: The present examination has been compared to prior imaging studies dated 03/11/2020 (mammogram), 04/20/2021 (mammogram), 04/27/2022 (mammogram), 04/29/2023 (mammogram) and 05/04/2024 (mammogram). MAMMOGRAM TECHNIQUE: The study was acquired using full field digital technology and interpreted from soft copy. Digital Breast Tomosynthesis (DBT) images were obtained and used to assist in the interpretation of this examination. MAMMOGRAM FINDINGS: There are scattered areas of fibroglandular density. No suspicious masses, calcifications or other abnormalities are seen in either breast. There are no significant interval changes. DIVISION OF RADIOLOGY Provider, [facility] - 05/10/2025 * * *Final Report* * * DATE OF EXAM: May 10 2025 8:59AM [facility] 0582 - [facility] SCREENING W LUAN / PROCEDURE REASON: Encounter for screening mammogram for malignant neoplasm of breast * * * * Physician Interpretation * * * * RESULT: [facility] [address] [place] [address] #[id number] - [facility] SCREENING W LUAN HISTORY: 49 year-old patient presents for screening. Patient is asymptomatic in both breasts. Patient states no personal history of breast cancer. The patient has a family history of breast cancer. COMPARISON STUDIES: The present examination has been compared to prior imaging studies dated 03/11/2020 (mammogram), 04/20/2021 (mammogram), 04/27/2022 (mammogram), 04/29/2023 (mammogram) and 05/04/2024 (mammogram). MAMMOGRAM TECHNIQUE: The study was acquired using full field digital technology and interpreted from soft copy. Digital Breast Tomosynthesis (DBT) images were obtained and used to assist in the interpretation of this examination. MAMMOGRAM FINDINGS: There are scattered areas of fibroglandular density. No suspicious masses, calcifications or other abnormalities are seen in either breast. There are no significant interval changes. IMPRESSION IMPRESSION: There is no mammographic evidence of malignancy in either breast. Routine screening mammogram is recommended. Annual mammogram will be due in 1 year. BI-RADS Category 1: Negative RISK: Based on the Tyrer-Cuzick (TC) risk assessment model, this patient has a 8.4% lifetime risk of developing breast cancer, meaning they are at average risk for developing breast cancer. However, this is only an estimate based on available history provided on the patient's questionnaire. We encourage all patients to talk with their providers about these results, further recommendations for managing breast health, and appropriate supplemental screening options if the patient has dense breast tissue. Interpreting Radiologist: Myrna Rios M.D. Electronically signed on: 05/10/2025 Clinical Documentation Specialist: GARLAND Transcribe Date/Time: May 10 2025 8:32A Dictated by: MYRNA RIOS MD This examination was interpreted and the report reviewed and electronically signed by: MYRNA RIOS MD on May 10 2025 9:27AM EST [facility] Radiology Study observation (narrative) [facility] DBT Breast - bilateral scree ningOrdered By: [facility] Provider on 05-10-2025 [facility] SCREENING W TOMOon 05-10 [facility]CRE[facility]ING W LU[facility] * * *Final Report* * * DATE OF EXAM: May 10 2025 8:59AM [facility] 0582 - [facility] SCREENING W LUAN / PROCEDURE REASON: Encounter for screening mammogram for malignant neoplasm of breast * * * * Physician Interpretation * * * * RESULT: [facility] [address] [id number] #[id number] - [facility] SCREENING W LUAN HISTORY: 49 year-old patient presents for screening. Patient is asymptomatic in both breasts. Patient states no personal history of breast cancer. The patient has a family history of breast cancer. COMPARISON STUDIES: The present examination has been compared to prior imaging studies dated 03/11/2020 (mammogram), 04/20/2021 (mammogram), 04/27/2022 (mammogram), 04/29/2023 (mammogram) and 05/04/2024 (mammogram). MAMMOGRAM TECHNIQUE: The study was acquired using full field digital technology and interpreted from soft copy. Digital Breast Tomosynthesis (DBT) images were obtained and used to assist in the interpretation of this examination. MAMMOGRAM FINDINGS: There are scattered areas of fibroglandular density. No suspicious masses, calcifications or other abnormalities are seen in either breast. There are no significant interval changes. IMPRESSION: There is no mammographic evidence of malignancy in either breast. Routine screening mammogram is recommended. Annual mammogram will be due in 1 year. BI-RADS Category 1: Negative RISK: Based on the Tyrer-Cuzick (TC) risk assessment model, this patient has a 8.4% lifetime risk of developing breast cancer, meaning they are at average risk for developing breast cancer. However, this is only an estimate based on available history provided on the patient's questionnaire. We encourage all patients to talk with their providers about these results, further recommendations for managing breast health, and appropriate supplemental screening options if the patient has dense breast tissue. Interpreting Radiologist: Myrna Rios M.D. Electronically signed on: 05/10/2025 Clinical Documentation Specialist: GARLAND Transcribe Date/Time: May 10 2025 8:32A Dictated by: MYRNA RIOS MD This examination was interpreted and the report reviewed and electronically signed by: MYRNA RIOS MD on May 10 2025 9:27AM EST [id number] N Normal [facility] Silva 03-17-2025 CNPN Telephone (FAMPWS) MEGHAN KING ([id number]) 1975 F Date Time Provider Department 6/11/25 JESUS MANUEL WORLEY FAMPWS During your visit today, we recorded the following information about you: Vee Olmos RN 03/17/2025 10:47 AM Signed Pt called in and reports she had spoken with Dr Worley at her appointment on 03/10/25 about switching her Semaglutide to a pill for. She said she will be traveling and will not be able to bring the shot with her. Dr Worley was going to call something into the mail in pharmacy for her. Please call and advise Pt. AUGUSTIN Danielson Jordan L, DO 03/17/2025 9:11 PM Signed Please let her know rx sent in as below Jesus Manuel Worley DO The following approved medication requests have been transmitted electronically. Requested Prescriptions Signed Prescriptions Disp Refills semaglutide (RYBELSUS) 7 mg tablet 14 tablet 0 Sig: Take 1 tablet by mouth daily before breakfast. Take 30 minutes before the first food, beverage, or other oral medications of the day with no more than 4 ounces of plain water Authorizing Provider: JESUS MANUEL WORLEY DO Babulski, Amanda, RN 03/18/2025 9:38 AM Signed Pt called and is notified of providers message and instructions. Pt voices understanding. Vee Olmos RN Allergies As of Date: 03/17/2025 Noted Allergy Reaction KEFLEX (CEPHALEXIN) 06/13/2022 2 - Rash Comments: Type 4 DTH Drug rash during course of treatment 06/2022. See A/I note 06/13/22 for details NEOSPORIN (NEOMYCIN-BACITRACIN- PO*09/19/2005 2 - Rash AZITHROMYCIN 06/26/2016 4 - Hives 7 - Swelling Comments: Urticaria and angioedema BICITRA (SODIUM CITRATE-CITRIC AC*04/02/2011 2 - Rash Comments: Patient tolerates foods containing citric acid without adverse reaction CITRIC ACID 11/04/2017 16 - Unknown NEOMYCIN 11/04/2017 16 - Unknown POLLEN EXTRACTS 09/16/2023 9 - Itching Comments: trees and grass, allergic rhinitis, asthma dust mites, animal dander, mold POLYMYXIN B 11/04/2017 16 - Unknown Date Reviewed: 03/10/2025 Reviewed by: Celine Sigala LPN - Fully Assessed Reason for Visit: Medication Problem [65] Order(s):semaglutide (RYBELSUS) 7 mg tabletTake 1 tablet by mouth daily before breakfast. Take 30 minutes before the first food, beverage, or other oral medications of the day with no more than 4 ounces of plain waterDisp: 14 tabletRfl: 0 Prescriptions as of 03/18/2025 - semaglutide (RYBELSUS) 7 mg tablet Take 1 tablet by mouth daily before breakfast. Take 30 minutes before the first food, beverage, or other oral medications of the day with no more than 4 ounces of plain water - Etonogestrel-Ethinyl Estradiol (NUVARING) 0.12-0.015 mg/24 hr vaginal ring Use 1 each vaginally as directed. Insert vaginally and leave in place for 3 consecutive weeks, then remove and place a new ring and skip menses. - Fluocinolone Acetonide Oil 0.01 % drop Use 1-2 drops in both ears two times a day as needed (ear itching, flaking). - metroNIDAZOLE (METROCREAM) 0.75 % cream Use twice daily to affected areas on face - semaglutide (OZEMPIC) 2 mg/dose (8 mg/3 mL) pen injector Inject 2 mg subcutaneously one time a week. - sertraline (ZOLOFT) 50 mg tablet TAKE 1 TABLET ONCE DAILY - ketoconazole (NIZORAL) 2 % cream Apply 1 application to affected area once daily. Under breast rash - triamcinolone acetonide (KENALOG) 0.1 % cream Apply to affected area two times a day as needed (under breast rash). - ketoconazole (NIZORAL) 2 % shampoo Massage into damp scalp 3 times weekly. Allow to sit for 5 minutes prior to rinsing. - budesonide (PULMICORT FLEXHALER) 180 mcg/actuation aepb Inhale 2 Puffs as instructed twice daily. - albuterol HFA (VENTOLIN HFA) 90 mcg/actuation inhaler Inhale 2 Puffs as instructed every 4 hours as needed. - albuterol (PROVENTIL) 2.5 mg /3 mL (0.083 %) nebulizer solution Use 3 mL via nebulizer every 4 hours as needed. Use over 5-15minutes. - Cholecalciferol, Vitamin D3, 2,000 unit cap Take 1 tablet by mouth once daily. Problem List As Of Date 03/17/2025 Noted Resolved Depression [F32.A] 10/06/2005 Mild intermittent asthma without complication [*11/16/2005 CHRONIC RHINITIS [J31.0] 11/16/2005 Cellulitis and abscess of unspecified digit [IM*07/12/2006 10/25/2014 Supervision of Normal First [Z34.00] 07/10/2008 05/03/2010 Irregular menses [N92.6] 05/03/2010 06/03/2012 Abdominal pain, generalized [R10.84] 11/02/2010 10/25/2014 Previous section [Z98.891] 11/20/2010 06/03/2012 Melanocytic nevus of face [D22.30] 07/15/2011 10/25/2014 Intradermal nevus [D23.9] 07/15/2011 10/25/2014 Melanocytic nevus of neck [D22.4] 07/15/2011 10/25/2014 Melanocytic nevi of trunk [D22.5] 07/15/2011 10/25/2014 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 Normal [facility] CNOVon 03-10-2025 CNOV Office Visit (FAMPWS ) MEGHAN KING ([id number]) 1975 F Date Time Provider Department 03/10/25 8:20 AM JESUS MANUEL WORLEYPWS During your visit today, we recorded the following information about you: Temperature Pulse Respiration Blood pressure 98.9 degrees 60/minute 12/minute 100/60 Weight Height 74.4 kg 1.64 m Jesus Manuel Worley, 03/10/2025 10:39 AM Signed CC: Meghan King is a 49 year old female who presents to the office for 6 months follow up HPI: Previously Sep 2024 as below IFG, obesity, dysmetabolic syndrome. Has been on semaglutide since Aug 2023 through [employer] [facility] to start and now through [facility] pharmacy in [place], [place], but not able to afford brand name medication. Was tolerating medication well without any SE, was able to control her appetite and overeating. Previously her weight in Sep 2023 was down from 202 lbs in May to a weight of 180 lbs. She would like to continue through our office with monitoring. She is exercising 5-6 days a week with strength training and Pilates mostly and has got her protein levels up to 70-100 grams a day. Does eat a vegetarian diet with a lot of beans and lentils and fiber foods. Mood, stable Her weight now is 163 lbs. Goal weight of 145 lbs. Currently Ear eczema, use of steroid oil as needed, needing rx refills Traveling for 2 weeks in April and would like to have oral GLP 1 option to take for this trip only IFG, obesity, dysmetabolic syndrome. Has been on semaglutide since Aug 2023 through [facility] [facility] to start and now through [facility] in [place], [place], but not able to afford brand name medication. Was tolerating medication well without any SE, was able to control her appetite and overeating. Previously her weight in Sep 2023 was down from 202 lbs in May to a weight of 180 lbs. She would like to continue through our office with monitoring. She is exercising 5-6 days a week with strength training and Pilates mostly and has got her protein levels up to 70-100 grams a day. Does eat a vegetarian diet with a lot of beans and lentils and fiber food, she is currently increasing her strength training as well with working with a personal shopper and starting to lift more PAST MEDICAL HISTORY Diagnosis Date Allergy Seasonal and Environmental Allergies Depressive disorder, not elsewhere classified Diffuse cystic mastopathy History of echocardiogram 01/02/2021 at [facility]-Dr. Swain-EF 55% Low HDL (under 40) 12/05/2014 Unspecified asthma(493.90) Vitamin D deficiency 12/05/2014 PAST SURGICAL HISTORY Procedure Laterality Date DELIVERY ONLY 03/20/2011 , low transverse DELIVERY+ CARE March 02, 2009 COLONOSCOPY FLX DX W/COLLJ SPEC WHEN PFRMD 06/16/2019 Colonoscopy ESOPHAGOGASTRODUODENO SCOPY TRANSORAL DIAGNOSTIC 09/02/2018 EGD LAPS SURG CHOLECYSTECTOMY W/CHOLANGIOGRAPHY 04/2015 in [facility]. PAST SURGICAL HISTORY OF wisdom teeth extraction Current Outpatient Medications Medication Sig Etonogestrel-Ethinyl Estradiol (NUVARING) 0.12-0.015 mg/24 hr vaginal ring Use 1 each vaginally as directed. Insert vaginally and leave in place for 3 consecutive weeks, then remove and place a new ring and skip menses. metroNIDAZOLE (METROCREAM) 0.75 % cream Use twice daily to affected areas on face semaglutide (OZEMPIC) 2 mg/dose (8 mg/3 mL) pen injector Inject 2 mg subcutaneously one time a week. sertraline (ZOLOFT) 50 mg tablet TAKE 1 TABLET ONCE DAILY ketoconazole (NIZORAL) 2 % cream Apply 1 application to affected area once daily. Under breast rash triamcinolone acetonide (KENALOG) 0.1 % cream Apply to affected area two times a day as needed (under breast rash). semaglutide (OZEMPIC) 1 mg/dose (4 mg/3 mL) pen Inject 1 mg subcutaneously one time a week. ketoconazole (NIZORAL) 2 % shampoo Massage into damp scalp 3 times weekly. Allow to sit for 5 minutes prior to rinsing. cranberry fruit extract (CRANBERRY EXTRACT ORAL) Take 1 tablet by mouth once daily. (Patient not taking: Reported on 02/10/2025) budesonide (PULMICORT FLEXHALER) 180 mcg/actuation aepb Inhale [...] Patient tolerates foods containing citric acid without adve (more content not included)... Normal [facility] CNOVon 02-10-2025 CNOV Office Visit (STFLD) MEGHAN KING ([id number]) 1975 F Date Time Provider Department 02/10/25 1:20 PM JEN SPEARS STFLD During your visit today, we recorded the following information about you: Jen Spears PA-C 02/10/2025 1:34 PM Signed NEW PATIENT OCTAVIO in Dermatology: 12/02/2020 Chief Complaint: Full Body Skin Check History of Present Illness: Meghan King is a 49 year old female who presents today for a full body skin check Dermatitis: Location: Bilateral cheeks Duration: Few months Symptoms: Redness, itching, bumps Current Treatment: None Past Treatment: None Pertinent History: History of skin cancer: No History of atypical nevi: No History of HIV/ Hepatitis C: No History of immunosuppression/org an transplant: No , planning , or : No Allergy to lidocaine/ epinephrine/ latex/ adhesive: No Defibrillator/ Pacer: No Pertinent Family Medical History: History of melanoma: No History of non melanoma skin cancer: Yes, Father-unsure of type Other family history (autoimmune, dermatologic, etc): Lupus -Paternal aunt Social History: History of severe sun clement: Yes 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 Swain-EF 55% Low HDL (under 40) 12/05/2014 Unspecified asthma(493.90) Vitamin D deficiency 12/05/2014 PAST SURGICAL HISTORY Procedure Laterality Date DELIVERY ONLY 03/20/2011 , low transverse DELIVERY+ CARE March 02, 2009 COLONOSCOPY FLX DX W/COLLJ SPEC WHEN PFRMD 06/16/2019 Colonoscopy ESOPHAGOGASTRODUODENO SCOPY TRANSORAL DIAGNOSTIC 09/02/2018 EGD LAPS SURG CHOLECYSTECTOMY W/CHOLANGIOGRAPHY 04/2015 in [facility]. PAST SURGICAL HISTORY OF wisdom teeth extraction Current Outpatient Medications on File Prior to Visit Medication Sig semaglutide (OZEMPIC) 2 mg/dose (8 mg/3 mL) pen injector Inject 2 mg subcutaneously one time a week. sertraline (ZOLOFT) 50 mg tablet TAKE 1 TABLET ONCE DAILY ketoconazole (NIZORAL) 2 % cream Apply 1 application to affected area once daily. Under breast rash triamcinolone acetonide (KENALOG) 0.1 % cream Apply to affected area two times a day as needed (under breast rash). semaglutide (OZEMPIC) 1 mg/dose (4 mg/3 mL) pen Inject 1 mg subcutaneously one time a week. Etonogestrel-Ethinyl Estradiol (NUVARING) 0.12-0.015 mg/24 hr vaginal ring Use 1 Each vaginally as directed. Insert vaginally and leave in place for 3 consecutive weeks, then remove and place a new ring and skip menses. ketoconazole (NIZORAL) 2 % shampoo Massage into damp scalp 3 times weekly. Allow to sit for 5 minutes prior to rinsing. cranberry fruit extract (CRANBERRY EXTRACT ORAL) Take [...] mouth once daily. No current facility-administered medications on file prior to visit. ROS: Skin as above. Physical Exam: Aguilar skin type: I The patient is a pleasant female in no apparent distress. Alert and oriented x 3. A skin exam performed of the Scalp, face, ears, neck, chest, back, abdomen, bilateral upper extremities, bilateral lower extremities, buttocks, hands, feet, nails and hair is significant for: Chest (Upper Torso, Anterior), Generalized Bright red papule(s) Scattered uniform brown macules/ papules with globular appearance on dermoscopy. Light brown well circumscribed macule(s) Head - Anterior (Face) Mild erythema with telangiectasias primarily to the central face. Swelling not present on exam. Densely scattered light haley macules noted on all sun exposed areas Symmetric hyperpigmented macules/ papules throughout with regular pigment network on dermoscopy Small orta red papules throughout Assessment and Plan: Skin Exam 1. SKIN EXAM, SCREENING FOR CANCER Generalized Advised sun protection with broad-spectrum SPF 30+, wide brim hats, sun glasses, protective clothing, and seeking shade during the peak hours of sun 10am-4pm Return for regular skin checks as discussed. Sunscreen and sun protection reviewed. Should any areas change in size, shape or color, bleed or become tender, the patient will contact the office for evaluation sooner than their interval appointment. Patient expresses underst (more content not included)... [facility] MEGHAN KING ([id number]) 1975 F Date Time Provider Department 10/19/24 [facility] During your visit today, we recorded the following information about you: Concepcion Delgado MA 10/19/2024 9:19 AM Signed Pt wrote into the office on 10/17/24 with concern about Ozempic no longer working for weight loss. Please review pt message and advise. Concepcion Delgado MA Pt message: Evan Worley! I?ve been taking the maximum dose of compounded Ozempic for a few months, and it seems to not help me anymore. I?m back to thinking about food constantly and have gained five pounds just since October 07. I?m still working out 6-7 days per week. Is this normal? Should I try one of the other drugs like Mounjaro or Wegovy? Do the compounding pharmacies even make those? I?m finally so close to a healthy weight, and I?m so nervous that I?m going to slip back into obesity. Thank you in advance for any help you can provide! -Jesus Manuel Art DO 10/26/2024 7:31 AM Signed Please have her call the compounding pharmacy of [facility] in [place] to ask about pricing and if she is able to afford this for the Tirzepatide (generic for zepbound and mounjaro). This would be an option for alternative DO Jovon Navarro Susan LPN 10/26/2024 9:06 AM Signed Pt. informed via My Chart. Allergies As of Date: 10/19/2024 Noted Allergy Reaction KEFLEX (CEPHALEXIN) 06/13/2022 2 - Rash Comments: Type 4 DTH Drug rash during course of treatment 06/2022. See A/I note 06/13/22 for details NEOSPORIN (NEOMYCIN-BACITRACIN- PO*09/19/2005 2 - Rash AZITHROMYCIN 06/26/2016 4 - Hives 7 - Swelling Comments: Urticaria and angioedema BICITRA (SODIUM CITRATE-CITRIC AC*04/02/2011 2 - Rash Comments: Patient tolerates foods containing citric acid without adverse reaction CITRIC ACID 11/04/2017 16 - Unknown NEOMYCIN 11/04/2017 16 - Unknown POLLEN EXTRACTS 09/16/2023 9 - Itching Comments: trees and grass, allergic rhinitis, asthma dust mites, animal dander, mold POLYMYXIN B 11/04/2017 16 - Unknown Date Reviewed: 04/24/2024 Reviewed by: Estefanía Mosley APRN.RESOURCE CONSERVATION MANAGER - Fully Assessed Reason for Visit: Patient Question [3842] Cmt: Ozempic Prescriptions as of 10/26/2024 - ketoconazole (NIZORAL) 2 % cream Apply 1 application to affected area once daily. Under breast rash - triamcinolone acetonide (KENALOG) 0.1 % cream Apply to affected area two times a day as needed (under breast rash). - semaglutide (OZEMPIC) 2 mg/dose (8 mg/3 mL) pen injector Inject 2 mg subcutaneously one time a week. - semaglutide (OZEMPIC) 1 mg/dose (4 mg/3 mL) pen Inject 1 mg subcutaneously one time a week. - sertraline (ZOLOFT) 50 mg tablet Take 1 tablet by mouth once daily. - Etonogestrel-Ethinyl Estradiol (NUVARING) 0.12-0.015 mg/24 hr vaginal ring Use 1 Each vaginally as directed. Insert vaginally and leave in place for 3 consecutive weeks, then remove and place a new ring and skip menses. - ketoconazole (NIZORAL) 2 % shampoo Massage into damp scalp 3 times weekly. Allow to sit for 5 minutes prior to rinsing. - cranberry fruit extract (CRANBERRY EXTRACT ORAL) Take 1 tablet by mouth once daily. - budesonide (PULMICORT FLEXHALER) 180 mcg/actuation aepb Inhale 2 Puffs as instructed twice daily. - albuterol HFA (VENTOLIN HFA) 90 mcg/actuation inhaler Inhale 2 Puffs as instructed every 4 hours as needed. - albuterol (PROVENTIL) 2.5 mg /3 mL (0.083 %) nebulizer solution Use 3 mL via nebulizer every 4 hours as needed. Use over 5-15minutes. - Cholecalciferol, Vitamin D3, 2,000 unit cap Take 1 tablet by mouth once daily. Problem List As Of Date 10/19/2024 Noted Resolved Depression [F32.A] 10/06/2005 Mild intermittent asthma without complication [*11/16/2005 CHRONIC RHINITIS [J31.0] 11/16/2005 Cellulitis and abscess of unspecified digit [IM*07/12/2006 10/25/2014 Supervision of Normal First [Z34.00] 07/10/2008 05/03/2010 Irregular menses [N92.6] 05/03/2010 06/03/2012 Abdominal pain, generalized [R10.84] 11/02/2010 10/25/2014 Previous section [Z98.891] 11/20/2010 06/03/2012 Melanocytic nevus of face [D22.30] 07/15/2011 10/25/2014 Intradermal nevus [D23.9] 07/15/2011 10/25/2014 Melanocytic nevus of neck [D22.4] 07/15/2011 10/25/2014 Melanocytic nevi of trunk [D22.5] 07/15/2011 10/25/2014 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 [facility] MEGHAN KING ([id number]) 1975 F Date Time Provider Department 10/12/24 JESUS MANUEL [facility] During your visit today, we recorded the following information about you: Jesus Manuel Worley, DO 10/12/2024 12:40 PM Signed Please let patient know that her labs were all normal and improved. Great work! DO Violet Navarro Brittany, MA 10/12/2024 12:57 PM Signed Pt notified and verbalized understanding Kiarra DeaalexyNATHAN Allergies As of Date: 10/12/2024 Noted Allergy Reaction KEFLEX (CEPHALEXIN) 06/13/2022 2 - Rash Comments: Type 4 DTH Drug rash during course of treatment 06/2022. See A/I note 06/13/22 for details NEOSPORIN (NEOMYCIN-BACITRACIN- PO*09/19/2005 2 - Rash AZITHROMYCIN 06/26/2016 4 - Hives 7 - Swelling Comments: Urticaria and angioedema BICITRA (SODIUM CITRATE-CITRIC AC*04/02/2011 2 - Rash Comments: Patient tolerates foods containing citric acid without adverse reaction CITRIC ACID 11/04/2017 16 - Unknown NEOMYCIN 11/04/2017 16 - Unknown POLLEN EXTRACTS 09/16/2023 9 - Itching Comments: trees and grass, allergic rhinitis, asthma dust mites, animal dander, mold POLYMYXIN B 11/04/2017 16 - Unknown Date Reviewed: 04/24/2024 Reviewed by: Estefanía Mosley APRN.RESOURCE CONSERVATION MANAGER - Fully Assessed Prescriptions as of 10/12/2024 - ketoconazole (NIZORAL) 2 % cream Apply 1 application to affected area once daily. Under breast rash - triamcinolone acetonide (KENALOG) 0.1 % cream Apply to affected area two times a day as needed (under breast rash). - semaglutide (OZEMPIC) 2 mg/dose (8 mg/3 mL) pen injector Inject 2 mg subcutaneously one time a week. - semaglutide (OZEMPIC) 1 mg/dose (4 mg/3 mL) pen Inject 1 mg subcutaneously one time a week. - sertraline (ZOLOFT) 50 mg tablet Take 1 tablet by mouth once daily. - Etonogestrel-Ethinyl Estradiol (NUVARING) 0.12-0.015 mg/24 hr vaginal ring Use 1 Each vaginally as directed. Insert vaginally and leave in place for 3 consecutive weeks, then remove and place a new ring and skip menses. - ketoconazole (NIZORAL) 2 % shampoo Massage into damp scalp 3 times weekly. Allow to sit for 5 minutes prior to rinsing. - cranberry fruit extract (CRANBERRY EXTRACT ORAL) Take 1 tablet by mouth once daily. - budesonide (PULMICORT FLEXHALER) 180 mcg/actuation aepb Inhale 2 Puffs as instructed twice daily. - albuterol HFA (VENTOLIN HFA) 90 mcg/actuation inhaler Inhale 2 Puffs as instructed every 4 hours as needed. - albuterol (PROVENTIL) 2.5 mg /3 mL (0.083 %) nebulizer solution Use 3 mL via nebulizer every 4 hours as needed. Use over 5-15minutes. - Cholecalciferol, Vitamin D3, 2,000 unit cap Take 1 tablet by mouth once daily. Problem List As Of Date 10/12/2024 Noted Resolved Depression [F32.A] 10/06/2005 Mild intermittent asthma without complication [*11/16/2005 CHRONIC RHINITIS [J31.0] 11/16/2005 Cellulitis and abscess of unspecified digit [IM*07/12/2006 10/25/2014 Supervision of Normal First [Z34.00] 07/10/2008 05/03/2010 Irregular menses [N92.6] 05/03/2010 06/03/2012 Abdominal pain, generalized [R10.84] 11/02/2010 10/25/2014 Previous section [Z98.891] 11/20/2010 06/03/2012 Melanocytic nevus of face [D22.30] 07/15/2011 10/25/2014 Intradermal nevus [D23.9] 07/15/2011 10/25/2014 Melanocytic nevus of neck [D22.4] 07/15/2011 10/25/2014 Melanocytic nevi of trunk [D22.5] 07/15/2011 10/25/2014 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] 07/15/2011 10/25/2014 Chronic folliculitis [L73.9] 07/15/2011 10/25/2014 Keratosis pilaris [L85.8] 07/15/2011 10/25/2014 Jfkh-cx-slre spots [L81.3] 07/15/2011 10/25/2014 Postinflammatory skin changes [R23.8] 07/15/2011 10/25/2014 Xerosis cutis [L85.3] 07/15/2011 10/25/2014 Sprain of foot, unspecified site [S93.609A] 07/17/2011 10/25/2014 Tendonitis of ankle [M77.50] 07/17/2011 10/25/2014 Pes cavus [Q66.70] 04/24/2012 10/25/2014 Morbidly obese (HCC) [E66.01] 10/25/2014 06/27/2019 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] 08/29/2015 Dysthymia [F34.1] 04/23/2016 Moderate persistent asthma with (acute) exacerb*02/07/2018 Atypical nevi [D22.9] 02/07/2018 It band syndrome, right [M76.31] 02/07/2018 Globus sensation [R09.A2] 02/07/2018 Epigastric pain [R10.13] 09/01/2018 Anxiety with depression [F41.8] 11/13/2019 Obesity, Class II, BMI 35-39.9 [E66.812] 12/14/2020 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 Normal [facility] CBC W Auto Differential pane l (Bld)on 10-10-2024 Basophils (Bld) [#/Vol] 0.07 10*3/uL Normal <0.11 [facility] Comment on above: Order Comment: Speci men Type: BLOOD SPECIMENOrdering Facility: [facility] Address: [address] [place] [address] Performed By: #### 5 7021-8 ####[facility] LABCLIA [id number] [place] [address] [place] Basophils/100 WBC (Bld) 0.9 % Normal [facility] Comment on above: Order Comment: Speci men Type: BLOOD SPECIMENOrdering Facility: [facility] Address: [address] [place] [address] Performed By: #### 5 7021-8 ####[facility] LABCLIA [id number] [place] [address] [place] Differential cell count method Nom (Bld) Auto Normal [facility] Comment on above: Order Comment: Speci men Type: BLOOD SPECIMENOrdering Facility: [facility] Address: [address] [place] [address] Performed By: #### 5 7021-8 ####[facility] LABCLIA [id number] [place] [address] [place] Eosinophils (Bld) [#/Vol] 0.26 10*3/uL Normal <0.46 [facility] Comment on above: Order Comment: Speci men Type: BLOOD SPECIMENOrdering Facility: [facility] Address: [address] [place] [address] Performed By: #### 5 7021-8 ####[facility] LABCLIA [id number] [place] [address] [place] Eosinophils/100 WBC (Bld) 3.4 % Normal [facility] Comment on above: Order Comment: Speci men Type: BLOOD SPECIMENOrdering Facility: [facility] Address: [address] [place] [address] Performed By: #### 5 7021-8 ####[facility] LABCLIA [id number] [place] [address] [place] Erythrocyte distribution width (RBC) [Ratio] 12.8 % Normal 11.5-15.0 [facility] Comment on above: Order Comment: Speci men Type: BLOOD SPECIMENOrdering Facility: [facility] Address: [address] [place] [address] Performed By: #### 5 7021-8 ####[facility] LABCLIA [id number] [place] [address] [place] Hematocrit (Bld) [Volume fraction] 44.7 % Normal 36.0-46.0 [facility] Comment on above: Order Comment: Speci men Type: BLOOD SPECIMENOrdering Facility: [facility] Address: [address] [place] [address] Performed By: #### 5 7021-8 ####[facility] LABIA [id number] [place] [address] [place] Hemoglobin (Bld) [Mass/Vol] 14.0 g/dL Normal 11.5-15.5 [facility] Comment on above: Order Comment: Speci men Type: BLOOD SPECIMENOrdering Facility: [facility] Address: [address] [place] [address] Performed By: #### 5 7021-8 ####[facility] LABIA [id number] [place] [address] [place] Immature granulocytes (Bld) [#/Vol] 10*3/uL Normal <0.10 [facility] Comment on above: Order Comment: Speci men Type: BLOOD SPECIMENOrdering Facility: [facility] Address: [address] [place] [address] Performed By: #### 5 7021-8 ####[facility] LABCLIA [id number] [place] [address] [place] Immature granulocytes/100 WBC (Bld) 0.3 % Normal [facility] Comment on above: Order Comment: Speci men Type: BLOOD SPECIMENOrdering Facility: [facility] Address: [address] [place] [address] Performed By: #### 5 7021-8 ####[facility] LABCLIA [id number] [place] [address] [place] Lymphocytes (Bld) [#/Vol] 1.79 10*3/uL Normal 1.00-4.00 [facility] Comment on above: Order Comment: Speci men Type: BLOOD SPECIMENOrdering Facility: [facility] Address: [address] [place] [address] Performed By: #### 5 7021-8 ####[facility] LABCLIA [id number] [place] [address] [place] Lymphocytes/100 WBC (Bld) 23.6 % Normal [facility] Comment on above: Order Comment: Speci men Type: BLOOD SPECIMENOrdering Facility: [facility] Address: [address] [place] [address] Performed By: #### 5 7021-8 ####[facility] LABCLIA [id number] [place] [address] [place] MCH (RBC) [Entitic mass] 29.7 pg Normal 26.0-34.0 [facility] Comment on above: Order Comment: Speci men Type: BLOOD SPECIMENOrdering Facility: [facility] Address: [address] [place] [address] Performed By: #### 5 7021-8 ####[facility] LABCLIA [id number] [place] [address] [place] MCHC (RBC) [Mass/Vol] 31.3 g/dL Normal 30.5-36.0 [facility] Comment on above: Order Comment: Speci men Type: BLOOD SPECIMENOrdering Facility: [facility] Address: [address] [place] [address] Performed By: #### 5 7021-8 ####[facility] LABIA [id number] [place] [address] [place] MCV (RBC) [Entitic vol] 94.7 fL Normal 80.0-100.0 [facility] Comment on above: Order Comment: Speci men Type: BLOOD SPECIMENOrdering Facility: [facility] Address: [address] [place] [address] Performed By: #### 5 7021-8 ####[facility] LABIA [id number] [place] [address] [place] Monocytes (Bld) [#/Vol] 0.40 10*3/uL Normal <0.87 [facility] Comment on above: Order Comment: Speci men Type: BLOOD SPECIMENOrdering Facility: [facility] Address: [address] [place] [address] Performed By: #### 5 7021-8 ####[facility] LABIA [id number] [place] [address] [place] Monocytes/100 WBC (Bld) 5.3 % Normal [facility] Comment on above: Order Comment: Speci men Type: BLOOD SPECIMENOrdering Facility: [facility] Address: [address] [place] [address] Performed By: #### 5 7021-8 ####[facility] LABIA [id number] [place] [address] [place] Neutrophils (Bld) [#/Vol] 5.06 10*3/uL Normal 1.45-7.50 [facility] Comment on above: Order Comment: Speci men Type: BLOOD SPECIMENOrdering Facility: [facility] Address: [address] [place] [address] Performed By: #### 5 7021-8 ####[facility] LABIA [id number] [place] [address] [place] Neutrophils/100 WBC (Bld) 66.5 % Normal [facility] Comment on above: Order Comment: Speci men Type: BLOOD SPECIMENOrdering Facility: [facility] Address: [address] [place] [address] Performed By: #### 5 7021-8 ####[facility] LABCLIA [id number] [place] [address] [place] Nucleated RBC (Bld) [#/Vol] 10*3/uL Normal <0.01 [facility] Comment on above: Order Comment: Speci men Type: BLOOD SPECIMENOrdering Facility: [facility] Address: [address] [place] [address] Performed By: #### 5 7021-8 ####[facility] LABIA [id number] [place] [address] [place] Nucleated RBC/100 WBC (Bld) [Ratio] 0.0 /100 WBC Normal [facility] Comment on above: Order Comment: Speci men Type: BLOOD SPECIMENOrdering Facility: [facility] Address: [address] [place] [address] Performed By: #### 5 7021-8 ####[facility] LABIA [id number] [place] [address] [place] Platelet mean volume (Bld) [Entitic vol] 10.0 fL Normal 9.0-12.7 [facility] Comment on above: Order Comment: Speci men Type: BLOOD SPECIMENOrdering Facility: [facility] Address: [address] [place] [address] Performed By: #### 5 7021-8 ####[facility] LABIA [id number] [place] [address] [place] Platelets (Bld) [#/Vol] 256 10*3/uL Normal 150-400 [facility] Comment on above: Order Comment: Speci men Type: BLOOD SPECIMENOrdering Facility: [facility] Address: [address] [place] [address] Performed By: #### 5 7021-8 ####[facility] LABCLIA [id number] [address] [address] [place] RBC (Bld) [#/Vol] 4.72 10*6/uL Normal 3.90-5.20 [facility] Comment on above: Order Comment: Speci men Type: BLOOD SPECIMENOrdering Facility: [facility] Address: [address] [place] [address] Performed By: #### 5 7021-8 ####[facility] LABIA [id number] [place] [id number] [place] WBC (Bld) [#/Vol] 7.60 10*3/uL Normal 3.70-11.00 [facility] Comment on above: Order Comment: Speci men Type: BLOOD SPECIMENOrdering Facility: [facility] Address: [address] [place] [address] Performed By: #### 5 7021-8 ####[facility] LABIA [id number] [place] [id number] [place] Comprehensive metabolic 2000 panelon 10-10-2024 Albumin [Mass/Vol] 3.9 g/dL Normal 3.9-4.9 [facility] Comment on above: Order Comment: Speci men Type: BLOOD SPECIMENOrdering Facility: [facility] Address: [address] [place], [place] [address] Performed By: #### 2 4331-1, 3015-3, 78894-9 ####[facility] LABIA [id number] [place] [id number] [place] ALP [Catalytic activity/Vol] 49 U/L Normal 34-123 [facility] Comment on above: Order Comment: Speci men Type: BLOOD SPECIMENOrdering Facility: [facility] Address: [address] [place] [address] Performed By: #### 2 4331-1, 3015-12, ####[facility] LABCLIA [id number] [facility] [address] [address] [place] ALT [Catalytic activity/Vol] 10 U/L Normal 7-38 [facility] Comment on above: Order Comment: Speci men Type: BLOOD SPECIMENOrdering Facility: [facility] Address: [address] [place] [address] Performed By: #### 2 4331-1, 3015-12, ####[facility] LABCLIA [id number] [facility] [address] [address] [place] Anion gap [Moles/Vol] 10 mmol/L Normal 8-15 [facility] Comment on above: Order Comment: Speci men Type: BLOOD SPECIMENOrdering Facility: [facility] Address: [address] [place] [address] Performed By: #### 2 4331-1, 3015-12, ####[facility] LABCLIA [id number] [facility] [address] [address] [place] AST [Catalytic activity/Vol] 14 U/L Normal 13-35 [facility] Comment on above: Order Comment: Speci men Type: BLOOD SPECIMENOrdering Facility: [facility] Address: [address] [place] [address] Performed By: #### 2 4331-1, 3015-12, ####[facility] LABCLIA [id number] [address] [address] [place] Bilirubin [Mass/Vol] 0.2 mg/dL Normal 0.2-1.3 [facility] Comment on above: Order Comment: Speci men Type: BLOOD SPECIMENOrdering Facility: [facility] Address: [address] [place], [place] [address] Performed By: #### 2 4331-1, 3, ####[facility] LABCLIA [id number] [address] [address] [place] Calcium [Mass/Vol] 9.0 mg/dL Normal 8.5-10.2 [facility] Comment on above: Order Comment: Speci men Type: BLOOD SPECIMENOrdering Facility: [facility] Address: [address] [place] [address] Performed By: #### 2 4331-1, 3015-3, 32111-5 ####[facility] LABCLIA [id number] [place] [id number] [place] Chloride [Moles/Vol] 105 mmol/L Normal 98-107 [facility] Comment on above: Order Comment: Speci men Type: BLOOD SPECIMENOrdering Facility: [facility] Address: [address] [place] [address] Performed By: #### 2 4331-1, 3015-3, ####[facility] LABCLIA [id number] [place] [address] [place] CO2 [Moles/Vol] 23 mmol/L Normal 22-30 [facility] Comment on above: Order Comment: Speci men Type: BLOOD SPECIMENOrdering Facility: [facility] Address: [address] [place] [address] Performed By: #### 2 4331-1, 3015-3, 15100-2 ####[facility] LABCLIA [id number] [place] [id number] [place] Creatinine [Mass/Vol] 0.84 mg/dL Normal 0.58-0.96 [facility] Comment on above: Order Comment: Speci men Type: BLOOD SPECIMENOrdering Facility: [facility] Address: [address] [place] [address] Performed By: #### 2 4331-1, 3015-3, 36166-8 ####[facility] LABCLIA [id number] [address] [address] [place] Creatinine and Glomerular filtration rate.predicted panel (S/P/Bld) 86 mL/min/1.73m??? Normal >=60 [facility] Comment on above: Order Comment: Jc snowden Type: BLOOD SPECIMENOrdering Facility: [facility] Address: [address] [place] [address] Result Comment: Nancy mated Glomerular Filtration Rate (eGFR) is calculated using the 2020 CKD-EPI creatinine equation. This equation utilizes serum creatinine, sex, and age as parameters. The creatinine assay has traceable calibration to isotope dilution-mass spectrometry. Refer to KDIGO guidelines for clinical interpretation. In patients with unstable renal function, e.g. those with acute kidney injury, the eGFR may not accurately reflect actual GFR. Performed By: #### 2 4331-1, 3016-3, 46817-1 ####[facility] LABCLIA [id number] [place] [address] [place] Glucose [Mass/Vol] 83 mg/dL Normal 74-99 [facility] Comment on above: Order Comment: Jc snowden Type: BLOOD SPECIMENOrdering Facility: [facility] Address: [address] [place] [address] Result Comment: The [place] Diabetes Association (ADA) provides guidance for cutoff values for fasting glucose and random glucose. The ADA defines fasting as no caloric intake for at least 8 hours. Fasting plasma glucose results between 100 to 125 mg/dL indicate increased risk for diabetes (prediabetes). Fasting plasma glucose results greater than or equal to 126 mg/dL meet the criteria for diagnosis of diabetes. In the absence of unequivocal hyperglycemia, results should be confirmed by repeat testing. In a patient with classic symptoms of hyperglycemia or hyperglycemic crisis, random plasma glucose results greater than or equal to 200 mg/dL meet the criteria for diagnosis of diabetes. Reference: Standards of Medical Care in Diabetes 2016, [place] Diabetes Association. Diabetes Care. 2016.39(Suppl 1). Performed By: #### 2 4331-1, 3016-3, 85928-3 ####[facility] LABIA [id number] [place] [id number] [place] Potassium [Moles/Vol] 4.3 mmol/L Normal 3.7-5.1 [facility] Comment on above: Order Comment: Speci men Type: BLOOD SPECIMENOrdering Facility: [facility] Address: [facility] [place] [id number] Performed By: #### 2 4331-1, 3, ####[facility] LABCLIA [id number] [place] [id number] [place] Protein [Mass/Vol] 6.4 g/dL Normal 6.3-8.0 [facility] Comment on above: Order Comment: Speci men Type: BLOOD SPECIMENOrdering Facility: [facility] Address: [address] [place] [address] Performed By: #### 2 4331-1, 3015-12, ####[facility] LABCLIA [id number] [place] [address] [place] Sodium [Moles/Vol] 138 mmol/L Normal 136-144 [facility] Comment on above: Order Comment: Speci men Type: BLOOD SPECIMENOrdering Facility: [facility] Address: [facility] [place] [address] Performed By: #### 2 4331-1, 3015-12, ####[facility] LABCLIA [id number] [place] [id number] [place] Urea nitrogen [Mass/Vol] 8 mg/dL Normal 7-21 [facility] Comment on above: Order Comment: Speci men Type: BLOOD SPECIMENOrdering Facility: [facility] Address: [address] [place] [address] Performed By: #### 2 4331-1, 3015-12, ####[facility]CLIA [id number] [facility] [address] [address] [place] HbA1c (Bld)on 10-10-2024 Average glucose Estimated from glycated hemoglobin (Bld) [Mass/Vol] 97 mg/dL Normal [facility] Comment on above: Order Comment: Jc sp Type: BLOOD SPECIMENOrdering Facility: [facility] Address: [address] [place] [address] Result Comment: eAG: (Estimated average glucose) is a calculated value from HgbA1c and is technology sales representative of the average blood glucose level in the last 2-3 month period. Performed By: #### 5 5454-3 ####[facility] LABCLIA [id number] [place] [address] [place] HbA1c (Bld) [Mass fraction] 5.0 % Normal 4.3-5.6 [facility] Comment on above: Order Comment: Jc men Type: BLOOD SPECIMENOrdering Facility: [facility] Address: [address] [place] [address] Result Comment: [place] Diabetes Association guidelines indicate that patients with HgbA1c in the range 5.7-6.4% are at increased risk for development of diabetes, and intervention by lifestyle modification may be beneficial. HgbA1c greater or equal to 6.5% is considered diagnostic of diabetes. Performed By: #### 5 5454-3 ####[facility] LABCLIA [id number] [place] [address] [place] Lipid 1996 panelon 5 Cholesterol [Mass/Vol] 188 mg/dL Normal <200 [facility] Comment on above: Order Comment: Jc sp Type: BLOOD SPECIMENOrdering Facility: [facility] Address: [address] [place] [address] Result Comment: <200 mg/dL, Desirable 200-239 mg/dL, Borderline high >239 mg/dL, High Performed By: #### 2 4331-1, 3016-3, 34323-6 ####[facility] LABCLIA [id number] [place] [address] [place] Cholesterol in HDL [Mass/Vol] 78 mg/dL Normal >39 [facility] Comment on above: Order Comment: Jc men Type: BLOOD SPECIMENOrdering Facility: [facility] Address: [address] [place] [address] Result Comment: 40-5 9 mg/dL, Acceptable >59 mg/dL, High: Negative risk factor for coronary heart disease <40 mg/dL, Low: Positive risk factor for coronary heart disease Performed By: #### 2 4331-1, 6-3, ####[facility] LABCLIA [id number] [place] [address] [place] Cholesterol in LDL [Mass/Vol] 89 mg/dL Normal <100 [facility] Comment on above: Order Comment: Speci men Type: BLOOD SPECIMENOrdering Facility: [facility] Address: [address] [place] [address] Result Comment: <100 mg/dL, Optimal 100-129 mg/dL, Near optimal/above optimal 130-159 mg/dL, Borderline high 160-189 mg/dL, High >189 mg/dL, Very high Secondary prevention optimal LDL Cholesterol levels are recommended to be < 70 mg/dL Performed By: #### 2 4331-1, 3015-3, ####[facility] LABCLIA [id number] [place] [address] [place] Cholesterol in LDL/Cholesterol in HDL [Mass ratio] 1.14 {ratio} Normal <2.54 [facility] Comment on above: Order Comment: Speci men Type: BLOOD SPECIMENOrdering Facility: [facility] Address: [address] [place] [address] Result Comment: Re garcia: 1. National Cholesterol Education Program ATP III Guideline At-A-Glance Quick Desk Reference: National Heart, Lung, and Blood [place]. National Institutes of Health. 2001: NIH Publication No. 01-3305. 2. An International Atherosclerosis Society position paper: global recommendations for the management of dyslipidemia: executive summary, Atherosclerosis. 2014: 232(2):410-413. Performed By: #### 2 4331-1, 6-3, ####[facility] LABCLIA [id number] [place] [id number] [place] Cholesterol in VLDL [Mass/Vol] 21 mg/dL Normal <30 [facility] Comment on above: Order Comment: Speci men Type: BLOOD SPECIMENOrdering Facility: [facility] Address: [address] [place] [address] Performed By: #### 2 4331-1, 3015-3, ####[facility] LABCLIA [id number] [place] [id number] [place] Cholesterol non HDL [Mass/Vol] 110 mg/dL Normal <130 [facility] Comment on above: Order Comment: Speci men Type: BLOOD SPECIMENOrdering Facility: [facility] Address: [address] [place] [address] Result Comment: <130 mg/dL, Optimal 130-159 mg/dL, Near optimal/above optimal 160-189 mg/dL, Borderline high 190-219 mg/dL, High >219 mg/dL, Very high Secondary prevention optimal non HDL Cholesterol levels are recommended to be <100 mg/dL Performed By: #### 2 4331-1, 3015-3, ####[facility] LABCLIA [id number] [place] [address] [place] Cholesterol.total/Em sterol in HDL [Mass ratio] 2.41 {ratio} Normal <5.10 [facility] Comment on above: Order Comment: Speci men Type: BLOOD SPECIMENOrdering Facility: [facility] Address: [address] [place] [address] Performed By: #### 2 4331-1, 3, ####[facility] LABCLIA [id number] [place] [id number] [place] FASTING TIME 12 hrs Normal [facility] Comment on above: Order Comment: Speci men Type: BLOOD SPECIMENOrdering Facility: [facility] Address: [address] [place] [address] Performed By: #### 2 4331-1, 3015-3, ####[facility] LABCLIA [id number] [place] [address] [place] Triglyceride [Mass/Vol] 104 mg/dL Normal <150 [facility] Comment on above: Order Comment: Speci men Type: BLOOD SPECIMENOrdering Facility: [facility] Address: [address] [place] [address] Result Comment: <150 mg/dL, Normal 150-199 mg/dL, Borderline high 200-499 mg/dL, High >499 mg/dL, Very high Performed By: #### 2 4331-1, 3015-3, ####[facility] [id number] [place] [address] [place] TSH SerPl-aCncon 10-10-2024 TSH Qn 3.370 m[IU]/L Normal 0.270-4.200 [facility] Comment on above: Order Comment: Speci men Type: BLOOD SPECIMENOrdering Facility: [facility] Address: [address] [place] [address] Result Comment: If t he patient is , TSH reference range varies by gestational period: First Trimester (weeks 9-12): 0.180-2.990 mIU/L Second Trimester: 0.110-3.980 mIU/L Third Trimester: 0.480-4.710 mIU/L Rajesh Reyes et al. A Practical Approach for the Verifications and Determination of Site- and Trimester-Specific Reference Intervals for Thyroid Function tests in . Thyroid, 2019:29:3:412-420. Farhat Orourke, et al. 2017 Guidelines of the [place] Thyroid Association for the Diagnosis and Management of Thyroid Disease during and the . Thyroid, 2017:27:3:315-389. Performed By: #### 2 4331-1, 3015-3, ####[facility] LABIA [id number] [place] [id number] [place] CNPNon 10-09-2024 CNPN Telephone ([facility]) MEGHAN KING ([id number]) 1975 F Date Time Provider Department 10/09/24 JESUS MANUEL WORLEY During your visit today, we recorded the following information about you: Georgia Myers 10/09/2024 7:15 AM Signed Patient came in this morning stating that she had labs to get done. There are no orders in system. Please call patient and advise her as to what she is to do. Thank you Jesus Manuel Garcia DO 10/09/2024 8:38 AM Signed Orders placed Please let her know DO Rach Navarro [place], [place] 10/09/2024 8:50 AM Signed Pt informed Veronique Loyd [place] Allergies As of Date: 10/09/2024 Noted Allergy Reaction KEFLEX (CEPHALEXIN) 06/13/2022 2 - Rash Comments: Type 4 DTH Drug rash during course of treatment 06/2022. See A/I note 06/13/22 for details NEOSPORIN (NEOMYCIN-BACITRACIN- PO*09/19/2005 2 - Rash AZITHROMYCIN 06/26/2016 4 - Hives 7 - Swelling Comments: Urticaria and angioedema BICITRA (SODIUM CITRATE-CITRIC AC*04/02/2011 2 - Rash Comments: Patient tolerates foods containing citric acid without adverse reaction CITRIC ACID 11/04/2017 16 - Unknown NEOMYCIN 11/04/2017 16 - Unknown POLLEN EXTRACTS 09/16/2023 9 - Itching Comments: trees and grass, allergic rhinitis, asthma dust mites, animal dander, mold POLYMYXIN B 11/04/2017 16 - Unknown Date Reviewed: 04/24/2024 Reviewed by: Estefanía Mosley APRN.RESOURCE CONSERVATION MANAGER - Fully Assessed Reason for Visit: Orders [681] Primary Visit Diagnosis:Hypertrigly ceridemia [E78.1] Other Visit Diagnoses:Hyperglycem ia [R73.9] Dysmetabolic syndrome [E88.810] IFG (impaired fasting glucose) [R73.01] Order(s):HEMOGLOBIN A1C [GWJNQ2Q] Order #: [id number] FUTURE COMPREHENSIVE METABOLIC PANEL [SQCMP] Order #: [id number] FUTURE COMPLETE BLOOD COUNT AND DIFFERENTIAL [SQCBCDIF] Order #: [id number] FUTURE LIPID PANEL BASIC [SQLIPB] Order #: [id number] FUTURE THYROID STIMULATING HORMONE [SQTSH] Order #: [id number] FUTURE Prescriptions as of 10/09/2024 - ketoconazole (NIZORAL) 2 % cream Apply 1 application to affected area once daily. Under breast rash - triamcinolone acetonide (KENALOG) 0.1 % cream Apply to affected area two times a day as needed (under breast rash). - semaglutide (OZEMPIC) 2 mg/dose (8 mg/3 mL) pen injector Inject 2 mg subcutaneously one time a week. - semaglutide (OZEMPIC) 1 mg/dose (4 mg/3 mL) pen Inject 1 mg subcutaneously one time a week. - sertraline (ZOLOFT) 50 mg tablet Take 1 tablet by mouth once daily. - Etonogestrel-Ethinyl Estradiol (NUVARING) 0.12-0.015 mg/24 hr vaginal ring Use 1 Each vaginally as directed. Insert vaginally and leave in place for 3 consecutive weeks, then remove and place a new ring and skip menses. - ketoconazole (NIZORAL) 2 % shampoo Massage into damp scalp 3 times weekly. Allow to sit for 5 minutes prior to rinsing. - cranberry fruit extract (CRANBERRY EXTRACT ORAL) Take 1 tablet by mouth once daily. - budesonide (PULMICORT FLEXHALER) 180 mcg/actuation aepb Inhale 2 Puffs as instructed twice daily. - albuterol HFA (VENTOLIN HFA) 90 mcg/actuation inhaler Inhale 2 Puffs as instructed every 4 hours as needed. - albuterol (PROVENTIL) 2.5 mg /3 mL (0.083 %) nebulizer solution Use 3 mL via nebulizer every 4 hours as needed. Use over 5-15minutes. - Cholecalciferol, Vitamin D3, 2,000 unit cap Take 1 tablet by mouth once daily. Problem List As Of Date 10/09/2024 Noted Resolved Depression [F32.A] 10/06/2005 Mild intermittent asthma without complication [*11/16/2005 CHRONIC RHINITIS [J31.0] 11/16/2005 Cellulitis and abscess of unspecified digit [IM*07/12/2006 10/25/2014 Supervision of Normal First [Z34.00] 07/10/2008 05/03/2010 Irregular menses [N92.6] 05/03/2010 06/03/2012 Abdominal pain, generalized [R10.84] 11/02/2010 10/25/2014 Previous section [Z98.891] 11/20/2010 06/03/2012 Melanocytic nevus of face [D22.30] 07/15/2011 10/25/2014 Intradermal nevus [D23.9] 07/15/2011 10/25/2014 Melanocytic nevus of neck [D22.4] 07/15/2011 10/25/2014 Melanocytic nevi of trunk [D22.5] 07/15/2011 10/25/2014 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] 07/15/2011 10/25/2014 Chronic folliculitis [L73.9] 07/15/2011 10/25/2014 Keratosis pilaris [L85.8] 07/15/2011 10/25/2014 Oowa-uu-yxeu spots [L81.3] 07/15/2011 10/25/2014 Postinflammatory skin changes [R23.8] 07/15/2011 10/25/2014 Xerosis cutis [L85.3] 07/15/2011 10/25/2014 Sprain of foot, unspecified site [S93.609A] 07/17/2011 10/25/2014 Tendonitis of ankle [M77.50] 07/17/2011 10/25/2014 Pes cavus [Q66.70] 04/24/2012 10/25/2014 Morbidly obese (HCC) [E66.01] 10/25/2014 06/27/2019 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 Normal [facility] CNOVon 09-23-2024 CNOV Office Visit (FAMPWS ) MEGHAN KING ([id number]) 1975 F Date Time Provider Department 09/23/24 4:40 PM [facility] your visit today, we recorded the following information about you: Temperature Pulse Respiration Blood pressure 97.8 degrees 80/minute 16/minute 100/70 Weight 73.9 kg Jesus Manuel Worley, 09/23/2024 9:20 PM Signed CC: Meghan King is a 49 year old female who presents to the office for follow up HPI: IFG, obesity, dysmetabolic syndrome. Has been on semaglutide since Aug 2023 through PRODUCT DEVELOPMENT MANAGER to start and now through [facility] in [place], [place], but not able to afford brand name medication. Was tolerating medication well without any SE, was able to control her appetite and overeating. Previously her weight in Sep 2023 was down from 202 lbs in May to a weight of 180 lbs. She would like to continue through our office with monitoring. She is exercising 5-6 days a week with strength training and Pilates mostly and has got her protein levels up to 70-100 grams a day. Does eat a vegetarian diet with a lot of beans and lentils and fiber foods. Mood, stable Her weight now is 163 lbs. Goal weight of 145 lbs. PAST MEDICAL HISTORY Diagnosis Date Allergy Seasonal and Environmental Allergies Depressive disorder, not elsewhere classified Diffuse cystic mastopathy History of echocardiogram 01/02/2021 at [facility]-Dr. Swain-EF 55% Low HDL (under 40) 12/05/2014 Unspecified asthma(493.90) Vitamin D deficiency 12/05/2014 PAST SURGICAL HISTORY Procedure Laterality Date DELIVERY ONLY 03/20/2011 , low transverse DELIVERY+ CARE March 02, 2009 COLONOSCOPY FLX DX W/COLLJ SPEC WHEN PFRMD 06/16/2019 Colonoscopy ESOPHAGOGASTRODUODENO SCOPY TRANSORAL DIAGNOSTIC 09/02/2018 EGD LAPS SURG CHOLECYSTECTOMY W/CHOLANGIOGRAPHY 04/2015 in [facility]. PAST SURGICAL HISTORY OF wisdom teeth extraction Current Outpatient Medications Medication Sig ketoconazole (NIZORAL) 2 % cream Apply 1 application to affected area once daily. Under breast rash triamcinolone acetonide (KENALOG) 0.1 % cream Apply to affected area two times a day as needed (under breast rash). semaglutide (OZEMPIC) 2 mg/dose (8 mg/3 mL) pen injector Inject 2 mg subcutaneously one time a week. semaglutide (OZEMPIC) 1 mg/dose (4 mg/3 mL) pen Inject 1 mg subcutaneously one time a week. sertraline [...] sit for 5 minutes prior to rinsing. cranberry fruit extract (CRANBERRY EXTRACT ORAL) Take [...] Never Smokeless tobacco: Never Vaping Use Vaping status: Never Used Substance Use Topics Alcohol use: No Drug use: No ROS: See HIP PE: BP 100/70 Pulse 80 Temp (Src) 97.8 (Left Tympanic) Resp 16 Wt 163 lb (73.9kg) LMP 02/13/2022 Gen: AANDOX3, NAD, non-toxic appearing HEENT: PERRLA, EOMs intact b/l, nares without drainage, pharynx without erythema, exudate, lesions, or drainage. Uvula midline. Neck: No LAD, no thyromegaly, no meningismus. CV: RRR, no murmur Lungs: CTA b/l, no wheezing Skin: intertriginous rash b/l under breasts Overweight Normal pulses No edema ASSESSMENT/PLAN: 1. Intertrigo - ICD9: 695.89, ICD10: L30.4 (primary diagnosis) rx prn use - KETOCONAZOLE 2 % TOPICAL CREAM - TRIAMCINOLONE ACETONIDE 0.1 % TOPICAL CREAM 2. IFG (impaired fasting glucose) - ICD9: 790.21, ICD10: R73.01 Diet controlled Continue weight loss process, sh (more content not included)... Normal [facility] MEGHAN KING ([id number]) 1975 F Date Time Provider Department 08/24/24 [facility] During your visit today, we recorded the following information about you: Celine Sigala LPN 08/24/2024 4:49 PM Signed Type of form: Wellness form Form received via walk in When form is completed, [facility]. Form has been forwarded to Physician Desk: Jesus Manuel Castorena D.O., LPN, DO 08/26/2024 8:21 PM Signed This form was already signed Please make sure patient has received or has been faxed DO Jovon Navarro Susan LPN 08/28/2024 3:13 PM Signed Form on your desk. Melina Choudhury RN 08/31/2024 4:20 PM Signed Patient calls to ask about form below. Patient reports needs to have it back as soon as possible to received discounted rates with [employer]. Per below, form is completed? Please advise and call patient back at [phone]. AUGUSTIN Fountain Susan LPN 09/01/2024 7:53 AM Signed Form signed Pt. informed VM left. Allergies As of Date: 08/24/2024 Noted Allergy Reaction KEFLEX (CEPHALEXIN) 06/13/2022 2 - Rash Comments: Type 4 DTH Drug rash during course of treatment 06/2022. See A/I note 06/13/22 for details NEOSPORIN (NEOMYCIN-BACITRACIN- PO*09/19/2005 2 - Rash AZITHROMYCIN 06/26/2016 4 - Hives 7 - Swelling Comments: Urticaria and angioedema BICITRA (SODIUM CITRATE-CITRIC AC*04/02/2011 2 - Rash Comments: Patient tolerates foods containing citric acid without adverse reaction CITRIC ACID 11/04/2017 16 - Unknown NEOMYCIN 11/04/2017 16 - Unknown POLLEN EXTRACTS 09/16/2023 9 - Itching Comments: trees and grass, allergic rhinitis, asthma dust mites, animal dander, mold POLYMYXIN B 11/04/2017 16 - Unknown Date Reviewed: 04/24/2024 Reviewed by: Estefanía Mosley APRN.RESOURCE CONSERVATION MANAGER - Fully Assessed Reason for Visit: Forms [913] Prescriptions as of 10/13/2024 - ketoconazole (NIZORAL) 2 % cream Apply 1 application to affected area once daily. Under breast rash - triamcinolone acetonide (KENALOG) 0.1 % cream Apply to affected area two times a day as needed (under breast rash). - semaglutide (OZEMPIC) 2 mg/dose (8 mg/3 mL) pen injector Inject 2 mg subcutaneously one time a week. - semaglutide (OZEMPIC) 1 mg/dose (4 mg/3 mL) pen Inject 1 mg subcutaneously one time a week. - sertraline (ZOLOFT) 50 mg tablet Take 1 tablet by mouth once daily. - Etonogestrel-Ethinyl Estradiol (NUVARING) 0.12-0.015 mg/24 hr vaginal ring Use 1 Each vaginally as directed. Insert vaginally and leave in place for 3 consecutive weeks, then remove and place a new ring and skip menses. - ketoconazole (NIZORAL) 2 % shampoo Massage into damp scalp 3 times weekly. Allow to sit for 5 minutes prior to rinsing. - cranberry fruit extract (CRANBERRY EXTRACT ORAL) Take 1 tablet by mouth once daily. - budesonide (PULMICORT FLEXHALER) 180 mcg/actuation aepb Inhale 2 Puffs as instructed twice daily. - albuterol HFA (VENTOLIN HFA) 90 mcg/actuation inhaler Inhale 2 Puffs as instructed every 4 hours as needed. - albuterol (PROVENTIL) 2.5 mg /3 mL (0.083 %) nebulizer solution Use 3 mL via nebulizer every 4 hours as needed. Use over 5-15minutes. - Cholecalciferol, Vitamin D3, 2,000 unit cap Take 1 tablet by mouth once daily. Problem List As Of Date 08/24/2024 Noted Resolved Depression [F32.A] 10/06/2005 Mild intermittent asthma without complication [*11/16/2005 CHRONIC RHINITIS [J31.0] 11/16/2005 Cellulitis and abscess of unspecified digit [IM*07/12/2006 10/25/2014 Supervision of Normal First [Z34.00] 07/10/2008 05/03/2010 Irregular menses [N92.6] 05/03/2010 06/03/2012 Abdominal pain, generalized [R10.84] 11/02/2010 10/25/2014 Previous section [Z98.891] 11/20/2010 06/03/2012 Melanocytic nevus of face [D22.30] 07/15/2011 10/25/2014 Intradermal nevus [D23.9] 07/15/2011 10/25/2014 Melanocytic nevus of neck [D22.4] 07/15/2011 10/25/2014 Melanocytic nevi of trunk [D22.5] 07/15/2011 10/25/2014 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] 07/15/2011 10/25/2014 Chronic folliculitis [L73.9] 07/15/2011 10/25/2014 Keratosis pilaris [L85.8] 07/15/2011 10/25/2014 Ndzw-ml-paup spots [L81.3] 07/15/2011 10/25/2014 Postinflammatory skin changes [R23.8] 07/15/2011 10/25/2014 Xerosis cutis [L85.3] 07/15/2011 10/25/2014 Sprain of foot, unspecified site [S93.609A] 07/17/2011 10/25/2014 Tendonitis of ankle [M77.50] 07/17/2011 10/25/2014 Pes cavus [Q66.70] 04/24/2012 10/25/2014 Morbidly obese (HCC) [E66.01] 10/25/2014 06/27/2019 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 Normal [facility] CNOVon 07-17-2024 CNOV Office Visit (PEDSWS ) MEGHAN KING ([id number]) 1975 F Date Time Provider Department 07/17/24 4:00 PM NURSE JESSICA MCGRATH During your visit today, we recorded the following information about you: Allergies As of Date: 07/17/2024 Noted Allergy Reaction KEFLEX (CEPHALEXIN) 06/13/2022 2 - Rash Comments: Type 4 DTH Drug rash during course of treatment 06/2022. See A/I note 06/13/22 for details NEOSPORIN (NEOMYCIN-BACITRACIN- PO*09/19/2005 2 - Rash AZITHROMYCIN 06/26/2016 4 - Hives 7 - Swelling Comments: Urticaria and angioedema BICITRA (SODIUM CITRATE-CITRIC AC*04/02/2011 2 - Rash Comments: Patient tolerates foods containing citric acid without adverse reaction CITRIC ACID 11/04/2017 16 - Unknown NEOMYCIN 11/04/2017 16 - Unknown POLLEN EXTRACTS 09/16/2023 9 - Itching Comments: trees and grass, allergic rhinitis, asthma dust mites, animal dander, mold POLYMYXIN B 11/04/2017 16 - Unknown Date Reviewed: 04/24/2024 Reviewed by: Estefanía Mosley APRN.RESOURCE CONSERVATION MANAGER - Fully Assessed Reason for Visit: flu and covid [Other] Visit Diagnosis:Encounter for immunization [Z23] Order(s):INFLUENZA VACCINE, AGE 6MO-64YR, TRIVALENT (AFLURIA, FLULAVAL, FLUVIRIN, FLUZONE) [[id number]] Order #: [id number] [employer] Surve[employer] COVID-19 VACCINE AGE 12+ YR (COMIRNATY) [[id number]] Order #: [id number] Prescriptions as of 07/17/2024 - semaglutide (OZEMPIC) 1 mg/dose (4 mg/3 mL) pen Inject 1 mg subcutaneously one time a week. - sertraline (ZOLOFT) 50 mg tablet Take 1 tablet by mouth once daily. - Etonogestrel-Ethinyl Estradiol (NUVARING) 0.12-0.015 mg/24 hr vaginal ring Use 1 Each vaginally as directed. Insert vaginally and leave in place for 3 consecutive weeks, then remove and place a new ring and skip menses. - ketoconazole (NIZORAL) 2 % shampoo Massage into damp scalp 3 times weekly. Allow to sit for 5 minutes prior to rinsing. - cranberry fruit extract (CRANBERRY EXTRACT ORAL) Take 1 tablet by mouth once daily. - budesonide (PULMICORT FLEXHALER) 180 mcg/actuation aepb Inhale 2 Puffs as instructed twice daily. - albuterol HFA (VENTOLIN HFA) 90 mcg/actuation inhaler Inhale 2 Puffs as instructed every 4 hours as needed. - albuterol (PROVENTIL) 2.5 mg /3 mL (0.083 %) nebulizer solution Use 3 mL via nebulizer every 4 hours as needed. Use over 5-15minutes. - Cholecalciferol, Vitamin D3, 2,000 unit cap Take 1 tablet by mouth once daily. Problem List As Of Date 07/17/2024 Noted Resolved Depression [F32.A] 10/06/2005 Mild intermittent asthma without complication [*11/16/2005 CHRONIC RHINITIS [J31.0] 11/16/2005 Cellulitis and abscess of unspecified digit [IM*07/12/2006 10/25/2014 Supervision of Normal First [Z34.00] 07/10/2008 05/03/2010 Irregular menses [N92.6] 05/03/2010 06/03/2012 Abdominal pain, generalized [R10.84] 11/02/2010 10/25/2014 Previous section [Z98.891] 11/20/2010 06/03/2012 Melanocytic nevus of face [D22.30] 07/15/2011 10/25/2014 Intradermal nevus [D23.9] 07/15/2011 10/25/2014 Melanocytic nevus of neck [D22.4] 07/15/2011 10/25/2014 Melanocytic nevi of trunk [D22.5] 07/15/2011 10/25/2014 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] 07/15/2011 10/25/2014 Chronic folliculitis [L73.9] 07/15/2011 10/25/2014 Keratosis pilaris [L85.8] 07/15/2011 10/25/2014 Vzxd-xf-rext spots [L81.3] 07/15/2011 10/25/2014 Postinflammatory skin changes [R23.8] 07/15/2011 10/25/2014 Xerosis cutis [L85.3] 07/15/2011 10/25/2014 Sprain of foot, unspecified site [S93.609A] 07/17/2011 10/25/2014 Tendonitis of ankle [M77.50] 07/17/2011 10/25/2014 Pes cavus [Q66.70] 04/24/2012 10/25/2014 Morbidly obese (HCC) [E66.01] 10/25/2014 06/27/2019 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] 08/29/2015 Dysthymia [F34.1] 04/23/2016 Moderate persistent asthma with (acute) exacerb*02/07/2018 Atypical nevi [D22.9] 02/07/2018 It band syndrome, right [M76.31] 02/07/2018 Globus sensation [R09.A2] 02/07/2018 Epigastric pain [R10.13] 09/01/2018 Anxiety with depression [F41.8] 11/13/2019 Obesity, Class II, BMI 35-39.9 [E66.812] 12/14/2020 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] 07/11/2021 Hypertriglyceridemia [E78.1] 07/11/2021 Hyperglycemia [R73.9] 07/11/2021 Well adult exam [Z00.00] 07/11/2021 Asthma, allergic [J45.909] 07/11/2021 Overweight (BMI 25.0-29.9) [E66.3] 07/11/2021 Dyslipidemia [E78.5] 08/07/2022 Perimenopausal [N95.1] 08/07/2022 Urticaria [L50.9] 08/07/2022 IFG (impaired fasting glucose) [R73.01] 08/07/2022 Weight gain [R63.5] 08/07/2022 Dysmetabolic syndrome [E88.810] 09/16/2023 Obesity, Class I, BMI 30-34.9 [E66.811] 09/16/2023 Chronic midline low back pain without sciatica *01/06/2024 Encounter Status:Closed by MADIHA ERWIN on 07/17/24 [facility] 06-05-2024 [facility] Telephone (FAMPWS) MEGHAN KING ([id number]) 1975 Date Time Provider Department 06/05/24 [facility] During your visit today, we recorded the following information about you: Veronique Loyd MA 06/05/2024 8:14 AM Signed Please see pt message. Pt currently taking 0.5mg. Veronique Loyd MA Hello! I?m now using the compounding pharmacy in [place] for my Ozempic. When I met with Linh Mosley a few weeks ago, she said I could increase the strength of the Ozempic after the first month with this new pharmacy. I?m going to need to order more soon. Could someone call in the prescription for the next increased dose? Thank you! Beatris Case APRN.[facility] 06/05/2024 9:07 AM Signed The following approved medication requests have been transmitted electronically. Requested Prescriptions Signed Prescriptions Disp Refills semaglutide (OZEMPIC) 1 mg/dose (4 mg/3 mL) pen 3 mL 2 Sig: Inject 1 mg subcutaneously one time a week. Authorizing Provider: JES[facility] MANUEL [facility]LEY Ordering User: BEATRIS CASE APRN.[facility] Veronique Loyd MA 06/05/2024 9:17 AM Signed Pt informed via message Veronique Loyd MA Allergies As of Date: 06/05/2024 Noted Allergy Reaction KEFLEX (CEPHALEXIN) 06/13/2022 2 - Rash Comments: Type 4 DTH Drug rash during course of treatment 06/2022. See A/I note 06/13/22 for details NEOSPORIN (NEOMYCIN-BACITRACIN- PO*09/19/2005 2 - Rash AZITHROMYCIN 06/26/2016 4 - Hives 7 - Swelling Comments: Urticaria and angioedema BICITRA (SODIUM CITRATE-CITRIC AC*04/02/2011 2 - Rash Comments: Patient tolerates foods containing citric acid without adverse reaction CITRIC ACID 11/04/2017 16 - Unknown NEOMYCIN 11/04/2017 16 - Unknown POLLEN EXTRACTS 09/16/2023 9 - Itching Comments: trees and grass, allergic rhinitis, asthma dust mites, animal dander, mold POLYMYXIN B 11/04/2017 16 - Unknown Date Reviewed: 04/24/2024 Reviewed by: Estefanía Mosley APRN.RESOURCE CONSERVATION MANAGER - Fully Assessed Reason for Visit: Patient Question [1477] Primary Visit Diagnosis:Weight gain [R63.5] Other Visit Diagnosis:Overweight (BMI 25.0-29.9) [E66.3] Order(s):semaglutide (OZEMPIC) 1 mg/dose (4 mg/3 mL) penInject 1 mg subcutaneously one time a week.Disp: 3 mLRfl: 2 Prescriptions as of 06/05/2024 - semaglutide (OZEMPIC) 1 mg/dose (4 mg/3 mL) pen Inject 1 mg subcutaneously one time a week. - sertraline (ZOLOFT) 50 mg tablet Take 1 tablet by mouth once daily. - Etonogestrel-Ethinyl Estradiol (NUVARING) 0.12-0.015 mg/24 hr vaginal ring Use 1 Each vaginally as directed. Insert vaginally and leave in place for 3 consecutive weeks, then remove and place a new ring and skip menses. - ketoconazole (NIZORAL) 2 % shampoo Massage into damp scalp 3 times weekly. Allow to sit for 5 minutes prior to rinsing. - cranberry fruit extract (CRANBERRY EXTRACT ORAL) Take 1 tablet by mouth once daily. - budesonide (PULMICORT FLEXHALER) 180 mcg/actuation aepb Inhale 2 Puffs as instructed twice daily. - albuterol HFA (VENTOLIN HFA) 90 mcg/actuation inhaler Inhale 2 Puffs as instructed every 4 hours as needed. - albuterol (PROVENTIL) 2.5 mg /3 mL (0.083 %) nebulizer solution Use 3 mL via nebulizer every 4 hours as needed. Use over 5-15minutes. - Cholecalciferol, Vitamin D3, 2,000 unit cap Take 1 tablet by mouth once daily. Problem List As Of Date 06/05/2024 Noted Resolved Depression [F32.A] 10/06/2005 Mild intermittent asthma without complication [*11/16/2005 CHRONIC RHINITIS [J31.0] 11/16/2005 Cellulitis and abscess of unspecified digit [IM*07/12/2006 10/25/2014 Supervision of Normal First [Z34.00] 07/10/2008 05/03/2010 Irregular menses [N92.6] 05/03/2010 06/03/2012 Abdominal pain, generalized [R10.84] 11/02/2010 10/25/2014 Previous section [Z98.891] 11/20/2010 06/03/2012 Melanocytic nevus of face [D22.30] 07/15/2011 10/25/2014 Intradermal nevus [D23.9] 07/15/2011 10/25/2014 Melanocytic nevus of neck [D22.4] 07/15/2011 10/25/2014 Melanocytic nevi of trunk [D22.5] 07/15/2011 10/25/2014 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] 07/15/2011 10/25/2014 Chronic folliculitis [L73.9] 07/15/2011 10/25/2014 Keratosis pilaris [L85.8] 07/15/2011 10/25/2014 Brtu-ls-gqgn spots [L81.3] 07/15/2011 10/25/2014 Postinflammatory skin changes [R23.8] 07/15/2011 10/25/2014 Xerosis cutis [L85.3] 07/15/2011 10/25/2014 Sprain of foot, unspecified site [S93.609A] 07/17/2011 10/25/2014 Tendonitis of ankle [M77.50] 07/17/2011 10/25/2014 Pes cavus [Q66.70] 04/24/2012 10/25/2014 Morbidly obese (HCC) [E66.01] 10/25/2014 06/27/2019 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 Normal [facility] CBC W Auto Differential pane l (Bld)on 03-17-2024 Basophils (Bld) [#/Vol] 0.06 10*3/uL [facility] Basophils/100 WBC (Bld) 0.7 % C [facility] Differential cell count method Nom (Bld) Auto [facility] Eosinophils (Bld) [#/Vol] 0.20 10*3/uL [facility] Eosinophils/100 WBC (Bld) 2.2 % [facility] Erythrocyte distribution width (RBC) [Ratio] 13.2 % 11.5 - 15.0 % [facility] Hematocrit (Bld) [Volume fraction] 44.4 % 36.0 - 46.0 % [facility] Hemoglobin (Bld) [Mass/Vol] 14.3 g/dL 11.5 - 15.5 g/dL [facility] Immature granulocytes (Bld) [#/Vol] 0.03 10*3/uL [facility] Immature granulocytes/100 WBC (Bld) 0.3 % [facility] Lymphocytes (Bld) [#/Vol] 1.72 10*3/uL [facility] Lymphocytes/100 WBC (Bld) 19.3 % [facility] MCH (RBC) [Entitic mass] 29.3 pg 26.0 - 34.0 pg [facility] MCHC (RBC) [Mass/Vol] 32.2 g/dL 30.5 - 36.0 g/dL [facility] MCV (RBC) [Entitic vol] 91.0 fL 80.0 - 100.0 fL [facility] Monocytes (Bld) [#/Vol] 0.46 10*3/uL [facility] Monocytes/100 WBC (Bld) 5.2 % C [facility] Neutrophils (Bld) [#/Vol] 6.43 10*3/uL [facility] Neutrophils/100 WBC (Bld) 72.3 % [facility] Nucleated RBC (Bld) [#/Vol] [facility] Nucleated RBC/100 WBC (Bld) [Ratio] 0.0 % /100 WBC [facility] Platelet mean volume (Bld) [Entitic vol] 10.7 fL 9.0 - 12.7 fL [facility] Platelets (Bld) [#/Vol] 268 10*3/uL [facility] RBC (Bld) [#/Vol] 4.88 10*6/uL 3.90 - 5.2 0 m/uL [facility] WBC (Bld) [#/Vol] 8.90 10*3/uL [facility] Comprehensive metabolic 2000 panelon 03-17-2024 Albumin [Mass/Vol] 3.9 g/dL 3.9 - 4.9 g/dL [facility] ALP [Catalytic activity/Vol] 55 U/L 34 - 123 U/L [facility] ALT [Catalytic activity/Vol] 10 U/L 7 - 38 U/L [facility] Anion gap [Moles/Vol] 10 mmol/L 8 - 15 mmol/L [facility] AST [Catalytic activity/Vol] 16 U/L 13 - 35 U/L [facility] Bilirubin [Mass/Vol] 0.3 mg/dL 0.2 - 1 .3 mg/dL [facility] Calcium [Mass/Vol] 9.2 mg/dL 8.5 - 10. 2 mg/dL [facility] Chloride [Moles/Vol] 107 mmol/L 98 - 10 7 mmol/L [facility] CO2 [Moles/Vol] 23 mmol/L 22 - 30 mmol/L [facility] Creatinine [Mass/Vol] 0.79 mg/dL 0.58 - 0.96 mg/dL [facility] GFR/1.73 sq M.predicted among non-blacks MDRD (S/P/Bld) [Vol rate/Area] 94 mL/min/{1.73_m2} - PINF [facility] Comment on above: Estimated Glomerular Filtration Rate (eGFR) is calculated using the 2020 CKD-EPI creatinine equation. This equation utilizes serum creatinine, sex, and age as parameters. The creatinine assay has traceable calibration to isotope dilution-mass spectrometry. Refer to KDIGO guidelines for clinical interpretation. In patients with unstable renal function, e.g. those with acute kidney injury, the eGFR may not accurately reflect actual GFR. Glucose [Mass/Vol] 84 mg/dL 74 - 99 mg/dL [facility] Comment on above: The [place] Diabete s Association (ADA) provides guidance for cutoff values for fasting glucose and random glucose. The ADA defines fasting as no caloric intake for at least 8 hours. Fasting plasma glucose results between 100 to 125 mg/dL indicate increased risk for diabetes (prediabetes). Fasting plasma glucose results greater than or equal to 126 mg/dL meet the criteria for diagnosis of diabetes. In the absence of unequivocal hyperglycemia, results should be confirmed by repeat testing. In a patient with classic symptoms of hyperglycemia or hyperglycemic crisis, random plasma glucose results greater than or equal to 200 mg/dL meet the criteria for diagnosis of diabetes. Reference: Standards of Medical Care in Diabetes 2016, [place] Diabetes Association. Diabetes Care. 2016.39(Suppl 1). Interpretation and review of laboratory results Abnormal [facility] Potassium [Moles/Vol] 4.4 mmol/L 3.7 - 5.1 mmol/L [facility] Protein [Mass/Vol] 6.2 g/dL Low 6.3 - 8.0 g/dL [facility] Sodium [Moles/Vol] 140 mmol/L 136 - 144 mmol/L [facility] Urea nitrogen [Mass/Vol] 10 mg/dL 7 - 21 mg/dL [facility] FOLLICLE STIMULATING HORMONE on 03-17-2024 Follitropin Qn 3.5 m[IU]/mL See comment mIU/mL [facility] Comment on above: Reference range: Follicular: 3.5-12.5 mIU/mL Ovulation: 4.7-21.5 mIU/mL Luteal: 1.7-7.7 mIU/mL Postmenopausal: 25.8-134.8 mIU/mL Free T4 [Mass/Vol]on 024 Interpretation and review of laboratory results Normal [facility] HbA1c (Bld)on 03-17-2024 Average glucose Estimated from glycated hemoglobin (Bld) [Mass/Vol] 105 mg/dL [facility] Comment on above: eAG: (Estimated aver age glucose) is a calculated value from HgbA1c and is technology sales representative of the average blood glucose level in the last 2-3 month period. HbA1c (Bld) [Mass fraction] 5.3 % 4.3 - 5.6 % [facility] Comment on above: [place] Diabetes As sociation guidelines indicate that patients with HgbA1c in the range 5.7-6.4% are at increased risk for development of diabetes, and intervention by lifestyle modification may be beneficial. HgbA1c greater or equal to 6.5% is considered diagnostic of diabetes. [facility] INSULIN ASSAY BLOODon 2023 Insulin Qn 7.5 u[IU]/mL 3.0 - 25.0 mU/L [facility] Insulin Qnon 03-17-2024 Interpretation and review of laboratory results Normal [facility] Lipid 1996 panelon 4 Cholesterol [Mass/Vol] 186 mg/dL NINF - 200 mg/dL [facility] Comment on above: <200 mg/dL, Desirabl e 200-239 mg/dL, Borderline high >239 mg/dL, High Cholesterol in HDL [Mass/Vol] 88 mg/dL 39 - PINF mg/dL [facility] Comment on above: 40-59 mg/dL, Accepta ble >59 mg/dL, High: Negative risk factor for coronary heart disease <40 mg/dL, Low: Positive risk factor for coronary heart disease Cholesterol in LDL [Mass/Vol] 79 mg/dL NINF - 100 mg/dL [facility] Comment on above: <100 mg/dL, Optimal 100-129 mg/dL, Near optimal/above optimal 130-159 mg/dL, Borderline high 160-189 mg/dL, High >189 mg/dL, Very high Secondary prevention optimal LDL Cholesterol levels are recommended to be < 70 mg/dL Cholesterol in LDL/Cholesterol in HDL [Mass ratio] 0.90 {ratio} NINF - 2.54 [facility] Comment on above: Reference: 1. National Cholesterol Education Program ATP III Guideline At-A-Glance Quick Desk Reference: National Heart, Lung, and Blood [place]. National Institutes of Health. 2001: NIH Publication No. 01-3305. 2. An International Atherosclerosis Society position paper: global recommendations for the management of dyslipidemia: executive summary, Atherosclerosis. 2014: 232(2):410-413. Cholesterol in VLDL [Mass/Vol] 19 mg/dL NINF - 30 mg/dL [facility] Cholesterol non HDL [Mass/Vol] 98 mg/dL NINF - 130 mg/dL [facility] Comment on above: <130 mg/dL, Optimal 130-159 mg/dL, Near optimal/above optimal 160-189 mg/dL, Borderline high 190-219 mg/dL, High >219 mg/dL, Very high Secondary prevention optimal non HDL Cholesterol levels are recommended to be <100 mg/dL Cholesterol.total/Em sterol in HDL [Mass ratio] 2.11 {ratio} NINF - 5.10 [facility] Fasting Time 14 hrs [facility] Triglyceride [Mass/Vol] 96 mg/dL NINF - 150 mg/dL [facility] Comment on above: <150 mg/dL, Normal 150-199 mg/dL, Borderline high 200-499 mg/dL, High >499 mg/dL, Very high No Panel Informationon 03-[address] [facility] T4 FREE/FREE THYROXINEon Free T4 [Mass/Vol] 1.1 ng/dL 0.9 - 1.7 ng/dL [facility] THYROID STIMULATING HORMONEo n 03-17-2024 TSH Qn 3.650 m[IU]/L [facility] Comment on above: If the patient is pr egnant, TSH reference range varies by gestational period: First Trimester (weeks 9-12): 0.180-2.990 mIU/L Second Trimester: 0.110-3.980 mIU/L Third Trimester: 0.480-4.710 mIU/L Rajesh Reyes et al. A Practical Approach for the Verifications and Determination of Site- and Trimester-Specific Reference Intervals for Thyroid Function tests in . Thyroid, 2019:29:3:412-420. Farhat Orourke, et al. 2017 Guidelines of the [place] Thyroid Association for the Diagnosis and Management of Thyroid Disease during and the . Thyroid, 2017:27:3:315-389. TSH Qnon 03-17-2024 Interpretation and review of laboratory results Normal [facility] Hepatitis Panel Acuteon - COMMENT Comment Normal . [facility] Comment on above: Result Comment: Not infected with HCV unless early or acute infection is suspected (which may be delayed in an immunocompromised individual), or other evidence exists to indicate HCV infection. Performed at: - [address] [id number] Educational Interpreter: Kem Bradley PhD, Phone: [phone] Performed By: #### L 7790.9029 #### [facility] [address] [place], [place], [address] HEP B CORE,IgM Negative Normal Negative [facility] Comment on above: Performed By: #### L 3000.0375 #### [facility] [address] [place], [place], [address] HEP B SURF AG Negative Normal Negative [facility] Comment on above: Performed By: #### L 3000.0375 #### [facility] [address] [place], [place], [address] HEP C VIRUS AB Non-Reactive Normal Non Reactive [facility] Comment on above: Performed By: #### L 3000.0375 #### [facility] [address] [place], [place], [address] HEPATITIS A-IgM Negative Normal Negative [facility] Comment on above: Performed By: #### L 3000.0375 #### [facility] [address] [place], [place], [address] Abdomen/Pelvis W IV Cont ONL Yon 10-05-2023 Abdomen/Pelvis W IV Cont ONLY [facility] Services [address] [place] [address] Abdomen/Pelvis W IV Cont ONLY MR#: [id number] Acct: [id number] Name: MEGHAN KING Rep #: [id number] : 1975 F 48 From: Dick massey MD PCP: Dr. Jesus Manuel Worley, DO Status: REG ER Study: Abdomen/Pelvis W IV Cont ONLY Date of Exam: Exam# [id number] Ordering Dr: Vane Bradley MD [id number] EXAM: CT ABDOMEN AND PELVIS WITH INTRAVENOUS CONTRAST CLINICAL INDICATION: abd pain, abn LFTs TECHNIQUE: Helically acquired images were obtained of the abdomen and pelvis with intravenous contrast. This CT exam was performed using one or more of the following dose reduction techniques: automated exposure control, adjustment of the mA and/or kV according to patient size, and/or use of iterative reconstruction technique. CONTRAST: IV 100mL Isovue-370 RADIATION DOSE: CTDIvol = 16.48 mGy, DLP = 1018.95 mGy-cm COMPARISON: No relevant prior studies available. FINDINGS: LOWER THORAX: Unremarkable. Lung bases are clear. No cardiomegaly. No significant pericardial effusion. ABDOMEN: LIVER: Hepatomegaly, mild intrahepatic bile duct distention. No masses. GALLBLADDER AND BILE DUCTS: Cholecystectomy. No extrahepatic biliary ductal dilation. PANCREAS: Unremarkable. No focal cystic or solid mass. SPLEEN: Unremarkable. Normal size without focal cystic or solid mass. ADRENALS: Unremarkable. No nodules. KIDNEYS AND URETERS: Unremarkable. Normal renal size and position. No hydronephrosis. STOMACH AND BOWEL: Evaluation of the GI tract is limited by absence of oral contrast. Cannot exclude stomach wall thickening. No dilated loops of bowel or evidence for obstruction. Cannot exclude segmental thickening of the hunt of the small or large bowel. Cannot exclude enteritis or colitis. Appendix within normal limits. PELVIS: APPENDIX: No evidence of acute appendicitis. BLADDER: Unremarkable. REPRODUCTIVE: Probable several small fibroids otherwise unremarkable as visualized. No mass. ABDOMEN and PELVIS: INTRAPERITONEAL SPACE: Unremarkable. No ascites or other fluid collection. No free air. BONES/JOINTS: Unremarkable. No suspicious lytic or blastic abnormality. SOFT TISSUES: Small fat-containing umbilical hernia. VASCULATURE: Unremarkable. Abdominal aorta is non-dilated. LYMPH NODES: Unremarkable. No enlarged lymph nodes. CT/Abdomen/Pelvis W IV Cont ONLY IMPRESSION: Mild intrahepatic bile duct distention. No other definite acute or significant abnormality seen. Electronically Signed: Dick Santana MD at 16:16 EST , CC: Dr. Vane Bradley MD; Dr. Jesus Manuel Worley DO Clinical Documentation Specialist: Signed Normal [facility] Absolute lymphocyte countOrd ered By: Vane Bradley on 10-05-2023 Lymphocytes Auto (Unsp spec) [#/Vol] 1.68 10*3/uL 0.83-4.51 [facility] Basic Metabolic Profile (BMP )on 10-05-2023 BUN/CRE 14.9 RATIO Normal 10- [facility] Comment on above: Performed By: #### L 501.2450, L500.2500, L500.3400, L100.0100 #### [facility] [address] [place], [address] CA,Total 8.5 mg/dL Normal 8.5-10.1 [facility] Comment on above: Performed By: #### L 501.2450, L500.2500, L500.3400, L100.0100 #### [facility] [address] [place], [address] Chloride [Moles/Vol] 110 mmol/L High 98-107 [facility] Comment on above: Performed By: #### L 501.2450, L500.2500, L500.3400, L100.0100 #### [facility] [address] [place], [address] CO2 [Moles/Vol] 24.0 mmol/L Normal 21.0-32.0 [facility] Comment on above: Performed By: #### L 501.2450, L500.2500, L500.3400, L100.0100 #### [facility] [address] [place], [address] Creatinine [Mass/Vol] 0.67 mg/dL Normal 0.55-1.02 [facility] Comment on above: Result Comment: The validity of the calculated GFR GFRAA in patients over 70 years has not been determined. Clinical correlation is essential. Performed By: #### L 501.2450, L500.2500, L500.3400, L100.0100 #### [facility] [address] [place], [address] ECRCL 94.41 ml/min Normal [facility] Comment on above: Performed By: #### L 501.2450, L500.2500, L500.3400, L100.0100 #### [facility] [address] [place], [address] EST GFR - AA 122 mL/min Normal >60 [facility] Comment on above: Result Comment: Afri can Finnish GFR Calc Performed By: #### L 501.2450, L500.2500, L500.3400, L100.0100 #### [facility] [address] [place], [address] GAP 7 Normal 5-15 [facility] Comment on above: Performed By: #### L 501.2450, L500.2500, L500.3400, L100.0100 #### [facility] [address] [place], [address] GFR/1.73 sq M.predicted among non-blacks MDRD (S/P/Bld) [Vol rate/Area] 100 mL/min/{1.73_m2} Normal >60 [facility] Comment on above: Result Comment: Non- GFR Calc Performed By: #### L 501.2450, L500.2500, L500.3400, L100.0100 #### [facility] [address] [place], [address] Glucose [Mass/Vol] 90 mg/dL Normal 74-106 [facility] Comment on above: Performed By: #### L 501.2450, L500.2500, L500.3400, L100.0100 #### [facility] [address] [place], [address] Potassium [Moles/Vol] 3.5 mmol/L Normal 3.5-5.1 [facility] Comment on above: Performed By: #### L 501.2450, L500.2500, L500.3400, L100.0100 #### [facility] [address] [place], [address] Sodium [Moles/Vol] 141 mmol/L Normal 136-145 [facility] Comment on above: Performed By: #### L 501.2450, L500.2500, L500.3400, L100.0100 #### [facility] [address] [place], [address] Urea nitrogen [Mass/Vol] 10 mg/dL Normal 7-18 [facility] Comment on above: Performed By: #### L 501.2450, L500.2500, L500.3400, L100.0100 #### [facility] [address] [place], [address] Basophil percentageOrdered B y: Vane Bradley on 10-05-2023 Basophils/100 WBC (Bld) 0.1 % 0-1 [facility] Bilirubin [Mass/Vol] 0.80 mg/dL 0.20-1.00 [facility] Comment on above: For patients on eltr ombopag therapy, use of Dimension Neihart TBIL is not recommended. Chloride [Moles/Vol] 110 mmol/L 98-107 [facility] Eosinophils/100 WBC (Bld) 1.7 % 0-5 [facility] Glucose [Mass/Vol] 90 mg/dL 74-106 [facility] Neutrophils (Bld) [#/Vol] 8.6 10*3/uL 2.0-7.7 [facility] Neutrophils/100 WBC (Bld) 76.6 % 47-70 [facility] Potassium [Moles/Vol] 3.5 mmol/L 3.5-5.1 [facility] Protein [Mass/Vol] 6.1 g/dL 6.4-8.2 [facility] Sodium [Moles/Vol] 141 mmol/L 136-145 [facility] WBC (Bld) [#/Vol] 11.3 10*3/uL 4.4-11.0 [facility] Blood erythrocytes count (nu mber/volume)Ordered By: Vane Bradley on 10-05-2023 RBC (Bld) [#/Vol] 4.74 10*6/uL 4.2-5.4 [facility] Blood hemoglobin measurement (mass/volume)Ordered By: Vnae Bradley on 10-05-2023 Hemoglobin (Bld) [Mass/Vol] 13.6 g/dL 12.0-15.0 [facility] Blood lymphocytes/100 leukoc ytesOrdered By: Vane Bradley on 10-05-2023 Lymphocytes/100 WBC (Bld) 14.9 % 19-41 [facility] Blood monocytes/100 leukocyt esOrdered By: Vane Bradley on 10-05-2023 Monocytes/100 WBC (Bld) 6.3 % 0-10 [facility] Blood platelet mean volumeOr dered By: Vane Bradley on 10-05-2023 Platelet mean volume (Bld) [Entitic vol] 10.1 fL 6.2-12.0 [facility] CBC W/Diff, Automatedon 09-08 Absolute Lymph 1.68 X10 3/uL Normal 0.83-4.51 [facility] Comment on above: Performed By: #### L 501.2450, L500.2500, L500.3400, L100.0100 #### [facility] [address] [place], [address] Absolute Neut 8.6 X10 3/uL High 2.0-7.7 [facility] Comment on above: Performed By: #### L 501.2450, L500.2500, L500.3400, L100.0100 #### [facility] [address] [place], [address] Basophils/100 WBC (Bld) 0.1 % Normal 0-1 [facility] Comment on above: Performed By: #### L 501.2450, L500.2500, L500.3400, L100.0100 #### [facility] [address] [place], [address] Eosinophils/100 WBC (Bld) 1.7 % Normal 0-5 [facility] Comment on above: Performed By: #### L 501.2450, L500.2500, L500.3400, L100.0100 #### [facility] [address] [place], [address] Erythrocyte distribution width (RBC) [Ratio] 13.1 % Normal 11.6-14.6 [facility] Comment on above: Performed By: #### L 501.2450, L500.2500, L500.3400, L100.0100 #### [facility] [address] [place], [address] Hematocrit (Bld) [Volume fraction] 42.8 % Normal 37-47 [facility] Comment on above: Performed By: #### L 501.2450, L500.2500, L500.3400, L100.0100 #### [facility] [address] [place], [address] Hemoglobin (Bld) [Mass/Vol] 13.6 g/dL Normal 12.0-15.0 [facility] Comment on above: Performed By: #### L 501.2450, L500.2500, L500.3400, L100.0100 #### [facility] [address] [place], [address] IG% 0.400 Normal 0.0-0.9 [facility] Comment on above: Result Comment: IG% - Immature Granulocytes (promyelocytes, myelocytes and metamyelocytes) > 1% indicates that a LEFT SHIFT is Present. Performed By: #### L 501.2450, L500.2500, L500.3400, L100.0100 #### [facility] [address] [place], [address] Lymphocytes/100 WBC (Bld) 14.9 % Low 19-41 [facility] Comment on above: Performed By: #### L 501.2450, L500.2500, L500.3400, L100.0100 #### [facility] [address] [place], [address] MCH (RBC) [Entitic mass] 28.7 pg Normal 27.0-32.0 [facility] Comment on above: Performed By: #### L 501.2450, L500.2500, L500.3400, L100.0100 #### [facility] [address] [place], [address] MCHC (RBC) [Mass/Vol] 31.8 g/dL Low 32-36 [facility] Comment on above: Performed By: #### L 501.2450, L500.2500, L500.3400, L100.0100 #### [facility] [address] [place], [address] MCV (RBC) [Entitic vol] 90.3 fL Normal 81-99 [facility] Comment on above: Performed By: #### L 501.2450, L500.2500, L500.3400, L100.0100 #### [facility] [address] [place], [address] Monocytes/100 WBC (Bld) 6.3 % Normal 0-10 [facility] Comment on above: Performed By: #### L 501.2450, L500.2500, L500.3400, L100.0100 #### [facility] [address] [place], [address] Neutrophils/100 WBC (Bld) 76.6 % High 47-70 [facility] Comment on above: Performed By: #### L 501.2450, L500.2500, L500.3400, L100.0100 #### [facility] [address] [place], [address] Nucleated RBC (Bld) [#/Vol] 0 10*3/uL Normal 0-5 [facility] Comment on above: Performed By: #### L 501.2450, L500.2500, L500.3400, L100.0100 #### [facility] [address] [place], [address] Platelet mean volume (Bld) [Entitic vol] 10.1 fL Normal 6.2-12.0 [facility] Comment on above: Performed By: #### L 501.2450, L500.2500, L500.3400, L100.0100 #### [facility] [address] [place], [address] Platelets (Bld) [#/Vol] 270 10*3/uL Normal 150-450 [facility] Comment on above: Performed By: #### L 501.2450, L500.2500, L500.3400, L100.0100 #### [facility] [address] [place], [address] RBC (Bld) [#/Vol] 4.74 10*6/uL Normal 4.2-5.4 [facility] Comment on above: Performed By: #### L 501.2450, L500.2500, L500.3400, L100.0100 #### [facility] [address] [place], [address] RDW SD 43.2 fl Normal 35.1-43.9 [facility] Comment on above: Performed By: #### L 501.2450, L500.2500, L500.3400, L100.0100 #### [facility] [address] [place], [address] WBC (Bld) [#/Vol] 11.3 10*3/uL High 4.4-11.0 [facility] Comment on above: Performed By: #### L 501.2450, L500.2500, L500.3400, L100.0100 #### [facility] [address] [place], [address] Determination of erythrocyte mean corpuscular volume (MCV)Ordered By: Vane Bradley on 10-05-2023 MCV (RBC) [Entitic vol] 90.3 fL 81-99 [facility] Direct bilirubinOrdered By: Vane Bradley on 10-05-2023 Bilirubin.direct [Mass/Vol] 0.40 mg/dL 0.00-0.30 [facility] Emergency Department Summary on 10-05-2023 Emergency Department Summary [facility] Medical Records Department [address] [place] [address] Emergency Department Summary 10/05/23 MR#: [id number] Acct: [id number] Name: MEGHAN KING Rep #: [id number] : 1975 48 From: Vane Bradley MD PCP: Dr. Jesus Manuel Worley, DO Status:DEP ER Location: ED HPI HPI - GI History of Present Illness Chief Complaint: Abd Pain Informant: patient Abdominal Pain/Flank Pain Onset: Days Context: Gradual Onset Timing: Waxes and wanes Quality: Dull Location: Epigastric Current Severity: Moderate Maximum Severity: Moderate Narrative Narrative: Patient presents secondary to epigastric abdominal pain. She states pains been present for about a week but has recently become much more severe. She feels nauseated and has not eaten much. She denies fever or chills. No recent diarrhea. No vomiting. She went to urgent care but there was concern for possible pancreatitis that she is on Ozempic and was sent to the emergency room. [facility] Medical History Depression Home Medications sertraline 50 mg tablet 50 mg PO DAILY 06/23/16 [History Last Taken 06/23/16] epinephrine 0.3 mg/0.3 mL injection, auto-injector (EpiPen 2-Oscar) 0.3 mg (0.3 mL) IM Q10M PRN PRN anaphylaxis #2 ea 06/13/22 [Rx Last Taken Unknown] etonogestrel 0.12 mg-ethinyl estradiol 0.015 mg/24 hr vaginal ring (NuvaRing) 1 vag ring vaginal Q4W 09/09/23 [History Last Taken Unknown] metoclopramide HCl 10 mg tablet (Reglan) 10 mg PO Q6H PRN nausea and vomiting #14 tabs 10/05/23 [Rx Last Taken Unknown] ondansetron 4 mg disintegrating tablet 4 mg PO Q8H PRN PRN Nausea #10 tabs 10/05/23 [Rx Last Taken Unknown] pantoprazole 40 mg tablet,delayed release (Protonix) 40 mg PO DAILY #30 tabs 10/05/23 [Rx Last Taken Unknown] Allergy/AdvReac Type Severity Reaction Status Date / Time azithromycin Allergy Hives Verified 10/05/23 13:56 [From Zithromax Z-Oscar] bacitracin Allergy Hives Verified 10/05/23 13:56 [From Neosporin (dmc-xle-tosys)] cephalexin [From Keflex] Allergy Hives Verified 10/05/23 13:56 citric acid [From Bicitra] Allergy Hives Verified 10/05/23 13:56 neomycin Allergy Hives Verified 10/05/23 13:56 [From Neosporin (oph-paj-jzuyt)] polymyxin B Allergy Hives Verified 10/05/23 13:56 [From Neosporin (jaj-tvh-sxqin)] sodium citrate [From Bicitra] Allergy Hives Verified 10/05/23 13:56 Family History Father Cancer, Onset Age: 71 multiple, lymphoma Sudden cardiac Hypertension Mother Fibroids Surgical History History of Hx laparoscopic cholecystectomy Social History adopted: No household members: family number of children: 2 current occupational status: employed 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[employer] current occupational exposures/hazards: No pets and animals: Yes (foster cats) leisure activities: exercise history of recent travel: No sexually active: Yes Smoking Status: Never smoker alcohol intake: current alcohol intake frequency: holidays/special occasions only Alcohol type: hard liquor details: very rare, family history of alcohol use substance use type: does not use diet: vegan and vegetarian well-balanced diet: daily or most days caffeine: Yes (black coffee ) eating out: rarely or never during the past year weight has: decreased > 10 lbs what type of physical activity do you participate in: weight training and other details: barre and pilates frequency: 3-4 times per week seatbelt use: always do you feel safe at home: Yes additional social history: [facility] ED Constitutional Constitutional ED: Denies chills or fever(s) Eyes Eyes: Denies discharge from eye(s) ENT ENT ED: Denies discharge from eye(s), rhinorrhea or sore throat Cardiovascular Cardiovascular: Denies chest pain or palpitations Respiratory/Chest Respiratory/Chest: Denies cough or dyspnea Gastrointestinal Gastrointestinal: Reports abdominal pain and nausea; Denies diarrhea or vomiting Genitourinary Genitourinary ED: Denies dysuria Musculoskeletal Musculoskeletal: Denies back pain or extremity pain Integumentary Denies Abrasions or rash Neurologic Neurologic: Denies headache(s) or weakness Psychiatric Psychiatric: Denies anxiety or depression Allergic/Immunologic Allergic/Immunologic ED: Denies lip swelling or urticaria EXAM Physical Exam Const Vital Signs: 10/05/23 13:56 Temperature 97.2 F L Temperature Source Temporal Pulse Rate 78 Respiratory Rate 14 Blood Pressure 138/100 H Blood Pressure Mean 112 Pulse Ox 99 Oxygen Delivery Me (more content not included)... Normal [facility] Hematocrit Auto (Bld) [Volum e fraction]Ordered By: Vane Bradley on 10-05-2023 Hematocrit (Bld) [Volume fraction] 42.8 % 37-47 [facility] - Chemistry and C hemistry - challengeOrdered By: Vane Bradley on 10-05-2023 ALP [Catalytic activity/Vol] 83 U/L 45-117 [facility] ALT [Catalytic activity/Vol] 57 U/L 13-56 [facility] CO2 [Moles/Vol] 24.0 mmol/L 21.0-32.0 [facility] Globulin (S) [Mass/Vol] 3.2 g/dL 2.2-4.2 [facility] Lipase [Catalytic activity/Vol] 36 U/L 13-75 [facility] Comment on above: Please note:LIPASE r evised reference range effective 23. New Lipase methodology. Expected to produce lower values than the previous assay method. NEW Reference Range: 13 - 75 U/L Urea nitrogen/Creatinine [Mass ratio] 14.9 mg/mg 10-20 [facility] - Hematology and Cell countsOrdered By: Vane Bradley on 10-05-2023 Erythrocyte distribution width (RBC) [Entitic vol] 43.2 fL 35.1-43.9 [facility] Erythrocyte distribution width (RBC) [Ratio] 13.1 % 11.6-14.6 [facility] Immature granulocytes/100 WBC (Bld) 0.400 % 0.0-0.9 [facility] Comment on above: IG% - Immature Granu locytes (promyelocytes, myelocytes and metamyelocytes) > 1% indicates that a LEFT SHIFT is Present. MCH (RBC) [Entitic mass] 28.7 pg 27.0-32.0 [facility] Nucleated RBC/100 WBC (Bld) [Ratio] 0 % 0-5 [facility] Lipaseon 10-05-2023 Lipase [Catalytic activity/Vol] 36 U/L Normal 13-75 [facility] Comment on above: Result Comment: Rishabh thomason note: LIPASE revised reference range effective 23. New Lipase methodology. Expected to produce lower values than the previous assay method. NEW Reference Range: 13 - 75 U/L Performed By: #### L 501.2450, L500.2500, L500.3400, L100.0100 #### [facility] [address] [place], [address] Liver Profileon 10-05-2023 Albumin [Mass/Vol] 2.9 g/dL Low 3.2-5.0 [facility] Comment on above: Performed By: #### L 501.2450, L500.2500, L500.3400, L100.0100 #### [facility] [address] [place], [address] ALK P 83 U/L Normal 45-117 [facility] Comment on above: Performed By: #### L 501.2450, L500.2500, L500.3400, L100.0100 #### [facility] [address] [place], [address] ALT [Catalytic activity/Vol] 57 U/L High 13-56 [facility] Comment on above: Performed By: #### L 501.2450, L500.2500, L500.3400, L100.0100 #### [facility] [address] [place], [address] AST [Catalytic activity/Vol] 88 U/L High 15-37 [facility] Comment on above: Performed By: #### L 501.2450, L500.2500, L500.3400, L100.0100 #### [facility] [address] [place], [address] Bilirubin [Mass/Vol] 0.80 mg/dL Normal 0.20-1.00 [facility] Comment on above: Result Comment: For patients on eltrombopag therapy, use of Dimension Neihart TBIL is not recommended. Performed By: #### L 501.2450, L500.2500, L500.3400, L100.0100 #### [facility] [address] [place], [address] Bilirubin.direct [Mass/Vol] 0.40 mg/dL High 0.00-0.30 [facility] Comment on above: Performed By: #### L 501.2450, L500.2500, L500.3400, L100.0100 #### [facility] [address] [place], [address] Globulin (S) [Mass/Vol] 3.2 g/dL Normal 2.2-4.2 [facility] Comment on above: Performed By: #### L 501.2450, L500.2500, L500.3400, L100.0100 #### [facility] [address] [place], [address] T PROT 6.1 g/dL Low 6.4-8.2 [facility] Comment on above: Performed By: #### L 501.2450, L500.2500, L500.3400, L100.0100 #### [facility] [address] [place], [address] MCHC Auto (RBC) [Mass/Vol]Or dered By: Vane Bradley on 10-05-2023 MCHC (RBC) [Mass/Vol] 31.8 g/dL 32-36 [facility] No Panel InformationOrdered By: Vane Bradley on 10-05-2023 Estimated Creatinine Clearance Calc 94.41 ml/min [facility] Estimated GFR (MDRD) Amer 122 mL/min >60 [facility] Comment on above: GFR Calc Estimated GFR (MDRD) Non-Af Amer 100 mL/min >60 [facility] Comment on above: Non- GFR Calc Platelets bldOrdered By: Chelsey Bradley on 10-05-2023 Platelets (Bld) [#/Vol] 270 10*3/uL 150-450 [facility] Serum or plasma albumin aileen urement (mass/volume)Ordered By: Vane Bradley on 10-05-2023 Albumin [Mass/Vol] 2.9 g/dL 3.2-5.0 [facility] Serum or plasma calcium aileen urement (mass/volume)Ordered By: Vane Bradley on 10-05-2023 Calcium [Mass/Vol] 8.5 mg/dL 8.5-10.1 [facility] Serum or plasma creatinine m easurement (mass/volume)Ordered By: Vane Bradley on 10-05-2023 Creatinine [Mass/Vol] 0.67 mg/dL 0.55-1.02 [facility] Comment on above: The validity of the calculated GFR & GFRAA in patients over 70 years has not been determined. Clinical correlation is essential. Serum or plasma urea nitroge n measurement (mass/volume)Ordered By: Vane Bradley on 10-05-2023 Urea nitrogen [Mass/Vol] 10 mg/dL 7-18 [facility] Thin prep Papanicolaou smear with manual screeningOrdered By: Vane Bradley on 10-05-2023 Thin prep Papanicolaou smear with manual screening 88 U/L 15-37 [facility] Thin prep Papanicolaou smear with manual screening 7 5-15 [facility] Craft Recruiter Office Visit Reporton 09-09-2023 Craft Recruiter Office Visit Report [facility] [address] [place] [address] OFFICE VISIT Date of Service: 09/09/23 MR#: [id number] Acct: [id number] Name: MEGHAN KING Rep #: [id number] : 1975 Provider: Dr. Amarilis cotton MD Age/Sex: 48/F Location: [facility] Status: Signed Intake Vital Signs 06/13/22 00:29 12/27/22 10:14 09/09/23 08:34 09/09/23 10:11 Height 5 ft 5 in 5 ft 5 in 5 ft 5 in 5 ft 5 in Weight: 180 lb 8 oz BMI 30.0 Intake Visit Reasons: Weight Management Consult, Form mailed Correctional Treatment Specialist Required: No Is patient in pain?: No Allergies azithromycin [From Zithromax Z-Oscar] Allergy (Verified 09/09/23 10:12) Hives bacitracin [From Neosporin (hol-bex-pvlvi)] Allergy (Verified 09/09/23 10:12) Hives cephalexin [From Keflex] Allergy (Verified 09/09/23 10:12) Hives citric acid [From Bicitra] Allergy (Verified 09/09/23 10:12) Hives neomycin [From Neosporin (rmw-ubz-wrxko)] Allergy (Verified 09/09/23 10:12) Hives polymyxin B [From Neosporin (vga-plg-ihpke)] Allergy (Verified 09/09/23 10:12) Hives sodium citrate [From Bicitra] Allergy (Verified 09/09/23 10:12) Hives Medications sertraline 50 mg tablet 50 mg PO DAILY 06/23/16 [History Confirmed 09/09/23] epinephrine 0.3 mg/0.3 mL injection, auto-injector (EpiPen 2-Oscar) 0.3 mg (0.3 mL) IM Q10M PRN PRN anaphylaxis #2 ea 06/13/22 [Rx] etonogestrel 0.12 mg-ethinyl estradiol 0.015 mg/24 hr vaginal ring (NuvaRing) 1 vag ring vaginal Q4W 09/09/23 [History Confirmed 09/09/23] Last Menstrual Period: 09/11/19 Zika: Zika virus screening: Negative Nurse's Note: Why are your here to lose weight? Ever since patient hit puberty her weight has been a constant roller coaster ride. Usually going up occasionally down. Never stable Weight Management Intake Questionaire Not Interested Very Interested Are you willing to track your food intake electronically using an chetan? 1 2 3 4 5 6 7 8 9 10 Are you interested in medications to help you lose weight? 1 2 3 4 5 6 7 8 9 10 Are you interested replacing any meals with supplements likes shakes and bars to help lose weight? 1 2 3 4 5 6 7 8 9 10 Are you interested in surgery to help you lose weight? 1 2 3 4 5 6 7 8 9 10 How confident are you that you will be able to lose weight? 1 2 3 4 5 6 7 8 9 10 PFSH PFSH Medical History (Updated 09/09/23 @ 14:[address] Amarilis Richey MD) Depression Surgical History (Updated 09/09/23 @ 10:[address] 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 current occupational exposures/hazards: No pets and animals: Yes (foster cats) leisure activities: exercise history of recent travel: No sexually active: Yes Smoking Status: Never smoker alcohol intake: current alcohol intake frequency: holidays/special occasions only Alcohol type: hard liquor details: very rare, family history of alcohol use substance use type: does not use diet: vegan and vegetarian well-balanced diet: daily or most days caffeine: Yes (black coffee ) eating out: rarely or never during the past year weight has: decreased > 10 lbs what type of physical activity do you participate in: weight training and other details: barre and pilates frequency: 3-4 times per week seatbelt use: always do you feel safe at home: Yes additional social history: Jewel barbosa History Past Pregnancies Del. Date Name GA/Weeks Outcome Route Bth Weight Gen Labor Lgth Anesthesia Del Locatn Provider FOB Unknown Elvira Unknown Catarino [facility] Weight Management Consult, Form mailed Details: MEGHAN KING is a 48 year old Female presenting for a weight management consultation. She is here to reduce her weight because she has struggled with yo yo dieting over the years and has trouble maintaining weight loss, but has now lost 20 lbs on compounded semaglutide and wants to know what she needs to do to maintain. Female Reproductive History Last Menstrual Period: 09/11/19 ROS Const Reports as per HPI, Denies difficulty sleeping, Denies excessive sweating, Denies fatigue (new onset severe) and Denies fever(s) Eyes Denies change in vision and Denies diplopia ENT Denies dizziness Card Denies chest pain, Denies dyspnea, Denies dyspnea on exertion, Denies palpitations and Denies rapid heart rate Resp Denies dyspnea and Denies dyspnea on exertion GI (more content not included)... Normal [facility] UA DIP, URINE (POC)on 2022 BILIRUBIN UA (POCT) Small Abnormal Negative [facility] CLARITY UA (POCT) Cloudy [facility] COLOR UA (POCT) Dark yellow [facility] GLUCOSE UA (POCT) Negative Negative mg/dL [facility] Hemoglobin Ql (U) Moderate Abnormal Negative [facility] KETONE UA (POCT) Trace Negative mg/dL [facility] LEUKOCYTES UA (POCT) Moderate Abnormal Negative [facility] NITRITE UA (POCT) Negative Negative [facility] PH UA (POCT) 6.0 4.5 - 8.0 [facility] Protein Ql (U) 100 mg/dL Abnormal Negative mg/dL [facility] SPECIFIC GRAVITY UA (POCT) 1.025 1.005 - 1.030 [facility] UROBILINOGEN UA (POCT) 0.2 E.U./dL Pattie l E.U./dL [facility] No Panel Informationon 07-01 [facility] No Panel Informationon 04-29 [facility] MRI FEMALE PELVIS WO/W IVCON on 07-11-2022 [facility] US KIDNEY/BLADDERon 06-15-20 Radiology Result ACTIONABLE Abnormal [facility] Silva 06-08-2022 GRANTN Telephone (AKURFL) MEGHAN KING ([id number]) 1975 F Date Time Provider Department 06/08/22 VANI LAMAR During your visit today, we recorded the following information about you: Vani Lamar PA-C 06/08/2022 2:24 PM Signed Please call pt, no infection in urine, follow up in 2 weeks to see if infection has returned. AJ Waldron 06/08/2022 4:09 PM Signed Lm informing no infection. Told to call office on Saturday to set up a 2 week follow up. Vane FOX 06/20/2022 2:41 PM Signed Lm again to call and schedule a follow up. Vane Delgado [facility] 06/26/2022 3:10 PM Signed I have left messages for pt to call and schedule a 2 week follow up and have had no response. Vane FOX Allergies As of Date: 06/08/2022 Noted Allergy Reaction NEOSPORIN (NEOMYCIN-BACITRACIN- PO*09/19/2005 2 - Rash AZITHROMYCIN 06/26/2016 4 - Hives 7 - Swelling Comments: Urticaria and angioedema BACITRACIN 11/04/2017 16 - Unknown BICITRA (SODIUM CITRATE-CITRIC AC*04/02/2011 2 - Rash CITRIC ACID 11/04/2017 16 - Unknown environmental [Other] 10/05/2005 Comments: dust mites, animal dander, mold NEOMYCIN 11/04/2017 16 - Unknown POLYMYXIN B 11/04/2017 16 - Unknown seasonal allergies [Other] 10/05/2005 Comments: trees and grass Date Reviewed: 06/06/2022 Reviewed by: Chiara Vallejo MA - Fully Assessed Reason for Visit: Results [95] Prescriptions as of 06/26/2022 - sertraline (ZOLOFT) 50 mg tablet Take 1 tablet by mouth once daily. - Etonogestrel-Ethinyl Estradiol (NUVARING) 0.12-0.015 mg/24 hr vaginal ring Use 1 Each vaginally as directed. Insert vaginally and leave in place for 3 consecutive weeks, then remove and place a new ring and skip menses. - ketoconazole (NIZORAL) 2 % shampoo Massage into damp scalp 3 times weekly. Allow to sit for 5 minutes prior to rinsing. - budesonide (PULMICORT FLEXHALER) 180 mcg/actuation aepb Inhale 2 Puffs as instructed twice daily. - albuterol HFA (VENTOLIN HFA) 90 mcg/actuation inhaler Inhale 2 Puffs as instructed every 4 hours as needed. - diphenhydrAMINE-maalo x-lidocaine (BMX 1:1:1) 1:1:1 liqd Mix in equal amounts - 1 T every 2hrs as needed for mouth pain, Swish/swallow or expectorate. (8oz) - valACYclovir (VALTREX) 1 gram Take 2 tablets by mouth twice daily. for 1 day - ibuprofen (MOTRIN) 600 mg tablet Take 1 tablet by mouth every 6 hours as needed for pain. - clqoqjmz-ftmimdrvz-jw drocortisone (CORTISPORIN) 3.5-10,000-1 mg/mL-unit/mL-% otic suspension Use 3 Drops in the left ear four times daily. - tretinoin (RETIN-A) 0.025 % topical cream Apply a pea size amount to affected area every other night for 2 weeks then increase to nightly as tolerated - famotidine (PEPCID) 20 mg tablet Take 1 tablet by mouth twice daily. - Etonogestrel-Ethinyl Estradiol (NUVARING) 0.12-0.015 mg/24 hr vaginal ring Use 1 Each vaginally as directed. Insert vaginally and leave in place for 3 consecutive weeks, then remove for 1 week. - albuterol (PROVENTIL) 2.5 mg /3 mL (0.083 %) nebulizer solution Use 3 mL via nebulizer every 4 hours as needed. Use over 5-15minutes. - EPINEPHrine (EPIPEN) 0.3 mg/0.3 mL auto-injector As directed. If needed: have someone drive you the emergency room after for observation. - Cholecalciferol, Vitamin D3, 2,000 unit cap Take 1 tablet by mouth once daily. Problem List As Of Date 06/08/2022 Noted Resolved Depression [F32.A] 10/06/2005 Mild intermittent asthma without complication [*11/16/2005 CHRONIC RHINITIS [J31.0] 11/16/2005 Cellulitis and abscess of unspecified digit [IM*07/12/2006 10/25/2014 Supervision of Normal First [Z34.00] 07/10/2008 05/03/2010 Irregular menses [N92.6] 05/03/2010 06/03/2012 Abdominal pain, generalized [R10.84] 11/02/2010 10/25/2014 Previous section [Z98.891] 11/20/2010 06/03/2012 Melanocytic nevus of face [D22.30] 07/15/2011 10/25/2014 Intradermal nevus [D23.9] 07/15/2011 10/25/2014 Melanocytic nevus of neck [D22.4] 07/15/2011 10/25/2014 Melanocytic nevi of trunk [D22.5] 07/15/2011 10/25/2014 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] 07/15/2011 10/25/2014 Chronic folliculitis [L73.9] 07/15/2011 10/25/2014 Keratosis pilaris [L85.8] 07/15/2011 10/25/2014 Pdxr-kv-ubjn spots [L81.3] 07/15/2011 10/25/2014 Postinflammatory skin changes [R23.8] 07/15/2011 10/25/2014 Xerosis cutis [L85.3] 07/15/2011 10/25/2014 Sprain of foot, unspecified site [S93.609A] 07/17/2011 10/25/2014 Tendonitis of ankle [M77.50] 07/17/2011 10/25/2014 Pes cavus [Q66.70] 04/24/2012 10/25/2014 Morbidly obese (HCC) [E66.01] 10/25/2014 06/27/2019 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 Normal [facility] Bacteria Ur Culton 2 Bacteria identified Cx Nom (U) No growth (<1,000 CFU/ml) Normal [facility] Comment on above: Order Comment: Speci men Type: URINE SPECIMEN Ordering Facility: [facility] Address[facility] [address] [place] [address] Performed By: #### 6 30-4 #### [facility] CLIA [id number] [address] CNOVon 06-06-2022 CNOV Office Visit (AKURFL ) MEGHAN KING ([id number]) 1975 F Date Time Provider Department 06/06/22 11:00 AM VANI LAMAR During your visit today, we recorded the following information about you: Blood pressure Weight Height 132/78 94.3 kg 1.651 m Vani Lamar PA-C 06/06/2022 2:54 PM Signed NEW PATIENT HISTORY AND PHYSICAL EXAM PATIENT INFO: Meghan King 47 year old REFERRING PROVIDER: LOWELL RICO PCP: DO JOHN Navarro Meghan King is a 47 year old female with [...] (no units) Date Value 08/16/2015 Negative Specific [place], Ur (no units) Date Value 08/16/2015 1.008 [...] Take 1 tablet by mouth once daily. diphenhydrAMINE-maalo x-lidocaine (BMX 1:1:1) 1:1:1 liqd Mix in equal amounts - 1 T every 2hrs as needed for mouth pain, Swish/swallow or expectorate. (8oz) (Patient not taking: No sig reported) valACYclovir (VALTREX) 1 gram Take 2 tablets by mouth twice daily. for 1 day (Patient not taking: No sig reported) qbnrvhre-odtffgjka-jt drocortisone (CORTISPORIN) 3.5-10,000-1 mg/mL-unit/mL-% otic suspension Use 3 [...] cystic mastopathy History of echocardiogram 01/02/2021 at [facility]-Dr. Swain-EF 55% Low HDL (under 40) [...] Grandmother ETOH other (LUNG CANCER +TOB use) (more content not included)... Normal [facility] UA DIP, URINE (POC)on 2021 BILIRUBIN UA (POCT) Negative Negative [facility] CLARITY UA (POCT) Clear [facility] COLOR UA (POCT) Yellow [facility] GLUCOSE UA (POCT) Negative Negative mg/dL [facility] HEMOGLOBIN/BLOOD UA (POCT) Negative Negative [facility] KETONE UA (POCT) Negative Negative mg/dL [facility] LEUKOCYTES UA (POCT) Negative Negative [facility] NITRITE UA (POCT) Negative Negative [facility] PH UA (POCT) 8.5 Abnormal 4.5 - 8.0 [facility] Protein Ql (U) Negative Negative mg/dL [facility] SPECIFIC GRAVITY UA (POCT) 1.015 1.005 - 1.030 [facility] UROBILINOGEN UA (POCT) 0.2 E.U./dL [place]attie l E.U./dL [facility] Urinalysis complete panel (U )on 06-06-2022 Bilirubin Ql (U) Negative Normal Negative [place] Comment on above: Order Comment: Speci men Type: URINE SPECIMEN Ordering Facility: [facility] Address: [address] [place] [address] Performed By: #### 2 4356-8 #### [facility] CLIA [id number] [address] [place] Clarity (Unsp spec) Dense Turbid Abnormal Clear [facility] Comment on above: Order Comment: Speci men Type: URINE SPECIMEN Ordering Facility: [facility] Address: [address] [place] [address] Performed By: #### 2 4356-8 #### [facility] CLIA [id number] [address] OF [facility] Color (U) Light [place] Abnormal yellow [facility] Comment on above: Order Comment: Speci men Type: URINE SPECIMEN Ordering Facility: [facility] Address: [address] [address] Performed By: #### 2 4356-8 #### [facility] CLIA [id number] [address] Epithelial cells LM.HPF (Urine sed) [#/Area] Few Normal [facility] Comment on above: Order Comment: Speci men Type: URINE SPECIMEN Ordering Facility: [facility] Address: [address] [place] [address] Performed By: #### 2 4356-8 #### [facility] CLIA [id number] [address] [place] Glucose Test strip (U) [Mass/Vol] Negative Normal Negative [facility] Comment on above: Order Comment: Speci men Type: URINE SPECIMEN Ordering Facility: [facility] Address: [address] [place] [address] Performed By: #### 2 4356-8 #### [facility] CLIA [id number] [address] Hemoglobin Ql (U) Negative Normal Negative [facility] Comment on above: Order Comment: Speci men Type: URINE SPECIMEN Ordering Facility: [facility] Address: [address] [place] [address] Performed By: #### 2 4356-8 #### [facility] CLIA [id number] [address] Ketones Ql (U) Negative Normal Negative [facility] Comment on above: Order Comment: Speci men Type: URINE SPECIMEN Ordering Facility: [facility] Address: [address] [address] Performed By: #### 2 4356-8 #### [facility] CLIA [id number] [address] Leukocyte esterase Test strip Ql (U) Negative Normal Negative [facility] Comment on above: Order Comment: Speci men Type: URINE SPECIMEN Ordering Facility: [facility] Address: [address] [address] Performed By: #### 2 4356-8 #### [facility] CLIA [id number] [address] OF [place] Nitrite Ql (U) Negative Normal Negative [facility] Comment on above: Order Comment: Speci men Type: URINE SPECIMEN Ordering Facility: [facility] Address: [address] [place] [address] Performed By: #### 2 4356-8 #### [facility] CLIA [id number] [address] [place] pH (U) 8.0 [pH] Normal 5.0-8.0 [facility] Comment on above: Order Comment: Speci men Type: URINE SPECIMEN Ordering Facility: [facility] Address: [address] [place] [address] Performed By: #### 2 4356-8 #### [facility] CLIA [id number] [address] Protein (U) [Mass/Vol] Negative Normal Negative [facility] Comment on above: Order Comment: Speci men Type: URINE SPECIMEN Ordering Facility: [facility] Address: [address] [place] [address] Performed By: #### 2 4356-8 #### [facility] CLIA [id number] [address] RBC LM.HPF (Urine sed) [#/Area] 0-3 /HPF Normal 0-3 /HPF [facility] Comment on above: Order Comment: Speci men Type: URINE SPECIMEN Ordering Facility: [facility] Address: [address] [place] [address] Performed By: #### 2 4356-8 #### [facility] CLIA [id number] [address] Specific gravity (U) [Rel density] 1.020 Normal 1.005-1.030 [facility] Comment on above: Order Comment: Speci men Type: URINE SPECIMEN Ordering Facility: [facility] Address: [address] [place] [address] Performed By: #### 2 4356-8 #### [facility] CLIA [id number] [address] Urobilinogen Ql (U) 1+ Abnormal Negative [facility] Comment on above: Order Comment: Speci men Type: URINE SPECIMEN Ordering Facility: [facility] Address: [address] [place] [address] Performed By: #### 2 4356-8 #### [facility] CLIA [id number] [address] WBC LM.HPF (Urine sed) [#/Area] 0-5 /HPF Normal 0-5 /HPF [facility] Comment on above: Order Comment: Speci men Type: URINE SPECIMEN Ordering Facility: [facility] Address: [address] [place] [address] Performed By: #### 2 4356-8 #### [facility] CLIA [id number] [address] OF [facility] UA DIP, URINE (POC)on 2021 BILIRUBIN UA (POCT) Negative Negative [facility] CLARITY UA (POCT) Slightly Cloudy Cl [facility] COLOR UA (POCT) Other [facility] GLUCOSE UA (POCT) Negative Negative mg/dL [facility] HEMOGLOBIN/BLOOD UA (POCT) Small Abnormal Negative [facility] KETONE UA (POCT) Trace Negative mg/dL [facility] LEUKOCYTES UA (POCT) Small Abnormal Negative [facility] NITRITE UA (POCT) Negative Negative [facility] PH UA (POCT) 8.5 Abnormal 4.5 - 8.0 [facility] Protein Ql (U) Negative Negative mg/dL [facility] SPECIFIC GRAVITY UA (POCT) 1.020 1.005 - 1.030 [facility] UROBILINOGEN UA (POCT) 0.2 E.U./dL [place] E.U./dL [facility] Vital Signs Date Time Vital Sign Value Performing Clinician Facility 03-10-2025 08:130400 Body height 164 cm Jesus Manuel Worley DO Work Phone: [facility] 03-10-2025 08:13-0400 Body mass index (BMI) [Ratio] 27.66 kg/m2 Jesus Manuel Worley DO Work Phone: [facility] 03-10-2025 08:13-0400 Body temperature 98.91 [degF] Jesus Manuel Worley DO Work Phone: [facility] 03-10-2025 08:13-0400 Body weight 74.39 kg Jesus Manuel Worley DO Work Phone: [facility] 03-10-2025 08:13-0400 Diastolic blood pressure 60 mm[Hg] Jesus Manuel Worley DO Work Phone: [facility] 03-10-2025 08:13-0400 Heart rate 60 /min Jesus Manuel Worley DO Work Phone: [facility] 03-10-2025 08:13-0400 Respiratory rate 12 /min Jesus Manuel Worley DO Work Phone: [facility] 03-10-2025 08:13-0400 Systolic blood pressure 100 mm[Hg] Jesus Manuel Worley DO Work Phone: [facility] 09-23-2024 16:42-0500 Body mass index (BMI) [Ratio] 26.99 kg/m2 Jesus Manuel Worley DO Work Phone: [facility] 09-23-2024 16:42-0500 Body temperature 97.81 [degF] Jesus Manuel Worley DO Work Phone: [facility] 09-23-2024 16:42-0500 Body weight 73.94 kg Jesus Manuel Worley DO Work Phone: [facility] 09-23-2024 16:42-0500 Diastolic blood pressure 70 mm[Hg] Jesus Manuel Worley DO Work Phone: [facility] 09-23-2024 16:42-0500 Heart rate 80 /min Jesus Manuel Worley DO Work Phone: [facility] 09-23-2024 16:42-0500 Respiratory rate 16 /min Jesus Manuel Worley DO Work Phone: [facility] 09-23-2024 16:42-0500 Systolic blood pressure 100 mm[Hg] Jesus Manuel Worley DO Work Phone: [facility] 04-24-2024 07:14-0400 Body mass index (BMI) [Ratio] 28.65 kg/m2 Estefanía Mosley MANAGER SHIFT.RESOURCE CONSERVATION MANAGER Work Phone: [facility] 04-24-2024 07:14-0400 Body temperature 97 [degF] Estefanía Mosley MANAGER SHIFT.RESOURCE CONSERVATION MANAGER Work Phone: [facility] 04-24-2024 07:14-0400 Body weight 78.47 kg Estefanía Mosley MANAGER SHIFT.RESOURCE CONSERVATION MANAGER Work Phone: [facility] 04-24-2024 07:14-0400 Diastolic blood pressure 60 mm[Hg] Estefanía Mosley MANAGER SHIFT.RESOURCE CONSERVATION MANAGER Work Phone: [facility] 04-24-2024 07:14-0400 Heart rate 64 /min Estefanía Mosley MANAGER SHIFT.RESOURCE CONSERVATION MANAGER Work Phone: [facility] 04-24-2024 07:14-0400 Respiratory rate 16 /min Estefanía Mosley MANAGER SHIFT.RESOURCE CONSERVATION MANAGER Work Phone: [facility] 04-24-2024 07:14-0400 Systolic blood pressure 90 mm[Hg] Estefanía Mosley MANAGER SHIFT.RESOURCE CONSERVATION MANAGER Work Phone: [facility] 03-17-2024 08:31-0400 Body height 165.5 cm Jesus Manuel Worley DO Work Phone: [facility] 03-17-2024 08:31-0400 Body mass index (BMI) [Ratio] 29.48 kg/m2 Jesus Manuel Worley DO Work Phone: [facility] 03-17-2024 08:31-0400 Body temperature 97.11 [degF] Jesus Manuel Worley DO Work Phone: [facility] 03-17-2024 08:31-0400 Body weight 80.74 kg Jesus Manuel Worley DO Work Phone: [facility] 03-17-2024 08:31-0400 Diastolic blood pressure 60 mm[Hg] Jesus Manuel Worley DO Work Phone: [facility] 03-17-2024 08:31-0400 Heart rate 64 /min Jesus Manuel Merchantrison DO Work Phone: [facility] 03-17-2024 08:31-0400 Respiratory rate 16 /min Jesus Manuel Worley DO Work Phone: [facility] 03-17-2024 08:31-0400 Systolic blood pressure 100 mm[Hg] Jesus Manuel Worley DO Work Phone: [facility] 02-07-2024 16:14-0400 Body mass index (BMI) [Ratio] 29.75 kg/m2 Kenyon Gar MD Work Phone: [facility] 02-07-2024 16:14-0400 Body temperature 98.91 [degF] Kenyon Gar MD Work Phone: [facility] 02-07-2024 16:14-0400 Body weight 81 kg Kenyon Gar MD Work Phone: [facility] 02-07-2024 16:14-0400 Diastolic blood pressure 80 mm[Hg] Kenyon Gar MD Work Phone: [facility] 02-07-2024 16:14-0400 Heart rate 65 /min Kenyon Gar MD Work Phone: [facility] 02-07-2024 16:14-0400 Respiratory rate 16 /min Kenyon Gar MD Work Phone: [facility] 02-07-2024 16:14-0400 SaO2% (BldA) [Mass fraction] 98 % Kenyon Gar MD Work Phone: [facility] 02-07-2024 16:14-0400 Systolic blood pressure 132 mm[Hg] Kenyon Gar MD Work Phone: [facility] 10-05-2023 17:20-0500 Diastolic blood pressure 74 mm[Hg] Dr. Jesus Manuel Worley Work Phone: 0(279)614-[address]299 [place] [address] 10-05-2023 17:20-0500 Systolic blood pressure 116 mm[Hg] Dr. Jesus Manuel Worley Work Phone: 7(746)628-899397 [place] [address] 10-05-2023 13:56-0500 Body height 165.[address] Jesus Manuel Worley Work Phone: 7(751)182-425497 [place] [address] 10-05-2023 13:56-0500 Body mass index (BMI) [Ratio] 29.3 kg/m2 Dr. Jesus Manuel Worley Work Phone: 5(322)408-523397 [place] [address] 10-05-2023 13:56-0500 Body temperature 97.2 [degF] Dr. Jesus Manuel Worley Work Phone: 7(484)063-520797 [place] [address] 10-05-2023 13:56-0500 Body weight [address] Jesus Manuel Worley Work Phone: 8(608)551-508397 [place] [address] 10-05-2023 13:56-0500 Heart rate 78 /min Dr. Jesus Manuel Worley Work Phone: 1(940)361-676797 [place] [address] 10-05-2023 13:56-0500 Respiratory rate 14 /min Dr. Jesus Manuel Worley Work Phone: 2(195)124-589297 [place] [address] 10-05-2023 13:56-0500 SaO2% (BldA) [Mass fraction] 99 % Dr. Jesus Manuel Worley Work Phone: 1(485)848-196999 [place] [address] 09-16-2023 15:58-0500 Body temperature 98.4 [degF] Jesus Manuel Worley DO Work Phone: 9(314)564-553892 [place] [address] 09-16-2023 15:58-0500 Body weight 81.65 kg Jesus Manuel Worley DO Work Phone: 2(685)509-005592 [place] [address] 09-16-2023 15:58-0500 Diastolic blood pressure 80 mm[Hg] Jesus Manuel Worley DO Work Phone: [facility] 09-16-2023 15:58-0500 Heart rate 80 /min Jesus Manuel Merchantrison DO Work Phone: [facility] 09-16-2023 15:58-0500 Respiratory rate 16 /min Jesus Manuel Worley DO Work Phone: [facility] 09-16-2023 15:58-0500 Systolic blood pressure 110 mm[Hg] Jesus Manuel Worley DO Work Phone: [facility] 09-09-2023 10:11-0500 Body mass index (BMI) [Ratio] 30 kg/m2 Dr. Jesus Manuel Worley Work Phone: [facility] 09-09-2023 10:11-0500 Body weight 81.[address] Jesus Manuel Worley Work Phone: [facility] 07-19-2023 07:23-0400 Body temperature 97.3 [degF] Gabriela Praisler-Wood MANAGER SHIFT.RESOURCE CONSERVATION MANAGER Work Phone: [facility] 07-19-2023 07:23-0400 Body weight 88.36 kg Gabriela Praisler-Wood MANAGER SHIFT.RESOURCE CONSERVATION MANAGER Work Phone: [facility] 07-19-2023 07:23-0400 Diastolic blood pressure 80 mm[Hg] Gabriela Praisler-Wood MANAGER SHIFT.RESOURCE CONSERVATION MANAGER Work Phone: [facility] 07-19-2023 07:23-0400 Heart rate 70 /min Gabriela Praisler-Wood MANAGER SHIFT.RESOURCE CONSERVATION MANAGER Work Phone: [facility] 07-19-2023 07:23-0400 Respiratory rate 21 /min Gabriela Praisler-Wood MANAGER SHIFT.RESOURCE CONSERVATION MANAGER Work Phone: [facility] 07-19-2023 07:23-0400 SaO2% (BldA) [Mass fraction] 96 % Garbiela Praisler-Wood MANAGER SHIFT.RESOURCE CONSERVATION MANAGER Work Phone: [facility] 07-19-2023 07:23-0400 Systolic blood pressure 104 mm[Hg] Gabriela Praisler-Wood MANAGER SHIFT.RESOURCE CONSERVATION MANAGER Work Phone: [facility] 05-22-2023 10:58-0400 Body weight 91.9 kg Estefanía Mosley MANAGER SHIFT.RESOURCE CONSERVATION MANAGER Work Phone: [facility] 05-22-2023 10:58-0400 Diastolic blood pressure 70 mm[Hg] Estefanía Mosley MANAGER SHIFT.RESOURCE CONSERVATION MANAGER Work Phone: [facility] 05-22-2023 10:58-0400 Heart rate 72 /min Etsefanía Mosley MANAGER SHIFT.RESOURCE CONSERVATION MANAGER Work Phone: [facility] 05-22-2023 10:58-0400 Respiratory rate 12 /min Estefanía Mosley MANAGER SHIFT.RESOURCE CONSERVATION MANAGER Work Phone: [facility] 05-22-2023 10:58-0400 Systolic blood pressure 104 mm[Hg] Estefanía Mosley MANAGER SHIFT.RESOURCE CONSERVATION MANAGER Work Phone: [facility] 03-13-2023 12:00-0400 Body height 165 cm Jesus Manuel Worley DO Work Phone: [facility] 03-13-2023 12:00-0400 Body temperature 97 [degF] Jesus Manuel Worley DO Work Phone: [facility] 03-13-2023 12:00-0400 Body weight 86.18 kg Jesus Manuel Worley DO Work Phone: [facility] 03-13-2023 12:00-0400 Diastolic blood pressure 60 mm[Hg] Jesus Manuel Worley DO Work Phone: [facility] 03-13-2023 12:00-0400 Heart rate 64 /min Jesus Manuel Worley DO Work Phone: [facility] 03-13-2023 12:00-0400 Respiratory rate 16 /min Jesus Manuel Worley DO Work Phone: [facility] 03-13-2023 12:00-0400 Systolic blood pressure 100 mm[Hg] Jesus Manuel Worley DO Work Phone: [facility] 03-10-2023 10:46-0400 Body temperature 98.91 [degF] Horacio Blair MANAGER SHIFT.RESOURCE CONSERVATION MANAGER Work Phone: [facility] 03-10-2023 10:46-0400 Body weight 88 kg Horacio Blair MANAGER SHIFT.RESOURCE CONSERVATION MANAGER Work Phone: [facility] 03-10-2023 10:46-0400 Diastolic blood pressure 78 mm[Hg] Hoarcio Pendlebury MANAGER SHIFT.RESOURCE CONSERVATION MANAGER Work Phone: [facility] 03-10-2023 10:46-0400 Heart rate 70 /min [facility] MANAGER SHIFT.RESOURCE CONSERVATION MANAGER Work Phone: [facility] 03-10-2023 10:46-0400 Respiratory rate 20 /min [facility] MANAGER SHIFT.RESOURCE CONSERVATION MANAGER Work Phone: [facility] 03-10-2023 10:46-0400 SaO2% (BldA) [Mass fraction] 96 % [facility] MANAGER SHIFT.RESOURCE CONSERVATION MANAGER Work Phone: [facility] 03-10-2023 10:46-0400 Systolic blood pressure 102 mm[Hg] Horacio [facility] MANAGER SHIFT.RESOURCE CONSERVATION MANAGER Work Phone: [facility] 09-11-2022 15:28-0500 Body temperature 96.8 [degF] Jesus Manuel Worley DO Work Phone: [facility] 09-11-2022 15:28-0500 Body weight 103.42 kg Jesus Manuel Worley DO Work Phone: [facility] 09-11-2022 15:28-0500 Diastolic blood pressure 70 mm[Hg] Jesus Manuel Worley DO Work Phone: [facility] 09-11-2022 15:28-0500 Heart rate 76 /min Jesus Manuel Worley DO Work Phone: [facility] 09-11-2022 15:28-0500 Respiratory rate 16 /min Jesus Manuel Worley DO Work Phone: [facility] 09-11-2022 15:28-0500 Systolic blood pressure 100 mm[Hg] Jesus Manuel Worley DO Work Phone: [facility] 08-06-2022 15:30-0400 Body temperature 97.81 [degF] Jesus Manuel Worley DO Work Phone: [facility] 08-06-2022 15:30-0400 Body weight 103.87 kg Jesus Manuel Worley DO Work Phone: [facility] 08-06-2022 15:30-0400 Diastolic blood pressure 60 mm[Hg] Jesus Manuel Worley DO Work Phone: [facility] 08-06-2022 15:30-0400 Heart rate 64 /min Jesus Manuel Worley DO Work Phone: [facility] 08-06-2022 15:30-0400 Respiratory rate 16 /min Jesus Manuel Worley DO Work Phone: [facility] 08-06-2022 15:30-0400 Systolic blood pressure 120 mm[Hg] Jesus Manuel Worley DO Work Phone: [facility] 06-13-2022 00:29-0400 Body height 165.1 cm [facility] Work Phone: 06-13-2022 00:29-0400 Body mass index (BMI) [Ratio] 36.6 kg/m2 [facility] Work Phone: 06-13-2022 00:29-0400 Body temperature 98.6 [degF] [facility] Work Phone: 06-13-2022 00:29-0400 Body weight 99.79 kg [facility] Work Phone: 06-13-2022 00:29-0400 Diastolic blood pressure 119 mm[Hg] [facility] Work Phone: 06-13-2022 00:29-0400 Heart rate 134 /min [facility] Work Phone: 06-13-2022 00:29-0400 Respiratory rate 20 /min [facility] Work Phone: 06-13-2022 00:29-0400 SaO2% (BldA) [Mass fraction] 99 % [facility] Work Phone: 06-13-2022 00:29-0400 Systolic blood pressure 162 mm[Hg] [facility] Work Phone: 06-09-2022 10:05-0400 Body temperature 98.4 [degF] Jen Humphrey APRN.RESOURCE CONSERVATION MANAGER Work Phone: [facility] 06-09-2022 10:05-0400 Body weight 97.07 kg Jen Humphrey APRN.RESOURCE CONSERVATION MANAGER Work Phone: [facility] 06-09-2022 10:05-0400 Diastolic blood pressure 76 mm[Hg] Jen Humphrey APRN.RESOURCE CONSERVATION MANAGER Work Phone: [facility] 06-09-2022 10:05-0400 Heart rate 67 /min Jen Humphrey APRN.RESOURCE CONSERVATION MANAGER Work Phone: [facility] 06-09-2022 10:05-0400 Respiratory rate 16 /min Jen Humphrey APRN.RESOURCE CONSERVATION MANAGER Work Phone: [facility] 06-09-2022 10:05-0400 SaO2% (BldA) [Mass fraction] 99 % Jen Humphrey APRN.RESOURCE CONSERVATION MANAGER Work Phone: [facility] 06-09-2022 10:05-0400 Systolic blood pressure 118 mm[Hg] Jen Humphrey APRN.RESOURCE CONSERVATION MANAGER Work Phone: [facility] 06-06-2022 10:43-0400 Body height 165.1 cm Vanidior Costellok PA-C Work Phone: [facility] 06-06-2022 10:43-0400 Body weight 94.35 kg Vani Roseyhik PA-C Work Phone: [facility] 06-06-2022 10:43-0400 Diastolic blood pressure 78 mm[Hg] Vani Kovachik PA-C Work Phone: [facility] 06-06-2022 10:43-0400 Systolic blood pressure 132 mm[Hg] Vani Kovachik PA-C Work Phone: [facility] 04-26-2022 19:18-0400 Body temperature 98.6 [degF] Carolina Hwang PA-C Work Phone: [facility] 04-26-2022 19:18-0400 Body weight 89.63 kg Carolina Athy PA-C Work Phone: [facility] 04-26-2022 19:18-0400 Diastolic blood pressure 70 mm[Hg] Carolina Athy PA-C Work Phone: [facility] 04-26-2022 19:18-0400 Heart rate 63 /min Carolina Athy PA-C Work Phone: [facility] 04-26-2022 19:18-0400 Respiratory rate 16 /min Carolina Athy PA-C Work Phone: [facility] 04-26-2022 19:18-0400 SaO2% (BldA) [Mass fraction] 98 % Carolina Athy PA-C Work Phone: [facility] 04-26-2022 19:18-0400 Systolic blood pressure 126 mm[Hg] Carolina Athy PA-C Work Phone: [facility] Encounters Encounter Date Encounter Type Care Provider Facility Start: 05-10-2025 ambulatory JESUS MANUEL WORLEY Facil ity:[facility] Start: 05-10-2025 End: 05-10-2025 Subsequent hospital visit by physician Screen Mammo On License Of [facility] Comment on above: Encounter for screen ing mammogram for malignant neoplasm of breast [Z12.31] Start: 03-18-2025 End: 03-18-2025 Refill Jesus Manuel Worley DO Work Phone: [facility] [place] Comment on above: Med Change Request Start: 03-17-2025 End: 03-18-2025 Telephone encounter Jesus Manuel Worley DO Work Phone: [facility] [place] Comment on above: Medication Problem Start: 03-14-2025 End: 03-14-2025 Telemedicine consultation with patient Linh Palma Santillan APRN.CNP Work Phone: Telemedicine Comment on above: Procedure, test, or exam not indicated (Primary Dx) Start: 03-14-2025 End: 03-14-2025 ambulatory JESUS MANUEL WORLEY Facility:[facility] Start: 03-10-2025 End: 03-10-2025 Patient encounter procedure Jesus Manuel Reyes Worley DO Work Phone: [facility] [place] Comment on above: IFG (impaired fastin g glucose) (Primary Dx); Encounter for surveillance of vaginal ring hormonal contraceptive device; Encounter for screening mammogram for malignant neoplasm of breast; Eczema of external ear, bilateral; Overweight (BMI 25.0-29.9); Dysmetabolic syndrome; Perimenopausal disorder; Well adult exam Start: 03-10-2025 End: 03-10-2025 Patient encounter status Jesus Manuel Reyes Worley DO Work Phone: [facility] Start: 03-10-2025 End: 03-10-2025 ambulatory JESUS MANUEL WORLEY Facility:[facility] Start: 02-10-2025 End: 02-10-2025 Office outpatient new 45 minutes Jen Spears PA-C Work Phone: [facility]ermat[facility] Comment on above: Skin exam, screening for cancer (Primary Dx); Orta angioma; Multiple benign nevi; Solar lentigo; Rosacea Start: 02-10-2025 End: 02-10-2025 ambulatory JEN SPEARS Facility:[facility] Start: 02-03-2025 End: 02-03-2025 Refill Jesus Manuel Worley DO Work Phone: [facility] [place] Comment on above: Refill Request Start: 12-12-2024 End: 12-14-2024 Refill Estefanía Mosley APRN.RESOURCE CONSERVATION MANAGER Work Phone: [facility] [place] Comment on above: Refill Request Start: 10-19-2024 End: 10-26-2024 Telephone encounter Jesus Manuel Worley DO Work Phone: [facility] [place] Comment on above: Patient Question (Oz empic) Start: 10-17-2024 End: 10-19-2024 ambulatory Jesus Manuel Worley DO Work Phone: [facility] [place] Comment on above: Has Ozempic stopped working for me? Start: 10-12-2024 End: 10-12-2024 Telephone encounter Jesus Manuel Worley DO Work Phone: [facility] [place] Start: 10-10-2024 End: 10-10-2024 ambulatory JESUS MANUEL WORLEY Facility:[facility] Start: 10-09-2024 End: 10-09-2024 Telephone encounter Jesus Manuel Worley DO Work Phone: [facility] [place] Comment on above: Orders Start: 09-23-2024 End: 09-23-2024 Patient encounter procedure Jesus Manuel Worley DO Work Phone: [facility] [place] Comment on above: Intertrigo (Primary Dx); IFG (impaired fasting glucose); Dysmetabolic syndrome; Anxiety; Overweight (BMI 25.0-29.9) Start: 09-23-2024 End: 09-23-2024 ambulatory JESUS MANUEL WORLEY Facility:[facility] Start: 08-24-2024 End: 10-13-2024 Telephone encounter Jesus Manuel Worley DO Work Phone: [facility] [place] Comment on above: Forms Start: 08-17-2024 End: 08-17-2024 Refill Jesus Manuel Worley DO Work Phone: [facility] Comment on above: Refill Request Start: 08-11-2024 End: 08-11-2024 ambulatory Jesus Manuel Worley DO Work Phone: [facility] [place] Comment on above: Ozempic dose increas e? Refill Request Start: 07-17-2024 End: 07-17-2024 Patient encounter procedure Nurse Jessica [facility] [place] Comment on above: Encounter for immuni zation Start: 07-17-2024 End: 07-17-2024 ambulatory JESUS MANUEL WORLEY Facility:[facility] Start: 06-05-2024 End: 06-05-2024 Telephone encounter Jesus Manuel Worley DO Work Phone: [facility] Comment on above: Patient Question Start: 06-04-2024 End: 06-05-2024 ambulatory Jesus Manuel Worlye DO Work Phone: [facility] [place] Comment on above: Compounded Ozempic Start: 05-05-2024 Documentation procedure Mammog osmar Coordinator [facility] Department Start: 05-05-2024 Letter encounter Mammography Coordinator [facility] Start: 05-04-2024 End: 05-04-2024 Subsequent hospital visit by physician Screen Mammo On License [facility] Comment on above: Encounter for screen ing mammogram for malignant neoplasm of breast [Z12.31] Start: 04-24-2024 End: 04-24-2024 Patient encounter procedure Estefanía Dimitri ROLLINSRESOURCE CONSERVATION MANAGER Work Phone: [facility] Comment on above: Weight gain; Obesity, Class I, BMI 30-34.9; IFG (impaired fasting glucose) Start: 04-16-2024 Telephone encounter Jesus Manuel rodriguez DO Work Phone: [facility] Comment on above: new order needs sent to compunding pharmacy for Ozempic Start: 03-25-2024 Telephone encounter Jesus Manuel rodriguez DO Work Phone: [facility] [place] Start: 03-17-2024 End: 03-17-2024 Patient encounter procedure Jesus Manuel Worley DO Work Phone: [facility] Comment on above: Well adult exam (Nida nona Dx); Encounter for screening mammogram for malignant neoplasm of breast; Perimenopausal disorder; Dyslipidemia; IFG (impaired fasting glucose); Dysmetabolic syndrome Start: 03-17-2024 End: 03-17-2024 Patient encounter status Jesus Manuel Worley DO Work Phone: [facility] Start: 02-12-2024 End: 02-12-2024 ambulatory Azul Delgado PT [facility] Comment on above: Chronic midline low back pain without sciatica (Primary Dx) Start: 02-07-2024 End: 02-07-2024 Patient encounter procedure Kenyon Gar MD Work Phone: [facility] Comment on above: Hordeolum externum o f left lower eyelid (Primary Dx) Start: 02-05-2024 End: 02-05-2024 ambulatory Julia Poe PTA Work Phone: [facility] Comment on above: Chronic midline low back pain without sciatica (Primary Dx) Start: 01-29-2024 End: 01-29-2024 ambulatory Azul Massey'Abraham PT [facility] Comment on above: Chronic midline low back pain without sciatica (Primary Dx) Start: 01-22-2024 End: 01-22-2024 ambulatory Julia Poe SLEEVE SEPARATOR Work Phone: [facility] Comment on above: Chronic midline low back pain without sciatica (Primary Dx) Start: 01-06-2024 End: 01-06-2024 ambulatory Azul Massey'Abraham PT [facility] Comment on above: Chronic midline low back pain without sciatica (Primary Dx) Start: 12-30-2023 Refill Estefanía Mosley APRN.CNP Work Phone: [facility] Comment on above: Refill Request Start: 12-27-2023 ambulatory Jesus Manuel Worley Facilit y:[facility] Start: 12-02-2023 Telephone encounter Jesus Manuel rodriguez DO Work Phone: [facility] Start: 10-05-2023 End: 10-05-2023 Emergency department patient visit Jesus Manuel Worley Facility:[facility] Start: 10-05-2023 End: 10-05-2023 Emergency department patient visit Dr. Jesus Manuel Worley Work Phone: [facility] Work Phone: Start: 09-16-2023 End: 09-16-2023 Patient encounter procedure Jesus Manuel Worley DO Work Phone: [facility] Comment on above: IFG (impaired fastin g glucose) (Primary Dx); Seborrheic dermatitis; Perimenopausal; Well adult exam; Obesity, Class I, BMI 30-34.9; Dysmetabolic syndrome Start: 09-16-2023 End: 09-16-2023 Patient encounter status Jesus Manuel Worley DO Work Phone: [facility] Work Phone: Start: 09-09-2023 End: 12-04-2023 ambulatory Jesus Manuel Worley Facility:[facility] Start: 09-09-2023 End: 09-09-[address] Jesus Manuel Worley Work Phone: [facility] Work Phone: Start: 08-05-2023 End: 08-05-2023 Patient encounter procedure Nurse Jessica [facility] [place] Comment on above: Encounter for immuni zation (Primary Dx) Start: 07-20-2023 Telephone encounter Gabriela Johnson MANAGER SHIFT.RESOURCE CONSERVATION MANAGER Work Phone: [place] [facility] Comment on above: Results Start: 07-19-2023 End: 07-19-2023 Patient encounter procedure Gabriela Tristan MANAGER SHIFT.RESOURCE CONSERVATION MANAGER Work Phone: [facility] Comment on above: Urinary frequency (P rimary Dx) Start: 07-01-2023 End: 07-01-2023 Subsequent hospital visit by physician [facility] Work Phone: Radiology Comment on above: Pelvic pain [R10.2] Start: 06-26-2023 Refill Estefanía Mosley APRN.RESOURCE CONSERVATION MANAGER Work Phone: [facility] [place] Comment on above: Refill Request Start: 06-23-2023 ambulatory Nona Cabrera RN NURSE TAKE UP OPERATOR Comment on above: Eye Injury Left Eye Start: 06-23-2023 Telephone encounter Jolie osman MD Work Phone: Ophthalmology Start: 05-22-2023 Telephone encounter Jesus Manuel rodriguez DO Work Phone: [facility] [place] Comment on above: Insurance Authorizat ion Medication Problem Start: 05-22-2023 End: 05-22-2023 Patient encounter procedure Estefanía Mosley APRN.RESOURCE CONSERVATION MANAGER Work Phone: [facility] [place] Comment on above: Encounter for immuni zation (Primary Dx); Weight gain; Obesity, Class I, BMI 30-34.9; Pelvic pain; Dyslipidemia; IFG (impaired fasting glucose) Start: 05-15-2023 Telephone encounter Jesus Manuel rodriguez DO Work Phone: [facility] [place] Comment on above: Weight Problem Start: 04-30-2023 Documentation procedure Mammog osmar Coordinator [facility] Start: 04-30-2023 Letter encounter Mammography Coordinator [facility] Department Start: 04-29-2023 End: 04-29-2023 Subsequent hospital visit by physician Screen Mammo On License [facility] Comment on above: Encounter for screen ing mammogram for malignant neoplasm of breast [Z12.31] Start: 04-03-2023 End: 04-03-2023 Subsequent hospital visit by physician Screen Mammo On License [facility] Comment on above: Encounter for screen ing mammogram for malignant neoplasm of breast [Z12.31] Start: 03-13-2023 End: 03-13-2023 Patient encounter procedure Jesus Manuel Worley DO Work Phone: [facility] [place] Comment on above: Well woman exam with routine gynecological exam (Primary Dx); Seborrheic dermatitis; Perimenopausal; Encounter for screening mammogram for malignant neoplasm of breast; Anxiety with depression; Elevated TSH; IFG (impaired fasting glucose); Dyslipidemia; Obesity, Class I, BMI 30-34.9 Start: 03-10-2023 End: 03-10-2023 Office outpatient visit 15 minutes Horacio Blair APRN.CNP Work Phone: [facility] Comment on above: Paronychia of finger , left (Primary Dx) Start: 01-07-2023 Refill Jesus Manuel lu DO Work Phone: [facility] [place] Comment on above: Refill Request Start: 10-31-2022 End: 10-31-2022 ambulatory Sesar Dickson MD Work Phone: Allergy Comment on above: [id number] adv erse effect of medication, initial encounter (Primary Dx); Allergic rhinitis, unspecified seasonality, unspecified trigger; Mild persistent asthma without complication; History of urticaria Start: 10-31-2022 End: 10-31-2022 Telemedicine consultation with patient Sesar Dickson MD Work Phone: [facility] Start: 10-29-2022 Refill Jesus Manuel lu DO Work Phone: [facility] Comment on above: Opened In Error Refill Request Patient Question Start: 10-13-2022 Refill Estefanía Mosley SORIN.RESOURCE CONSERVATION MANAGER Work Phone: [facility] Comment on above: Refill Request Start: 09-29-2022 Refill Estefanía Odellalejandrina kwong MANAGER SHIFT.RESOURCE CONSERVATION MANAGER Work Phone: [facility] Comment on above: Refill Request Start: 09-19-2022 Refill Jesus Manuel lu DO Work Phone: [facility] Comment on above: Refill Request Start: 09-11-2022 End: 09-11-2022 Patient encounter procedure Jesus Manuel Worley DO Work Phone: [facility] Comment on above: Elevated TSH (Primar y Dx); Seborrheic dermatitis; Need for COVID-19 vaccine; Obesity, Class II, BMI 35-39.9; Perimenopausal Start: 08-06-2022 End: 08-06-2022 Patient encounter procedure Jesus Manuel Worley DO Work Phone: [facility] Comment on above: Weight gain (Primary Dx); IFG (impaired fasting glucose); Urticaria; Globus sensation; Perimenopausal; Dyslipidemia; Obesity, Class II, BMI 35-39.9 Start: 07-20-2022 Refill [facility] Comment on above: Refill Request Start: 07-11-2022 End: 07-11-2022 Subsequent hospital visit by physician [facility] (I-Stat/1.5t) Work Phone: Radiology Comment on above: Uterine leiomyoma, u nspecified location [D25.9] Start: 06-28-2022 Telephone encounter Sesar mcgraw MD Work Phone: Allergy Comment on above: Rash Start: 06-21-2022 Refill Maria R Cook Work Phone: OB/Gynecology Comment on above: Refill Request Start: 06-18-2022 End: 06-18-2022 Subsequent hospital visit by physician [facility] 2 Work Phone: Radiology Comment on above: Pelvic pain [R10.2] Start: 06-18-2022 Telephone encounter Maria R coombs MD Work Phone: OB/Gynecology Comment on above: Orders Start: 06-15-2022 End: 06-15-2022 Subsequent hospital visit by physician [facility] Work Phone: Radiology Comment on above: Recurrent UTI [N39.0 ] Start: 06-13-2022 ambulatory Jesus Manuel Cook son DO Work Phone: [facility] Comment on above: Blood work Start: 06-13-2022 End: 06-13-2022 Emergency department patient visit [facility] Start: 06-10-2022 ambulatory Kirsten Magaña RN NURSE O N CALL Comment on above: Information Start: 06-09-2022 End: 06-09-2022 Patient encounter procedure Jen Humphrey APRN.RESOURCE CONSERVATION MANAGER Work Phone: [facility] Comment on above: Hives (Primary Dx) Start: 06-08-2022 Telephone encounter Vani FIGUEREDO-C Work Phone: [facility] Comment on above: Results Start: 06-06-2022 End: 06-06-2022 ambulatory VANI LAMAR Facility:[facility] Start: 06-06-2022 End: 06-06-2022 Patient encounter procedure Vani Lamar PA-C Work Phone: [facility] Comment on above: Recurrent UTI (Prima ry Dx); Urgency-frequency syndrome Start: 06-04-2022 Telephone encounter Jen Humphrey APRN.RESOURCE CONSERVATION MANAGER Work Phone: [facility] Comment on above: Results Start: 04-27-2022 Documentation procedure Mammog osmar Coordinator [facility] Start: 04-27-2022 Letter encounter Mammography Coordinator [facility] Department Start: 04-26-2022 End: 04-26-2022 Patient encounter procedure Carolina Hwang PA-C Work Phone: [facility] Comment on above: Urinary frequency (P rimary Dx) Start: 04-17-2022 Telephone encounter Jesus Manuel rodriguez DO Work Phone: [facility] [place] Comment on above: mammogram orders Start: 07-11-2021 Patient encounter status Jesus Manuel Worley DO Work Phone: [facility] Work Phone: Procedures Date Procedure Procedure Detail Performing Clinician Start: 05-10-2025 Screening digital breast tomosynthesis bi Jesus Manuel Worley DO Work Phone: Start: 10-10-2024 Lipid 1996 panel - Serum or Plasma Jesus Manuel Worley DO Work Phone: Start: 07-17-2024 PFIZER-BIONTECH COVID-19 VACCINE AGE 12+ YR [facility] Meghan Toribio MD Work Phone: Start: 03-17-2024 Lipid 1996 panel - Serum or Plasma Jesus Manuel Worley DO Work Phone: Start: 10-05-2023 Computed tomography of abdomen and pelvis with intravenous contrast Dr. Jesus Manuel Worley Work Phone: Start: 10-03-2023 Lipid 1996 panel - Serum or Plasma Jesus Manuel Worley DO Work Phone: Start: 08-05-2023 PFIZER-BIONTECH COVID-19 VACCINE ( SEASON) AGE 12+ YR Meghan Toribio MD Work Phone: Start: 07-19-2023 Urnls dip stick/tablet rgnt auto w/o microscopy Charlotte Celis MANAGER SHIFT.RESOURCE CONSERVATION MANAGER Work Phone: Start: 07-01-2023 Us pelvic nonobstetric image dcmtn limited/f/u Estefanía Mosely MANAGER SHIFT.RESOURCE CONSERVATION MANAGER Work Phone: Start: 04-29-2023 End: 04-29-2023 Mammography Jesus Manuel Worley DO Work Phone: Start: 09-11-2022 PFIZER-BIONTECH COVID-19 BIVALENT BOOSTER VACCINE, AGE 12+ YR Jesus Manuel Worley DO Work Phone: Start: 08-09-2022 Lipid 1996 panel - Serum or Plasma Nona Cabrera RN Start: 07-11-2022 Mri pelvis w/o & w/contrast material Maria R Humphrey MD Work Phone: Start: 06-15-2022 Us retroperitoneal real time w/image complete Vani Lamar PA-C Work Phone: Start: 06-06-2022 Urnls dip stick/tablet rgnt auto w/o microscopy Vani Lamar PA-C Work Phone: Start: 04-27-2022 Mammography Mammography Coordinator Start: 04-26-2022 Urnls dip stick/tablet rgnt auto w/o microscopy Carolina Hwang PA-C Work Phone: Start: 04-20-2021 Mammography Jesus Manuel Worley DO Work Phone: Start: 06-16-2019 Colonoscopy Jen Humphrey APRN.CNP Work Phone: Start: 11-20-2010 End: 06-03-2012 H/O: section Previous section Azul Delgado PT Plan of Treatment Date Care Activity Detail Author Start: 10-10-2029 Lipid panel Lipid Screening [facility] Start: 03-17-2029 Lipid panel Lipid Screening [facility] Start: 10-03-2028 Lipid panel Lipid Screening [facility] Start: 03-13-2028 HPV TESTING HPV TESTING [facility] Start: 03-13-2028 PAP TESTING PAP TESTING [facility] Start: 03-13-2028 Screening for malign ant neoplasm of cervix [facility] Start: 10-10-2027 Diabetes Screening Diabetes Screenin [facility] Start: 08-09-2027 Lipid 1996 panel - S colton or Plasma Lipid Screening [facility] Start: 08-09-2027 LIPID SCREEN LIPID SCREEN [facility] Start: 03-17-2027 Diabetes Screening Diabetes Screenin g [facility] Start: 02-05-2027 Urine microalbumin profile [facility] Start: 10-14-2026 Diabetes Screening Diabetes Screenin g [facility] Start: 07-08-2026 LIPID SCREEN LIPID SCREEN [facility] Start: 05-10-2026 Screening for malign ant neoplasm of breast Mammogram Screening [facility] Start: 03-10-2026 Annual PCP Team Welder/Fitter liu Disease Visit Annual PCP Team Chronic Disease Visit [facility] Start: 09-23-2025 Annual PCP Team Welder/Fitter lui Disease Visit Annual PCP Team Chronic Disease Visit [facility] Start: 09-10-2025 End: 09-10-2025 Patient encounter procedure 09/10/2025 3:20 PM EST Office Visit [facility] [place] [address] [facility] [place] [address] Jesus Manuel Worley DO [address] [place] [address] Physical [facility] [place] Comment on above: Physical Start: 09-09-2025 End: 12-09-2025 CBC panel - Blood by Automated count COMPLETE BLOOD COUNT Lab Routine IFG (impaired fasting glucose) Dysmetabolic syndrome Perimenopausal disorder Well adult exam Expected: 09/09/2025, Expires: 12/09/2025 [facility] Comment on above: Expected: 09/09/2025 , Expires: 12/09/2025 Start: 09-09-2025 End: 12-09-2025 Comprehensive metabolic 2000 panel - Serum or Plasma COMPREHENSIVE METABOLIC PANEL Lab Routine IFG (impaired fasting glucose) Dysmetabolic syndrome Perimenopausal disorder Well adult exam Expected: 09/09/2025, Expires: 12/09/2025 [facility] Comment on above: Expected: 09/09/2025 , Expires: 12/09/2025 Start: 09-09-2025 End: 12-09-2025 Hemoglobin A1c in Blood HEMOGLOBIN A1C Lab Routine IFG (impaired fasting glucose) Dysmetabolic syndrome Perimenopausal disorder Well adult exam Expected: 09/09/2025, Expires: 12/09/2025 [facility] Comment on above: Expected: 09/09/2025 , Expires: 12/09/2025 Start: 09-09-2025 End: 12-09-2025 Lipid 1996 panel - Serum or Plasma LIPID PANEL, FASTING Lab Routine Dysmetabolic syndrome Perimenopausal disorder Well adult exam Expected: 09/09/2025, Expires: 12/09/2025 [facility] Comment on above: Expected: 09/09/2025 , Expires: 12/09/2025 Start: 09-09-2025 End: 12-09-2025 Thyrotropin [Units/volume] in Serum or Plasma THYROID STIMULATING HORMONE Lab Routine Dysmetabolic syndrome Perimenopausal disorder Well adult exam Expected: 09/09/2025, Expires: 12/09/2025 [facility] Comment on above: Expected: 09/09/2025 , Expires: 12/09/2025 Start: 08-09-2025 DIABET[facility]CREEN [facility] Start: 08-09-2025 Diabetes Screening Diabetes Screenin g [facility] Start: 06-07-2025 Influenza vaccination Influenza Vacc ine (#1) [facility] Start: 05-10-2025 End: 05-10-2025 Patient encounter procedure 05/10/2025 8:30 AM EDT Appointment Mammogram [address] [place] [address] Encounter for screening mammogram for malignant neoplasm of breast [Z12.31] Mammogram Comment on above: Encounter for screen ing mammogram for malignant neoplasm of breast [Z12.31] Start: 05-04-2025 Screening for malign ant neoplasm of breast Mammogram Screening [facility] Start: 04-24-2025 Annual PCP Team Welder/Fitter lui Disease Visit Annual PCP Team Chronic Disease Visit [facility] Start: 03-17-2025 Annual PCP Team Welder/Fitter lui Disease Visit Annual PCP Team Chronic Disease Visit [facility] Start: 03-10-2025 End: 03-10-2025 Patient encounter procedure 03/10/2025 8:20 AM EDT Office Visit Family [facility] [address] [facility] [place] [address] Jesus Manuel Worley DO [address] [facility] [place] [address] 6 month follow up Family [facility] Comment on above: 6 month follow up Start: 02-10-2025 End: 02-10-2025 Patient encounter procedure 02/10/2025 1:20 PM EDT Office Visit Dermatology [facility] [address] [place] [id number] Jen Spears PA-C [address] [place] [place] [address] Skin Exam - Annual Full Body Dermatology [facility] Comment on above: Skin Exam - Annual F ull Body Start: 10-09-2024 End: 01-08-2025 CBC W Auto Differential panel - Blood COMPLETE BLOOD COUNT AND DIFFERENTIAL Lab Routine Dysmetabolic syndrome Expected: 10/09/2024, Expires: 01/08/2025 [facility] Comment on above: Expected: 10/09/2024 , Expires: 01/08/2025 Start: 10-09-2024 End: 01-08-2025 Comprehensive metabolic 2000 panel - Serum or Plasma COMPREHENSIVE METABOLIC PANEL Lab Routine Dysmetabolic syndrome Expected: 10/09/2024, Expires: 01/08/2025 [facility] Comment on above: Expected: 10/09/2024 , Expires: 01/08/2025 Start: 10-09-2024 End: 01-08-2025 Hemoglobin A1c in Blood HEMOGLOBIN A1C Lab Routine Hyperglycemia Dysmetabolic syndrome IFG (impaired fasting glucose) Expected: 10/09/2024, Expires: 01/08/2025 [facility] Work Phone: Comment on above: Expected: 10/09/2024 , Expires: 01/08/2025 Start: 10-09-2024 End: 01-08-2025 Lipid 1996 panel - Serum or Plasma LIPID PANEL BASIC Lab Routine Dysmetabolic syndrome Expected: 10/09/2024, Expires: 01/08/2025 [facility] Comment on above: Expected: 10/09/2024 , Expires: 01/08/2025 Start: 10-09-2024 End: 01-08-2025 Thyrotropin [Units/volume] in Serum or Plasma THYROID STIMULATING HORMONE Lab Routine Hyperglycemia Dysmetabolic syndrome IFG (impaired fasting glucose) Expected: 10/09/2024, Expires: 01/08/2025 [facility] Comment on above: Expected: 10/09/2024 , Expires: 01/08/2025 Start: 10-08-2024 Annual PCP Team Welder/Fitter lui Disease Visit Annual PCP Team Chronic Disease Visit [facility] Start: 09-23-2024 End: 09-23-2024 Patient encounter procedure 09/23/2024 4:40 PM EST Office Visit Family [facility] [address] [facility] [place] [address] Jesus Manuel Worley DO [address] [facility] [place] [address] 6 Month follow up Family Alma Coleman Comment on above: 6 Month follow up Start: 09-16-2024 Annual PCP Team Welder/Fitter lui Disease Visit Annual PCP Team Chronic Disease Visit [facility] Start: 07-08-2024 DIABETES SCREEN DIABETES SCREEN [facility] Start: 06-17-2024 Annual PCP Team Welder/Fitter lui Disease Visit Annual PCP Team Chronic Disease Visit [facility] Start: 06-07-2024 Influenza vaccination Influenza Vacc ine (#1) [facility] Start: 05-22-2024 ANNUAL PCP TEAM VOICE NETWORK ADMINISTRATOR LUI DISEASE VISIT ANNUAL PCP TEAM CHRONIC DISEASE VISIT [facility] Start: 05-04-2024 End: 05-04-2024 Patient encounter procedure 05/04/2024 9:10 AM EDT Appointment Mammogram [address] [place] [address] Encounter for screening mammogram for malignant neoplasm of breast [Z12.31 Mammogram Comment on above: Encounter for screen ing mammogram for malignant neoplasm of breast [Z12.31 Start: 04-29-2024 Mammography [facility] Start: 04-29-2024 Screening for malign ant neoplasm of breast Mammogram Screening [facility] Start: 04-24-2024 End: 04-24-2024 Patient encounter procedure 04/24/2024 7:20 AM EDT Office Visit Family [facility] [address] [place] [address] Estefanía Mosley APRN.RESOURCE CONSERVATION MANAGER [address] [place] [address] Ozempic follow up Family [facility] Coleman Comment on above: Ozempic follow up Start: 03-17-2024 End: 03-17-2024 Patient encounter procedure 03/17/2024 8:40 AM EDT Office Visit Family [facility] [address] [facility] [place] [address] Jesus Manuel Worley, DO [address] [place] [address] Physical Family Medicine [place] Comment on above: Physical Start: 03-13-2024 ANNUAL PCP TEAM VOICE NETWORK ADMINISTRATOR LUI DISEASE VISIT ANNUAL PCP TEAM CHRONIC DISEASE VISIT [facility] Start: 02-12-2024 End: 02-12-2024 ambulatory [facility] Comment on above: M54.50,G89.29 (ICD-1 0-CM) - Chronic midline low back pain without sciatica Start: 02-05-2024 End: 02-05-2024 ambulatory 02/05/2024 6:00 PM EDT OT/PT/Speech Visit [facility] [address] [place] [address] Julia Poe, SLEEVE SEPARATOR [address] [place] [address] M54.50,G89.29 (ICD-10-CM) - Chronic midline low back pain without sciatica [facility] Comment on above: M54.50,G89.29 (ICD-1 0-CM) - Chronic midline low back pain without sciatica Start: 10-05-2023 [facility] Start: 09-16-2023 End: 12-16-2023 CBC W Auto Differential panel - Blood CBC + DIFF Lab Routine Well adult exam Expected: 09/16/2023, Expires: 12/16/2023 [facility] Work Phone: Comment on above: Expected: 09/16/2023 , Expires: 12/16/2023 Start: 09-16-2023 End: 12-16-2023 Comprehensive metabolic 2000 panel - Serum or Plasma COMP METABOLIC PANEL Lab Routine Well adult exam Expected: 09/16/2023, Expires: 12/16/2023 [facility] Work Phone: Comment on above: Expected: 09/16/2023 , Expires: 12/16/2023 Start: 09-16-2023 End: 12-16-2023 Hemoglobin A1c in Blood HGB A1C Lab Routine Well adult exam Expected: 09/16/2023, Expires: 12/16/2023 [facility] Work Phone: Comment on above: Expected: 09/16/2023 , Expires: 12/16/2023 Start: 09-16-2023 End: 12-16-2023 Lipid 1996 panel - Serum or Plasma LIPID PANEL BASIC Lab Routine Well adult exam Expected: 09/16/2023, Expires: 12/16/2023 [facility] Work Phone: Comment on above: Expected: 09/16/2023 , Expires: 12/16/2023 Start: 09-16-2023 End: 12-16-2023 Thyrotropin [Units/volume] in Serum or Plasma TSH BLD Lab Routine Well adult exam Expected: 09/16/2023, Expires: 12/16/2023 [facility] Work Phone: Comment on above: Expected: 09/16/2023 , Expires: 12/16/2023 Start: 09-16-2023 End: 12-16-2023 Thyroxine (T4) free [Mass/volume] in Serum or Plasma T4 FREE/FREE THYROX Lab Routine Well adult exam Expected: 09/16/2023, Expires: 12/16/2023 [facility] Work Phone: Comment on above: Expected: 09/16/2023 , Expires: 12/16/2023 Start: 09-11-2023 ANNUAL PCP TEAM VOICE NETWORK ADMINISTRATOR LUI DISEASE VISIT ANNUAL PCP TEAM CHRONIC DISEASE VISIT [facility] Start: 08-06-2023 ANNUAL PCP TEAM VOICE NETWORK ADMINISTRATOR LUI DISEASE VISIT ANNUAL PCP TEAM CHRONIC DISEASE VISIT [facility] Start: 06-07-2023 Covid-19 Vaccine ( season) Covid-19 Vaccine () [facility] Start: 06-07-2023 Influenza vaccination INFLUENZA (#1) [facility] Start: 04-27-2023 Mammography MAMMOGRAM [facility] Start: 03-13-2023 End: 05-13-2023 Comprehensive metabolic 2000 panel - Serum or Plasma COMP METABOLIC PANEL Lab Routine Dyslipidemia Well woman exam with routine gynecological exam Expected: 03/13/2023, Expires: 05/13/2023 [facility] Work Phone: Comment on above: Expected: 03/13/2023 , Expires: 05/13/2023 Start: 03-13-2023 End: 05-13-2023 Lipid 1996 panel - Serum or Plasma LIPID PANEL BASIC Lab Routine Dyslipidemia Well woman exam with routine gynecological exam Expected: 03/13/2023, Expires: 05/13/2023 [facility] Work Phone: Comment on above: Expected: 03/13/2023 , Expires: 05/13/2023 Start: 03-13-2023 End: 05-13-2023 Thyrotropin [Units/volume] in Serum or Plasma TSH BLD Lab Routine Elevated TSH Well woman exam with routine gynecological exam Expected: 03/13/2023, Expires: 05/13/2023 [facility] Work Phone: Comment on above: Expected: 03/13/2023 , Expires: 05/13/2023 Start: 03-13-2023 End: 05-13-2023 Thyroxine (T4) free [Mass/volume] in Serum or Plasma T4 FREE/FREE THYROX Lab Routine Elevated TSH Well woman exam with routine gynecological exam Expected: 03/13/2023, Expires: 05/13/2023 [facility] Work Phone: Comment on above: Expected: 03/13/2023 , Expires: 05/13/2023 Start: 03-13-2023 End: 05-13-2023 Triiodothyronine (T3) Free [Mass/volume] in Serum or Plasma T3 FREE BLD Lab Routine Elevated TSH Well woman exam with routine gynecological exam Expected: 03/13/2023, Expires: 05/13/2023 [facility] Work Phone: Comment on above: Expected: 03/13/2023 , Expires: 05/13/2023 Start: 09-11-2022 End: 11-11-2022 THYROID PEROXIDASE ANTIBODY BLOOD THYROID PEROXIDASE ANTIBODY BLOOD Lab Routine Elevated TSH Expected: 09/11/2022, Expires: 11/11/2022 [facility] Work Phone: Comment on above: Expected: 09/11/2022 , Expires: 11/11/2022 Start: 09-11-2022 End: 11-11-2022 Thyrotropin [Units/volume] in Serum or Plasma TSH BLD Lab Routine Elevated TSH Expected: 09/11/2022, Expires: 11/11/2022 [facility] Work Phone: Comment on above: Expected: 09/11/2022 , Expires: 11/11/2022 Start: 09-11-2022 End: 11-11-2022 Thyroxine (T4) free [Mass/volume] in Serum or Plasma T4 FREE/FREE THYROX Lab Routine Elevated TSH Expected: 09/11/2022, Expires: 11/11/2022 [facility] Work Phone: Comment on above: Expected: 09/11/2022 , Expires: 11/11/2022 Start: 09-11-2022 End: 11-11-2022 Triiodothyronine (T3) Free [Mass/volume] in Serum or Plasma T3 FREE BLD Lab Routine Elevated TSH Expected: 09/11/2022, Expires: 11/11/2022 [facility] Work Phone: Comment on above: Expected: 09/11/2022 , Expires: 11/11/2022 Start: 08-06-2022 End: 10-06-2022 CBC W Auto Differential panel - Blood CBC + DIFF Lab Routine Weight gain Expected: 08/06/2022, Expires: 10/06/2022 [facility] Work Phone: Comment on above: Expected: 08/06/2022 , Expires: 10/06/2022 Start: 08-06-2022 End: 10-06-2022 Comprehensive metabolic 2000 panel - Serum or Plasma COMP METABOLIC PANEL Lab Routine Weight gain Expected: 08/06/2022, Expires: 10/06/2022 [facility] Work Phone: Comment on above: Expected: 08/06/2022 , Expires: 10/06/2022 Start: 08-06-2022 End: 10-06-2022 Follitropin [Units/volume] in Serum or Plasma FSH BLD Lab Routine Perimenopausal Expected: 08/06/2022, Expires: 10/06/2022 [facility] Work Phone: Comment on above: Expected: 08/06/2022 , Expires: 10/06/2022 Start: 08-06-2022 End: 10-06-2022 Hemoglobin A1c in Blood HGB A1C Lab Routine IFG (impaired fasting glucose) Expected: 08/06/2022 (Approximate), Expires: 10/06/2022 [facility] Work Phone: Comment on above: Expected: 08/06/2022 (Approximate), Expires: 10/06/2022 Start: 08-06-2022 End: 10-06-2022 Lipid 1996 panel - Serum or Plasma LIPID PANEL BASIC Lab Routine Dyslipidemia Expected: 08/06/2022, Expires: 10/06/2022 [facility] Work Phone: Comment on above: Expected: 08/06/2022 , Expires: 10/06/2022 Start: 08-06-2022 End: 10-06-2022 Thyrotropin [Units/volume] in Serum or Plasma TSH BLD Lab Routine Weight gain Expected: 08/06/2022, Expires: 10/06/2022 [facility] Work Phone: Comment on above: Expected: 08/06/2022 , Expires: 10/06/2022 Start: 08-06-2022 End: 10-06-2022 Thyroxine (T4) free [Mass/volume] in Serum or Plasma T4 FREE/FREE THYROX Lab Routine Weight gain Expected: 08/06/2022, Expires: 10/06/2022 [facility] Work Phone: Comment on above: Expected: 08/06/2022 , Expires: 10/06/2022 Start: 08-06-2022 End: 10-06-2022 TRYPTASE BLOOD TRYPTASE BLOOD Lab Routine Urticaria Globus sensation Expected: 08/06/2022, Expires: 10/06/2022 [facility] Work Phone: Comment on above: Expected: 08/06/2022 , Expires: 10/06/2022 Start: 07-10-2022 ANNUAL PCP TEAM VOICE NETWORK ADMINISTRATOR LUI DISEASE VISIT ANNUAL PCP TEAM CHRONIC DISEASE VISIT [facility] Start: 06-18-2022 End: 07-18-2023 Us pelvic nonobstetric image dcmtn limited/f/u [facility] Work Phone: Comment on above: Expected: 06/18/2022 , Expires: 07/18/2023 1 Occurrences starti ng 06/18/2022 until 06/18/2022 Start: 06-07-2022 Influenza vaccination INFLUENZA (#1) [facility] Start: 2022 COLOGUARD (FIT-DNA) COLOGUARD (FIT-D NA) [facility] Start: 2022 Colonoscopy COLONOSCOPY [facility] Start: 2022 COLORECTAL CANCER SCREENING COLORECTAL CANCER SCREENING [facility] Start: [address] COLONOGRAPHY [facility] Start: 2022 FECAL OCCULT BLOOD FECAL OCCULT BLOO D [facility] Start: 2022 Screening for malign ant neoplasm of colon [facility] Start: 2022 SIGMOIDOSCOPY SIGMOIDOSCOPY [facility] Start: 04-20-2022 Mammography MAMMOGRAM [facility] Start: 10-15-2021 COVID-19 VACCINE (4 - Booster for Moderna series) COVID-19 VACCINE (4 - Booster for Moderna series) [facility] Start: 10-12-2021 HPV TESTING HPV TESTING [facility] Start: 10-12-2021 PAP TESTING PAP TESTING [facility] Start: 1996 Hepatitis B Vaccine (1 of 3 - 19+ 3-dose series) Hepatitis B Vaccine (1 of 3 - 19+ 3-dose series) [facility] Start: 1995 HEPATITIS C SCREENING HEPATITIS C [facility] Start: 1995 Hepatitis C screening Hepatitis C [facility] Start: 1995 SPIROMETRY SPIROMETRY [facility] Start: 1983 PNEUMOCOCCAL (1 - PCV) PNEUMOCOCCAL (1 - PCV) [facility] Start: 1977 HEPATITIS B (1 of 3 - 3-dose series) HEPATITIS B (1 of 3 - 3-dose series) [facility] Start: 1977 Hepatitis B Vaccine (1 of 3 - 3-dose series) Hepatitis B Vaccine (1 of 3 - 3-dose series) [facility] Bacteria identified in Urine by Culture URINE CULTURE Microbiology Routine Urinary frequency Ordered: 04/26/2022 [facility] Work Phone: Comment on above: Ordered: 04/26/2022 Bacteria identified in Urine by Culture URINE CULTURE Microbiology Routine Recurrent UTI Ordered: 06/06/2022 [facility] Work Phone: Comment on above: Ordered: 06/06/2022 Bacteria identified in Urine by Culture URINE CULTURE Microbiology Routine Urinary frequency Ordered: 07/19/2023 [facility] Work Phone: Comment on above: Ordered: 07/19/2023 End: 04-16-2025 DBT Breast - bilateral screening WHITNEY SCREENING [facility] Radiology Routine Encounter for screening mammogram for malignant neoplasm of breast 1 Occurrences starting 03/17/2024 until 04/16/2025 [facility] Work Phone: Comment on above: 1 Occurrences starti ng 03/17/2024 until 04/16/2025 DBT Breast - bilater al screening WHITNEY SCREENING [facility] Radiology Routine Encounter for screening mammogram for malignant neoplasm of breast 05/04/2024 9:33 AM EDT [facility] Work Phone: End: 04-09-2026 DBT Breast - bilateral screening WHITNEY SCREENING [facility] Radiology Routine Encounter for screening mammogram for malignant neoplasm of breast 1 Occurrences starting 03/10/2025 until 04/09/2026 [facility] Work Phone: Comment on above: 1 Occurrences starti ng 03/10/2025 until 04/09/2026 Hepatitis A virus Ig M Ab [Presence] in Serum [facility] Hepatitis B core ant ibody measurement, IgM type [facility] Hepatitis B surface antigen measurement [facility] Hepatitis C antibody measurement [facility] End: 05-17-2023 WHITNEY SCREENING [facility]NEY SCREENING [facility] Radiology Routine Encounter for screening mammogram for malignant neoplasm of breast 1 Occurrences starting 04/17/2022 until 05/17/2023 [facility] Work Phone: Comment on above: 1 Occurrences starti ng 04/17/2022 until 05/17/2023 End: 04-11-2024 WHITNEY SCREENING W LUAN WHITNEY SCREENING W LUAN Radiology Routine Encounter for screening mammogram for malignant neoplasm of breast 1 Occurrences starting 03/13/2023 until 04/11/2024 [facility] Work Phone: Comment on above: 1 Occurrences starti ng 03/13/2023 until 04/11/2024 End: 07-21-2023 Mri pelvis w/o & w/contrast material MRI FEMALE PELVIS WO/W IVCON Radiology Routine Uterine leiomyoma, unspecified location 1 Occurrences starting 06/21/2022 until 07/21/2023 [facility] Work Phone: Comment on above: 1 Occurrences starti ng 06/21/2022 until 07/21/2023 PAP TEST PAP TEST Lab [place] car[place] Well woman exam with routine gynecological exam Ordered: 03/13/2023 [facility] Work Phone: Comment on above: Ordered: 03/13/2023 Patient Education [facility] Work Phone: Patient referral [facility] Work Phone: Urinalysis complete panel - Urine URINALYSIS, WITH MICROSCOPIC Lab Routine Recurrent UTI Ordered: 06/06/2022 [facility] Work Phone: Comment on above: Ordered: 06/06/2022 End: 07-06-2023 US KIDNEY/BLADDER US KIDNEY/BLADDER Radiology Routine Recurrent UTI 1 Occurrences starting 06/06/2022 until 07/06/2023 [facility] Work Phone: Comment on above: 1 Occurrences starti ng 06/06/2022 until 07/06/2023 End: 06-20-2024 Us pelvic nonobstetric image dcmtn limited/f/u US FEMALE PELVIS TRANSABD LTD Radiology Routine Pelvic pain 1 Occurrences starting 05/22/2023 until 06/20/2024 [facility] Work Phone: Comment on above: 1 Occurrences starti ng 05/22/2023 until 06/20/2024 End: 07-18-2023 Us transvaginal US FEMALE PELVIS TRANSVAG Radiology Routine Pelvic pain 1 Occurrences starting 06/18/2022 until 07/18/2023 [facility] Work Phone: Comment on above: 1 Occurrences starti ng 06/18/2022 until 07/18/2023 End: 06-18-2022 Us transvaginal [facility] Work Phone: Comment on above: 1 Occurrences starti ng 06/18/2022 until 06/18/2022 End: 06-20-2024 Us transvaginal US FEMALE PELVIS TRANSVAG Radiology Routine Pelvic pain 1 Occurrences starting 05/22/2023 until 06/20/2024 [facility] Work Phone: Comment on above: 1 Occurrences starti ng 05/22/2023 until 06/20/2024 [facility] Immunizations Immunization Date Immunization Notes Care Provider Ilene salas 07-17-2024 COVID-19 vaccine, ag e 12+ yr (PFIZER-BIONTECH COMIRNATY) [facility] 07-17-2024 influenza, seasonal, injectable Nurse [facility] 07-17-2024 influenza virus vaccine, unspecified formulation Screen Wstr [facility] 08-05-2023 COVID-19 vaccine, ag e 12+ yr, 2022- season (PFIZER-BIONTECH) Nurse [facility] 06-17-2023 influenza, injectabl e, quadrivalent, contains preservative Nona Cabrera RN [facility] 06-17-2023 influenza virus vaccine, unspecified formulation Jesus Manuel Worley DO Work Phone: [facility] 05-22-2023 pneumococcal (PCV20) vaccine, 20 valent (PREVNAR 20) Estefanía Mosley APRN.RESOURCE CONSERVATION MANAGER Work Phone: [facility] 05-22-2023 pneumococcal Conjuga te, unspecified formulation Estefanía Mosley MANAGER SHIFT.RESOURCE CONSERVATION MANAGER Work Phone: [facility] Work Phone: 09-11-2022 COVID-19 booster vaccine, age 12+ yr, bivalent (Epitiro) Jesus Mnauel Worley DO Work Phone: [facility] Work Phone: 11-01-2021 influenza, injectabl e, quadrivalent, preservative free Jesus Manuel Worley DO Work Phone: [facility] 07-21-2020 influenza, injectabl e, quadrivalent, contains preservative Jesus Manuel Worley DO Work Phone: [facility] 08-23-2019 influenza virus vaccine, unspecified formulation Jesus Manuel Worley DO Work Phone: [facility] 08-19-2018 influenza, injectabl e, quadrivalent, contains preservative Jesus Manuel Worley DO Work Phone: [facility] 10-31-2017 influenza, injectabl e, quadrivalent, contains preservative Jesus Manuel Worley DO Work Phone: [facility] Work Phone: 02-05-2017 tetanus toxoid, redu zain diphtheria toxoid, and acellular pertussis vaccine, adsorbed Jesus Manuel Worley DO Work Phone: [facility] Work Phone: 05-08-2012 tetanus toxoid, redu zain diphtheria toxoid, and acellular pertussis vaccine, adsorbed Jesus Manuel Worley DO Work Phone: [facility] 08-10-2009 novel [id number], preservative-free, injectable Jesus Manuel Worley DO Work Phone: [facility] 11-16-2005 tetanus and diphther ia toxoids, adsorbed, preservative free, for adult use (2 Lf of tetanus toxoid and 2 Lf of diphtheria toxoid) Jesus Manuel Worley DO Work Phone: [facility] Payers Date Payer Category Payer Self-pay [id number] 2019 Private Health Insurance MMO SUP ER[employer] PPO [id number] 2019 Unknown MMO MMO [employer]US [id number] 2019-Present [phone] [address] [place] [address] PPO [id number] 2019 Unknown [id number] 2014 Unknown [id number] Unknown [id number] Unknown [id number] Unknown [id number] Social History Date Type Detail Facility Start: 06-03-2022 [facility] Work Phone: Start: 09-16-2021 End: 03-10-2025 Alcohol intake Current non-drinker of alcohol (finding) [facility] Start: 04-20-2020 End: 09-04-2022 History SDOH Alcohol Frequency 2 [facility] Start: 04-20-2020 End: 09-04-2022 History SDOH Alcohol Std Drinks 1 [facility] Start: 07-10-2008 History SDOH Alcohol Comment Rarely,NOT WHILE [facility] Start: 05-04-2020 End: 09-04-2022 History SDOH Social Connections Phone 5 [facility] Start: 05-04-2020 End: 09-04-2022 History SDOH Social Connections Get Together 4 [facility] Start: 11-06-2019 End: 09-04-2022 History SDOH Social Connections Living 3 [facility] Start: 11-06-2019 Education 18 [facility] Start: 1975 Sex Assigned At Not on file C [facility] Start: 04-16-2022 End: 08-06-2022 Exposure to SARS-CoV-2 (event) Not sure [facility] Start: 06-03-2022 Tobacco use and exposure Smoke less tobacco non-user [facility] Start: 06-13-2022 End: 10-05-2023 Tobacco smoking status NHIS Unknown if ever smoked [facility] Start: 1975 Sex Assigned At Female W [facility] Start: 09-04-2022 History SDOH Social Connections Living 8 [facility] Start: 09-04-2022 End: 03-13-2023 [facility] Start: 09-04-2022 End: 03-13-2023 Social connection and isolation panel [facility] Do you belong to any clubs or organizations such as jehovah's witness groups, unions, fraternal or athletic groups, or school groups? No [facility] Are you now , , , , never or living with a partner? Living with partner [facility] How often to you hav e a drink containing alcohol? Monthly or less [facility] How many standard dr inks containing alcohol do you have on a typical day? 1 or 2 [facility] How often do you hav e 6 or more drinks on 1 occasion? Never [facility] How hard is it for y ou to pay for the very basics like food, housing, medical care, and heating Not hard at all [facility] Do you feel stress - tense, restless, nervous, or anxious, or unable to sleep at night because your mind is troubled all the time - these days [OSQ] Only a little [facility] (I/We) worried wheth er (my/our) food would run out before (I/we) got money to buy more. Never true [facility] Are you now , , , , never or living with a partner? [facility] Do you belong to any clubs or organizations such as jehovah's witness groups, unions, fraternal or athletic groups, or school groups? Yes [facility] How hard is it for y ou to pay for the very basics like food, housing, medical care, and heating Not very hard [facility] Functional Status Date Assessment Result Facility 04-26-2015 Are you deaf, or do you have serious difficulty hearing No 04/26/2015 8:33 AM PARULT Celine Sigala LPN No [facility] 04-26-2015 Are you blind, or do you have serious difficulty seeing, even when wearing glasses No 04/26/2015 8:33 AM Celine Nolan LPN No [facility] 04-26-2015 Do you have serious difficulty walking or climbing stairs No 04/26/2015 8:33 AM EDT Celine Sigala LPN No [facility] 04-26-2015 Do you have difficul ty dressing or bathing No 04/26/2015 8:33 AM Celine Nolan LPN No [facility] 04-26-2015 Because of a physica l, mental, or emotional condition, do you have difficulty doing errands alone such as visiting a physician's office or shopping No 04/26/2015 8:33 AM PARULT Celine Sigala LPN No [facility] Mental Status Date Assessment Result Facility 04-26-2015 Because of a physica l, mental, or emotional condition, do you have serious difficulty concentrating, remembering, or making decisions No 04/26/2015 8:33 AM EDT Celine Sigala LPN No [facility] Clinical Notes 10-25-2014 to 05-10-2025 Pablo Alicea Mammo Tech - 05/10/2025 8:30 AM EDTTelephone Encounter - Vee Olmos RN - 03/18/2025 9:37 AM EDTTelephone Encounter - Vee Olmos RN - 03/18/2025 9:37 AM EDT Note Date & Type Note Facility 05-10-2025 History of Present illness Narrative Radiology Service Progress Note PATIENT NAME: Meghan King DATE OF SERVICE: May 10, 2025 TIME: 8:55 AM PATIENT IDENTITY VERIFICATION COMPLETED USING TWO (2) IDENTIFIERS: Name and Date of confirmed by patient verbally. FALL SCREENING: Has the patient had 2 falls in the last year or 1 fall with injury or currently using an Ambulatory Assistive Device (Walker, Cane, Wheelchair, Crutches, etc.)? No PATIENT GENDER DATA: Assigned female at . status: : No status: NO. PATIENT RELEVANT IMPLANT DATA REVIEWED: Not Applicable PATIENT PRESENTS WITH AN IMPLANTABLE OR ATTACHED PRODUCTION SUPPLY EQUIPMENT TENDER: No RADIOLOGY DEPARTMENT: Mammography PERIPHERAL IV DATA: Not applicable SIGNED BY: Carlos Tolliver May 10, 2025 8:55 AM documented in this encounter [facility] 05-10-2025 Note HNO ID: [id number] Author: PABLO ALICEA Mammo Tech Service: ? Author Type: Technologist Type: Progress Notes Filed: 05/10/2025 08:56 Note Text: Radiology Service Progress Note PATIENT NAME: Meghan King DATE OF SERVICE: May 10, 2025 TIME: 8:55 AM PATIENT IDENTITY VERIFICATION COMPLETED USING TWO (2) IDENTIFIERS: Name and Date of confirmed by patient verbally. FALL SCREENING: Has the patient had 2 falls in the last year or 1 fall with injury or currently using an Ambulatory Assistive Device (Walker, Cane, Wheelchair, Crutches, etc.)? No PATIENT GENDER DATA: Assigned female at . status: : No status: NO. PATIENT RELEVANT IMPLANT DATA REVIEWED: Not Applicable PATIENT PRESENTS WITH AN IMPLANTABLE OR ATTACHED PRODUCTION SUPPLY EQUIPMENT TENDER: No RADIOLOGY DEPARTMENT: Mammography PERIPHERAL IV DATA: Not applicable SIGNED BY: Carlos Tolliver May 10, 2025 8:55 AM [facility] 03-18-2025 Telephone encounter Note Pt called and is notified of providers message and instructions. Pt voices understanding. Vee Olmos RN [facility] 03-18-2025 Miscellaneous Notes Pt called and is notified of providers message and instructions. Pt voices understanding. Vee Olmos RN Please let her know rx sent in as below Jesus Manuel Worley DO The following approved medication requests have been transmitted electronically. Requested Prescriptions Signed Prescriptions Disp Refills semaglutide (RYBELSUS) 7 mg tablet 14 tablet 0 Sig: Take 1 tablet by mouth daily before breakfast. Take 30 minutes before the first food, beverage, or other oral medications of the day with no more than 4 ounces of plain water Authorizing Provider: JESUS MANUEL WORLEY DO Pt called in and reports she had spoken with Dr Worley at her appointment on 03/10/25 about switching her Semaglutide to a pill for. She said she will be traveling and will not be able to bring the shot with her. Dr Worley was going to call something into the mail in pharmacy for her. Please call and advise Pt. Vee Olmos RN documented in this encounter [facility] 03-17-2025 Telephone encounter Note Please let her know rx sent in as below Jesus Manuel Worley DO The following approved medication requests have been transmitted electronically. Requested Prescriptions Signed Prescriptions Disp Refills semaglutide (RYBELSUS) 7 mg tablet 14 tablet 0 Sig: Take 1 tablet by mouth daily before breakfast. Take 30 minutes before the first food, beverage, or other oral medications of the day with no more than 4 ounces of plain water Authorizing Provider: JESUS MANUEL WORLEY DO [facility] 03-17-2025 Telephone encounter Note Pt called in and reports she had spoken with Dr Worley at her appointment on 03/10/25 about switching her Semaglutide to a pill for. She said she will be traveling and will not be able to bring the shot with her. Dr Worley was going to call something into the mail in pharmacy for her. Please call and advise Pt. Vee Olmos RN [facility] 03-14-2025 Note HNO ID: [id number] Author: LINH SANTILLAN APRN.RESOURCE CONSERVATION MANAGER Service: ? Author Type: Nurse Practitioner Type: Progress Notes Filed: 03/14/2025 13:11 Note Text: Telemedicine Visit - Distance Health Virtual Visit Note Patient seen on [employer] Video Visit platform. Location of patient: [place] I have communicated my name and active licensure. The patient's identity and physical location were verified at the time of this visit. Either the patient or their legal technology sales representative has been informed of the risks and benefits of -- and alternatives to -- treatment through a remote evaluation and consents to proceed with the evaluation remotely. History of Present Illness: The patient is a 49-year-old female presenting for recurrent subconjunctival hemorrhage. Subconjunctival Hemorrhage: - Initial episode of redness in the eye began last Saturday. - Recent visit with PCP confirmed subconjunctival hemorrhage. - Initial episode was associated with severe allergies, frequent sneezing, and nose blowing. - Redness had almost resolved by yesterday, with minimal residual redness around the sclera. - Woke up this morning with significantly worsened redness, despite no visible issues before bed. - Denies eye pain, blurred vision, diplopia, photophobia, or any changes in vision. - Describes the appearance of the hemorrhage as horrifying when viewed in the mirror. - Current episode is worse than the initial one earlier in the week. or if symptoms persist Recommend in person evaluation - Schedule an in-person eye exam with an eye doctor (legal arbitrator or television news reporter) tomorrow to evaluate the redness and confirm the cause. - If you develop any eye pain, blurred or double vision, light sensitivity, or other changes in your vision before your appointment, go to the nearest emergency department immediately. Linh Santillan APRN.CNP [facility] 03-14-2025 History of Present illness Narrative Telemedicine Visit - Distance Health Virtual Visit Note Patient seen on [employer] Video Visit platform. Location of patient: [place] I have communicated my name and active licensure. The patient's identity and physical location were verified at the time of this visit. Either the patient or their legal technology sales representative has been informed of the risks and benefits of -- and alternatives to -- treatment through a remote evaluation and consents to proceed with the evaluation remotely. History of Present Illness: The patient is a 49-year-old female presenting for recurrent subconjunctival hemorrhage. Subconjunctival Hemorrhage: - Initial episode of redness in the eye began last Saturday. - Recent visit with PCP confirmed subconjunctival hemorrhage. - Initial episode was associated with severe allergies, frequent sneezing, and nose blowing. - Redness had almost resolved by yesterday, with minimal residual redness around the sclera. - Woke up this morning with significantly worsened redness, despite no visible issues before bed. - Denies eye pain, blurred vision, diplopia, photophobia, or any changes in vision. - Describes the appearance of the hemorrhage as horrifying when viewed in the mirror. - Current episode is worse than the initial one earlier in the week. or if symptoms persist Recommend in person evaluation - Schedule an in-person eye exam with an eye doctor (legal arbitrator or television news reporter) tomorrow to evaluate the redness and confirm the cause. - If you develop any eye pain, blurred or double vision, light sensitivity, or other changes in your vision before your appointment, go to the nearest emergency department immediately. Linh Santillan APRN.CNP documented in this encounter [facility] 03-10-2025 Note HNO ID: [id number] Author: JESUS MANUEL WORLEY, DO Service: ? Author Type: Physician Type: Progress Notes Filed: 03/10/2025 10:39 Note Text: CC: Meghan King is a 49 year old female who presents to the office for 6 months follow up HPI: Previously Sep 2024 as below IFG, obesity, dysmetabolic syndrome. Has been on semaglutide since Aug 2023 through PRODUCT DEVELOPMENT MANAGER to start and now through [facility] pharmacy in [place], [place], but not able to afford brand name medication. Was tolerating medication well without any SE, was able to control her appetite and overeating. Previously her weight in Sep 2023 was down from 202 lbs in May to a weight of 180 lbs. She would like to continue through our office with monitoring. She is exercising 5-6 days a week with strength training and Pilates mostly and has got her protein levels up to 70-100 grams a day. Does eat a vegetarian diet with a lot of beans and lentils and fiber foods. Mood, stable Her weight now is 163 lbs. Goal weight of 145 lbs. Currently Ear eczema, use of steroid oil as needed, needing rx refills Traveling for 2 weeks in April and would like to have oral GLP 1 option to take for this trip only IFG, obesity, dysmetabolic syndrome. Has been on semaglutide since Aug 2023 through PRODUCT DEVELOPMENT MANAGER to start and now through [facility] in [place], [place], but not able to afford brand name medication. Was tolerating medication well without any SE, was able to control her appetite and overeating. Previously her weight in Sep 2023 was down from 202 lbs in May to a weight of 180 lbs. She would like to continue through our office with monitoring. She is exercising 5-6 days a week with strength training and Pilates mostly and has got her protein levels up to 70-100 grams a day. Does eat a vegetarian diet with a lot of beans and lentils and fiber food, she is currently increasing her strength training as well with working with a personal shopper and starting to lift more PAST MEDICAL HISTORY Diagnosis Date Allergy Seasonal and Environmental Allergies Depressive disorder, not elsewhere classified Diffuse cystic mastopathy History of echocardiogram 01/02/2021 at [facility]-Dr. Swain-EF 55% Low HDL (under 40) 12/05/2014 Unspecified asthma(493.90) Vitamin D deficiency 12/05/2014 PAST SURGICAL HISTORY Procedure Laterality Date DELIVERY ONLY 03/20/2011 , low transverse DELIVERY+ CARE March 02, 2009 COLONOSCOPY FLX DX W/COLLJ SPEC WHEN PFRMD 06/16/2019 Colonoscopy ESOPHAGOGASTRODUODENOSCOPY TRANSORAL DIAGNOSTIC 09/02/2018 EGD LAPS SURG CHOLECYSTECTOMY W/CHOLANGIOGRAPHY 04/2015 in [facility]. PAST SURGICAL HISTORY OF wisdom teeth extraction Current Outpatient Medications Medication Sig Etonogestrel-Ethinyl Estradiol (NUVARING) 0.12-0.015 mg/24 hr vaginal ring Use 1 each vaginally as directed. Insert vaginally and leave in place for 3 consecutive weeks, then remove and place a new ring and skip menses. metroNIDAZOLE (METROCREAM) 0.75 % cream Use twice daily to affected areas on face semaglutide (OZEMPIC) 2 mg/dose (8 mg/3 mL) pen injector Inject 2 mg subcutaneously one time a week. sertraline (ZOLOFT) 50 mg tablet TAKE 1 TABLET ONCE DAILY ketoconazole (NIZORAL) 2 % cream Apply 1 application to affected area once daily. Under breast rash triamcinolone acetonide (KENALOG) 0.1 % cream Apply to affected area two times a day as needed (under breast rash). semaglutide (OZEMPIC) 1 mg/dose (4 mg/3 mL) pen Inject 1 mg subcutaneously one time a week. ketoconazole (NIZORAL) 2 % shampoo Massage into damp scalp 3 times weekly. Allow to sit for 5 minutes prior to rinsing. cranberry fruit extract (CRANBERRY EXTRACT ORAL) Take 1 tablet by mouth once daily. (Patient not taking: Reported on 02/10/2025) budesonide (PULMICORT FLEXHALER) 180 mcg/actuation aepb Inhale [...] Never Smokeless tobacco: Never Vaping Use Vaping status: Never Used Substance Use (more content not included)... [facility] 03-10-2025 History of Present illness Narrative CC: Meghan King is a 49 year old female who presents to the office for 6 months follow up HPI: Previously Sep 2024 as below IFG, obesity, dysmetabolic syndrome. Has been on semaglutide since Aug 2023 through PRODUCT DEVELOPMENT MANAGER to start and now through [facility] in [place], [place], but not able to afford brand name medication. Was tolerating medication well without any SE, was able to control her appetite and overeating. Previously her weight in Sep 2023 was down from 202 lbs in May to a weight of 180 lbs. She would like to continue through our office with monitoring. She is exercising 5-6 days a week with strength training and Pilates mostly and has got her protein levels up to 70-100 grams a day. Does eat a vegetarian diet with a lot of beans and lentils and fiber foods. Mood, stable Her weight now is 163 lbs. Goal weight of 145 lbs. Currently Ear eczema, use of steroid oil as needed, needing rx refills Traveling for 2 weeks in April and would like to have oral GLP 1 option to take for this trip only IFG, obesity, dysmetabolic syndrome. Has been on semaglutide since Aug 2023 through PRODUCT DEVELOPMENT MANAGER to start and now through [facility] in [place], [place], but not able to afford brand name medication. Was tolerating medication well without any SE, was able to control her appetite and overeating. Previously her weight in Sep 2023 was down from 202 lbs in May to a weight of 180 lbs. She would like to continue through our office with monitoring. She is exercising 5-6 days a week with strength training and Pilates mostly and has got her protein levels up to 70-100 grams a day. Does eat a vegetarian diet with a lot of beans and lentils and fiber food, she is currently increasing her strength training as well with working with a personal shopper and starting to lift more PAST MEDICAL HISTORY Diagnosis Date Allergy Seasonal and Environmental Allergies Depressive disorder, not elsewhere classified Diffuse cystic mastopathy History of echocardiogram 01/02/2021 at [facility]-Dr. Swain-EF 55% Low HDL (under 40) 12/05/2014 Unspecified asthma(493.90) Vitamin D deficiency 12/05/2014 PAST SURGICAL HISTORY Procedure Laterality Date DELIVERY ONLY 03/20/2011 , low transverse DELIVERY+ CARE March 02, 2009 COLONOSCOPY FLX DX W/COLLJ SPEC WHEN PFRMD 06/16/2019 Colonoscopy ESOPHAGOGASTRODUODENOSCOPY TRANSORAL DIAGNOSTIC 09/02/2018 EGD LAPS SURG CHOLECYSTECTOMY W/CHOLANGIOGRAPHY 04/2015 in [facility]. PAST SURGICAL HISTORY OF wisdom teeth extraction Current Outpatient Medications Medication Sig Etonogestrel-Ethinyl Estradiol (NUVARING) 0.12-0.015 mg/24 hr vaginal ring Use 1 each vaginally as directed. Insert vaginally and leave in place for 3 consecutive weeks, then remove and place a new ring and skip menses. metroNIDAZOLE (METROCREAM) 0.75 % cream Use twice daily to affected areas on face semaglutide (OZEMPIC) 2 mg/dose (8 mg/3 mL) pen injector Inject 2 mg subcutaneously one time a week. sertraline (ZOLOFT) 50 mg tablet TAKE 1 TABLET ONCE DAILY ketoconazole (NIZORAL) 2 % cream Apply 1 application to affected area once daily. Under breast rash triamcinolone acetonide (KENALOG) 0.1 % cream Apply to affected area two times a day as needed (under breast rash). semaglutide (OZEMPIC) 1 mg/dose (4 mg/3 mL) pen Inject 1 mg subcutaneously one time a week. ketoconazole (NIZORAL) 2 % shampoo Massage into damp scalp 3 times weekly. Allow to sit for 5 minutes prior to rinsing. cranberry fruit extract (CRANBERRY EXTRACT ORAL) Take 1 tablet by mouth once daily. (Patient not taking: Reported on 02/10/2025) budesonide (PULMICORT FLEXHALER) 180 mcg/actuation aepb Inhale [...] Never Smokeless tobacco: Never Vaping Use Vaping status: Never Used Substance Use Topics Alcohol use: No Drug use: No ROS: See HPI PE: BP 100/60 Pulse 60 Temp (Src) 98.9 (Right Tympanic) Resp 12 Ht 5' 4.567 (1.64m) Wt 164 lb (74.4kg) LMP 02/13/2022 BMI 27.66 kg/(m^2). Gen: A&OX3, NAD, non-toxic appearing HEENT: PERRLA, EOMs intact b/l, nares without drainage, pharynx without erythema, exudate, lesions, or drainage. Uvula midline. Neck: No LAD, no thyromegaly, no meningismus. CV: RRR, no murmur Lungs: CTA b/l, no wheezing Skin: No rashes, lesions, or wounds on exposed skin. No edema, normal pulses ASSESSMENT/PLAN: 1. IFG (impaired fasting glucose) - ICD9: 790.21, ICD10: R73.01 (primary diagnosis) Diet controlled Need for continued weight loss 2. Encounter for surveillance of vaginal ring hormonal contraceptive device - ICD9: V25.49, ICD10: Z30.44 - ETONOGESTREL 0.12 MG-ETHINYL ESTRADIOL 0.015 MG/24 HR VAGINAL RING 3. Encounter for screening mammogram for malignant neoplasm of breast - ICD9: V76.12, ICD10: Z12.31 - Set up for mammogram, yearly mammogram recommended - Encouraged monthly BSE - Increase calcium intake with supplements or by diet (goal of 2679-8617 mg/day - Follow up for annual exam in one year. - WHITNEY SCREENING W LUAN 4. Eczema of external ear, bilateral - ICD9: 380.22, ICD10: H60.543 - discussed skin care of rash - follow up if symptoms persist or worsen. - FLUOCINOLONE ACETONIDE OIL 0.01 % EAR DROPS 5. Overweight (BMI 25.0-29.9) - ICD9: 278.02, ICD10: E66.3 - Lengthy discussion in office today regarding diet and exercise. Discussed use of small plate to eat meals from, drink 1 glass of water 10-15 minutes prior to eating meal, drink 8 glasses of water daily, eat fresh fruit and vegetable during meal first then lean protein such as grilled/baked chicken breast or fish, limit carbohydrate intake (less pasta, breads, rice and snack foods) as well as limiting sugars (desserts etc). Important to count / track your calories and exercise as well. 6. Dysmetabolic syndrome - ICD9: 277.7, ICD10: E88.810 See above Continue GLP1 agonist 7. Perimenopausal disorder - ICD9: 627.9, ICD10: N95.9 Labs as ordered in 6 months Jesus Manuel Worley DO Return if no improvement. Follow up with Jesus Manuel Worley DO. To ER if develops chest pain, shortness of breath. Discussed risks, benefits, alternatives, and potential side effects of medications. Patient/Guardian expressed understanding and agreed with the plan. See patient instructions. Jesus Manuel Worley DO [address] [place] [address] documented in this encounter [facility] 02-10-2025 Note HNO ID: [id number] Author: JEN SPEARS PA-C Service: ? Author Type: Physician Pastry Chef Type: Progress Notes Filed: 02/10/2025 13:34 Note Text: NEW PATIENT OCTAVIO in Dermatology: 12/02/2020 Chief Complaint: Full Body Skin Check History of Present Illness: Meghan King is a 49 year old female who presents today for a full body skin check Dermatitis: Location: Bilateral cheeks Duration: Few months Symptoms: Redness, itching, bumps Current Treatment: None Past Treatment: None Pertinent History: History of skin cancer: No History of atypical nevi: No History of HIV/ Hepatitis C: No History of immunosuppression/organ transplant: No , planning , or : No Allergy to lidocaine/ epinephrine/ latex/ adhesive: No Defibrillator/ Pacer: No Pertinent Family Medical History: History of melanoma: No History of non melanoma skin cancer: Yes, Father-unsure of type Other family history (autoimmune, dermatologic, etc): Lupus -Paternal aunt Social History: History of severe sun clement: Yes 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 Swain-EF 55% Low HDL (under 40) 12/05/2014 Unspecified asthma(493.90) Vitamin D deficiency 12/05/2014 PAST SURGICAL HISTORY Procedure Laterality Date DELIVERY ONLY 03/20/2011 , low transverse DELIVERY+ CARE March 02, 2009 COLONOSCOPY FLX DX W/COLLJ SPEC WHEN PFRMD 06/16/2019 Colonoscopy ESOPHAGOGASTRODUODENOSCOPY TRANSORAL DIAGNOSTIC 09/02/2018 EGD LAPS SURG CHOLECYSTECTOMY W/CHOLANGIOGRAPHY 04/2015 in [facility]. PAST SURGICAL HISTORY OF wisdom teeth extraction Current Outpatient Medications on File Prior to Visit Medication Sig semaglutide (OZEMPIC) 2 mg/dose (8 mg/3 mL) pen injector Inject 2 mg subcutaneously one time a week. sertraline (ZOLOFT) 50 mg tablet TAKE 1 TABLET ONCE DAILY ketoconazole (NIZORAL) 2 % cream Apply 1 application to affected area once daily. Under breast rash triamcinolone acetonide (KENALOG) 0.1 % cream Apply to affected area two times a day as needed (under breast rash). semaglutide (OZEMPIC) 1 mg/dose (4 mg/3 mL) pen Inject 1 mg subcutaneously one time a week. Etonogestrel-Ethinyl Estradiol (NUVARING) 0.12-0.015 mg/24 hr vaginal ring Use 1 Each vaginally as directed. Insert vaginally and leave in place for 3 consecutive weeks, then remove and place a new ring and skip menses. ketoconazole (NIZORAL) 2 % shampoo Massage into damp scalp 3 times weekly. Allow to sit for 5 minutes prior to rinsing. cranberry fruit extract (CRANBERRY EXTRACT ORAL) Take [...] mouth once daily. No current facility-administered medications on file prior to visit. ROS: Skin as above. Physical Exam: Aguilar skin type: I The patient is a pleasant female in no apparent distress. Alert and oriented x 3. A skin exam performed of the Scalp, face, ears, neck, chest, back, abdomen, bilateral upper extremities, bilateral lower extremities, buttocks, hands, feet, nails and hair is significant for: Chest (Upper Torso, Anterior), Generalized Bright red papule(s) Scattered uniform brown macules/ papules with globular appearance on dermoscopy. Light brown well circumscribed macule(s) Head - Anterior (Face) Mild erythema with telangiectasias primarily to the central face. Swelling not present on exam. Densely scattered light haley macules noted on all sun exposed areas Symmetric hyperpigmented macules/ papules throughout with regular pigment network on dermoscopy Small orta red papules throughout Assessment and Plan: Skin Exam 1. SKIN EXAM, SCREENING FOR CANCER Generalized Advised sun protection with broad-spectrum SPF 30+, wide brim hats, sun glasses, protective clothing, and seeking shade during the peak hours of sun 10am-4pm Return for regular skin checks as discussed. Sunscreen and sun protection reviewed. Should any areas change in size, shape or color, bleed or become tender, the patient will contact the office for evaluation sooner than their interval appointment. Patient expresses understanding and is agreeable to plan. 2. ORTA ANGIOMA (2) Chest (Upper Torso, Anterior), Generalized Bright red papule(s) Educated and reassured. Benign finding. 3. MULTIPLE JUDIT (more content not included)... [facility] 02-10-2025 History of Present illness Narrative NEW PATIENT OCTAVIO in Dermatology: 12/02/2020 Chief Complaint: Full Body Skin Check History of Present Illness: Meghan King is a 49 year old female who presents today for a full body skin check Dermatitis: Location: Bilateral cheeks Duration: Few months Symptoms: Redness, itching, bumps Current Treatment: None Past Treatment: None Pertinent History: History of skin cancer: No History of atypical nevi: No History of HIV/ Hepatitis C: No History of immunosuppression/organ transplant: No , planning , or : No Allergy to lidocaine/ epinephrine/ latex/ adhesive: No Defibrillator/ Pacer: No Pertinent Family Medical History: History of melanoma: No History of non melanoma skin cancer: Yes, Father-unsure of type Other family history (autoimmune, dermatologic, etc): Lupus -Paternal aunt Social History: History of severe sun clement: Yes 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 Swain-EF 55% Low HDL (under 40) 12/05/2014 Unspecified asthma(493.90) Vitamin D deficiency 12/05/2014 PAST SURGICAL HISTORY Procedure Laterality Date DELIVERY ONLY 03/20/2011 , low transverse DELIVERY+ CARE March 02, 2009 COLONOSCOPY FLX DX W/COLLJ SPEC WHEN PFRMD 06/16/2019 Colonoscopy ESOPHAGOGASTRODUODENOSCOPY TRANSORAL DIAGNOSTIC 09/02/2018 EGD LAPS SURG CHOLECYSTECTOMY W/CHOLANGIOGRAPHY 04/2015 in [facility]. PAST SURGICAL HISTORY OF wisdom teeth extraction Current Outpatient Medications on File Prior to Visit Medication Sig semaglutide (OZEMPIC) 2 mg/dose (8 mg/3 mL) pen injector Inject 2 mg subcutaneously one time a week. sertraline (ZOLOFT) 50 mg tablet TAKE 1 TABLET ONCE DAILY ketoconazole (NIZORAL) 2 % cream Apply 1 application to affected area once daily. Under breast rash triamcinolone acetonide (KENALOG) 0.1 % cream Apply to affected area two times a day as needed (under breast rash). semaglutide (OZEMPIC) 1 mg/dose (4 mg/3 mL) pen Inject 1 mg subcutaneously one time a week. Etonogestrel-Ethinyl Estradiol (NUVARING) 0.12-0.015 mg/24 hr vaginal ring Use 1 Each vaginally as directed. Insert vaginally and leave in place for 3 consecutive weeks, then remove and place a new ring and skip menses. ketoconazole (NIZORAL) 2 % shampoo Massage into damp scalp 3 times weekly. Allow to sit for 5 minutes prior to rinsing. cranberry fruit extract (CRANBERRY EXTRACT ORAL) Take [...] mouth once daily. No current facility-administered medications on file prior to visit. ROS: Skin as above. Physical Exam: Aguilar skin type: I The patient is a pleasant female in no apparent distress. Alert and oriented x 3. A skin exam performed of the Scalp, face, ears, neck, chest, back, abdomen, bilateral upper extremities, bilateral lower extremities, buttocks, hands, feet, nails and hair is significant for: Chest (Upper Torso, Anterior), Generalized Bright red papule(s) Scattered uniform brown macules/ papules with globular appearance on dermoscopy. Light brown well circumscribed macule(s) Head - Anterior (Face) Mild erythema with telangiectasias primarily to the central face. Swelling not present on exam. Densely scattered light haley macules noted on all sun exposed areas Symmetric hyperpigmented macules/ papules throughout with regular pigment network on dermoscopy Small orta red papules throughout Assessment and Plan: Skin Exam 1. SKIN EXAM, SCREENING FOR CANCER Generalized Advised sun protection with broad-spectrum SPF 30+, wide brim hats, sun glasses, protective clothing, and seeking shade during the peak hours of sun 10am-4pm Return for regular skin checks as discussed. Sunscreen and sun protection reviewed. Should any areas change in size, shape or color, bleed or become tender, the patient will contact the office for evaluation sooner than their interval appointment. Patient expresses understanding and is agreeable to plan. 2. ORTA ANGIOMA (2) Chest (Upper Torso, Anterior), Generalized Bright red papule(s) Educated and reassured. Benign finding. 3. MULTIPLE BENIGN NEVI Generalized Scattered uniform brown macules/ papules with globular appearance on dermoscopy. No treatment is needed for the benign appearing and asymptomatic lesions described above. The ABCDE (Asymmetry, Border, Color, Diameter, Evolution/ Change) criteria used to evaluate pigmented lesions were reviewed with the patient. Patient educated on sun protection: proper use of sunscreen, SPF 30+ and reapplication every 2 hours, sunglasses, sun hats and sun protective clothing (UPF). 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 Patient advised to perform self skin checks and to contact for follow up appointment if any new or concerning lesions detected. 4. SOLAR LENTIGO Generalized Light brown well circumscribed macule(s) Educated and reassured, benign finding secondary to cumulative sun exposure. 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 Patient advised to perform self skin checks and contact for follow up visit if any new, concerning or changing (size, shape, color) lesions detected. Patient expresses understanding and is agreeable to plan. 5. ROSACEA Head - Anterior (Face) Mild erythema with telangiectasias primarily to the central face. Swelling not present on exam. Chronic, Flaring , and Prescription Management Educated and reassured. Treatment options, risks, benefits and expectations reviewed. Start: -Metronidazole 0.75% twice daily Patients with rosacea have sensitive skin and often have trouble tolerating skin care products, cosmetics and topical medications. The skin on the face may be dry, rough and/ or scaly. Emollients help to repair and maintain cutaneous barrier function and may be useful in managing rosacea. Easy flushing is a common complaint in those with rosacea. Potential triggers for flushing should be avoided which may include: Extremes of temperature, sunlight, spicy foods, alcohol, exercise, acute psychological stressors, medications, menopausal hot flashes Cool compresses may be used to reduce flushing. Treatment includes but is not limited to prescription medications (topical and oral), avoidance of triggers, gentle skin care, sun protection. Related Medications metroNIDAZOLE (METROCREAM) 0.75 % cream Use twice daily to affected areas on face Follow up: 3 months and PRN The documentation for this note was completed by Lexi Oakley MA acting as scribe for Jen Spears PA-C. I agree with the Chief Complaint, ROS, and Past Histories independently gathered by the clinical senior technical support analyst and the remaining scribed note accurately describes my personal service to the patient. Jen Spears PA-C February 10, 2025 documented in this encounter [facility] 02-03-2025 Telephone encounter Note The patient has been identified by name and date of : Yes Caregiver verified no other encounters exist for this prescription request: Yes Caregiver confirmed with patient/requestor that no other refills are due, in the near future, with this provider at this time: Yes The last office visit in the department: 09/23/2024 Does the patient have a future office visit with this provider/department: 03/10/2025 Requested Prescriptions Pending Prescriptions Disp Refills semaglutide (OZEMPIC) 2 mg/dose (8 mg/3 mL) pen injector 3 mL 2 Sig: Inject 2 mg subcutaneously one time a week. Patient reports she is due for a dose tomorrow and doesn't have a full dose. Pharmacy has been requesting prescription. Notified patient that if we don't receive a call that we do not fill the request. Patient verbalizes understanding. Requested request be sent with priority. Melina Choudhury RN February 03, 2025 4:49 PM [facility] 02-03-2025 Miscellaneous Notes The patient has been identified by name and date of : Yes Caregiver verified no other encounters exist for this prescription request: Yes Caregiver confirmed with patient/requestor that no other refills are due, in the near future, with this provider at this time: Yes The last office visit in the department: 09/23/2024 Does the patient have a future office visit with this provider/department: 03/10/2025 Requested Prescriptions Pending Prescriptions Disp Refills semaglutide (OZEMPIC) 2 mg/dose (8 mg/3 mL) pen injector 3 mL 2 Sig: Inject 2 mg subcutaneously one time a week. Patient reports she is due for a dose tomorrow and doesn't have a full dose. Pharmacy has been requesting prescription. Notified patient that if we don't receive a call that we do not fill the request. Patient verbalizes understanding. Requested request be sent with priority. Melina Choudhury RN February 03, 2025 4:49 PM documented in this encounter [facility] 12-12-2024 Telephone encounter Note Prescription Refill Information The patient has been identified by name and date of : Yes Caregiver verified no other encounters exist for this prescription request: Yes Caregiver confirmed with patient/requestor that no other refills are due, in the near future, with this provider at this time: Yes The last office visit in the department: 09/23/24 Does the patient have a future office visit with this provider/department: Yes 03/10/25 Requested Prescriptions Pending Prescriptions Disp Refills sertraline (ZOLOFT) 50 mg tablet [Pharmacy Med Name: SERTRALINE TAB 50MG] 90 tablet 3 Sig: TAKE 1 TABLET ONCE DAILY Sara Jimenez LPN December 12, 2024 7:36 AM [facility] 12-12-2024 Miscellaneous Notes Prescription Refill Information The patient has been identified by name and date of : Yes Caregiver verified no other encounters exist for this prescription request: Yes Caregiver confirmed with patient/requestor that no other refills are due, in the near future, with this provider at this time: Yes The last office visit in the department: 09/23/24 Does the patient have a future office visit with this provider/department: Yes 03/10/25 Requested Prescriptions Pending Prescriptions Disp Refills sertraline (ZOLOFT) 50 mg tablet [Pharmacy Med Name: SERTRALINE TAB 50MG] 90 tablet 3 Sig: TAKE 1 TABLET ONCE DAILY Sara Jimenez LPN December 12, 2024 7:36 AM documented in this encounter [facility] 10-26-2024 Telephone encounter Note Pt. informed via My Chart. [facility] 10-26-2024 Miscellaneous Notes Pt. informed via My Chart. Please have her call the compounding pharmacy of [facility] in [place] to ask about pricing and if she is able to afford this for the Tirzepatide (generic for zepbound and mounjaro). This would be an option for alternative Jesus Manuel Worley DO Pt wrote into the office on 10/17/24 with concern about Ozempic no longer working for weight loss. Please review pt message and advise. Concepcion Delgado MA Pt message: Evan Worley! I ve been taking the maximum dose of compounded Ozempic for a few months, and it seems to not help me anymore. I m back to thinking about food constantly and have gained five pounds just since October 07. I m still working out 6-7 days per week. Is this normal? Should I try one of the other drugs like Mounjaro or Wegovy? Do the compounding pharmacies even make those? I m finally so close to a healthy weight, and I m so nervous that I m going to slip back into obesity. Thank you in advance for any help you can provide! -Meghan King documented in this encounter [facility] 10-26-2024 Telephone encounter Note Please have her call the compounding pharmacy of [facility] in [place] to ask about pricing and if she is able to afford this for the Tirzepatide (generic for zepbound and mounjaro). This would be an option for alternative Jesus Manuel Worley DO [facility] 10-19-2024 Telephone encounter Note Pt wrote into the office on 10/17/24 with concern about Ozempic no longer working for weight loss. Please review pt message and advise. Concepcion Delgado MA Pt message: Evan Worley! I ve been taking the maximum dose of compounded Ozempic for a few months, and it seems to not help me anymore. I m back to thinking about food constantly and have gained five pounds just since October 07. I m still working out 6-7 days per week. Is this normal? Should I try one of the other drugs like Mounjaro or Wegovy? Do the compounding pharmacies even make those? I m finally so close to a healthy weight, and I m so nervous that I m going to slip back into obesity. Thank you in advance for any help you can provide! -Meghan Rachele [facility] 10-19-2024 Telephone encounter Note Turned into TE and routed to PCP. Concepcion Delgado MA [facility] 10-19-2024 Miscellaneous Notes Turned into TE and routed to PCP. Concepcion Delgado MA documented in this encounter [facility] 10-12-2024 Telephone encounter Note Pt notified and verbalized understanding Kiarra Lazo MA [facility] 10-12-2024 Miscellaneous Notes Pt notified and verbalized understanding Kiarra Lazo MA Please let patient know that her labs were all normal and improved. Great work! Jesus Manuel Worley DO documented in this encounter [facility] 10-12-2024 Telephone encounter Note Please let patient know that her labs were all normal and improved. Great work! Jesus Manuel Worley DO [facility] 10-09-2024 Telephone encounter Note Pt informed Veronique Loyd MA [facility] 10-09-2024 Miscellaneous Notes Pt informed Veronique Loyd MA Orders placed Please let her know Jesus Manuel Worley DO Patient came in this morning stating that she had labs to get done. There are no orders in system. Please call patient and advise her as to what she is to do. Thank you Georgia Myers documented in this encounter [facility] 10-09-2024 Telephone encounter Note Orders placed Please let her know Jesus Manuel Worley DO [facility] 10-09-2024 Telephone encounter Note Patient came in this morning stating that she had labs to get done. There are no orders in system. Please call patient and advise her as to what she is to do. Thank you Georgia Myers [facility] 09-23-2024 Note HNO ID: [id number] Author: JESUS MANUEL WORLEY DO Service: ? Author Type: Physician Type: Progress Notes Filed: 09/23/2024 21:20 Note Text: CC: Meghan King is a 49 year old female who presents to the office for follow up HPI: IFG, obesity, dysmetabolic syndrome. Has been on semaglutide since Aug 2023 through [facility] to start and now through Compounding pharmacy in [place], [place], but not able to afford brand name medication. Was tolerating medication well without any SE, was able to control her appetite and overeating. Previously her weight in Sep 2023 was down from 202 lbs in May to a weight of 180 lbs. She would like to continue through our office with monitoring. She is exercising 5-6 days a week with strength training and Pilates mostly and has got her protein levels up to 70-100 grams a day. Does eat a vegetarian diet with a lot of beans and lentils and fiber foods. Mood, stable Her weight now is 163 lbs. Goal weight of 145 lbs. PAST MEDICAL HISTORY Diagnosis Date Allergy Seasonal and Environmental Allergies Depressive disorder, not elsewhere classified Diffuse cystic mastopathy History of echocardiogram 01/02/2021 at [facility]-Dr. Swain-EF 55% Low HDL (under 40) 12/05/2014 Unspecified asthma(493.90) Vitamin D deficiency 12/05/2014 PAST SURGICAL HISTORY Procedure Laterality Date DELIVERY ONLY 03/20/2011 , low transverse DELIVERY+ CARE March 02, 2009 COLONOSCOPY FLX DX W/COLLJ SPEC WHEN PFRMD 06/16/2019 Colonoscopy ESOPHAGOGASTRODUODENOSCOPY TRANSORAL DIAGNOSTIC 09/02/2018 EGD LAPS SURG CHOLECYSTECTOMY W/CHOLANGIOGRAPHY 04/2015 in [facility]. PAST SURGICAL HISTORY OF wisdom teeth extraction Current Outpatient Medications Medication Sig ketoconazole (NIZORAL) 2 % cream Apply 1 application to affected area once daily. Under breast rash triamcinolone acetonide (KENALOG) 0.1 % cream Apply to affected area two times a day as needed (under breast rash). semaglutide (OZEMPIC) 2 mg/dose (8 mg/3 mL) pen injector Inject 2 mg subcutaneously one time a week. semaglutide (OZEMPIC) 1 mg/dose (4 mg/3 mL) pen Inject 1 mg subcutaneously one time a week. sertraline [...] sit for 5 minutes prior to rinsing. cranberry fruit extract (CRANBERRY EXTRACT ORAL) Take [...] Never Smokeless tobacco: Never Vaping Use Vaping status: Never Used Substance Use Topics Alcohol use: No Drug use: No ROS: See HIP PE: BP 100/70 Pulse 80 Temp (Src) 97.8 (Left Tympanic) Resp 16 Wt 163 lb (73.9kg) LMP 02/13/2022 Gen: AANDOX3, NAD, non-toxic appearing HEENT: PERRLA, EOMs intact b/l, nares without drainage, pharynx without erythema, exudate, lesions, or drainage. Uvula midline. Neck: No LAD, no thyromegaly, no meningismus. CV: RRR, no murmur Lungs: CTA b/l, no wheezing Skin: intertriginous rash b/l under breasts Overweight Normal pulses No edema ASSESSMENT/PLAN: 1. Intertrigo - ICD9: 695.89, ICD10: L30.4 (primary diagnosis) rx prn use - KETOCONAZOLE 2 % TOPICAL CREAM - TRIAMCINOLONE ACETONIDE 0.1 % TOPICAL CREAM 2. IFG (impaired fasting glucose) - ICD9: 790.21, ICD10: R73.01 Diet controlled Continue weight loss process, she is tolerating GLP1 agonist well without SE to medication 3. Dysmetabolic syndrome - ICD9: 277.7, ICD10: E88.810 Diet controlled Continue weight loss process, she is tolerating GLP1 agonist well without SE to medication 4. Anxiety - ICD9: 300.00, ICD10: F41.9 stable 5. Overweight (BMI 25.0-2 (more content not included)... [facility] 09-23-2024 History of Present illness Narrative CC: Meghan King is a 49 year old female who presents to the office for follow up HPI: IFG, obesity, dysmetabolic syndrome. Has been on semaglutide since Aug 2023 through [employer] to start and now through Compounding pharmacy in [place], [place], but not able to afford brand name medication. Was tolerating medication well without any SE, was able to control her appetite and overeating. Previously her weight in Sep 2023 was down from 202 lbs in May to a weight of 180 lbs. She would like to continue through our office with monitoring. She is exercising 5-6 days a week with strength training and Pilates mostly and has got her protein levels up to 70-100 grams a day. Does eat a vegetarian diet with a lot of beans and lentils and fiber foods. Mood, stable Her weight now is 163 lbs. Goal weight of 145 lbs. PAST MEDICAL HISTORY Diagnosis Date Allergy Seasonal and Environmental Allergies Depressive disorder, not elsewhere classified Diffuse cystic mastopathy History of echocardiogram 01/02/2021 at [facility]-Dr. Swain-EF 55% Low HDL (under 40) 12/05/2014 Unspecified asthma(493.90) Vitamin D deficiency 12/05/2014 PAST SURGICAL HISTORY Procedure Laterality Date DELIVERY ONLY 03/20/2011 , low transverse DELIVERY+ CARE March 02, 2009 COLONOSCOPY FLX DX W/COLLJ SPEC WHEN PFRMD 06/16/2019 Colonoscopy ESOPHAGOGASTRODUODENOSCOPY TRANSORAL DIAGNOSTIC 09/02/2018 EGD LAPS SURG CHOLECYSTECTOMY W/CHOLANGIOGRAPHY 04/2015 in [facility]. PAST SURGICAL HISTORY OF wisdom teeth extraction Current Outpatient Medications Medication Sig ketoconazole (NIZORAL) 2 % cream Apply 1 application to affected area once daily. Under breast rash triamcinolone acetonide (KENALOG) 0.1 % cream Apply to affected area two times a day as needed (under breast rash). semaglutide (OZEMPIC) 2 mg/dose (8 mg/3 mL) pen injector Inject 2 mg subcutaneously one time a week. semaglutide (OZEMPIC) 1 mg/dose (4 mg/3 mL) pen Inject 1 mg subcutaneously one time a week. sertraline [...] sit for 5 minutes prior to rinsing. cranberry fruit extract (CRANBERRY EXTRACT ORAL) Take [...] Never Smokeless tobacco: Never Vaping Use Vaping status: Never Used Substance Use Topics Alcohol use: No Drug use: No ROS: See HIP PE: BP 100/70 Pulse 80 Temp (Src) 97.8 (Left Tympanic) Resp 16 Wt 163 lb (73.9kg) LMP 02/13/2022 Gen: A&OX3, NAD, non-toxic appearing HEENT: PERRLA, EOMs intact b/l, nares without drainage, pharynx without erythema, exudate, lesions, or drainage. Uvula midline. Neck: No LAD, no thyromegaly, no meningismus. CV: RRR, no murmur Lungs: CTA b/l, no wheezing Skin: intertriginous rash b/l under breasts Overweight Normal pulses No edema ASSESSMENT/PLAN: 1. Intertrigo - ICD9: 695.89, ICD10: L30.4 (primary diagnosis) rx prn use - KETOCONAZOLE 2 % TOPICAL CREAM - TRIAMCINOLONE ACETONIDE 0.1 % TOPICAL CREAM 2. IFG (impaired fasting glucose) - ICD9: 790.21, ICD10: R73.01 Diet controlled Continue weight loss process, she is tolerating GLP1 agonist well without SE to medication 3. Dysmetabolic syndrome - ICD9: 277.7, ICD10: E88.810 Diet controlled Continue weight loss process, she is tolerating GLP1 agonist well without SE to medication 4. Anxiety - ICD9: 300.00, ICD10: F41.9 stable 5. Overweight (BMI 25.0-29.9) - ICD9: 278.02, ICD10: E66.3 Diet controlled Continue weight loss process, she is tolerating GLP1 agonist well without SE to medication Jesus Manuel Worley DO Return if no improvement. Follow up with Jesus Manuel Worley DO. To ER if develops chest pain, shortness of breath. Discussed risks, benefits, alternatives, and potential side effects of medications. Patient/Guardian expressed understanding and agreed with the plan. See patient instructions. Jesus Manuel Worley DO [address] [place] [address] documented in this encounter [facility] 09-01-2024 Telephone encounter Note Form signed Pt. informed VM left. [facility] 09-01-2024 Miscellaneous Notes Form signed Pt. informed VM left. Patient calls to ask about form below. Patient reports needs to have it back as soon as possible to received discounted rates with [employer]. Per below, form is completed? Please advise and call patient back at [phone]. Melina Choudhury RN Form on your desk. This form was already signed Please make sure patient has received or has been faxed Jesus Manuel Worley DO Type of form: Wellness form Form received via walk in When form is completed, [facility] Form has been forwarded to Physician Desk: Dr. Jesus Manuel Sigala LPN documented in this encounter [facility] 08-31-2024 Telephone encounter Note Patient calls to ask about form below. Patient reports needs to have it back as soon as possible to received discounted rates with [employer]. Per below, form is completed? Please advise and call patient back at [phone]. Melina Choudhury RN [facility] 08-28-2024 Telephone encounter Note Form on your desk. [facility] 08-26-2024 Telephone encounter Note This form was already signed Please make sure patient has received or has been faxed Jesus Manuel Worley DO [facility] 08-24-2024 Telephone encounter Note Type of form: Wellness form Form received via walk in When form is completed, Fax form to [employer] listed. Form has been forwarded to Physician Desk: Dr. Jesus Manuel Sigala LPN [facility] 08-17-2024 Telephone encounter Note The following approved medication requests have been transmitted electronically. Requested Prescriptions Signed Prescriptions Disp Refills semaglutide (OZEMPIC) 2 mg/dose (8 mg/3 mL) pen injector 3 mL 2 Sig: Inject 2 mg subcutaneously one time a week. Authorizing Provider: FATOUMATA SCRUGGS PA-C [facility] 08-17-2024 Miscellaneous Notes The following approved medication requests have been transmitted electronically. Requested Prescriptions Signed Prescriptions Disp Refills semaglutide (OZEMPIC) 2 mg/dose (8 mg/3 mL) pen injector 3 mL 2 Sig: Inject 2 mg subcutaneously one time a week. Authorizing Provider: FATOUMATA SCRUGGS PA-C Patient calling and states that pharmacy had received order for semaglutide 1 mg. Patient asking if provider can send in prescription for semaglutide 2 mg? Patient would like to increase the dose. Please review and advise, Viola Narvaez, RN documented in this encounter [facility] 08-17-2024 Telephone encounter Note Patient calling and states that pharmacy had received order for semaglutide 1 mg. Patient asking if provider can send in prescription for semaglutide 2 mg? Patient would like to increase the dose. Please review and advise, Viola Narvaez RN [facility] 08-11-2024 Telephone encounter Note Please see pt MC message -- Pt currently taking 1mg. Please send increase dose to compounding pharmacy. Hello! I was wondering if I could increase my Ozempic dose to the next step up? Please let me know if you are okay with this. I order it through the compounding pharmacy in [place]. Thank you in advance! -Meghan King [facility] 08-11-2024 Miscellaneous Notes Please see pt MC message -- Pt currently taking 1mg. Please send increase dose to compounding pharmacy. Hello! I was wondering if I could increase my Ozempic dose to the next step up? Please let me know if you are okay with this. I order it through the compounding pharmacy in [place]. Thank you in advance! -Meghan King documented in this encounter [facility] 08-11-2024 Telephone encounter Note Turned into TE Veronique Loyd MA [facility] 08-11-2024 Miscellaneous Notes Turned into TE Veronique Loyd MA documented in this encounter [facility] 06-05-2024 Telephone encounter Note Pt informed via message Veronique Loyd MA [facility] 06-05-2024 Miscellaneous Notes Pt informed via message Veronique Loyd MA The following approved medication requests have been transmitted electronically. Requested Prescriptions Signed Prescriptions Disp Refills semaglutide (OZEMPIC) 1 mg/dose (4 mg/3 mL) pen 3 mL 2 Sig: Inject 1 mg subcutaneously one time a week. Authorizing Provider: JESUS MANUEL WORLEY Ordering User: BEATRIS CASE APRN.CNP Please see pt message. Pt currently taking 0.5mg. Veronique Loyd MA Hello! I m now using the compounding pharmacy in [place] for my Ozempic. When I met with Linh Mosley a few weeks ago, she said I could increase the strength of the Ozempic after the first month with this new pharmacy. I m going to need to order more soon. Could someone call in the prescription for the next increased dose? Thank you! documented in this encounter [facility] 06-05-2024 Telephone encounter Note The following approved medication requests have been transmitted electronically. Requested Prescriptions Signed Prescriptions Disp Refills semaglutide (OZEMPIC) 1 mg/dose (4 mg/3 mL) pen 3 mL 2 Sig: Inject 1 mg subcutaneously one time a week. Authorizing Provider: JESUS MANUEL WORLEY Ordering User: BEATRIS CASE APRN.RESOURCE CONSERVATION MANAGER [facility] 06-05-2024 Telephone encounter Note Please see pt message. Pt currently taking 0.5mg. NATHAN Baldwin! I m now using the compounding pharmacy in [place] for my Ozempic. When I met with Linh Dimitri a few weeks ago, she said I could increase the strength of the Ozempic after the first month with this new pharmacy. I m going to need to order more soon. Could someone call in the prescription for the next increased dose? Thank you! [facility] 06-05-2024 Telephone encounter Note Turned into TE Veronique Loyd MA [facility] 06-05-2024 Miscellaneous Notes Turned into TE Veronique Loyd MA documented in this encounter [facility] 05-05-2024 Miscellaneous Notes May 05, 2024 PID: [id number] Meghan King [address] [place] [id number] Dear Ms. King, We are pleased to inform you that the results of your recent breast imaging exam on 05/04/2024 are normal. Breast tissue can be either dense or not dense. Dense tissue makes it harder to find breast cancer on a mammogram and also raises the risk of developing breast cancer. Your breast tissue is not dense. Talk to your healthcare provider about breast density, risks for breast cancer, and your individual situation. Early detection of cancer is very important. We also understand recommendations regarding breast cancer screening are controversial. Please discuss with your primary care provider which strategy is best for you and whether a mammogram is right for you. Your imaging studies and report will be kept on file at [facility] as part of your permanent medical record and are available for your continuing care. Thank you for allowing us to help in meeting your health care needs. Sincerely, Dr. Collier Interpreting Radiologist [facility] (Normal over 40) documented in this encounter [facility] 05-05-2024 Note Formatting of this n ote might be different from the original. May 05, 2024 PID: [id number] Meghan King [address] [place] [id number] Dear Ms. King, We are pleased to inform you that the results of your recent breast imaging exam on 05/04/2024 are normal. Breast tissue can be either dense or not dense. Dense tissue makes it harder to find breast cancer on a mammogram and also raises the risk of developing breast cancer. Your breast tissue is not dense. Talk to your healthcare provider about breast density, risks for breast cancer, and your individual situation. Early detection of cancer is very important. We also understand recommendations regarding breast cancer screening are controversial. Please discuss with your primary care provider which strategy is best for you and whether a mammogram is right for you. Your imaging studies and report will be kept on file at [facility] as part of your permanent medical record and are available for your continuing care. Thank you for allowing us to help in meeting your health care needs. Sincerely, Dr. Collier Interpreting Radiologist [facility] (Normal over 40) [facility] 05-04-2024 History of Present illness Narrative Radiology Service Progress Note PATIENT NAME: Meghan King DATE OF SERVICE: May 04, 2024 TIME: 9:34 AM PATIENT IDENTITY VERIFICATION COMPLETED USING TWO (2) IDENTIFIERS: Name and Date of confirmed by patient verbally. FALL SCREENING: Has the patient had 2 falls in the last year or 1 fall with injury or currently using an Ambulatory Assistive Device (Walker, Cane, Wheelchair, Crutches, etc.)? No PATIENT GENDER DATA: Female. status: : No status: NO. PATIENT RELEVANT IMPLANT DATA REVIEWED: Not Applicable PATIENT PRESENTS WITH AN IMPLANTABLE OR ATTACHED PRODUCTION SUPPLY EQUIPMENT TENDER: No RADIOLOGY DEPARTMENT: Mammography PERIPHERAL IV DATA: Not applicable SIGNED BY: Carlos Charles May 04, 2024 9:34 AM documented in this encounter [facility] 04-24-2024 History of Present illness Narrative Chief Complaint Patient presents with: Follow Up: Ozempic HPI Meghan King is a 48 year old female who presents here today for Above Complaints. Meghan is an established patient of Dr. Worley, DO and myself. Appointment made today to discuss and explain how to use/dose ozempic injections weekly. Please refer to TE thread from 04/16. Pt is getting this medication from [place], [place] [facility] and confused on dosage to draw up. Goal weight of 150 lbs. Lost 5 lbs from last visit in March. Has always struggle with weight since her childhood -- this medications helps to curve her appetite and allow her to have a better perspective and relationship with food. Past medical history, appointments, medications, allergies reviewed. Previous Medical History PAST MEDICAL HISTORY Diagnosis Date Allergy Seasonal and Environmental Allergies Depressive disorder, not elsewhere classified Diffuse cystic mastopathy History of echocardiogram 01/02/2021 at [facility]-Dr. Swain-EF 55% Low HDL (under 40) 12/05/2014 Unspecified asthma(493.90) Vitamin D deficiency 12/05/2014 Previous Surgical History PAST SURGICAL HISTORY Procedure Laterality Date DELIVERY ONLY 03/20/2011 , low transverse DELIVERY+ CARE March 02, 2009 COLONOSCOPY FLX DX W/COLLJ SPEC WHEN PFRMD 06/16/2019 Colonoscopy ESOPHAGOGASTRODUODENOSCOPY TRANSORAL DIAGNOSTIC 09/02/2018 EGD LAPS SURG CHOLECYSTECTOMY W/CHOLANGIOGRAPHY 04/2015 in [facility]. PAST SURGICAL HISTORY OF wisdom teeth [...] mites, animal dander, mold Polymyxin B Unknown Current Medications Current Outpatient Medications on File Prior to Visit Medication Sig sertraline (ZOLOFT) 50 mg tablet Take 1 tablet by mouth once daily. semaglutide (OZEMPIC) 0.25 mg or 0.5 mg (2 mg/3 mL) pen Ordered through [facility] in [place], with B12 Etonogestrel-Ethinyl Estradiol (NUVARING) 0.12-0.015 mg/24 hr vaginal ring Use 1 Each vaginally as directed. Insert vaginally and leave in place for 3 consecutive weeks, then remove and place a new ring and skip menses. ketoconazole (NIZORAL) 2 % shampoo Massage into damp scalp 3 times weekly. Allow to sit for 5 minutes prior to rinsing. cranberry fruit extract (CRANBERRY EXTRACT ORAL) Take [...] mouth once daily. No current facility-administered medications on file prior to visit. Social History Social History Tobacco Use Smoking status: Never Smokeless tobacco: Never Vaping Use Vaping Use: Never used Substance Use Topics Alcohol use: No Drug use: No REVIEW OF SYSTEMS: as above Reviewed relevant PMHx, PSHx, Social Hx, current medications and allergies. Review of Symptoms REVIEW OF SYSTEMS See HPI. EXAM: BP 90/60 Pulse 64 Temp 36.1 C (97 F) (Temporal) Resp 16 Wt 78.5 kg (173 lb) LMP 02/13/2022 BMI 28.65 kg/m General Appearance: Well appearing, alert, in no acute distress, well-hydrated, well nourished.. Skin: Skin color, texture, turgor normal, no suspicious rashes or lesions. Head: Normocephalic, no masses, lesions, tenderness or abnormalities. Lungs: Lungs clear to auscultation. No wheezing, rhonchi, rales.. Heart: RRR without murmur, gallop, or rubs. No ectopy. Health Maintenance List Spirometry Never done Hepatitis C Screening Never done Hepatitis B Vaccine(1 of 3 - 19+ 3-dose series) Never done Colorectal Cancer Screening due on 2022 Mammogram Screening due on 04/29/2024 Influenza Vaccine(1) due on 06/07/2024 Annual PCP Team Chronic Disease Visit due on 03/17/2025 DTaP,Tdap,Td Vaccine(3 - Td or Tdap) due on 02/05/2027 Diabetes Screening due on 03/17/2027 Cervical Cancer Screening due on 03/13/2028 Lipid Screening due on 03/17/2029 HIV Screening Completed Covid-19 Vaccine Completed Pneumococcal Vaccine Completed HPV Vaccine Aged Out ASSESSMENT/PLAN: 1. Weight gain - ICD9: 783.1, ICD10: R63.5 Lengthy discussion about dosage of semaglutide based on mg, mL, and units. Switched compounding pharmacy [facility] cheaper and easier dosing instructions due to 0.2 mL dosage regardless of mg dosage change. Pt agreeable and understand dosing instructions now. Start 0.5 mg dosage weekly as instructed by Dr. Worley. - SEMAGLUTIDE 0.25 MG OR 0.5 MG (2 MG/3 ML) SUBCUTANEOUS PEN INJECTOR 2. Obesity, Class I, BMI 30-34.9 - ICD9: 278.00, ICD10: E66.9 See above. - SEMAGLUTIDE 0.25 MG OR 0.5 MG (2 MG/3 ML) SUBCUTANEOUS PEN INJECTOR 3. IFG (impaired fasting glucose) - ICD9: 790.21, ICD10: R73.01 See above. - SEMAGLUTIDE 0.25 MG OR 0.5 MG (2 MG/3 ML) SUBCUTANEOUS PEN INJECTOR RTO as scheduled, sooner if needed. Prescription instructions reviewed with patient as applicable. Potential red flag symptoms discussed with the patient. Reviewed appropriate action plan to take if red flag symptoms occur. Patient agreeable to treatment plan. Estefanía Dasilva APRN.RESOURCE CONSERVATION MANAGER [address] [place] [address] documented in this encounter [facility] 04-23-2024 Telephone encounter Note Pt informed. Reports dose is in units and ML. Has been taking .3ML for 1.5 months now. Pt scheduled to see AD 04/24 for ozempic follow up. Veronique Loyd MA [facility] 04-23-2024 Miscellaneous Notes Pt informed. Reports dose is in units and ML. Has been taking .3ML for 1.5 months now. Pt scheduled to see AD 04/24 for ozempic follow up. Veronique Loyd MA There should be no units. Dosage is either in mg or mL. 0.30mL is already more than 0.5 mg which is the dosage that Dr. Worley just recommended she increase to. The 0.5 mg is 0.25mL when using the [place] compound pharmacy. Therefore, she is taking this medication wrong and much more than as prescribed. We need appointment to clear all this up and explain how to take this. Thank you, Estefanía Mosley APRN.GRANT Pt informed. Reports she has been taking 0.30 units. Pt asking if she would be giving herself 2 inj with the increased dose? Says the syringe goes to .3ML? .5mg would be 20 units correct? Should only be one injection. Please send .5mg dose to pharmacy. Advised pt to come in for office visit to make sure she is taking correct dose? Veronique Loyd MA If she was taking semaglutide 0.25 mg once a week, then next dose up is 0.5 mg once a week Jesus Manuel Worley DO She was taking 0.25 bumped up to 0.30 not seeing much difference. What dose should she be on? Please load rx dose of what she is taking for me to send in Jesus Manuel Worley DO Phoned patient left message with notes from Dr Worley on patient voicemail. Patient will be calling back to see if new rx was sent to compounding pharmacy? Can not tell in the computer if was done? I would recommend that she stays at her current dosing of the prescription Jesus Manuel Worley DO Pt reports she is currently taking .3ml once weekly. Will send to J for her opinion. Veronique Loyd MA Please let patient know of the below and that I am not comfortable refilling this d/t pt unaware of current dosing and there is no way to ensure correcting dosing through the vials used at this pharmacy. Pt can wait for Dr. Worley opinion otherwise. Thank you, Estefanía Mosley APRN.RESOURCE CONSERVATION MANAGER Spoke with Floresita At [facility] in [place] she states it goes up after atleast every 4 weeks from .25ml to 0.1ml then to 0.2ml. Pt has been at her own mercy because she get s a vial so Floresita states she would be totally unsure of how much she is getting and is very unsafe. Please either call or have patient call to verify dosage she is on now because these dosages are not accurate. I am looking any [facility] in [place] paperwork and this still does not make sense. Thank you, Estefanía Mosley APRN.RESOURCE CONSERVATION MANAGER Called pt she doses not have her bottle with her right now. She states this is the semiglutide and she does not get prefilled pens she gets a vial and draws up on her own. States has been doing 4 weeks apart dosage adjustments. States we could call the hospital at [facility] pharmacy and get these doseages to verify. They are closed at this time . Will need to call tomorrow. Please clarify: these dosages do not make any sense. Ozempic dosages start at 0.25 mg. Also, please make pt aware that she needs to be on each dosage for at least 4 weeks before even considering increasing the dosage. Thank you, Estefanía Mosley APRN.GRANT Patient calling she increased her Ozempic a few weeks ago to 35 ml and now the Compounding pharmacy in [place] is asking for a new order with her increased dose. She had been using 25 ml was not having any results so upped to 30 ml then 35 ml. Aware PCP is out of the office. Please advise documented in this encounter [facility] 04-23-2024 Telephone encounter Note There should be no units. Dosage is either in mg or mL. 0.30mL is already more than 0.5 mg which is the dosage that Dr. Worley just recommended she increase to. The 0.5 mg is 0.25mL when using the [facility] pharmacy. Therefore, she is taking this medication wrong and much more than as prescribed. We need appointment to clear all this up and explain how to take this. Thank you, Estefanía Mosley APRN.RESOURCE CONSERVATION MANAGER [facility] 04-23-2024 Telephone encounter Note Pt informed. Reports she has been taking 0.30 units. Pt asking if she would be giving herself 2 inj with the increased dose? Says the syringe goes to .3ML? .5mg would be 20 units correct? Should only be one injection. Please send .5mg dose to pharmacy. Advised pt to come in for office visit to make sure she is taking correct dose? Veronique Loyd MA [facility] 04-22-2024 Telephone encounter Note If she was taking semaglutide 0.25 mg once a week, then next dose up is 0.5 mg once a week Jesus Manuel Worley DO T [facility] 04-21-2024 Telephone encounter Note She was taking 0.25 bumped up to 0.30 not seeing much difference. What dose should she be on? [facility] 04-20-2024 Telephone encounter Note Please load rx dose of what she is taking for me to send in Jesus Manuel Worley DO [facility] 04-20-2024 Telephone encounter Note Phoned patient left message with notes from Dr Worley on patient voicemail. Patient will be calling back to see if new rx was sent to compounding pharmacy? Can not tell in the computer if was done? [facility] 04-20-2024 Telephone encounter Note I would recommend that she stays at her current dosing of the prescription Jesus Manuel Worley DO [facility] 04-17-2024 Telephone encounter Note Pt reports she is currently taking .3ml once weekly. Will send to J for her opinion. Veronique Loyd MA [facility] 04-17-2024 Telephone encounter Note Please let patient know of the below and that I am not comfortable refilling this d/t pt unaware of current dosing and there is no way to ensure correcting dosing through the vials used at this pharmacy. Pt can wait for Dr. Worley opinion otherwise. Thank you, Estefanía Mosley APRN.RESOURCE CONSERVATION MANAGER [facility] 04-17-2024 Telephone encounter Note Spoke with [facility] pharmacy in [place] she states it goes up after atleast every 4 weeks from .25ml to 0.1ml then to 0.2ml. Pt has been at her own mercy because she get s a vial so Floresita states she would be totally unsure of how much she is getting and is very unsafe. [facility] 04-17-2024 Telephone encounter Note Please either call or have patient call to verify dosage she is on now because these dosages are not accurate. I am looking any [facility] in [place] paperwork and this still does not make sense. Thank you, Estefanía Mosley APRN.RESOURCE CONSERVATION MANAGER [facility] 04-16-2024 Telephone encounter Note Called pt she doses not have her bottle with her right now. She states this is the semiglutide and she does not get prefilled pens she gets a vial and draws up on her own. States has been doing 4 weeks apart dosage adjustments. States we could call the hospital at [facility] pharmacy and get these doseages to verify. They are closed at this time . Will need to call tomorrow. T [facility] 04-16-2024 Telephone encounter Note Please clarify: these dosages do not make any sense. Ozempic dosages start at 0.25 mg. Also, please make pt aware that she needs to be on each dosage for at least 4 weeks before even considering increasing the dosage. Thank you, Estefanía Mosley APRN.RESOURCE CONSERVATION MANAGER [facility] 04-16-2024 Telephone encounter Note Patient calling she increased her Ozempic a few weeks ago to 35 ml and now the Compounding pharmacy in [place] is asking for a new order with her increased dose. She had been using 25 ml was not having any results so upped to 30 ml then 35 ml. Aware PCP is out of the office. Please advise [facility] 03-26-2024 Telephone encounter Note [employer] message sent to pt notifying her of results below from Provider. Pt has reviewed labs in mychart already. Concepcion Delgado MA [facility] 03-26-2024 Miscellaneous Notes [employer] message sent to pt notifying her of results below from Provider. Pt has reviewed labs in mychart already. Concepcion Delgado MA Please inform patient that overall her labs look great, no concerns. No signs of menopause yet Jesus Manuel Worley DO documented in this encounter [facility] 03-25-2024 Telephone encounter Note Please inform patient that overall her labs look great, no concerns. No signs of menopause yet Jesus Manuel Worley DO [facility] 03-17-2024 History of Present illness Narrative CC: Meghan King is a 48 year old female who presents to the office for physical HPI: IFG, obesity, dysmetabolic syndrome. Has been on semaglutide since Aug 2023 through [employer]ODUCT [employer]ELOPMENT MANAGER to start and now through Compounding pharmacy in [place], [place], but not able to afford brand name medication. Was tolerating medication well without any SE, was able to control her appetite and overeating. Previously her weight in Sep 2023 was down from 202 lbs in May to a weight of 180 lbs. She would like to continue through our office with monitoring. She is exercising 5-6 days a week with strength training and Pilates mostly and has got her protein levels up to 70 grams a day. Does eat a vegetarian diet with a lot of beans and lentils and fiber foods. Mood, stable Scratchy throat, has had a lot of allergy symptoms with itching eyes and nasal congestion since February. Has been taking Cetirizine 10 mg a day. PAST MEDICAL HISTORY Diagnosis Date Allergy Seasonal and Environmental Allergies Depressive disorder, not elsewhere classified Diffuse cystic mastopathy History of echocardiogram 01/02/2021 at [facility]-Dr. Swain-EF 55% Low HDL (under 40) 12/05/2014 Unspecified asthma(493.90) Vitamin D deficiency 12/05/2014 PAST SURGICAL HISTORY Procedure Laterality Date DELIVERY ONLY 03/20/2011 , low transverse DELIVERY+ CARE March 02, 2009 COLONOSCOPY FLX DX W/COLLJ SPEC WHEN PFRMD 06/16/2019 Colonoscopy ESOPHAGOGASTRODUODENOSCOPY TRANSORAL DIAGNOSTIC 09/02/2018 EGD LAPS SURG CHOLECYSTECTOMY W/CHOLANGIOGRAPHY 04/2015 in [facility]. PAST SURGICAL HISTORY OF wisdom teeth [...] Cancer Other [facility] Current Outpatient prescriptions: sertraline (ZOLOFT) 50 mg tablet Take 1 tablet by mouth once daily. semaglutide (OZEMPIC) 0.25 mg or 0.5 mg (2 mg/3 mL) pen Ordered through [facility] in [place], with B12 Etonogestrel-Ethinyl Estradiol (NUVARING) 0.12-0.015 mg/24 hr vaginal ring Use 1 Each vaginally as directed. Insert vaginally and leave in place for 3 consecutive weeks, then remove and place a new ring and skip menses. promethazine (PHENERGAN) 25 mg tablet Take 1 tablet by mouth every 6 hours as needed. pantoprazole DR (PROTONIX) 40 mg tablet Take 1 tablet by mouth daily before breakfast. Take on empty stomach, 1/2 hr before meal. ketoconazole (NIZORAL) 2 % shampoo Massage into damp scalp 3 times weekly. Allow to sit for 5 minutes prior to rinsing. cranberry fruit extract (CRANBERRY EXTRACT ORAL) Take [...] you the emergency room after for observation. (Patient not taking: Reported on 02/07/2024) Cholecalciferol, Vitamin D3, 2,000 unit cap Take [...] mites, animal dander, mold Polymyxin B Unknown ROS: See HPI PE: 03/17/24 0831 BP: 100/60 Pulse: 64 Resp: 16 Temp: 36.2 C (97.1 F) TempSrc: Right Tympanic Weight: 80.7 kg (178 lb) Height: 165.5 cm (5' 5.16) Gen: A&O, NAD, non-toxic appearing, Pleasant, cooperative HEENT: NT/AC, PERRLA, EOMs intact b/l, nares clear and patent b/l, pharynx without erythema, exudate or lesions. Uvula midline. + clear PND, EACs without erythema or debris. TMs pearly diane with intact landmarks b/l. Neck: supple, No cervical LAD, no thyromegaly, no carotid bruits CV: RRR, normal S1 and S2, no murmurs, no gallops, no rubs, Pulses 2+ and symmetric in UE and LE b/l Lungs: normal respiratory effort, CTA b/l, no wheezing or rhonchi or rales Abd: soft, mild diastasis recti at umbilicus without obvious hernia, NT, ND, +BS, no hepatosplenomegaly MS: FROM all 4 extremities Neuro: CN II-XII intact b/l, strength 5/5 b/l UE and LE, DTRs 2/4 UE and LE, sensation intact. Skin: warm, dry, intact, No rashes or lesions on exposed skin. No edema, normal pulses ASSESSMENT/PLAN: 1. Well adult exam - ICD9: V70.0, ICD10: Z00.00 (primary diagnosis) - Counseled on healthy diet and regular exercise - Discussed need and benefit for weight loss. BMI 29.48 kg/(m^2) - COMPREHENSIVE METABOLIC PANEL - INSULIN ASSAY BLOOD - HEMOGLOBIN A1C - LIPID PANEL BASIC - THYROID STIMULATING HORMONE - T4 FREE/FREE THYROXINE - FOLLICLE STIMULATING HORMONE - COMPLETE BLOOD COUNT AND DIFFERENTIAL 2. Encounter for screening mammogram for malignant neoplasm of breast - ICD9: V76.12, ICD10: Z12.31 - Set up for mammogram, yearly mammogram recommended - Encouraged monthly BSE - Increase calcium intake with supplements or by diet (goal of 8271-6890 mg/day - Follow up for annual exam in one year. - WHITNEY SCREENING W LUAN 3. Perimenopausal disorder - ICD9: 627.9, ICD10: N95.9 - FOLLICLE STIMULATING HORMONE 4. Dyslipidemia - ICD9: 272.4, ICD10: E78.5 - Control undetermined, due for labs - Counseled on healthy diet and regular exercise - Discussed need for and benefit of weight loss. BMI 29.48 kg/(m^2) - COMPREHENSIVE METABOLIC PANEL - LIPID PANEL BASIC 5. IFG (impaired fasting glucose) - ICD9: 790.21, ICD10: R73.01 She is actively losing weight, her goal is in the 150s range - COMPREHENSIVE METABOLIC PANEL - INSULIN ASSAY BLOOD - HEMOGLOBIN A1C 6. Dysmetabolic syndrome - ICD9: 277.7, ICD10: E88.810 Continue semaglutide by injection, she is tolerating rx well. Will increase dose as prescribed. - COMPREHENSIVE METABOLIC PANEL - INSULIN ASSAY BLOOD - HEMOGLOBIN A1C Jesus Manuel Worley DO To ER if develops chest pain, shortness of breath, or severe worsening of symptoms. Discussed risks, benefits, alternatives, and potential side effects of medications. Patient expressed understanding and agreed with the plan. Jesus Manuel Worley DO [address] [place] [address] documented in this encounter [facility] 03-17-2024 Instructions Jesus Manuel Worley DO - 03/17/2024 9:44 AM EDT Start Nasonex or Nasacort - 2 sprays each nostril daily in the evening. documented in this encounter [facility] 02-12-2024 History of Present illness Narrative Program_ID:[id number] Access Code: [email or web address] URL: [email or web address] Date: 02-12-2024 Prepared By: Azul Delgado Program Notes Exercises - Supine Posterior Pelvic Tilt - 2 x daily - 7 x weekly - 4 sets - 10 reps - Standing Anti-Rotation Press with Anchored Resistance - 1 x daily - 7 x weekly - 2 sets - 10 reps - Stir the Pot - 1 x daily - 7 x weekly - 2 sets - 10 reps - Child's Pose with Sidebending - 1 x daily - 7 x weekly - 3 sets - 1 reps Episode Visit Count: 5 Therapist That Will Accept/Oversee The Plan Of Care: Azul Delgado Start of Care Date: 01/06/24 Onset Date: (for years) Plan of Care Certification Date: 02/12/24 Next Certification Due Date: 02/12/24 REHABILITATION AND SPORTS THERAPY PHYSICAL THERAPY DISCONTINUANCE OF CARE PLAN OF CARE UPDATE: Assessment: Meghan King is discontinued from Physical Therapy services due to maximal benefit.. Patient was seen for 5 visits from Start of Care Date: 01/06/24 to 02/12/2024 and treatment included: Therapeutic exercise, Neuromuscular re-education, and Self-long-term management. No specialty comments available. SUBJECTIVE: Pt. reports overall no improvement. The PPT is the most helpful exercise because she reports no pain while actively performing, but has difficulty maintaining this throughout the day with ADLs. Pain returns as soon as she is not activating the TA. She corrects her posture with prolonged standing, but this does not reduce the pain. She has no pain with walking or prolonged dynamic standing.. Functional Limitations: sitting, standing (pilates, neck pain 100 pose) Pain: Pain Pain Level: 4 Pain Location: Back Description: Aching Post Treatment Pain Post Treatment Pain Level: No Change Post Treatment Pain Location: Back PROMIS Scales 02/05/2024 01/04/2024 Higher is Better Phys Func - Score 51 (within normal limits) 51 (within normal limits) Phys Func - Percentile 54 54 Self-Eff Symptom - Score 58 (Average) 48 (Average) Self-Eff Symptom - Percentile 79 42 T-scores: mean of general population = 50. 5 points is clinically meaningfully difference Percentiles provide an indication of how the patient's score ranks in relation to the general population. Higher percentile rankings indicate better function/quality of life. 50th percentile is the average of the general population and indicates half of respondents had a worse score. OBJECTIVE MEASURES WITH LEVEL OF FUNCTION: Lumbar Spine AROM Lumbar Flexion: Normal Lumbar Extension: Normal Lumbar R Side [place]: Normal Lumbar L Side [place]: Normal Lumbar R Side-Bend: Normal Lumbar L Side-Bend: Normal Lumbar R Rotation: Normal Lumbar L Rotation: Normal TREATMENT: Therapeutic Exercise: 1: PPT 10 x 10 sec hold 2: PPT with BLE raise, CW and CCW circles 15 each, 4 sets (dc due to c/o low back pain) 3: *Access Code: [email or web address] URL: [email or web address] Date: 02/12/2024 Prepared by: Azul Massey\'Abraham Exercises - Supine Posterior Pelvic Tilt - 2 x daily - 7 x weekly - 4 sets - 10 reps - 10 hold - Standing Anti-Rotation Press with Anchored Resistance - 1 x daily - 7 x weekly - 2 sets - 10 reps - Stir the Pot - 1 x daily - 7 x weekly - 2 sets - 10 reps - Child's Pose with Sidebending - 1 x daily - 7 x weekly - 3 sets - 1 reps - 30 hold 4: pigeon pose 3x30 sec 5: seated QL stretch 3x30 sec each side Skilled Intervention: Patient was educated in proper exercise technique and purpose for exercises. Reviewed and educated patient on additions/changes for home exercise program as above (*). Skilled judgment was used in selection of appropriate interventions. Correct performance of therapeutic exercises was facilitated with verbal, visual, and tactile cuing. Educated patient on rationale for performing exercises in regards to decreasing fatigue , increase ease of ADL, and ROM and function . Patient education as noted. Self-Penitentiary Management: 1: discussed reasoning for progressing the PPT to 10 sec hold to improve TA endurance 2: encouraged pt. to make TA activation part of functional movements to avoid low back pain and when having difficulty with pain in prolonged sitting or standing 3: discussed that it is possible that pt. is exercising too much for too long of duration or too often. pt. reports that taking time off from exercise x 10 hours a week does not improve her symptoms 4: disucssed the QL and showed pictures of its location, discussed its name. Skilled Intervention: Skilled judgment in the selection of proper modification for activity of daily living/home management based on clinical presentation, deficits, and needs. Provided written instruction for activities of daily living techniques to facilitate proper performance and compliance. Reviewed patient specific diagnosis in relation to activities of daily living/home management. Activity progression based on professional judgement. Moderate verbal cues for maintaining neutral spine alignment. Provided written instruction for home program to facilitate proper performance and compliance. Correct performance of home program was facilitated with verbal, visual, and tactile cueing. Billing Therapeutic Exercise Treatment Minutes: 30 Self-Care/Home Management Treatment Minutes: 10 Skilled Treatment Time Minutes (timed and untimed codes): 40 Total Session Time (minutes): 40 Session Start Time : 1630 Session Stop Time : 1710 Azul Delgado PT documented in this encounter [facility] 02-07-2024 History of Present illness Narrative Patient presents with: Eye Problem: X1 day itchy and watery HPI: Feeling left eye irritation today. Positive symptoms: feels a hard spot in the left lower eyelid, mucoid discharge, Negative symptoms: Cough, Sore throat, Nasal Congestion, Rhinorrhea, Fever, vision changes, photophobia, OTC: removed mucus with a swab MEDICATIONS: Current Outpatient Medications Medication Sig sertraline (ZOLOFT) 50 mg tablet Take 1 tablet by mouth once daily. semaglutide (OZEMPIC) 0.25 mg or 0.5 mg (2 mg/3 mL) pen Ordered through [facility] in [place], with B12 Etonogestrel-Ethinyl Estradiol (NUVARING) 0.12-0.015 mg/24 hr vaginal ring Use 1 Each vaginally as directed. Insert vaginally and leave in place for 3 consecutive weeks, then remove and place a new ring and skip menses. promethazine (PHENERGAN) 25 mg tablet Take 1 tablet by mouth every 6 hours as needed. pantoprazole DR (PROTONIX) 40 mg tablet Take 1 tablet by mouth daily before breakfast. Take on empty stomach, 1/2 hr before meal. ketoconazole (NIZORAL) 2 % shampoo Massage into damp scalp 3 times weekly. Allow to sit for 5 minutes prior to rinsing. cranberry fruit extract (CRANBERRY EXTRACT ORAL) Take [...] you the emergency room after for observation. (Patient not taking: Reported on 02/07/2024) No current facility-administered medications for this visit. ALLERGIES: ALLERGIES Allergen Reactions Keflex [Cephalexin] Rash Type [...] mites, animal dander, mold Polymyxin B Unknown VITALS: BP 132/80 Pulse 65 Temp 37.2 C (98.9 F) Resp 16 Wt 81 kg (178 lb 9.2 oz) LMP 02/13/2022 SpO2 98% BMI 29.75 kg/m PHYSICAL EXAM: GEN: Pleasant, in no acute distress. HEENT: PERRL, EOMI, conjunctiva clear, pinpoint pustule left lower eyelid at the lid margin, scant mucoid discharge left eye. Neck: supple, no thyromegaly, no lymphadenopathy ASSESSMENT/PLAN: 1. Hordeolum externum of left lower eyelid - ICD9: 373.11, ICD10: H00.015 Treat with warm compress. - OFLOXACIN 0.3 % EYE DROPS (may go without due to past issues with antibiotics). Follow up with television news reporter if not improving after 1 week. Kenyon Gar MD documented in this encounter [facility] 02-05-2024 History of Present illness Narrative Episode Visit Count: 4 Therapist That Will Accept/Oversee The Plan Of Care: Azul Delgado Start of Care Date: 01/06/24 Onset Date: (for years) Plan of Care Certification Date: 01/06/24 Next Certification Due Date: 02/10/24 Patient Identified by Name and Date of : Yes REHABILITATION AND SPORTS THERAPY PHYSICAL THERAPY TREATMENT NOTE ASSESSMENT: Meghan King tolerated the session with fatigue, decreased symptoms, and expected muscle soreness. She demonstrated improvements in LBP with lumbar flexion. The patient will continue to benefit from ongoing skilled physical therapy to progress toward set goals. PLAN FOR NEXT VISIT: PN SUBJECTIVE: Pt reports that she has the usual back pain today. Pt states very , brief intermittent relief with back pain, never prolonged period. Pt states that she tightnes the core while driving and with exercise, but if she doesn't think of it she is not tightening the core during ADL's. 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 do to help her back Pain: Pain Pain Level: 4 Pain Location: Back Description: Aching Post Treatment Pain Post Treatment Pain Level: Better Post Treatment Pain Location: Back OBJECTIVE MEASURES WITH LEVEL OF FUNCTION: Form observed throughout session TREATMENT: Therapeutic Exercise: 1: Prone lying x 3 mintues 2: PETER x 2 minutes, 45 seconds (pt stated, it's making my back pain worse) 3: SKTC 1x30 seconds R , with no change 4: SKTC 3x30 seconds LLE (felt good on my back) 5: DKTC 3x30 seconds (SKTC and DKTC felt good initially, but after doing them, started to feel worse) 6: LTR x 10 B 7: Child's pose 3x30 seconds Skilled Intervention: Patient was educated in proper exercise technique and purpose for exercises. Skilled judgment was used in selection of appropriate interventions. Correct performance of therapeutic exercises was facilitated with verbal and visual cuing. Neuromuscular Re-Education: 1: Seated on 85 cm physioball, Stir the Pot CW and CCW with PurpleTB 2x10 facing each direction 2: Seated on 85 cm physioball, Pallof's press with PurpleTB 2x10 facing each direction Skilled Intervention: Skilled judgment used to assess appropriate program for balance and coordination activity. Billing Therapeutic Exercise Treatment Minutes: 36 Neuromuscular Re-Education Treatment Minutes: 12 Skilled Treatment Time Minutes (timed and untimed codes): 48 Total Session Time (minutes): 48 Session Start Time : 1800 Session Stop Time : 1848 Julia Poe PTA Azul Delgado PT documented in this encounter [facility] 01-29-2024 History of Present illness Narrative Episode Visit Count: 3 Therapist That Will Accept/Oversee The Plan Of Care: Azul Delgado Start of Care Date: 01/06/24 Onset Date: (for years) Plan of Care Certification Date: 01/06/24 Next Certification Due Date: 02/10/24 REHABILITATION AND SPORTS THERAPY PHYSICAL THERAPY TREATMENT NOTE ASSESSMENT: Meghan King tolerated the session with decreased symptoms. She demonstrated improvements in resolved neck pain and reporting only minimal tinging tingling in the L hand . The patient will continue to benefit from ongoing skilled physical therapy to progress toward set goals. PLAN FOR NEXT VISIT: inquire about pt. ability to maintain TA activation with ADLs SUBJECTIVE: Pt. continues to have LBP. She reports reduced low Pain: Pain Pain Level: 3 Pain Location: Back Description: Aching Post Treatment Pain Post Treatment Pain Level: 2 Post Treatment Pain Location: Back OBJECTIVE MEASURES WITH LEVEL OF FUNCTION: TREATMENT: Therapeutic Exercise: Skilled Intervention: Patient was educated in proper exercise technique and purpose for exercises. Skilled judgment was used in selection of appropriate interventions. Provided written instruction for home exercise program to facilitate proper performance and compliance. Correct performance of therapeutic exercises was facilitated with verbal, visual, and tactile cuing. Educated patient on rationale for performing exercises in regards to decreasing fatigue , increase ease of ADL, and ROM and function . Patient education as noted. Billing Therapeutic Exercise Treatment Minutes: 15 Self-Care/Home Management Treatment Minutes: 25 Skilled Treatment Time Minutes (timed and untimed codes): 40 Total Session Time (minutes): 40 Session Start Time : 171 Session Stop Time : 175 Azul Delgado PT documented in this encounter [facility] 01-22-2024 History of Present illness Narrative Program_ID:[id number] Access Code: [email or web address] URL: [email or web address] Date: 01-22-2024 Prepared By: Azul Delgado Program Notes Exercises - Supine Posterior Pelvic Tilt - 2 x daily - 7 x weekly - 4 sets - 10 reps - Standing Anti-Rotation Press with Anchored Resistance - 1 x daily - 7 x weekly - 2 sets - 10 reps - Stir the Pot - 1 x daily - 7 x weekly - 2 sets - 10 reps Episode Visit Count: 2 Therapist That Will Accept/Oversee The Plan Of Care: Azul Delgado Start of Care Date: 01/06/24 Onset Date: (for years) Plan of Care Certification Date: 01/06/24 Next Certification Due Date: 02/10/24 Patient Identified by Name and Date of : Yes REHABILITATION AND SPORTS THERAPY PHYSICAL THERAPY TREATMENT NOTE ASSESSMENT: Meghan King tolerated the session with fatigue, decreased symptoms, and expected muscle soreness. She demonstrated improvements in pain with movement . The patient will continue to benefit from ongoing skilled physical therapy to progress toward set goals. PLAN FOR NEXT VISIT: Consider half kneeling with Pallof's press and stir the Pot or use of physioball for core strengthening. SUBJECTIVE: Pt reports that her back is nto feeling good today. States that she has been doing her HEP, states proably a lot more than she should. Pain: Pain Pain Level: 4 Pain Location: Back Description: Aching Post Treatment Pain Post Treatment Pain Level: 2 (pain decreased to .5/10 while performing exercises, but elevated once exercises stopped.) Post Treatment Pain Location: Back OBJECTIVE MEASURES WITH LEVEL OF FUNCTION: Form observed throughout session. TREATMENT: Therapeutic Exercise: 1: Hooklying PPT 2x10 2: Hooklying PPT with alt LE marching 2x10 B 3: Hooklying PPT with alt LE slides 2x10 B 4: Bridges 2x10 5: Bridges with BLE elevated on 65 cm physioball x10 6: SL bridge on 65 cm physioball x10 B 7: Bird dogs 2x10 B 8: *Pallof's press with GTB 1x10 facing each direction, then 1x10 with BTB facing each direction, then 1x10 with Purple TB 9: *Stir the Pot with Purple theraband 2x10 CW and CCW Skilled Intervention: Patient was educated in proper exercise technique and purpose for exercises. Reviewed and educated patient on additions/changes for home exercise program as above (*). Skilled judgment was used in selection of appropriate interventions. Provided written instruction for home exercise program to facilitate proper performance and compliance. Correct performance of therapeutic exercises was facilitated with verbal and visual cuing. Billing Therapeutic Exercise Treatment Minutes: 43 Skilled Treatment Time Minutes (timed and untimed codes): 43 Total Session Time (minutes): 43 Session Start Time : 1717 Session Stop Time : 1800 TJ Brian PT documented in this encounter [facility] 01-06-2024 History of Present illness Narrative Program_ID:[id number] Access Code: [email or web address] URL: [email or web address] Date: 01-06-2024 Prepared By: Azul Delgado Program Notes Exercises - Supine Posterior Pelvic Tilt - 2 x daily - 7 x weekly - 4 sets - 10 reps Episode Visit Count: 1 Therapist That Will Accept/Oversee The Plan Of Care: Azul Delgado Start of Care Date: 01/06/24 Onset Date: (for years) Plan of Care Certification Date: 01/06/24 Next Certification Due Date: 02/10/24 Patient Identified by Name and Date of : Yes REHABILITATION AND SPORTS THERAPY PHYSICAL THERAPY EVALUATION PLAN OF CARE: Assessment: Meghan King presents with diagnosis of chronic midline low back pain without sciatica that interferes with walking, sitting, bending (pilates, neck pain 100 pose) . She presents with impairments in ADL's, balance, flexibility, gait, independence in exercise, joint mobility, overall function, patient reported outcome measures, posture, range of motion, strength, stress management, and symptom management. PROMIS (Patient-Reported Outcomes Measurement Information System) scores were reviewed and identified as a rehabilitation concern. Prognosis for therapy is Good due to: current objective clinical presentation, acuteness of condition, positive past response to therapy, within-session changes, good overall health status . She will benefit from skilled therapy services to meet the goals established for this plan of care as noted below. Classification Low Back Pain Classification: Movement Control Goals for Episode of Care: created on 01/06/24 through 02/10/24 Independent in home exercises. Patient will decrease pain rating by 2 points to meet minimal clinical important difference for numeric pain rating scale. Restore pain-free lumbar ROM to no limitation active flexion without increased pain to allow for donning and doffing clothing Stand / Walk 2-4 hours without increased pain/symptoms. Sleep through night without pain/symptoms. Maintain proper sitting posture throughout session Patient will be able to tolerate work activities for 4-6 hours without increased symptoms. Planned Interventions, Frequency, and Duration: Current Frequency: 1x/week Duration: 4 weeks Total Number of Visits Planned: 4 Planned Treatment Interventions: Therapeutic exercise (52719), Neuromuscular re-education (04834), Manual therapy (42138), Therapeutic activities (32328), Self-long-term management (36170), Gait Training (61037) PLAN FOR NEXT VISIT: assess pt. a bility to relax the shoulders and neck with hook lying PPT Patient demonstrates good understanding of plan of care and treatment. The above goals and plan of care were discussed and agreed upon by patient/family. SUBJECTIVE: for chronic low back pain that is on and off, mostly on for years. Pt. reports 6x week working out barre, pilates, and other strengthening classes. Pt. has lost weight and reports that this has not reduced her symptoms. Pt. has neck pain with trying to engage her core Functional Limitations: walking, sitting, bending (pilates, neck pain 100 pose) Prior Level of Function: Independent without limitations Relevant History Past Relevant Medical Conditions: Depression Intake Information: Prescription present Previous Treatment: Physical Therapy , Chiropractor Falls Interview: No positive findings with falls interview Red Flags Vertebral Fracture Red Flags: Female Vertebral Fracture Clinical Reasoning: Proceed with caution due to the above (1-2) risk factors Abdominal Aortic Aneurysm Clinical Reasoning: No identified risk factors. Cancer Clinical Reasoning: No identified risk factors. Infection Clinical Reasoning: No identified risk factors. Cauda Equina Syndrome Clinical Reasoning: No identified risk factors. Red Flags - Cervical Cancer Clinical Reasoning: No identified risk factors. Infection Clinical Reasoning: No identified risk factors. Spine History Symptoms Location at Onset: Back Symptoms Since Onset: Unchanging Pain is Worse Always: Bending, Standing Pain is Better Always: No position Pain: Pain Pain Level: 0 Pain Location: Back Description: Aching Post Treatment Pain Post Treatment Pain Level: No Change Post Treatment Pain Location: Back PROMIS Scales 01/04/2024 Higher is Better Phys Func - Score 51 (within normal limits) Phys Func - Percentile 54 Self-Eff Symptom - Score 48 (Average) Self-Eff Symptom - Percentile 42 T-scores: mean of general population = 50. 5 points is clinically meaningfully difference Percentiles provide an indication of how the patient's score ranks in relation to the general population. Higher percentile rankings indicate better function/quality of life. 50th percentile is the average of the general population and indicates half of respondents had a worse score. OBJECTIVE MEASURES WITH LEVEL OF FUNCTION: Sensation - Lumbar Sensation: Grossly Intact Lumbar Spine AROM Lumbar Flexion: Normal Lumbar Extension: Normal Lumbar R Side [place]: Normal Lumbar L Side [place]: Normal Lumbar R Side-Bend: Normal Lumbar L Side-Bend: Normal Lumbar R Rotation: Normal Lumbar L Rotation: Normal Education: Education Learning Preferences: Demonstration, Explanation, Printed Materials, Performance Barriers: Emotions Learning/educational needs: Plan of Care Education Provided: Yes, see treatment interventions for education provided Education Provided To: Patient Education Mode/Type: Demonstration, Explanation/Discussion, Literature/Printed Materials, Performance Response to Education/Teach Back: Return Demonstration, States/Identifies TREATMENT: PT Treatment Interventions: Therapeutic Exercise, Self-Penitentiary Management Evaluation Therapeutic Exercise: 1: *Access Code: [email or web address] URL: [email or web address] Date: 01/06/2024 Prepared by: Azul Connolly Exercises - Supine Posterior Pelvic Tilt - 2 x daily - 7 x weekly - 4 sets - 10 reps (emphasis on avoiding neck and shoulder guarding) 2: pilates 100 - 50 reps (while maintaining a cervical retraction to neutral rather than protraction/extension) Skilled Intervention: Patient was educated in proper exercise technique and purpose for exercises. Skilled judgment was used in selection of appropriate interventions. Provided written instruction for home exercise program to facilitate proper performance and compliance. Correct performance of therapeutic exercises was facilitated with verbal, visual, and tactile cuing. Educated patient on rationale for performing exercises in regards to decreasing fatigue , increase ease of ADL, and ROM and function . Patient education as noted. Self-Penitentiary Management: 1: *at length discussed the corrlation between stress and LBP 2: *discussed that pt. demonstrates good TA activation evidenced by biofeedback- however demosntrates some compensation at the shoulders and neck 3: *discussed that nutrition concerns and pt. concerns with regards to her skin should be addressed with physician Skilled Intervention: Skilled judgment in the selection of proper modification for activity of daily living/home management based on clinical presentation, deficits, and needs. Physical assistance was provided during education for modifications and patient safety. Provided written instruction for activities of daily living techniques to facilitate proper performance and compliance. Reviewed patient specific diagnosis in relation to activities of daily living/home management. Activity progression based on professional judgement. Correct performance of home program was facilitated with verbal, visual, and tactile cueing. Billing * Evaluation Low Complexity: 1 Unit Therapeutic Exercise Treatment Minutes: 10 Self-Care/Home Management Treatment Minutes: 15 Skilled Treatment Time Minutes (timed and untimed codes): 45 Total Session Time (minutes): 45 Session Start Time : 1100 Session Stop Time : 1145 Azul Delgado PT documented in this encounter [facility] 12-30-2023 Miscellaneous Notes Patient has been identified by name and date of : Yes, Provider Dr. Worley Date 12/30/23 Time 4:31 Patient phones for refill(s): Requested Prescriptions Pending Prescriptions Disp Refills sertraline (ZOLOFT) 50 mg tablet 90 tablet 3 Sig: Take 1 tablet by mouth once daily. Date of last office visit in primary care: 10/08/2023 Date of next office visit in primary care: 03/17/2024 Please advise. Thank you. Heide Martin LPN. documented in this encounter [facility] 12-06-2023 Miscellaneous Notes Left Detailed voice mail on identified voice mail message regarding prescription sent and provider recommendations. Advised patient to call back if patient has any questions. Left message to return call Veronique Loyd Increase dose of ozempic is sent to pharmacy. The following approved medication requests have been transmitted electronically. Requested Prescriptions Signed Prescriptions Disp Refills semaglutide (OZEMPIC) 0.25 mg or 0.5 mg (2 mg/3 mL) pen 3 mL 0 Sig: Inject 0.5 mg subcutaneously one time a week. Authorizing Provider: ESTEFANÍA MOSLEY Pt should be seen in office first for low back pain and most likely get imagining prior to referral to PT. Thank you, Estefanía Mosley APRN.RESOURCE CONSERVATION MANAGER [facility] message turned into TE. Hi Dr. Worley, 1. Could you increase my Ozempic dose up to the next step? 2. Could I get a physical therapy referral? I ve been taking Pilates classes and have been struggling with low back pain when I try to use proper form. The Pilates teacher suggested that physical therapy might help. She suggested working with someone who can help with pelvic floor issues, since that s related to core strength. Do you agree that this would be a good idea? Thank you in advance for your help! -Meghan Barreto MA documented in this encounter [facility] 10-05-2023 Hospital Discharge instructions Additional Instructions As discussed, please follow-up with Dr. Worley in 1 to 2 weeks to have repeat liver testing performed. [facility] Work Phone: 09-16-2023 History of Present illness Narrative CC: Meghan King is a 48 year old female who presents to the office for follow up HPI: IFG, obesity, dysmetabolic syndrome. Has been on ozempic x 1 month through PRODUCT DEVELOPMENT MANAGER but not able to afford brand name [...] cystic mastopathy History of echocardiogram 01/02/2021 at [facility]-Dr. Swain-EF 55% Low HDL (under 40) 12/05/2014 Unspecified asthma(493.90) Vitamin D deficiency 12/05/2014 PAST SURGICAL HISTORY Procedure Laterality Date DELIVERY ONLY 03/20/2011 , low transverse DELIVERY+ CARE March 02, 2009 COLONOSCOPY FLX DX W/COLLJ SPEC WHEN PFRMD 06/16/2019 Colonoscopy ESOPHAGOGASTRODUODENOSCOPY TRANSORAL DIAGNOSTIC 09/02/2018 EGD LAPS SURG CHOLECYSTECTOMY W/CHOLANGIOGRAPHY 04/2015 in [facility]. PAST SURGICAL HISTORY OF wisdom teeth [...] well with this. Will continue rx through [facility]- she is agreeable and she is aware of possible SE with medication 2. Seborrheic dermatitis - ICD9: 690.10, ICD10: L21.9 - KETOCONAZOLE 2 % SHAMPOO 3. Perimenopausal - ICD9: 627.2, ICD10: N95.1 - diet controlled, has been taking semaglutide medication through [facility] and doing well with this. Will continue rx through [facility]- she is agreeable and she is [...] controlled, has been taking semaglutide medication through [facility] and doing well with this. Will continue rx through [facility]- she is agreeable and she is aware of possible SE with medication 6. Dysmetabolic syndrome - ICD9: 277.7, ICD10: E88.810 - diet controlled, has been taking semaglutide medication through [facility] and doing well with this. Will continue rx through [email or web address]- she is agreeable and she is aware of possible SE with medication Jesus Manuel Worley DO Return if no improvement. Follow up with Jesus Manuel Worley DO. To ER if develops chest pain, shortness of breath. Discussed risks, benefits, alternatives, and potential side effects of medications. Patient/Guardian expressed understanding and agreed with the plan. See patient instructions. Jesus Manuel Worley DO [address] [place] [address] documented in this encounter [facility] 07-20-2023 Miscellaneous Notes Patient notified of results, verbalized understanding of instructions given. Yvonne Sharpe MA ----- Message from Gabriela Tristan APRN.RESOURCE CONSERVATION MANAGER sent at 07/20/2023 1:17 PM EDT ----- Urine culture did not show clear evidence of infection, however it appears sample may have been contaminated with skin bacteria during collection. She may continue to take antibiotic if it has been helpful. Recommend follow up with PCP to ensure hematuria has resolved. Gabriela Tristan CNP documented in this encounter [facility] 07-19-2023 History of Present illness Narrative Subjective UTI Associated symptoms include chills, nausea, frequency and urgency. Pertinent negatives include no vomiting, no hematuria and no flank pain. Meghan King is a 48 year old female who [...] cystic mastopathy History of echocardiogram 01/02/2021 at [facility]-Dr. Swain-EF 55% Low HDL (under 40) 12/05/2014 Unspecified asthma(493.90) Vitamin D deficiency 12/05/2014 PAST SURGICAL HISTORY Procedure Laterality Date DELIVERY ONLY 03/20/2011 , low transverse DELIVERY+ CARE March 02, 2009 COLONOSCOPY FLX DX W/COLLJ SPEC WHEN PFRMD 06/16/2019 Colonoscopy ESOPHAGOGASTRODUODENOSCOPY TRANSORAL DIAGNOSTIC 09/02/2018 EGD LAPS SURG CHOLECYSTECTOMY W/CHOLANGIOGRAPHY 04/2015 in [facility]. PAST SURGICAL HISTORY OF wisdom teeth extraction ALLERGIES Keflex [Cephalexin], Neosporin [Pkjrifxs-Rlbaamhxpc-Hievepudv], Azithromycin, Bacitracin, Bicitra [Sodium Citrate-Citric Acid], Citric [...] Gabriela Tristan APRN.CNP documented in this encounter [facility] 07-19-2023 Instructions Gabriela Tristan APRN.CNP - 07/19/2023 [...] Discussed expected course of illness Gabriela Tristan APRN.[facility] PATIENT INFO BLADDER INFECTION OVERVIEW Bladder infections [...] have an infection. documented in this encounter [facility] 07-01-2023 History of Present illness Narrative Radiology Service Progress Note PATIENT NAME: Meghan King DATE OF SERVICE: July 01, 2023 TIME: [...] 2023 4:47 PM documented in this encounter [facility] 06-26-2023 Miscellaneous Notes Octavio--05/22/23 Nov--09/16/23 Last review--05/22/23 3ml with 0 refills Last labs--08/09/22 documented in this encounter [facility] 06-23-2023 Miscellaneous Notes Returned page at 2:25 [...] worsen. 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 Patient was advised that [facility] do not include eye exams in their scope of service. Patient was conferenced to [place] operator assistant i cementing, Fiona, to speak to Ophthalmology vocational training teacher and was advised to call back for [...] LMP unknown; is perimenopausal Protocols used: Eye Cvilec-[id number] documented in this encounter [facility] 05-22-2023 Miscellaneous Notes Electronic PA completed for ozempic. This was denied. It note it could be covered with dx of diabetes. At this time pt does not meet criteria for ozempic. documented in this encounter [facility] 05-22-2023 Miscellaneous Notes Called pt gave information below she voices understanding Will call and find out. Is she able to continue to use coupon monthly? If not, have her call insurance company to see if mounjaro or wegovy will be covered. Thank you, Estefanía Mosley APRN.RESOURCE CONSERVATION MANAGER Patient calls and states that she picked up her first dose Ozempic today and used coupon. Patient reports that she has already given herself first dose. Patient states that she was contacted by pharmacy via email that insurance will not cover future prescriptions. Patient asking what she should do now? Please review and advise, Viola Narvaez RN documented in this encounter [facility] 05-22-2023 Nurse Note Pt received her pneumonvax 20 as ordered . Tolerated well. documented in this encounter [facility] 05-22-2023 History of Present illness Narrative Chief Complaint Patient presents with: Discussion: About meds an fibroids HPI Meghan King is a 47 year old female who [...] cystic mastopathy History of echocardiogram 01/02/2021 at [facility]-Dr. Swain-EF 55% Low HDL (under 40) 12/05/2014 Unspecified asthma(493.90) Vitamin D deficiency 12/05/2014 Previous Surgical History PAST SURGICAL HISTORY Procedure Laterality Date DELIVERY ONLY 03/20/2011 , low transverse DELIVERY+ CARE March 02, 2009 COLONOSCOPY FLX DX W/COLLJ SPEC WHEN PFRMD 06/16/2019 Colonoscopy ESOPHAGOGASTRODUODENOSCOPY TRANSORAL DIAGNOSTIC 09/02/2018 EGD LAPS SURG CHOLECYSTECTOMY W/CHOLANGIOGRAPHY 04/2015 in [facility]. PAST SURGICAL HISTORY OF wisdom teeth [...] PEN INJECTOR 4. Pelvic pain - ICD9: [id number], ICD10: R10.2 US as ordered -- compare [...] Patient agreeable to treatment plan. Estefanía Dasilva APRN.RESOURCE CONSERVATION MANAGER [address] [place] [address] documented in this encounter [facility] 05-15-2023 Miscellaneous Notes Pt calling and states she is frustrated as she has always fought weight issues over the years. She takes Wellbutrin and when she last saw Dr. Worley, Dr. Worley told her she could double her Wellbutrin from 150 mg to 300 mg to see if that would help with the weight loss. Pt states it hasn't helped and she thinks she is up 10# from when she saw Dr. Worley last. Wanting to know if she can come in and talk with someone about it. Appt made with Estefanía Mosley on 05/22. documented in this encounter [facility] 04-30-2023 Miscellaneous Notes May 01, 2023 PID: [id number] Meghan King [address] [place] [id number] Dear Ms. King, We are pleased to inform you that [...] report will be kept on file at [facility] as part of your permanent medical record and are available for your continuing care. Thank you for allowing us to help in meeting your health care needs. Sincerely, Dr. Ruby Interpreting Radiologist [facility] (Normal over 40) documented in this encounter [facility] 04-29-2023 History of Present illness Narrative Radiology Service Progress Note PATIENT NAME: Meghan King DATE OF SERVICE: April 29, 2023 TIME: [...] 2023 7:24 AM documented in this encounter [facility] 03-13-2023 Miscellaneous Notes Addended by: JESUS MANUEL WORLEY on: 03/13/2023 08:20 PM Modules accepted: Orders documented in this encounter [facility] 03-13-2023 History of Present illness Narrative CC: Meghan King is a 47 year old female who [...] cystic mastopathy History of echocardiogram 01/02/2021 at [facility]-Dr. Swain-EF 55% Low HDL (under 40) 12/05/2014 Unspecified asthma(493.90) Vitamin D deficiency 12/05/2014 PAST SURGICAL HISTORY Procedure Laterality Date DELIVERY ONLY 03/20/2011 , low transverse DELIVERY+ CARE March 02, 2009 COLONOSCOPY FLX DX W/COLLJ SPEC WHEN PFRMD 06/16/2019 Colonoscopy ESOPHAGOGASTRODUODENOSCOPY TRANSORAL DIAGNOSTIC 09/02/2018 EGD LAPS SURG CHOLECYSTECTOMY W/CHOLANGIOGRAPHY 04/2015 in [facility]. PAST SURGICAL HISTORY OF wisdom teeth [...] kg (190 lb) Height: 165 cm (5' 4.96) Gen: A&O, NAD, non-toxic appearing, Pleasant, cooperative [...] with supplements or by diet (goal of 8538-3590 mg/day - Follow up for annual exam [...] with supplements or by diet (goal of 0020-3531 mg/day - Follow up for annual exam in one year. - LIPID PANEL BASIC - COMP METABOLIC PANEL - TSH BLD - T4 FREE/FREE THYROX - T3 FREE BLD 9. Obesity, Class I, BMI 30-34.9 - ICD9: 278.00, ICD10: E66.9 Weight decreasing - Behavioral intervention, - PSMF, and - Eat well program Jesus Manuel Worley DO To ER if develops chest pain, shortness of breath, or severe worsening of symptoms. Discussed risks, benefits, alternatives, and potential side effects of medications. Patient expressed understanding and agreed with the plan. Jesus Manuel Worley DO [address] [place] [address] documented in this encounter [facility] 03-10-2023 History of Present illness Narrative Images [...] cystic mastopathy History of echocardiogram 01/02/2021 at [facility]-Dr. Swain-EF 55% Low HDL (under 40) 12/05/2014 Unspecified asthma(493.90) Vitamin D deficiency 12/05/2014 PAST SURGICAL HISTORY Procedure Laterality Date DELIVERY ONLY 03/20/2011 , low transverse DELIVERY+ CARE March 02, 2009 COLONOSCOPY FLX DX W/COLLJ SPEC WHEN PFRMD 06/16/2019 Colonoscopy ESOPHAGOGASTRODUODENOSCOPY TRANSORAL DIAGNOSTIC 09/02/2018 EGD LAPS SURG CHOLECYSTECTOMY W/CHOLANGIOGRAPHY 04/2015 in [facility]. PAST SURGICAL HISTORY OF wisdom teeth extraction ALLERGIES Keflex [Cephalexin], Neosporin [Qavlzspy-Ajrpkurawr-Ndpzwwxiy], Azithromycin, Bacitracin, Bicitra [Sodium Citrate-Citric Acid], Citric [...] of care. This note was generated using CrowdBouncer software. It may contain errors in wording, punctuation, or spelling. Horacio Blair APRN.GRANT documented in this encounter [facility] 01-07-2023 Miscellaneous Notes Patient has been identified [...] Last refill; 01/2022 documented in this encounter [facility] 10-31-2022 Nurse Note Patient having virtual visit for concern regarding citric acid allergy. Wants to know if she can take Wellbutrin. Otherwise asthma well controlled and no hives outbreak. Currently taking Pulmicort daily but plans on stopping in spring/summer. Recently needing Albuterol due to construction dust in home. No other concerns. documented in this encounter [facility] 10-31-2022 History of Present illness Narrative Meghan King is a 47 year old female with [...] a rash herself. When she saw an CONSTRUCTION MANAGEMENT INSTRUCTOR for follow-up later (of note, the CONSTRUCTION MANAGEMENT INSTRUCTOR was not present for the ), the CONSTRUCTION MANAGEMENT INSTRUCTOR added Bicitra (sodium citrate and citric acid) to her list of medication allergies as a precaution. Patient has been taking Wellbutrin for a few months and tolerating it without adverse reaction. She recently received Wellbutrin tablets made from a different milanese knitting machine operator that contain citric acid. She has not [...] most recently had allergy testing completed at [facility] 15 to 20 years ago. She had [...] electronic medical record or US mail. Meghan King is a 45 year old female with a history of allergic rhinitis, asthma and urticaria who presents to [facility]. Her last visit in this office was [...] no longer receiving subcutaneous allergy immunotherapy through [facility] as she felt her allergy symptoms were mild and did not require ongoing treatment. REVIEW OF SYSTEMS: Negative for fevers, chills, night sweats and unintentional weight loss. All other review of systems negative except for those listed above. PAST MEDICAL HISTORY Diagnosis Date Allergy Seasonal and Environmental Allergies Depressive disorder, not elsewhere classified Diffuse cystic mastopathy History of echocardiogram 01/02/2021 at [facility]-Dr. Swain-EF 55% Low HDL (under 40) [...] Noted Reaction KEFLEX [CEPHALEXIN] 06/13/2022 Rash NEOSPORIN [HFSBFEUJ-QZNIZDSRTZ-OS* 5 Rash AZITHROMYCIN 06/26/2016 Hives and Swelling [...] EGD LAPS SURG CHOLECYSTECTOMY W/CHOLANGIOGRAPHY 04/2015 in [facility]. PAST SURGICAL HISTORY OF wisdom teeth extraction FAMILY HISTORY: Allergic rhinitis:yes: dad and son. Asthma: yes: dad and son. Eczema: yes: dad. Cystic fibrosis: no. Immunodeficiency: no. 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 Sesar Dickson MD documented in this encounter [facility] 10-29-2022 Miscellaneous Notes Patient has been identified [...] Melina Choudhury RN documented in this encounter [facility] 10-29-2022 Miscellaneous Notes Opened in error. Tona Reynlods LPN documented in this encounter [facility] 10-29-2022 Miscellaneous Notes Pt states in 2010 [...] for 11/01 at 4pm to discuss further. States is going to have her pcp send one month supply of wellbutrin to the local pharmacy in the mean time. OCTAVIO 06/13/22 documented in this encounter [facility] 10-13-2022 Miscellaneous Notes Patient has been identified [...] 10/04/2022 15 tablets documented in this encounter [facility] 09-20-2022 Miscellaneous Notes Please review pt's message when she sent this prescription request in. Also asking for a 90 day supply to [facility]. Patient has been identified by name and [...] Tona Reynolds LPN documented in this encounter [facility] 09-14-2022 History of Present illness Narrative CC: Meghan King is a 47 year old female who presents to the office for follow up HPI: Seen in office 5-6 weeks ago, at that time Urticaria, has had symptoms in the past in 2016 triggered by azithromycin and most recently about 1-2 months ago with use of Keflex for UTI. 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 2017 Guidelines of the [place] [employer] for the Diagnosis and Management of Thyroid Disease during and the . Thyroid, 2017:27:3:315-389. PAST MEDICAL HISTORY Diagnosis Date Allergy Seasonal and Environmental Allergies Depressive disorder, not elsewhere classified Diffuse cystic mastopathy History of echocardiogram 01/02/2021 at [facility]-Dr. Swain-EF 55% Low HDL (under 40) 12/05/2014 Unspecified asthma(493.90) Vitamin D deficiency 12/05/2014 PAST SURGICAL HISTORY Procedure Laterality Date DELIVERY ONLY 03/20/2011 , low transverse DELIVERY+ CARE March 02, 2009 COLONOSCOPY FLX DX W/COLLJ SPEC WHEN PFRMD 06/16/2019 Colonoscopy ESOPHAGOGASTRODUODENOSCOPY TRANSORAL DIAGNOSTIC 09/02/2018 EGD LAPS SURG CHOLECYSTECTOMY W/CHOLANGIOGRAPHY 04/2015 in [facility]. PAST SURGICAL HISTORY OF wisdom teeth [...] as instructed every 4 hours as needed. pbjtcunaakDQOPS-bkbqxj-csxuaygja (BMX 1:1:1) 1:1:1 liqd Mix in equal amounts - 1 T every 2hrs as needed for mouth pain, Swish/swallow or expectorate. (8oz) ibuprofen (MOTRIN) 600 mg tablet Take 1 tablet by mouth every 6 hours as needed for pain. vaokvaxr-lqmvyznrd-jylfxkymbyklwk (CORTISPORIN) 3.5-10,000-1 mg/mL-unit/mL-% otic suspension Use 3 [...] vaccine - ICD9: V04.89, ICD10: Z23 - [email or web address] COVID-19 BIVALENT BOOSTER VACCINE, AGE 12+ YR 4. Obesity, Class II, BMI 35-39.9 - ICD9: 278.00, ICD10: E66.9 Stable - Behavioral intervention, - Pharmacological intervention, and - Eat well program 5. Perimenopausal - ICD9: 627.2, ICD10: N95.1 See above, need for exercise and cutting out sugars from diet and regular sleep routine Jesus Manuel Worley DO Return if no improvement. Follow up with Jesus Manuel Worley DO. To ER if develops chest pain, shortness of breath Discussed risks, benefits, alternatives, and potential side effects of medications. Patient/Guardian expressed understanding and agreed with the plan. See patient instructions. Jesus Manuel Worley DO [address] [place] [address] documented in this encounter [facility] 09-11-2022 Instructions Jesus Manuel Worley DO - 09/11/2022 4:17 PM EST Recheck thyroid labs in the next 4-8 weeks Selenium at least 200 mg a day - or selenium rich healthy foods. Vitamin D daily - 2000 international unit(s) a day documented in this encounter [facility] 08-06-2022 History of Present illness Narrative CC: Meghan King is a 47 year old female who presents to the office for follow up HPI: Urticaria, has had symptoms in the past in 2016 triggered by azithromycin and most recently about 1-2 months ago with use of Keflex for UTI. Has been seen by Sleeve Separator whom suggests use of antihistamine medication and [...] cystic mastopathy History of echocardiogram 01/02/2021 at [facility]-Dr. Swain-EF 55% Low HDL (under 40) 12/05/2014 Unspecified asthma(493.90) Vitamin D deficiency 12/05/2014 PAST SURGICAL HISTORY Procedure Laterality Date DELIVERY ONLY 03/20/2011 , low transverse DELIVERY+ CARE March 02, 2009 COLONOSCOPY FLX DX W/COLLJ SPEC WHEN PFRMD 06/16/2019 Colonoscopy ESOPHAGOGASTRODUODENOSCOPY TRANSORAL DIAGNOSTIC 09/02/2018 EGD LAPS SURG CHOLECYSTECTOMY W/CHOLANGIOGRAPHY 04/2015 in [facility]. PAST SURGICAL HISTORY OF wisdom teeth [...] as instructed every 4 hours as needed. qaexlomjbySGAXS-yrozab-qnhqhrlvy (BMX 1:1:1) 1:1:1 liqd Mix in equal amounts - 1 T every 2hrs as needed for mouth pain, Swish/swallow or expectorate. (8oz) valACYclovir (VALTREX) 1 gram Take 2 tablets by mouth twice daily. for 1 day ibuprofen (MOTRIN) 600 mg tablet Take 1 tablet by mouth every 6 hours as needed for pain. sfrjnmiy-aiqxycekq-ohtgmtemwdxpjs (CORTISPORIN) 3.5-10,000-1 mg/mL-unit/mL-% otic suspension Use 3 [...] log food intake as well. Jesus Manuel Worley DO To ER if develops chest pain, shortness of breath, or severe worsening of symptoms. Discussed risks, benefits, alternatives, and potential side effects of medications. Patient expressed understanding and agreed with the plan. Jesus Manuel Worley DO [address] [place] [address] documented in this encounter [facility] 08-06-2022 Instructions Jesus Manuel Worley DO - 08/06/2022 4:09 PM EDT Pepcid [...] a week injectable documented in this encounter [facility] 07-25-2022 Miscellaneous Notes Message was sent to patient requesting she make an appointment Appointment Needed documented in this encounter [facility] 07-11-2022 History of Present illness Narrative Radiology [...] Pelvis SIGNATURE: RT Michelle(R) PATIENT NAME: Meghan King DATE: July 11, 2022 TIME: 3:41 PM documented in this encounter [facility] 06-28-2022 Miscellaneous Notes When patient was in the office with her son today, she noted that she continues to have a pruritic rash. Rash developed 5 days into a course of Keflex. She was evaluated by Dr. Rivera at [facility]. She took a prednisone taper with some [...] use on the face. Authorizing Provider: SESAR DICKSON MD documented in this encounter [facility] 06-21-2022 Miscellaneous Notes Please contact patient to schedule MRI. Steffi Phillips RN Done Maria R Humphrey MD Patient notified. Would like to proceed with pelvic MRI. Please file order and forward to scheduler maintenance to assist patient with making an appointment. 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 Please file transvaginal u/s order too. Steffi Phillips RN Done Maria R Humphrey MD SW patient last seen in 2019. Patient had a kidney/bladder ultrasound and was advised to follow-up with CONSTRUCTION MANAGEMENT INSTRUCTOR for the following finding: Other: Incidental finding [...] Vane Finnegan RN documented in this encounter [facility] 06-15-2022 History of Present illness Narrative Radiology Service Progress Note PATIENT NAME: Meghan King DATE OF SERVICE: June 15, 2022 TIME: [...] 2022 3:41 PM documented in this encounter [facility] 06-14-2022 Miscellaneous Notes Message turned into TE per BEATRIZ Moore Ma documented in this encounter [facility] 06-10-2022 Miscellaneous Notes Reason for call: Patient calling and requesting permission to discontinue Keflex. Patient states she was seen in [facility] yesterday for hives and given prednisone, but instructed to complete Keflex prescription. Patient states she went home and took evening dose of Keflex and suffered from increased hives and itching. Outcome: Conferenced patient to nurse Rohini at [facility] for further assistance. documented in this encounter [facility] 06-09-2022 History of Present illness Narrative Images [...] history is provided by the patient. No microfilm equipment inspector was used. Hives Review of Systems Constitutional: [...] cystic mastopathy History of echocardiogram 01/02/2021 at [facility]-Dr. Swain-EF 55% Low HDL (under 40) 12/05/2014 Unspecified asthma(493.90) Vitamin D deficiency 12/05/2014 PAST SURGICAL HISTORY Procedure Laterality Date DELIVERY ONLY 03/20/2011 , low transverse DELIVERY+ CARE March 02, 2009 COLONOSCOPY FLX DX W/COLLJ SPEC WHEN PFRMD 06/16/2019 Colonoscopy ESOPHAGOGASTRODUODENOSCOPY TRANSORAL DIAGNOSTIC 09/02/2018 EGD LAPS SURG CHOLECYSTECTOMY W/CHOLANGIOGRAPHY 04/2015 in [facility]. PAST SURGICAL HISTORY OF wisdom teeth extraction ALLERGIES Neosporin [Mtzqnkth-Wpxcvduetb-Cfwbpxaoe], Azithromycin, Bacitracin, Bicitra [Sodium Citrate-Citric Acid], Citric [...] as instructed every 4 hours as needed. ugecfzhjmzFOVPK-mwfedy-zqofbwsfr (BMX 1:1:1) 1:1:1 liqd Mix in equal [...] every 6 hours as needed for pain. egtoapwv-fetkcbtqa-szkypimdudtkbc (CORTISPORIN) 3.5-10,000-1 mg/mL-unit/mL-% otic suspension Use 3 [...] okay with this care plan. Jen Humphrey APRN.GRANT documented in this encounter [facility] 06-08-2022 Miscellaneous Notes Lm informing no infection. Told to call office on Saturday to set up a 2 week follow up. Vane FOX Please call pt, no infection in urine, follow up in 2 weeks to see if infection has returned. Vani Lamar PA-C documented in this encounter [facility] 06-06-2022 Note HNO ID: [id number] Author: Vani Lamar PA-C Service: ? Author Type: Physician Pastry Chef Type: Progress Notes Filed: 06/06/2022 2:54 PM Note Text: NEW PATIENT HISTORY AND PHYSICAL EXAM PATIENT INFO: Meghan King 47 year old REFERRING PROVIDER: LOWELL RICO PCP: Jesus Manuel Worley DO [facility] Meghan King is a 47 year old female with [...] (no units) Date Value 08/16/2015 Negative Specific [place], Ur (no units) Date Value 08/16/2015 1.008 [...] Take 1 tablet by mouth once daily. qiahbqirmmWINUU-gwihpc-vxtpfwsim (BMX 1:1:1) 1:1:1 liqd Mix in equal amounts - 1 T every 2hrs as needed for mouth pain, Swish/swallow or expectorate. (8oz) (Patient not taking: No sig reported) valACYclovir (VALTREX) 1 gram Take 2 tablets by mouth twice daily. for 1 day (Patient not taking: No sig reported) qydkaqbq-hiwzwmjgm-ibhsapriovtfef (CORTISPORIN) 3.5-10,000-1 mg/mL-unit/mL-% otic suspension Use 3 [...] cystic mastopathy History of echocardiogram 01/02/2021 at [facility]-Dr. Swain-EF 55% Low HDL (under 40) [...] Tobacco Use Sm (more content not included)... [facility] 06-06-2022 History of Present illness Narrative NEW PATIENT HISTORY AND PHYSICAL EXAM PATIENT INFO: Meghan King 47 year old REFERRING PROVIDER: LOWELL RICO PCP: Jesus Manuel Worley DO HPI Meghan King is a 47 year old female with [...] (no units) Date Value 08/16/2015 Negative Specific [place], Ur (no units) Date Value 08/16/2015 1.008 [...] Take 1 tablet by mouth once daily. mzqgkebanhFQWQY-zdcsax-rjzzfzhld (BMX 1:1:1) 1:1:1 liqd Mix in equal amounts - 1 T every 2hrs as needed for mouth pain, Swish/swallow or expectorate. (8oz) (Patient not taking: No sig reported) valACYclovir (VALTREX) 1 gram Take 2 tablets by mouth twice daily. for 1 day (Patient not taking: No sig reported) dwfkeqvv-lecjoznzv-ksyzxykdmdoatz (CORTISPORIN) 3.5-10,000-1 mg/mL-unit/mL-% otic suspension Use 3 [...] cystic mastopathy History of echocardiogram 01/02/2021 at [facility]-Dr. Swain-EF 55% Low HDL (under 40) [...] ICD10: N32.81 Follow up pending results Vani Lamar PA-C I spent a total of 45 minutes on the date of the service which included preparing to see the patient, otjj-ka-ksly patient care, completing clinical documentation, and ordering medications, tests, or procedures. documented in this encounter [facility] 06-04-2022 Miscellaneous Notes Left detailed message on a secured voicemail. Meghan Castillo No growth of bacteria in urine culture. Just make sure symptoms are improving. If they are worsening on the keflex follow up for further evaluation with PCP. Thank you documented in this encounter [facility] 04-27-2022 Miscellaneous Notes April 27, 2022 PID: [id number] Meghan King [address] [place] [id number] Dear Ms. King, We are pleased to inform you that [...] report will be kept on file at [facility] as part of your permanent medical record and are available for your continuing care. Thank you for allowing us to help in meeting your health care needs. Sincerely, Dr. Ott Interpreting Radiologist [facility] (Normal over 40) documented in this encounter [facility] 04-26-2022 History of Present illness Narrative This note was created using [employer]. Subjective Meghan King is a 46 year old female. HPI [...] cystic mastopathy History of echocardiogram 01/02/2021 at [facility]-Dr. Swain-EF 55% Low HDL (under 40) [...] meals for 5 days. 10 capsule 0 xcapetnrayKOXIZ-xtlrhl-czbfupykx (BMX 1:1:1) 1:1:1 liqd Mix in equal amounts - 1 T every 2hrs as needed for mouth pain, Swish/swallow or expectorate. (8oz) (Patient not taking: Reported on 07/10/2021 ) 240 mL 0 valACYclovir (VALTREX) 1 gram Take 2 tablets by mouth twice daily. for 1 day (Patient not taking: Reported on 07/10/2021 ) 4 tablet 0 wefbchit-vxiiaxzho-tlvrlypvbvdduh (CORTISPORIN) 3.5-10,000-1 mg/mL-unit/mL-% otic suspension Use 3 [...] EGD LAPS SURG CHOLECYSTECTOMY W/CHOLANGIOGRAPHY 04/2015 in [facility]. PAST SURGICAL HISTORY OF wisdom teeth [...] Carolina Hwang PA-C documented in this encounter [facility] 04-18-2022 Miscellaneous Notes Spoke with pt and information listed below given. Pt verbalizes understanding. Transferred to scheduling. Tona Reynolds LPN Please inform patient mammogram is ordered Jesus Manuel Worley DO Pt requesting orders for mammogram to be done. Please advise pt once orders are approved. 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 07/15/2011 10/25/2014 Keratosis pilaris 07/15/2011 10/25/2014 Xrtm-wk-oajr spots 07/15/2011 10/25/2014 Postinflammatory skin changes 07/15/2011 Xerosis cutis 07/15/2011 10/25/2014 Previous section 11/20/20102011 Abdominal pain, generalized 11/02/201010/07 Irregular menses 05/03/2010 06/03/2012 Supervision of normal first 07/10/2008 05/03/2010 Cellulitis and abscess of unspecified digit /0 03/200610/25/2014 documented as of this encounter (statuses as of 04/18/2022) [facility] History of Past illness Narrative* Problem Noted Date Resolved Date Morbidly obese 10/25/2014 06/27/2019 Pes cavus 04/24/2012 10/25/2014 Sprain of foot, unspecified site 07/17/2011 10/25/2014 Tendonitis of ankle 07/17/2011 10/25/2014 Melanocytic nevus of face 07/15/20112014 Intradermal nevus 07/15/2011 10/25/2014 Melanocytic nevus of neck 07/15/20112014 Melanocytic nevi of trunk 07/15/20112014 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 07/15/2011 10/25/2014 Keratosis pilaris 07/15/2011 10/25/2014 Trcz-xc-einn spots 07/15/2011 10/25/2014 Postinflammatory skin changes 07/15/2011 Xerosis cutis 07/15/2011 10/25/2014 Previous section 11/20/20102011 Abdominal pain, generalized 11/02/201010/07 Irregular menses 05/03/2010 06/03/2012 Supervision of normal first 07/10/2008 05/03/2010 Cellulitis and abscess of unspecified digit 10/0 03/200610/25/2014 documented as of this encounter (statuses as of 04/26/2022) [place] [id number] History of Past illness Narrative* Problem Noted Date Resolved Date Morbidly obese 10/25/2014 06/27/2019 Pes cavus 04/24/2012 10/25/2014 Sprain of foot, unspecified site 07/17/2011 10/25/2014 Tendonitis of ankle 07/17/2011 10/25/2014 Melanocytic nevus of face 07/15/20112014 Intradermal nevus 07/15/2011 10/25/2014 Melanocytic nevus of neck 07/15/20112014 Melanocytic nevi of trunk 07/15/20112014 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 07/15/2011 10/25/2014 Keratosis pilaris 07/15/2011 10/25/2014 Zhrx-oy-buxq spots 07/15/2011 10/25/2014 Postinflammatory skin changes 07/15/2011 Xerosis cutis 07/15/2011 10/25/2014 Previous section 11/20/20102011 Abdominal pain, generalized 11/02/201010/07 Irregular menses 05/03/2010 06/03/2012 Supervision of normal first 07/10/2008 05/03/2010 Cellulitis and abscess of unspecified digit 10/0 03/200610/25/2014 documented as of this encounter (statuses as of 05/01/2022) [facility] History of Past illness Narrative* Problem Noted Date Resolved Date Morbidly obese 10/25/2014 06/27/2019 Pes cavus 04/24/2012 10/25/2014 Sprain of foot, unspecified site 07/17/2011 10/25/2014 Tendonitis of ankle 07/17/2011 10/25/2014 Melanocytic nevus of face 07/15/20112014 Intradermal nevus 07/15/2011 10/25/2014 Melanocytic nevus of neck 07/15/20112014 Melanocytic nevi of trunk 07/15/20112014 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 07/15/2011 10/25/2014 Keratosis pilaris 07/15/2011 10/25/2014 Weot-oi-rulx spots 07/15/2011 10/25/2014 Postinflammatory skin changes 07/15/2011 Xerosis cutis 07/15/2011 10/25/2014 Previous section 11/20/20102011 Abdominal pain, generalized 11/02/201010/07 Irregular menses 05/03/2010 06/03/2012 Supervision of normal first 07/10/2008 05/03/2010 Cellulitis and abscess of unspecified digit 10/0 03/200610/25/2014 documented as of this encounter (statuses as of 06/04/2022) [facility] History of Past illness Narrative* Problem Noted Date Resolved Date Morbidly obese 10/25/2014 06/27/2019 Pes cavus 04/24/2012 10/25/2014 Sprain of foot, unspecified site 07/17/2011 10/25/2014 Tendonitis of ankle 07/17/2011 10/25/2014 Melanocytic nevus of face 07/15/20112014 Intradermal nevus 07/15/2011 10/25/2014 Melanocytic nevus of neck 07/15/20112014 Melanocytic nevi of trunk 07/15/20112014 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 07/15/2011 10/25/2014 Keratosis pilaris 07/15/2011 10/25/2014 Rffb-dx-gsrr spots 07/15/2011 10/25/2014 Postinflammatory skin changes 07/15/2011 Xerosis cutis 07/15/2011 10/25/2014 Previous section 11/20/20102011 Abdominal pain, generalized 11/02/201010/07 Irregular menses 05/03/2010 06/03/2012 Supervision of normal first 07/10/2008 05/03/2010 Cellulitis and abscess of unspecified digit 10/0 03/20062015 documented as of this encounter (statuses as of 06/06/2022) [facility] of Past illness Narrative* Problem Noted Date Resolved Date Morbidly obese 10/25/2014 06/27/2019 Pes cavus 04/24/2012 10/25/2014 Sprain of foot, unspecified site 07/17/2011 10/25/2014 Tendonitis of ankle 07/17/2011 10/25/2014 Melanocytic nevus of face 07/15/20112014 Intradermal nevus 07/15/2011 10/25/2014 Melanocytic nevus of neck 07/15/20112014 Melanocytic nevi of trunk 07/15/20112014 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 07/15/2011 10/25/2014 Keratosis pilaris 07/15/2011 10/25/2014 Ecyv-rc-gesz spots 07/15/2011 10/25/2014 Postinflammatory skin changes 07/15/2011 Xerosis cutis 07/15/2011 10/25/2014 Previous section 11/20/20102011 Abdominal pain, generalized 11/02/201010/07 Irregular menses 05/03/2010 06/03/2012 Supervision of normal first 07/10/2008 05/03/2010 Cellulitis and abscess of unspecified digit 03/200610/25/2014 documented as of this encounter (statuses as of 06/08/2022) [facility] of Past illness Narrative* Problem Noted Date Resolved Date Morbidly obese 10/25/2014 06/27/2019 Pes cavus 04/24/2012 10/25/2014 Sprain of foot, unspecified site 07/17/2011 10/25/2014 Tendonitis of ankle 07/17/2011 10/25/2014 Melanocytic nevus of face 07/15/20112014 Intradermal nevus 07/15/2011 10/25/2014 Melanocytic nevus of neck 07/15/20112014 Melanocytic nevi of trunk 07/15/20112014 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 07/15/2011 10/25/2014 Keratosis pilaris 07/15/2011 10/25/2014 Zwkh-iq-maih spots 07/15/2011 10/25/2014 Postinflammatory skin changes 07/15/2011 Xerosis cutis 07/15/2011 10/25/2014 Previous section 11/20/20102011 Abdominal pain, generalized 11/02/201010/07 Irregular menses 05/03/2010 06/03/2012 Supervision of normal first 07/10/2008 05/03/2010 Cellulitis and abscess of unspecified digit 10/0 03/200610/25/2014 documented as of this encounter (statuses as of 06/09/2022) [facility] of Past illness Narrative* Problem Noted Date Resolved Date Morbidly obese 10/25/2014 06/27/2019 Pes cavus 04/24/2012 10/25/2014 Sprain of foot, unspecified site 07/17/2011 10/25/2014 Tendonitis of ankle 07/17/2011 10/25/2014 Melanocytic nevus of face 07/15/20112014 Intradermal nevus 07/15/2011 10/25/2014 Melanocytic nevus of neck 07/15/20112014 Melanocytic nevi of trunk 07/15/20112014 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 07/15/2011 10/25/2014 Keratosis pilaris 07/15/2011 10/25/2014 Llbo-vt-swax spots 07/15/2011 10/25/2014 Postinflammatory skin changes 07/15/2011 Xerosis cutis 07/15/2011 10/25/2014 Previous section 11/20/20102011 Abdominal pain, generalized 11/02/201010/07 Irregular menses 05/03/2010 06/03/2012 Supervision of normal first 07/10/2008 05/03/2010 Cellulitis and abscess of unspecified digit 10/0 03/200610/25/2014 documented as of this encounter (statuses as of 06/10/2022) [facility]01-[facility]-2015 History of Past illness Narrative* Problem Noted Date Resolved Date Morbidly obese 10/25/2014 06/27/2019 Pes cavus 04/24/2012 10/25/2014 Sprain of foot, unspecified site 07/17/2011 10/25/2014 Tendonitis of ankle 07/17/2011 10/25/2014 Melanocytic nevus of face 07/15/20112014 Intradermal nevus 07/15/2011 10/25/2014 Melanocytic nevus of neck 07/15/20112014 Melanocytic nevi of trunk 07/15/20112014 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 07/15/2011 10/25/2014 Keratosis pilaris 07/15/2011 10/25/2014 Xuea-xc-ptma spots 07/15/2011 10/25/2014 Postinflammatory skin changes 07/15/2011 Xerosis cutis 07/15/2011 10/25/2014 Previous section 11/20/20102011 Abdominal pain, generalized 11/02/201010/07 Irregular menses 05/03/2010 06/03/2012 Supervision of normal first 07/10/2008 05/03/2010 Cellulitis and abscess of unspecified digit 10/03/200610/25/2014 documented as of this encounter (statuses as of 06/14/2022) [facility] History of Past illness Narrative* Problem Noted Date Resolved Date Morbidly obese 10/25/2014 06/27/2019 Pes cavus 04/24/2012 10/25/2014 Sprain of foot, unspecified site 07/17/2011 10/25/2014 Tendonitis of ankle 07/17/2011 10/25/2014 Melanocytic nevus of face 07/15/20112014 Intradermal nevus 07/15/2011 10/25/2014 Melanocytic nevus of neck 07/15/20112014 Melanocytic nevi of trunk 07/15/20112014 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 07/15/2011 10/25/2014 Keratosis pilaris 07/15/2011 10/25/2014 Zaxb-ak-ewcs spots 07/15/2011 10/25/2014 Postinflammatory skin changes 07/15/2011 Xerosis cutis 07/15/2011 10/25/2014 Previous section 11/20/20102011 Abdominal pain, generalized 11/02/201010/07 Irregular menses 05/03/2010 06/03/2012 Supervision of normal first 07/10/2008 05/03/2010 Cellulitis and abscess of unspecified digit 10/0 03/200610/25/2014 documented as of this encounter (statuses as of 06/16/2022) [facility] History of Past illness Narrative* Problem Noted Date Resolved Date Morbidly obese 10/25/2014 06/27/2019 Pes cavus 04/24/2012 10/25/2014 Sprain of foot, unspecified site 07/17/2011 10/25/2014 Tendonitis of ankle 07/17/2011 10/25/2014 Melanocytic nevus of face 07/15/20112014 Intradermal nevus 07/15/2011 10/25/2014 Melanocytic nevus of neck 07/15/20112014 Melanocytic nevi of trunk 07/15/20112014 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 07/15/2011 10/25/2014 Keratosis pilaris 07/15/2011 10/25/2014 Rwoq-ng-uzgc spots 07/15/2011 10/25/2014 Postinflammatory skin changes 07/15/2011 Xerosis cutis 07/15/2011 10/25/2014 Previous section 11/20/20102011 Abdominal pain, generalized 11/02/201010/07 Irregular menses 05/03/2010 06/03/2012 Supervision of normal first 07/10/2008 05/03/2010 Cellulitis and abscess of unspecified digit 10/0 03/200610/25/2014 documented as of this encounter (statuses as of 06/18/2022) [facility] History of Past illness Narrative* Problem Noted Date Resolved Date Morbidly obese 10/25/2014 06/27/2019 Pes cavus 04/24/2012 10/25/2014 Sprain of foot, unspecified site 07/17/2011 10/25/2014 Tendonitis of ankle 07/17/2011 10/25/2014 Melanocytic nevus of face 07/15/20112014 Intradermal nevus 07/15/2011 10/25/2014 Melanocytic nevus of neck 07/15/20112014 Melanocytic nevi of trunk 07/15/20112014 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 07/15/2011 10/25/2014 Keratosis pilaris 07/15/2011 10/25/2014 Zkky-ov-sorn spots 07/15/2011 10/25/2014 Postinflammatory skin changes 07/15/2011 Xerosis cutis 07/15/2011 10/25/2014 Previous section 11/20/20102011 Abdominal pain, generalized 11/02/201010/07 Irregular menses 05/03/2010 06/03/2012 Supervision of normal first 07/10/2008 05/03/2010 Cellulitis and abscess of unspecified digit 10/0 03/200610/25/2014 documented as of this encounter (statuses as of 06/19/2022) [facility] History of Past illness Narrative* Problem Noted Date Resolved Date Morbidly obese 10/25/2014 06/27/2019 Pes cavus 04/24/2012 10/25/2014 Sprain of foot, unspecified site 07/17/2011 10/25/2014 Tendonitis of ankle 07/17/2011 10/25/2014 Melanocytic nevus of face 07/15/20112014 Intradermal nevus 07/15/2011 10/25/2014 Melanocytic nevus of neck 07/15/20112014 Melanocytic nevi of trunk 07/15/20112014 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 07/15/2011 10/25/2014 Keratosis pilaris 07/15/2011 10/25/2014 Xngv-yl-fteu spots 07/15/2011 10/25/2014 Postinflammatory skin changes 07/15/2011 Xerosis cutis 07/15/2011 10/25/2014 Previous section 11/20/20102011 Abdominal pain, generalized 11/02/201010/07 Irregular menses 05/03/2010 06/03/2012 Supervision of normal first 07/10/2008 05/03/2010 Cellulitis and abscess of unspecified digit 10/0 03/200610/25/2014 documented as of this encounter (statuses as of 06/25/2022) [facility] History of Past illness Narrative* Problem Noted Date Resolved Date Morbidly obese 10/25/2014 06/27/2019 Pes cavus 04/24/2012 10/25/2014 Sprain of foot, unspecified site 07/17/2011 10/25/2014 Tendonitis of ankle 07/17/2011 10/25/2014 Melanocytic nevus of face 07/15/20112014 Intradermal nevus 07/15/2011 10/25/2014 Melanocytic nevus of neck 07/15/20112014 Melanocytic nevi of trunk 07/15/20112014 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 07/15/2011 10/25/2014 Keratosis pilaris 07/15/2011 10/25/2014 Xjbk-hf-hbtl spots 07/15/2011 10/25/2014 Postinflammatory skin changes 07/15/2011 Xerosis cutis 07/15/2011 10/25/2014 Previous section 11/20/20102011 Abdominal pain, generalized 11/02/201010/07 Irregular menses 05/03/2010 06/03/2012 Supervision of normal first 07/10/2008 05/03/2010 Cellulitis and abscess of unspecified digit 10/0 03/200610/25/2014 documented as of this encounter (statuses as of 06/28/2022) [facility] History of Past illness Narrative* Problem Noted Date Resolved Date Morbidly obese 10/25/2014 06/27/2019 Pes cavus 04/24/2012 10/25/2014 Sprain of foot, unspecified site 07/17/2011 10/25/2014 Tendonitis of ankle 07/17/2011 10/25/2014 Melanocytic nevus of face 07/15/20112014 Intradermal nevus 07/15/2011 10/25/2014 Melanocytic nevus of neck 07/15/20112014 Melanocytic nevi of trunk 07/15/20112014 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 07/15/2011 10/25/2014 Keratosis pilaris 07/15/2011 10/25/2014 Epfa-sa-vxvo spots 07/15/2011 10/25/2014 Postinflammatory skin changes 07/15/2011 Xerosis cutis 07/15/2011 10/25/2014 Previous section 11/20/20102011 Abdominal pain, generalized 11/02/201010/07 Irregular menses 05/03/2010 06/03/2012 Supervision of normal first 07/10/2008 05/03/2010 Cellulitis and abscess of unspecified digit 10/0 03/200610/25/2014 documented as of this encounter (statuses as of 07/12/2022) [facility] History of Past illness Narrative* Problem Noted Date Resolved Date Morbidly obese 10/25/2014 06/27/2019 Pes cavus 04/24/2012 10/25/2014 Sprain of foot, unspecified site 07/17/2011 10/25/2014 Tendonitis of ankle 07/17/2011 10/25/2014 Melanocytic nevus of face 07/15/20112014 Intradermal nevus 07/15/2011 10/25/2014 Melanocytic nevus of neck 07/15/20112014 Melanocytic nevi of trunk 07/15/20112014 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 07/15/2011 10/25/2014 Keratosis pilaris 07/15/2011 10/25/2014 Whrm-de-giit spots 07/15/2011 10/25/2014 Postinflammatory skin changes 07/15/2011 Xerosis cutis 07/15/2011 10/25/2014 Previous section 11/20/20102011 Abdominal pain, generalized 11/02/201010/07 Irregular menses 05/03/2010 06/03/2012 Supervision of normal first 07/10/2008 05/03/2010 Cellulitis and abscess of unspecified digit 10/0 03/200610/25/2014 documented as of this encounter (statuses as of 07/25/2022) [facility] History of Past illness Narrative* Problem Noted Date Resolved Date Morbidly obese 10/25/2014 06/27/2019 Pes cavus 04/24/2012 10/25/2014 Sprain of foot, unspecified site 07/17/2011 10/25/2014 Tendonitis of ankle 07/17/2011 10/25/2014 Melanocytic nevus of face 07/15/20112014 Intradermal nevus 07/15/2011 10/25/2014 Melanocytic nevus of neck 07/15/20112014 Melanocytic nevi of trunk 07/15/20112014 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 07/15/2011 10/25/2014 Keratosis pilaris 07/15/2011 10/25/2014 Odqt-iw-mrlb spots 07/15/2011 10/25/2014 Postinflammatory skin changes 07/15/2011 Xerosis cutis 07/15/2011 10/25/2014 Previous section 11/20/20102011 Abdominal pain, generalized 11/02/201010/07 Irregular menses 05/03/2010 06/03/2012 Supervision of normal first 07/10/2008 05/03/2010 Cellulitis and abscess of unspecified digit 10/0 03/200610/25/2014 documented as of this encounter (statuses as of 08/07/2022) [facility] History of Past illness Narrative* Problem Noted Date Resolved Date Morbidly obese 10/25/2014 06/27/2019 Pes cavus 04/24/2012 10/25/2014 Sprain of foot, unspecified site 07/17/2011 10/25/2014 Tendonitis of ankle 07/17/2011 10/25/2014 Melanocytic nevus of face 07/15/20112014 Intradermal nevus 07/15/2011 10/25/2014 Melanocytic nevus of neck 07/15/20112014 Melanocytic nevi of trunk 07/15/20112014 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 07/15/2011 10/25/2014 Keratosis pilaris 07/15/2011 10/25/2014 Zcdr-ck-zpth spots 07/15/2011 10/25/2014 Postinflammatory skin changes 07/15/2011 Xerosis cutis 07/15/2011 10/25/2014 Previous section 11/20/20102011 Abdominal pain, generalized 11/02/201010/07 Irregular menses 05/03/2010 06/03/2012 Supervision of normal first 07/10/2008 05/03/2010 Cellulitis and abscess of unspecified digit 10/0 03/200610/25/2014 documented as of this encounter (statuses as of 09/14/2022) [facility] History of Past illness Narrative* Problem Noted Date Resolved Date Morbidly obese 10/25/2014 06/27/2019 Pes cavus 04/24/2012 10/25/2014 Sprain of foot, unspecified site 07/17/2011 10/25/2014 Tendonitis of ankle 07/17/2011 10/25/2014 Melanocytic nevus of face 07/15/20112014 Intradermal nevus 07/15/2011 10/25/2014 Melanocytic nevus of neck 07/15/20112014 Melanocytic nevi of trunk 07/15/20112014 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 07/15/2011 10/25/2014 Keratosis pilaris 07/15/2011 10/25/2014 Bjrv-bq-ducn spots 07/15/2011 10/25/2014 Postinflammatory skin changes 07/15/2011 Xerosis cutis 07/15/2011 10/25/2014 Previous section 11/20/20102011 Abdominal pain, generalized 11/02/201010/07 Irregular menses 05/03/2010 06/03/2012 Supervision of normal first 07/10/2008 05/03/2010 Cellulitis and abscess of unspecified digit 10/0 03/200610/25/2014 documented as of this encounter (statuses as of 09/20/2022) [facility] History of Past illness Narrative* Problem Noted Date Resolved Date Morbidly obese 10/25/2014 06/27/2019 Pes cavus 04/24/2012 10/25/2014 Sprain of foot, unspecified site 07/17/2011 10/25/2014 Tendonitis of ankle 07/17/2011 10/25/2014 Melanocytic nevus of face 07/15/20112014 Intradermal nevus 07/15/2011 10/25/2014 Melanocytic nevus of neck 07/15/20112014 Melanocytic nevi of trunk 07/15/20112014 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 07/15/2011 10/25/2014 Keratosis pilaris 07/15/2011 10/25/2014 Bfoe-nx-rvfb spots 07/15/2011 10/25/2014 Postinflammatory skin changes 07/15/2011 Xerosis cutis 07/15/2011 10/25/2014 Previous section 11/20/20102011 Abdominal pain, generalized 11/02/201010/07 Irregular menses 05/03/2010 06/03/2012 Supervision of normal first 07/10/2008 05/03/2010 Cellulitis and abscess of unspecified digit 10/0 03/200610/25/2014 documented as of this encounter (statuses as of 10/01/2022) [facility] History of Past illness Narrative* Problem Noted Date Resolved Date Morbidly obese 10/25/2014 06/27/2019 Pes cavus 04/24/2012 10/25/2014 Sprain of foot, unspecified site 07/17/2011 10/25/2014 Tendonitis of ankle 07/17/2011 10/25/2014 Melanocytic nevus of face 07/15/20112014 Intradermal nevus 07/15/2011 10/25/2014 Melanocytic nevus of neck 07/15/20112014 Melanocytic nevi of trunk 07/15/20112014 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 07/15/2011 10/25/2014 Keratosis pilaris 07/15/2011 10/25/2014 Fhdp-ci-fshn spots 07/15/2011 10/25/2014 Postinflammatory skin changes 07/15/2011 Xerosis cutis 07/15/2011 10/25/2014 Previous section 11/20/20102011 Abdominal pain, generalized 11/02/201010/07 Irregular menses 05/03/2010 06/03/2012 Supervision of normal first 07/10/2008 05/03/2010 Cellulitis and abscess of unspecified digit 10/0 03/200610/25/2014 documented as of this encounter (statuses as of 10/15/2022) [facility] History of Past illness Narrative* Problem Noted Date Resolved Date Morbidly obese 10/25/2014 06/27/2019 Pes cavus 04/24/2012 10/25/2014 Sprain of foot, unspecified site 07/17/2011 10/25/2014 Tendonitis of ankle 07/17/2011 10/25/2014 Melanocytic nevus of face 07/15/20112014 Intradermal nevus 07/15/2011 10/25/2014 Melanocytic nevus of neck 07/15/20112014 Melanocytic nevi of trunk 07/15/20112014 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 07/15/2011 10/25/2014 Keratosis pilaris 07/15/2011 10/25/2014 Ehbx-sb-eonz spots 07/15/2011 10/25/2014 Postinflammatory skin changes 07/15/2011 Xerosis cutis 07/15/2011 10/25/2014 Previous section 11/20/20102011 Abdominal pain, generalized 11/02/201010/07 Irregular menses 05/03/2010 06/03/2012 Supervision of normal first 07/10/2008 05/03/2010 Cellulitis and abscess of unspecified digit 10/0 03/200610/25/2014 documented as of this encounter (statuses as of 10/29/2022) [facility] History of Past illness Narrative* Problem Noted Date Resolved Date Morbidly obese 10/25/2014 06/27/2019 Pes cavus 04/24/2012 10/25/2014 Sprain of foot, unspecified site 07/17/2011 10/25/2014 Tendonitis of ankle 07/17/2011 10/25/2014 Melanocytic nevus of face 07/15/20112014 Intradermal nevus 07/15/2011 10/25/2014 Melanocytic nevus of neck 07/15/20112014 Melanocytic nevi of trunk 07/15/20112014 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 07/15/2011 10/25/2014 Keratosis pilaris 07/15/2011 10/25/2014 Mdis-qb-ezxm spots 07/15/2011 10/25/2014 Postinflammatory skin changes 07/15/2011 Xerosis cutis 07/15/2011 10/25/2014 Previous section 11/20/20102011 Abdominal pain, generalized 11/02/201010/07 Irregular menses 05/03/2010 06/03/2012 Supervision of normal first 07/10/2008 05/03/2010 Cellulitis and abscess of unspecified digit 03/200610/25/2014 documented as of this encounter (statuses as of 10/30/2022) [facility] History of Past illness Narrative* Problem Noted Date Resolved Date Morbidly obese 10/25/2014 06/27/2019 Pes cavus 04/24/2012 10/25/2014 Sprain of foot, unspecified site 07/17/2011 10/25/2014 Tendonitis of ankle 07/17/2011 10/25/2014 Melanocytic nevus of face 07/15/20112014 Intradermal nevus 07/15/2011 10/25/2014 Melanocytic nevus of neck 07/15/20112014 Melanocytic nevi of trunk 07/15/20112014 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 07/15/2011 10/25/2014 Keratosis pilaris 07/15/2011 10/25/2014 Uiey-mq-ezad spots 07/15/2011 10/25/2014 Postinflammatory skin changes 07/15/2011 Xerosis cutis 07/15/2011 10/25/2014 Previous section 11/20/20102011 Abdominal pain, generalized 11/02/201010/07 Irregular menses 05/03/2010 06/03/2012 Supervision of normal first 07/10/2008 05/03/2010 Cellulitis and abscess of unspecified digit 10/0 03/200610/25/2014 documented as of this encounter (statuses as of 10/30/2022) [facility] History of Past illness Narrative* Problem Noted Date Resolved Date Morbidly obese 10/25/2014 06/27/2019 Pes cavus 04/24/2012 10/25/2014 Sprain of foot, unspecified site 07/17/2011 10/25/2014 Tendonitis of ankle 07/17/2011 10/25/2014 Melanocytic nevus of face 07/15/20112014 Intradermal nevus 07/15/2011 10/25/2014 Melanocytic nevus of neck 07/15/20112014 Melanocytic nevi of trunk 07/15/20112014 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 07/15/2011 10/25/2014 Keratosis pilaris 07/15/2011 10/25/2014 Usop-pd-xiln spots 07/15/2011 10/25/2014 Postinflammatory skin changes 07/15/2011 Xerosis cutis 07/15/2011 10/25/2014 Previous section 11/20/20102011 Abdominal pain, generalized 11/02/201010/07 Irregular menses 05/03/2010 06/03/2012 Supervision of normal first 07/10/2008 05/03/2010 Cellulitis and abscess of unspecified digit 10/0 03/200610/25/2014 documented as of this encounter (statuses as of 11/01/2022) [facility] History of Past illness Narrative* Problem Noted Date Resolved Date Morbidly obese 10/25/2014 06/27/2019 Pes cavus 04/24/2012 10/25/2014 Sprain of foot, unspecified site 07/17/2011 10/25/2014 Tendonitis of ankle 07/17/2011 10/25/2014 Melanocytic nevus of face 07/15/20112014 Intradermal nevus 07/15/2011 10/25/2014 Melanocytic nevus of neck 07/15/20112014 Melanocytic nevi of trunk 07/15/20112014 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 07/15/2011 10/25/2014 Keratosis pilaris 07/15/2011 10/25/2014 Lrek-jh-jpas spots 07/15/2011 10/25/2014 Postinflammatory skin changes 07/15/2011 Xerosis cutis 07/15/2011 10/25/2014 Previous section 11/20/20102011 Abdominal pain, generalized 11/02/201010/07 Irregular menses 05/03/2010 06/03/2012 Supervision of normal first 07/10/2008 05/03/2010 Cellulitis and abscess of unspecified digit 10/0 03/200610/25/2014 documented as of this encounter (statuses as of 01/07/2023) [facility] History of Past illness Narrative* Problem Noted Date Resolved Date Morbidly obese 10/25/2014 06/27/2019 Pes cavus 04/24/2012 10/25/2014 Sprain of foot, unspecified site 07/17/2011 10/25/2014 Tendonitis of ankle 07/17/2011 10/25/2014 Melanocytic nevus of face 07/15/20112014 Intradermal nevus 07/15/2011 10/25/2014 Melanocytic nevus of neck 07/15/20112014 Melanocytic nevi of trunk 07/15/20112014 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 07/15/2011 10/25/2014 Keratosis pilaris 07/15/2011 10/25/2014 Bkza-eh-clvt spots 07/15/2011 10/25/2014 Postinflammatory skin changes 07/15/2011 Xerosis cutis 07/15/2011 10/25/2014 Previous section 11/20/20102011 Abdominal pain, generalized 11/02/201010/07 Irregular menses 05/03/2010 06/03/2012 Supervision of normal first 07/10/2008 05/03/2010 Cellulitis and abscess of unspecified digit 10/0 03/200610/25/2014 documented as of this encounter (statuses as of 03/10/2023) [facility] History of Past illness Narrative* Problem Noted Date Resolved Date Morbidly obese 10/25/2014 06/27/2019 Pes cavus 04/24/2012 10/25/2014 Sprain of foot, unspecified site 07/17/2011 10/25/2014 Tendonitis of ankle 07/17/2011 10/25/2014 Melanocytic nevus of face 07/15/20112014 Intradermal nevus 07/15/2011 10/25/2014 Melanocytic nevus of neck 07/15/20112014 Melanocytic nevi of trunk 07/15/20112014 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 07/15/2011 10/25/2014 Keratosis pilaris 07/15/2011 10/25/2014 Xaau-op-pwre spots 07/15/2011 10/25/2014 Postinflammatory skin changes 07/15/2011 Xerosis cutis 07/15/2011 10/25/2014 Previous section 11/20/20102011 Abdominal pain, generalized 11/02/201010/07 Irregular menses 05/03/2010 06/03/2012 Supervision of normal first 07/10/2008 05/03/2010 Cellulitis and abscess of unspecified digit 10/0 03/200610/25/2014 documented as of this encounter (statuses as of 03/13/2023) [facility] History of Past illness Narrative* Problem Noted [...] folliculitis 07/15/2011 015 Keratosis pilaris 07/15/2011 10/25/2014 Kuun-hh-mkzo spots 07/15/2011 5 Postinflammatory skin changes 07/15/2011 10/25/2014 Xerosis cutis 07/15/2011 10/25/2014 Previous section 11/20/2010 Abdominal pain, generalized 11/02/2010 10/25/2014 Irregular menses 05/03/2010 06/03/2012 Supervision of normal first 07/10/2008 05/03/2010 Cellulitis and abscess of unspecified digit 07/12/2006 10/25/2014 documented as of this encounter (statuses as of 05/02/2023) [facility] History of Past illness Narrative* Problem Noted [...] folliculitis 07/15/2011 015 Keratosis pilaris 07/15/2011 10/25/2014 Vgks-oq-mpgg spots 07/15/2011 5 Postinflammatory skin changes 07/15/2011 10/25/2014 Xerosis cutis 07/15/2011 10/25/2014 Previous section 11/20/2010 Abdominal pain, generalized 11/02/2010 10/25/2014 Irregular menses 05/03/2010 06/03/2012 Supervision of normal first 07/10/2008 05/03/2010 Cellulitis and abscess of unspecified digit 07/12/2006 10/25/2014 documented as of this encounter (statuses as of 05/16/2023) [facility] History of Past illness Narrative* Problem Noted [...] folliculitis 07/15/2011 015 Keratosis pilaris 07/15/2011 10/25/2014 Gxws-md-gbgl spots 07/15/2011 5 Postinflammatory skin changes 07/15/2011 10/25/2014 Xerosis cutis 07/15/2011 10/25/2014 Previous section 11/20/2010 Abdominal pain, generalized 11/02/2010 10/25/2014 Irregular menses 05/03/2010 06/03/2012 Supervision of normal first 07/10/2008 05/03/2010 Cellulitis and abscess of unspecified digit 07/12/2006 10/25/2014 documented as of this encounter (statuses as of 05/23/2023) [facility] History of Past illness Narrative* Problem Noted [...] folliculitis 07/15/2011 015 Keratosis pilaris 07/15/2011 10/25/2014 Ydgl-pf-opmm spots 07/15/2011 5 Postinflammatory skin changes 07/15/2011 10/25/2014 Xerosis cutis 07/15/2011 10/25/2014 Previous section 11/20/2010 Abdominal pain, generalized 11/02/2010 10/25/2014 Irregular menses 05/03/2010 06/03/2012 Supervision of normal first 07/10/2008 05/03/2010 Cellulitis and abscess of unspecified digit 07/12/2006 10/25/2014 documented as of this encounter (statuses as of 05/23/2023) [facility] History of Past illness Narrative* Problem Noted [...] folliculitis 07/15/2011 015 Keratosis pilaris 07/15/2011 10/25/2014 Smsi-gy-rzwj spots 07/15/2011 5 Postinflammatory skin changes 07/15/2011 10/25/2014 Xerosis cutis 07/15/2011 10/25/2014 Previous section 11/20/2010 Abdominal pain, generalized 11/02/2010 10/25/2014 Irregular menses 05/03/2010 06/03/2012 Supervision of normal first 07/10/2008 05/03/2010 Cellulitis and abscess of unspecified digit 07/12/2006 10/25/2014 documented as of this encounter (statuses as of 05/25/2023) [facility] History of Past illness Narrative* Problem Noted [...] folliculitis 07/15/2011 015 Keratosis pilaris 07/15/2011 10/25/2014 Aczu-ln-lvqm spots 07/15/2011 5 Postinflammatory skin changes 07/15/2011 10/25/2014 Xerosis cutis 07/15/2011 10/25/2014 Previous section 11/20/2010 Abdominal pain, generalized 11/02/2010 10/25/2014 Irregular menses 05/03/2010 06/03/2012 Supervision of normal first 07/10/2008 05/03/2010 Cellulitis and abscess of unspecified digit 07/12/2006 10/25/2014 documented as of this encounter (statuses as of 06/23/2023) [facility] History of Past illness Narrative* Problem Noted [...] folliculitis 07/15/2011 015 Keratosis pilaris 07/15/2011 10/25/2014 Nkyx-mr-gwqc spots 07/15/2011 5 Postinflammatory skin changes 07/15/2011 10/25/2014 Xerosis cutis 07/15/2011 10/25/2014 Previous section 11/20/2010 Abdominal pain, generalized 11/02/2010 10/25/2014 Irregular menses 05/03/2010 06/03/2012 Supervision of normal first 07/10/2008 05/03/2010 Cellulitis and abscess of unspecified digit 07/12/2006 10/25/2014 documented as of this encounter (statuses as of 06/23/2023) [facility] History of Past illness Narrative* Problem Noted [...] folliculitis 07/15/2011 015 Keratosis pilaris 07/15/2011 10/25/2014 Sjxn-hh-kldc spots 07/15/2011 5 Postinflammatory skin changes 07/15/2011 10/25/2014 Xerosis cutis 07/15/2011 10/25/2014 Previous section 11/20/2010 Abdominal pain, generalized 11/02/2010 10/25/2014 Irregular menses 05/03/2010 06/03/2012 Supervision of normal first 07/10/2008 05/03/2010 Cellulitis and abscess of unspecified digit 07/12/2006 10/25/2014 documented as of this encounter (statuses as of 06/27/2023) [facility]-19[facility]2015 History of Past illness Narrative* Problem Noted [...] folliculitis 07/15/2011 015 Keratosis pilaris 07/15/2011 10/25/2014 Gfqz-te-hbgj spots 07/15/2011 5 Postinflammatory skin changes 07/15/2011 10/25/2014 Xerosis cutis 07/15/2011 10/25/2014 Previous section 11/20/2010 Abdominal pain, generalized 11/02/2010 10/25/2014 Irregular menses 05/03/2010 06/03/2012 Supervision of normal first 07/10/2008 05/03/2010 Cellulitis and abscess of unspecified digit 07/12/2006 10/25/2014 documented as of this encounter (statuses as of 07/19/2023) [facility]2015 History of Past illness Narrative* Problem Noted [...] folliculitis 07/15/2011 015 Keratosis pilaris 07/15/2011 10/25/2014 Xydg-ka-onnn spots 07/15/2011 5 Postinflammatory skin changes 07/15/2011 10/25/2014 Xerosis cutis 07/15/2011 10/25/2014 Previous section 11/20/2010 Abdominal pain, generalized 11/02/2010 10/25/2014 Irregular menses 05/03/2010 06/03/2012 Supervision of normal first 07/10/2008 05/03/2010 Cellulitis and abscess of unspecified digit 07/12/2006 10/25/2014 documented as of this encounter (statuses as of 07/20/2023) [facility] History of Past illness Narrative* Problem Noted [...] folliculitis 07/15/2011 015 Keratosis pilaris 07/15/2011 10/25/2014 Cnnq-ai-fjpy spots 07/15/2011 5 Postinflammatory skin changes 07/15/2011 10/25/2014 Xerosis cutis 07/15/2011 10/25/2014 Previous section 11/20/2010 Abdominal pain, generalized 11/02/2010 10/25/2014 Irregular menses 05/03/2010 06/03/2012 Supervision of normal first 07/10/2008 05/03/2010 Cellulitis and abscess of unspecified digit 07/12/2006 10/25/2014 documented as of this encounter (statuses as of 08/10/2023) [facility] History of Past illness Narrative* Problem Noted [...] folliculitis 07/15/2011 015 Keratosis pilaris 07/15/2011 10/25/2014 Cuon-om-jckg spots 07/15/2011 5 Postinflammatory skin changes 07/15/2011 10/25/2014 Xerosis cutis 07/15/2011 10/25/2014 Previous section 11/20/2010 Abdominal pain, generalized 11/02/2010 10/25/2014 Irregular menses 05/03/2010 06/03/2012 Supervision of normal first 07/10/2008 05/03/2010 Cellulitis and abscess of unspecified digit 07/12/2006 10/25/2014 documented as of this encounter (statuses as of 08/11/2023) [facility] History of Past illness Narrative* Problem Noted [...] folliculitis 07/15/2011 015 Keratosis pilaris 07/15/2011 10/25/2014 Lmeg-yb-cpcj spots 07/15/2011 5 Postinflammatory skin changes 07/15/2011 10/25/2014 Xerosis cutis 07/15/2011 10/25/2014 Previous section 11/20/2010 Abdominal pain, generalized 11/02/2010 10/25/2014 Irregular menses 05/03/2010 06/03/2012 Supervision of normal first 07/10/2008 05/03/2010 Cellulitis and abscess of unspecified digit 07/12/2006 10/25/2014 documented as of this encounter (statuses as of 08/11/2023) [place] [address]-19-2015 History of Past illness Narrative* Problem Noted [...] folliculitis 07/15/2011 015 Keratosis pilaris 07/15/2011 10/25/2014 Omfk-ot-xwgs spots 07/15/2011 5 Postinflammatory skin changes 07/15/2011 10/25/2014 Xerosis cutis 07/15/2011 10/25/2014 Previous section 11/20/2010 Abdominal pain, generalized 11/02/2010 10/25/2014 Irregular menses 05/03/2010 06/03/2012 Supervision of normal first 07/10/2008 05/03/2010 Cellulitis and abscess of unspecified digit 07/12/2006 10/25/2014 documented as of this encounter (statuses as of 08/11/2023) [facility] History of Past illness Narrative* Problem Noted [...] folliculitis 07/15/2011 015 Keratosis pilaris 07/15/2011 10/25/2014 Totx-am-phoa spots 07/15/2011 5 Postinflammatory skin changes 07/15/2011 10/25/2014 Xerosis cutis 07/15/2011 10/25/2014 Previous section 11/20/2010 Abdominal pain, generalized 11/02/2010 10/25/2014 Irregular menses 05/03/2010 06/03/2012 Supervision of normal first 07/10/2008 05/03/2010 Cellulitis and abscess of unspecified digit 07/12/2006 10/25/2014 documented as of this encounter (statuses as of 09/17/2023) [facility] History of Past illness Narrative* Problem Noted [...] folliculitis 07/15/2011 015 Keratosis pilaris 07/15/2011 10/25/2014 Bdtl-vr-jflp spots 07/15/2011 5 Postinflammatory skin changes 07/15/2011 10/25/2014 Xerosis cutis 07/15/2011 10/25/2014 Previous section 11/20/2010 Abdominal pain, generalized 11/02/2010 10/25/2014 Irregular menses 05/03/2010 06/03/2012 Supervision of normal first 07/10/2008 05/03/2010 Cellulitis and abscess of unspecified digit 07/12/2006 10/25/2014 documented as of this encounter (statuses as of 12/06/2023) [facility] History of Past illness Narrative* Problem Noted [...] folliculitis 07/15/2011 015 Keratosis pilaris 07/15/2011 10/25/2014 Zqxc-dm-hrrd spots 07/15/2011 5 Postinflammatory skin changes 07/15/2011 10/25/2014 Xerosis cutis 07/15/2011 10/25/2014 Previous section 11/20/2010 Abdominal pain, generalized 11/02/2010 10/25/2014 Irregular menses 05/03/2010 06/03/2012 Supervision of normal first 07/10/2008 05/03/2010 Cellulitis and abscess of unspecified digit 07/12/2006 10/25/2014 documented as of this encounter (statuses as of 12/30/2023) [facility] History of Past illness Narrative* Problem Noted [...] folliculitis 07/15/2011 015 Keratosis pilaris 07/15/2011 10/25/2014 Emdt-df-zmpv spots 07/15/2011 5 Postinflammatory skin changes 07/15/2011 10/25/2014 Xerosis cutis 07/15/2011 10/25/2014 Previous section 11/20/2010 Abdominal pain, generalized 11/02/2010 10/25/2014 Irregular menses 05/03/2010 06/03/2012 Supervision of normal first 07/10/2008 05/03/2010 Cellulitis and abscess of unspecified digit 07/12/2006 10/25/2014 documented as of this encounter (statuses as of 01/07/2024) [facility] History of Past illness Narrative* Problem Noted [...] folliculitis 07/15/2011 015 Keratosis pilaris 07/15/2011 10/25/2014 Romd-ca-yilg spots 07/15/2011 5 Postinflammatory skin changes 07/15/2011 10/25/2014 Xerosis cutis 07/15/2011 10/25/2014 Previous section 11/20/2010 Abdominal pain, generalized 11/02/2010 10/25/2014 Irregular menses 05/03/2010 06/03/2012 Supervision of normal first 07/10/2008 05/03/2010 Cellulitis and abscess of unspecified digit 07/12/2006 10/25/2014 documented as of this encounter (statuses as of 01/23/2024) [facility] note* Diagnosis Encounter for screening mammogram for malignant neoplasm of breast- Primary Other screening mammogram documented in this encounter [facility] note* Diagnosis Urinary frequency- Primary documented in this encounter [facility] note* Diagnosis Recurrent UTI- Primary Urinary tract infection, site not specified Urgency-frequency syndrome Hypertonicity of bladder documented in this encounter [facility] note* Diagnosis Hives- Primary Urticaria, unspecified documented in this encounter [facility] noteNo assessment information availableWKettering [facility] Work Phone: Evaluation note* Diagnosis Recurrent UTI Urinary tract infection, site not specified documented in this encounter [facility] note* Diagnosis Pelvic pain- Primary documented in this encounter [facility] note* Diagnosis Pelvic pain documented in this encounter [facility] note* Diagnosis Uterine leiomyoma, unspecified location- Primary documented in this encounter [facility] note* Diagnosis Uterine leiomyoma, unspecified location documented in this encounter [facility] note* Diagnosis Seborrheic dermatitis Seborrheic dermatitis, unspecified documented in this encounter [facility] note* Diagnosis Weight gain- Primary Abnormal weight gain IFG (impaired fasting glucose) Impaired fasting glucose Urticaria Urticaria, unspecified Globus sensation Gastrointestinal malfunction arising from mental factors Perimenopausal Symptomatic menopausal or female climacteric states Dyslipidemia Other and unspecified hyperlipidemia Obesity, Class II, BMI 35-39.9 Obesity, unspecified documented in this encounter [facility] note* Diagnosis Elevated TSH- Primary Nonspecific abnormal results of thyroid function study Seborrheic dermatitis Seborrheic dermatitis, unspecified Need for COVID-19 vaccine Obesity, Class II, BMI 35-39.9 Obesity, unspecified Perimenopausal Symptomatic menopausal or female climacteric states documented in this encounter [facility] note* Diagnosis Perimenopausal Symptomatic menopausal or female climacteric states documented in this encounter [facility] note* Diagnosis Perimenopausal Symptomatic menopausal or female climacteric states [facility] Diagnosis Perimenopausal Symptomatic menopausal or female climacteric states [facility] Diagnosis Encounter for surveillance of vaginal ring hormonal contraceptive device [facility] this [facility]* Diagnosis Kdu-tzto-soafwio adverse effect of medication, initial encounter- Primary Allergic rhinitis, unspecified seasonality, unspecified trigger Mild persistent asthma without complication Unspecified asthma History of urticaria Personal history of diseases of skin and subcutaneous tissue documented in this encounter [facility] note* Diagnosis Anxiety Anxiety state, unspecified Anxiety with depression [facility] Diagnosis Paronychia of finger, left- Primary documented in this encounter [facility] note* Diagnosis Well woman exam with [...] 30-34.9 Obesity, unspecified documented in this encounter [facility] note* Diagnosis Encounter for immunization- Primary Need for other specified prophylactic vaccination against single bacterial disease Weight gain Abnormal weight gain Obesity, Class I, BMI 30-34.9 Obesity, unspecified Pelvic pain Dyslipidemia Other and unspecified hyperlipidemia IFG (impaired fasting glucose) Impaired fasting glucose [facility]* Diagnosis Encounter for immunization Need for other specified prophylactic vaccination against single bacterial disease Weight gain Abnormal weight gain Obesity, Class I, BMI 30-34.9 Obesity, unspecified Dyslipidemia Other and unspecified hyperlipidemia IFG (impaired fasting glucose) Impaired fasting glucose [facility] Diagnosis Urinary frequency- Primary [facility] Diagnosis Encounter for immunization- Primary Need for other specified prophylactic vaccination against single bacterial disease [facility]* Diagnosis Encounter for screening mammogram for malignant neoplasm of breast Other screening mammogram [facility] Diagnosis Pelvic pain [facility] Diagnosis IFG (impaired fasting glucose)- Primary Impaired fasting glucose Seborrheic dermatitis Seborrheic dermatitis, unspecified Perimenopausal Symptomatic menopausal or female climacteric states Well adult exam Routine general medical examination at a health care facility Obesity, Class I, BMI 30-34.9 Obesity, unspecified Dysmetabolic syndrome Dysmetabolic Syndrome X [facility]* Diagnosis Onset Date Resolution Status BMI 30.0-30.9,adult acute Depression acute Other obesity acute [facility] Work Phone: Evaluation note* Diagnosis Encounter for immunization Need for other specified prophylactic vaccination against single bacterial disease Weight gain Abnormal weight gain Obesity, Class I, BMI 30-34.9 Obesity, unspecified Dyslipidemia Other and unspecified hyperlipidemia IFG (impaired fasting glucose) Impaired fasting glucose [facility]* Diagnosis Anxiety Anxiety state, unspecified Anxiety with depression [facility] Diagnosis Chronic midline low back pain without sciatica- Primary [facility] Diagnosis Chronic midline low back pain without sciatica- Primary [facility] Diagnosis Chronic midline low back pain without sciatica- Primary [facility] Diagnosis Chronic midline low back pain without sciatica- Primary [facility]* Diagnosis Hordeolum externum of left lower eyelid- Primary Hordeolum externum [facility] Diagnosis Well adult exam- Primary Routine general medical examination at a health care facility Encounter for screening mammogram for malignant neoplasm of breast Other screening mammogram Perimenopausal disorder Unspecified menopausal and postmenopausal disorder Dyslipidemia Other and unspecified hyperlipidemia IFG (impaired fasting glucose) Impaired fasting glucose Dysmetabolic syndrome Dysmetabolic Syndrome X [facility]* Diagnosis Weight gain Abnormal weight gain Obesity, Class I, BMI 30-34.9 Obesity, unspecified IFG (impaired fasting glucose) Impaired fasting glucose [facility]* Diagnosis Encounter for screening mammogram for malignant neoplasm of breast Other screening mammogram [facility] Diagnosis ASTHMA UNSPECIFIED- Primary Unspecified asthma Weight gain- Primary Abnormal weight gain Overweight (BMI 25.0-29.9) Overweight [facility] Diagnosis ASTHMA UNSPECIFIED- Primary Unspecified asthma Encounter for immunization Need for other specified prophylactic vaccination against single bacterial disease [facility]* Diagnosis ASTHMA UNSPECIFIED- Primary Unspecified asthma Weight gain Abnormal weight gain Overweight (BMI 25.0-29.9) Overweight documented in this encounter [facility]* Diagnosis ASTHMA UNSPECIFIED- Primary Unspecified asthma Intertrigo- Primary Other specified erythematous condition IFG (impaired fasting glucose) Impaired fasting glucose Dysmetabolic syndrome Dysmetabolic Syndrome X Anxiety Anxiety state, unspecified Overweight (BMI 25.0-29.9) Overweight documented in this [facility]* Diagnosis ASTHMA UNSPECIFIED- Primary Unspecified asthma Hypertriglyceridemia- Primary Pure hyperglyceridemia Hyperglycemia Other abnormal glucose Dysmetabolic syndrome Dysmetabolic Syndrome X IFG (impaired fasting glucose) Impaired fasting glucose documented [facility]* Diagnosis ASTHMA UNSPECIFIED- Primary Unspecified asthma Anxiety Anxiety state, unspecified Anxiety with depression documented in this [facility]* Diagnosis ASTHMA UNSPECIFIED- Primary Unspecified asthma Skin exam, screening for cancer- Primary Screening for malignant neoplasm of the skin Orta angioma Nevus, non-neoplastic Multiple benign nevi Benign neoplasm of skin, site unspecified Solar lentigo Other dyschromia Rosacea documented in this [facility]* Diagnosis ASTHMA UNSPECIFIED- Primary Unspecified asthma IFG (impaired fasting glucose)- Primary Impaired fasting glucose Encounter for surveillance of vaginal ring hormonal contraceptive device Encounter for screening mammogram for malignant neoplasm of breast Other screening mammogram Eczema of external ear, bilateral Overweight (BMI 25.0-29.9) Overweight Dysmetabolic syndrome Dysmetabolic Syndrome X Perimenopausal disorder Unspecified menopausal and postmenopausal disorder Well adult exam Routine general medical examination at a health care facility [facility]* Diagnosis ASTHMA UNSPECIFIED- Primary Unspecified asthma Procedure, test, or exam not indicated- Primary Procedure not carried out for other reasons [facility] Diagnosis ASTHMA UNSPECIFIED- Primary Unspecified asthma Encounter for screening mammogram for malignant neoplasm of breast Other screening mammogram documented in this encounter [facility] Discharge instructions Additional Instructions Start Keflex. Take prednisone 60 mg for 3 more days. Pepcid 20 mg twice a day for 3 days. Benadryl 25 to 50 mg as needed.[facility] Work Phone: [facility] Diagnostic Procedure Only (Routine) - Authorized Specialty Diagnoses / Procedures Referred By Contac t Referred To Contact [facility] Diagnoses Encounter for screening mammogram for malignant neoplasm of breast Procedures WHITNEY SCREENING W LUAN SCREENING DIGITAL BREAST TOMOSYNTHESIS BI SCREENING MAMMOGRAPHY BI 2-VIEW BREAST INC CAD Jesus Manuel Worley DO [address] [place] [address] [facility] [address] [place] [address] Referral ID Status Reason Start Date Expiration Date Visits Requested Visits Authorized [id number] Authorized Auto-Generat ed Referral 04/17/2022 05/17/2023 1 1 [facility] for referral (narrative)* Diagnostic Procedure Only (Routine) - Authorized Specialty Diagnoses / Procedures Referred By Contac t Referred To Contact [facility] IMAGING Diagnoses Recurrent UTI Procedures US KIDNEY/BLADDER US RETROPERITONEAL REAL TIME W/IMAGE COMPLETE Vani Lamar PA-C [address] [place], [place] [id number] [facility] Referral ID Status Reason Start Date Expiration Date Visits Requested Visits Authorized [id number] Authorized Auto-Generat ed Referral 06/06/2022 07/06/2023 1 1 [facility] for referral (narrative)* Diagnostic Procedure Only (Routine) - Closed Specialty Diagnoses / Procedures Referred By Ana Maria t Referred To Contact [facility] IM[facility] Diagnoses Recurrent UTI Procedures US KIDNEY/BLADDER US RETROPERITONEAL REAL TIME W/IMAGE COMPLETE Vani Lamar PA-C [address] [place] [id number] [facility] Referral ID Status Reason Start Date Expiration Date V isits Requested Visits Authorized [id number] Closed Auto-Generate d Referral 06/06/2022 07/06/2023 1 1 [facility] for referral (narrative)* Diagnostic Procedure Only (Routine) - Closed Specialty Diagnoses / Procedures Referred By Contac t Referred To Contact [facility] IMAG[facility] Diagnoses Pelvic pain Procedures US FEMALE PELVIS TRANSVAG US TRANSVAGINAL Maria R Humphrey MD [address] [place] [address] [facility] Referral ID Status Reason Start Date Expiration Date V isits Requested Visits Authorized [id number] Closed Auto-Generate d Referral 06/18/2022 07/18/2023 1 1 * Diagnostic Procedure Only (Routine) - Closed Specialty Diagnoses / Procedures Referred By Contac t Referred To Contact [facility] IMAG[facility] Diagnoses Pelvic pain Procedures US FEMALE PELVIS TRANSABD LTD US PELVIC NONOBSTETRIC IMAGE DCMTN LIMITED/F/U Maria R Humphrey MD [address] [place] [address] [facility] Referral ID Status Reason Start Date Expiration Date V isits Requested Visits Authorized [id number] Closed Auto-Generate d Referral 06/18/2022 07/18/2023 1 1 [facility] for referral (narrative)* Diagnostic Procedure Only (Routine) - Closed Specialty Diagnoses / Procedures Referred By Contac t Referred To Contact [facility] IMAGING Diagnoses Pelvic pain Procedures US FEMALE PELVIS TRANSVAG US TRANSVAGINAL Maria R Humphrey MD [address] [place] [address] [facility] Referral ID Status Reason Start Date Expiration Date V isits Requested Visits Authorized [id number] Closed Auto-Generate d Referral 06/18/2022 07/18/2023 1 1 * Diagnostic Procedure Only (Routine) - Closed Specialty Diagnoses / Procedures Referred By Contac t Referred To Contact [facility] IMAG[facility] Diagnoses Pelvic pain Procedures US FEMALE PELVIS TRANSABD LTD US PELVIC NONOBSTETRIC IMAGE DCMTN LIMITED/F/U Maria R Humphrey MD [address] [place] [place] [address] [facility] Referral ID Status Reason Start Date Expiration Date V isits Requested Visits Authorized [id number] Closed Auto-Generate d Referral 06/18/2022 07/18/2023 1 1 [facility] for referral (narrative)* Diagnostic Procedure Only (Routine) - Authorized Specialty Diagnoses / Procedures Referred By Contac t Referred To Contact [facility] Diagnoses Encounter for screening mammogram for malignant neoplasm of breast Procedures WHITNEY SCREENING W LUAN SCREENING DIGITAL BREAST TOMOSYNTHESIS BI SCREENING MAMMOGRAPHY BI 2-VIEW BREAST INC CAD Jesus Manuel Worley DO [address] [place] [address] [facility] [address] [place] [address] Referral ID Status Reason Start Date Expiration Date Visits Requested Visits Authorized [id number] Authorized Auto-Generat ed Referral 03/13/2023 04/11/2024 1 1 [facility] for referral (narrative)* Diagnostic Procedure Only (Routine) - Authorized Specialty Diagnoses / Procedures Referred By Contac t Referred To Contact [facility] IMAG[facility] Diagnoses Pelvic pain Procedures US FEMALE PELVIS TRANSVAG US TRANSVAGINAL Estefanía Mosley APRN.CNP [address] [place] [address] [place] [address] Referral ID Status Reason Start Date Expiration Date Visits Requested Visits Authorized [id number] Authorized Auto-Generat ed Referral 05/22/2023 06/20/2024 1 1 * Diagnostic Procedure Only (Routine) - Authorized Specialty Diagnoses / Procedures Referred By Contac t Referred To Contact [facility] IM[facility] Diagnoses Pelvic pain Procedures US FEMALE PELVIS TRANSABD LTD US PELVIC NONOBSTETRIC IMAGE DCMTN LIMITED/F/U Estefanía Mosley APRN.[employer]GER [address] [place] [address] [place] [address] Referral ID Status Reason Start Date Expiration Date Visits Requested Visits Authorized [id number] Authorized Auto-Generat ed Referral 05/22/2023 06/20/2024 1 1 [facility] for referral (narrative)* Diagnostic Procedure Only (Routine) - Closed Specialty Diagnoses / Procedures Referred By Contac t Referred To Contact [facility] Diagnoses Encounter for screening mammogram for malignant neoplasm of breast Procedures WHITNEY SCREENING W LUAN SCREENING DIGITAL BREAST TOMOSYNTHESIS BI SCREENING MAMMOGRAPHY BI 2-VIEW BREAST INC CAD Jesus Manuel Worley DO [address] [place] [address] [facility] [address] [place] [address] Referral ID Status Reason Start Date Expiration Date V isits Requested Visits Authorized [id number] Closed Auto-Generate d Referral 03/13/2023 04/11/2024 1 1 [facility] for referral (narrative)* Diagnostic Procedure Only (Routine) - Closed Specialty Diagnoses / Procedures Referred By Contac t Referred To Contact [facility] Diagnoses Pelvic pain Procedures US FEMALE PELVIS TRANSVAG US TRANSVAGINAL Estefanía Mosley APRN.[employer] MANAGER [address] [place] [address] [place] [address] Referral ID Status Reason Start Date Expiration Date V isits Requested Visits Authorized [id number] Closed Auto-Generate d Referral 05/22/2023 06/20/2024 1 1 * Diagnostic Procedure Only (Routine) - Closed Specialty Diagnoses / Procedures Referred By Contac t Referred To Contact US IMAGING Diagnoses Pelvic pain Procedures US FEMALE PELVIS TRANSABD LTD US PELVIC NONOBSTETRIC IMAGE DCMTN LIMITED/F/U Estefanía Mosley APRN.RESOURCE CONSERVATION MANAGER [address] [place] [address] [facility] [address] Referral ID Status Reason Start Date Expiration Date V isits Requested Visits Authorized [id number] Closed Auto-Generate d Referral 05/22/2023 06/20/2024 1 1 [facility] for referral (narrative)* Diagnostic Procedure Only (Routine) - Authorized Specialty Diagnoses / Procedures Referred By Contac t Referred To Contact BR IMAGING Diagnoses Encounter for screening mammogram for malignant neoplasm of breast Procedures WHITNEY SCREENING W LUAN SCREENING DIGITAL BREAST TOMOSYNTHESIS BI SCREENING MAMMOGRAPHY BI 2-VIEW BREAST INC CAD Jesus Manuel Worley, DO [address] [place] [address] [facility] [address] [place] [address] Referral ID Status Reason Start Date Expiration Date Visits Requested Visits Authorized [id number] Authorized Auto-Generat ed Referral 03/17/2024 04/16/2025 1 1 [facility] for visit Narrative* Diagnostic Procedure Only (Routine) - Closed Specialty Diagnoses / Procedures Referred By Contac t Referred To Contact BR IMAGING Diagnoses Encounter for screening mammogram for malignant neoplasm of breast Procedures WHITNEY SCREENING W LUAN SCREENING DIGITAL BREAST TOMOSYNTHESIS BI SCREENING MAMMOGRAPHY BI 2-VIEW BREAST INC CAD Jesus Manuel Worley, DO [address] [place] [address] [facility] [address] [place] [address] Referral ID Status Reason Start Date Expiration Date V isits Requested Visits Authorized [id number] Closed Auto-Generate d Referral 03/13/2023 04/11/2024 1 1 [facility] for visit Narrative* Diagnostic Procedure Only (Routine) - Closed Specialty Diagnoses / Procedures Referred By Contac t Referred To Contact US IMAGING Diagnoses Pelvic pain Procedures US FEMALE PELVIS TRANSABD LTD US PELVIC NONOBSTETRIC IMAGE DCMTN LIMITED/F/U Estefanía Mosley APRN.RESOURCE CONSERVATION MANAGER [address] [place] [address] [facility] [address] Referral ID Status Reason Start Date Expiration Date V isits Requested Visits Authorized [id number] Closed Auto-Generate d Referral 05/22/2023 06/20/2024 1 1 [facility] for visit Narrative* Diagnostic Procedure Only (Routine) - Closed Specialty Diagnoses / Procedures Referred By Contac t Referred To Contact BR IMAGING Diagnoses Encounter for screening mammogram for malignant neoplasm of breast Procedures WHITNEY SCREENING W LUAN SCREENING DIGITAL BREAST TOMOSYNTHESIS BI SCREENING MAMMOGRAPHY BI 2-VIEW BREAST INC CAD Meir Jesus Manuel Eric, DO [address] [place] [address] Imaging [address] [place] [address] Referral ID Status Reason Start Date Expiration Date V isits Requested Visits Authorized [id number] Closed Auto-Generate d Referral 03/17/2024 04/16/2025 1 1 [facility] for visit Narrative* Diagnostic Procedure Only (Routine) - Closed Specialty Diagnoses / Procedures Referred By Contjay t Referred To Contact BR IMAGING Diagnoses Encounter for screening mammogram for malignant neoplasm of breast Procedures WHITNEY SCREENING W LUAN SCREENING DIGITAL BREAST TOMOSYNTHESIS BI SCREENING MAMMOGRAPHY BI 2-VIEW BREAST INC CAD Meir Jesus Manuel L, DO [address] [place] [address] Phone: tel: fax: IMAGING [address] [place] [address] Referral ID Status Reason Start Date Expiration Date V isits Requested Visits Authorized [id number] Closed Auto-Generate d Referral 03/10/2025 04/09/2026 1 1 [facility] Advance Directives No Advanced Directives Records FoundDocuments on File Type Date Recorded 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 Advance Directive(s) 06/16/2019 7:38 AM Advance Directive(s) 09/02/2018 1:43 PM Documents on File Type Date Recorded 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 Advance Directive(s) 06/16/2019 7:38 AM Advance Directive(s) 09/02/2018 1:43 PM Advance Directive Response Recorded Date/ Time Advance Directives No June 9:53pm Living Will No June 13, 2 022 12:31am Power of Electroencephalographic Technologist No June 13, 2022 12:31am Advance Directive Response Recorded Date/ Time Advance Directives No June 8:53pm Living Will No June 12 11:31pm Power of Electroencephalographic Technologist No June 12, 2022 11:31pm Advance Directive Response Recorded Date/ Time Advance Directives No December 27, 2 023 9:14am Living Will No October 05 023 2:04pm Power of Electroencephalographic Technologist No October 05, 2023 2:04pm Reason for Referral Specialty Diagnoses / Procedures Referred By Contac t Referred To Contact Allergy Diagnoses Hives Procedures CONSULT TO ALLERGY/IMMUNOLOGY OFFICE/OUTPATIENT [facility] 60-74 MINUTES Jen Humphrey APRN.RESOURCE CONSERVATION MANAGER [address] [place] [address] Referral ID Status Reason Start Date Expiration Date Visits Requested Visits Authorized [id number] Authorized PCP Requested Referral 06/09/2022 06/09/2023 1 1 Specialty Diagnoses / Procedures Referred By Contac t Referred To Contact MR IMAGING Diagnoses Uterine leiomyoma, unspecified location Procedures MRI FEMALE PELVIS WO/W IVCON MRI PELVIS W/O & W/CONTRAST MATERIAL Maria R Humphrey MD [address] [address] [facility] Referral ID Status Reason Start Date Expiration Date Visits Requested Visits Authorized [id number] Authorized Auto-Generat ed Referral 06/21/2022 08/06/2022 1 1 Referral ID Status Reason Start Date Expiration Date V isits Requested Visits Authorized [id number] Closed Auto-Generate d Referral 06/21/2022 08/06/2022 1 1 Chief Complaint and Reason for Visit Chief Complaint ALLERGIC REACTION Chief Complaint Weight Management Co nsult, Form mailed ABD Reason for Visit BMI 30.0-30.9,adult Depression Other obesity Summary Purpose Family History No Family History Records Found Relationship Condition Age at Onset Recorded Date/T nikole father Malignant neoplasm 73 Sudden cardiac Unknown Hypertension Unknown mother Leiomyoma Unknown Additional Source Comments Source Comments (unrecognize d section and content) In the event this informatio n is protected by the Federal Confidentiality of Alcohol and Drug Abuse Patient Records regulations: The Federal rules restrict any use of the information to criminally investigate or prosecute any alcohol or drug abuse patient.[facility] the event this information is protected by the Federal Confidentiality of Alcohol and Drug Abuse Patient Records regulations: The Federal rules restrict any use of the information to criminally investigate or prosecute any alcohol or drug abuse patient.[facility]In the event this information is protected by the Federal Confidentiality of Alcohol and Drug Abuse Patient Records regulations: The Federal rules restrict any use of the information to criminally investigate or prosecute any alcohol or drug abuse patient.[facility]In the event this information is protected by the Federal Confidentiality of Alcohol and Drug Abuse Patient Records regulations: The Federal rules restrict any use of the information to criminally investigate or prosecute any alcohol or drug abuse patient.[facility]In the event this information is protected by the Federal Confidentiality of Alcohol and Drug Abuse Patient Records regulations: The Federal rules restrict any use of the information to criminally investigate or prosecute any alcohol or drug abuse patient.[facility]In the event this information is protected by the Federal Confidentiality of Alcohol and Drug Abuse Patient Records regulations: The Federal rules restrict any use of the information to criminally investigate or prosecute any alcohol or drug abuse patient.[facility]In the event this information is protected by the Federal Confidentiality of Alcohol and Drug Abuse Patient Records regulations: The Federal rules restrict any use of the information to criminally investigate or prosecute any alcohol or drug abuse patient.[facility]In the event this information is protected by the Federal Confidentiality of Alcohol and Drug Abuse Patient Records regulations: The Federal rules restrict any use of the information to criminally investigate or prosecute any alcohol or drug abuse patient.[facility]In the event this information is protected by the Federal Confidentiality of Alcohol and Drug Abuse Patient Records regulations: The Federal rules restrict any use of the information to criminally investigate or prosecute any alcohol or drug abuse patient.[facility]In the event this information is protected by the Federal Confidentiality of Alcohol and Drug Abuse Patient Records regulations: The Federal rules restrict any use of the information to criminally investigate or prosecute any alcohol or drug abuse patient.[facility] HospitalIn the event this information is protected by the Federal Confidentiality of Alcohol and Drug Abuse Patient Records regulations: The Federal rules restrict any use of the information to criminally investigate or prosecute any alcohol or drug abuse patient.[facility] HospitalIn the event this information is protected by the Federal Confidentiality of Alcohol and Drug Abuse Patient Records regulations: The Federal rules restrict any use of the information to criminally investigate or prosecute any alcohol or drug abuse patient.[facility]In the event this information is protected by the Federal Confidentiality of Alcohol and Drug Abuse Patient Records regulations: The Federal rules restrict any use of the information to criminally investigate or prosecute any alcohol or drug abuse patient.[facility] HospitalIn the event this information is protected by the Federal Confidentiality of Alcohol and Drug Abuse Patient Records regulations: The Federal rules restrict any use of the information to criminally investigate or prosecute any alcohol or drug abuse patient.[facility] HospitalIn the event this information is protected by the Federal Confidentiality of Alcohol and Drug Abuse Patient Records regulations: The Federal rules restrict any use of the information to criminally investigate or prosecute any alcohol or drug abuse patient.[facility] HospitalIn the event this information is protected by the Federal Confidentiality of Alcohol and Drug Abuse Patient Records regulations: The Federal rules restrict any use of the information to criminally investigate or prosecute any alcohol or drug abuse patient.[facility] HospitalIn the event this information is protected by the Federal Confidentiality of Alcohol and Drug Abuse Patient Records regulations: The Federal rules restrict any use of the information to criminally investigate or prosecute any alcohol or drug abuse patient.[facility] HospitalIn the event this information is protected by the Federal Confidentiality of Alcohol and Drug Abuse Patient Records regulations: The Federal rules restrict any use of the information to criminally investigate or prosecute any alcohol or drug abuse patient.[facility] HospitalIn the event this information is protected by the Federal Confidentiality of Alcohol and Drug Abuse Patient Records regulations: The Federal rules restrict any use of the information to criminally investigate or prosecute any alcohol or drug abuse patient.[facility] HospitalIn the event this information is protected by the Federal Confidentiality of Alcohol and Drug Abuse Patient Records regulations: The Federal rules restrict any use of the information to criminally investigate or prosecute any alcohol or drug abuse patient.[facility] HospitalIn the event this information is protected by the Federal Confidentiality of Alcohol and Drug Abuse Patient Records regulations: The Federal rules restrict any use of the information to criminally investigate or prosecute any alcohol or drug abuse patient.[facility] HospitalIn the event this information is protected by the Federal Confidentiality of Alcohol and Drug Abuse Patient Records regulations: The Federal rules restrict any use of the information to criminally investigate or prosecute any alcohol or drug abuse patient.[facility] HospitalIn the event this information is protected by the Federal Confidentiality of Alcohol and Drug Abuse Patient Records regulations: The Federal rules restrict any use of the information to criminally investigate or prosecute any alcohol or drug abuse patient.[facility] HospitalIn the event this information is protected by the Federal Confidentiality of Alcohol and Drug Abuse Patient Records regulations: The Federal rules restrict any use of the information to criminally investigate or prosecute any alcohol or drug abuse patient.[facility] HospitalIn the event this information is protected by the Federal Confidentiality of Alcohol and Drug Abuse Patient Records regulations: The Federal rules restrict any use of the information to criminally investigate or prosecute any alcohol or drug abuse patient.[facility] HospitalIn the event this information is protected by the Federal Confidentiality of Alcohol and Drug Abuse Patient Records regulations: The Federal rules restrict any use of the information to criminally investigate or prosecute any alcohol or drug abuse patient.[facility] HospitalIn the event this information is protected by the Federal Confidentiality of Alcohol and Drug Abuse Patient Records regulations: The Federal rules restrict any use of the information to criminally investigate or prosecute any alcohol or drug abuse patient.[facility] HospitalIn the event this information is protected by the Federal Confidentiality of Alcohol and Drug Abuse Patient Records regulations: The Federal rules restrict any use of the information to criminally investigate or prosecute any alcohol or drug abuse patient.[facility] HospitalIn the event this information is protected by the Federal Confidentiality of Alcohol and Drug Abuse Patient Records regulations: The Federal rules restrict any use of the information to criminally investigate or prosecute any alcohol or drug abuse patient.[facility] HospitalIn the event this information is protected by the Federal Confidentiality of Alcohol and Drug Abuse Patient Records regulations: The Federal rules restrict any use of the information to criminally investigate or prosecute any alcohol or drug abuse patient.[facility] HospitalIn the event this information is protected by the Federal Confidentiality of Alcohol and Drug Abuse Patient Records regulations: The Federal rules restrict any use of the information to criminally investigate or prosecute any alcohol or drug abuse patient.[facility] HospitalIn the event this information is protected by the Federal Confidentiality of Alcohol and Drug Abuse Patient Records regulations: The Federal rules restrict any use of the information to criminally investigate or prosecute any alcohol or drug abuse patient.[facility] HospitalIn the event this information is protected by the Federal Confidentiality of Alcohol and Drug Abuse Patient Records regulations: The Federal rules restrict any use of the information to criminally investigate or prosecute any alcohol or drug abuse patient.[facility] HospitalIn the event this information is protected by the Federal Confidentiality of Alcohol and Drug Abuse Patient Records regulations: The Federal rules restrict any use of the information to criminally investigate or prosecute any alcohol or drug abuse patient.[facility] HospitalIn the event this information is protected by the Federal Confidentiality of Alcohol and Drug Abuse Patient Records regulations: The Federal rules restrict any use of the information to criminally investigate or prosecute any alcohol or drug abuse patient.[facility] HospitalIn the event this information is protected by the Federal Confidentiality of Alcohol and Drug Abuse Patient Records regulations: The Federal rules restrict any use of the information to criminally investigate or prosecute any alcohol or drug abuse patient.[facility] HospitalIn the event this information is protected by the Federal Confidentiality of Alcohol and Drug Abuse Patient Records regulations: The Federal rules restrict any use of the information to criminally investigate or prosecute any alcohol or drug abuse patient.[facility] HospitalIn the event this information is protected by the Federal Confidentiality of Alcohol and Drug Abuse Patient Records regulations: The Federal rules restrict any use of the information to criminally investigate or prosecute any alcohol or drug abuse patient.[facility] HospitalIn the event this information is protected by the Federal Confidentiality of Alcohol and Drug Abuse Patient Records regulations: The Federal rules restrict any use of the information to criminally investigate or prosecute any alcohol or drug abuse patient.[facility] HospitalIn the event this information is protected by the Federal Confidentiality of Alcohol and Drug Abuse Patient Records regulations: The Federal rules restrict any use of the information to criminally investigate or prosecute any alcohol or drug abuse patient.[facility] HospitalIn the event this information is protected by the Federal Confidentiality of Alcohol and Drug Abuse Patient Records regulations: The Federal rules restrict any use of the information to criminally investigate or prosecute any alcohol or drug abuse patient.[facility] HospitalIn the event this information is protected by the Federal Confidentiality of Alcohol and Drug Abuse Patient Records regulations: The Federal rules restrict any use of the information to criminally investigate or prosecute any alcohol or drug abuse patient.[facility] HospitalIn the event this information is protected by the Federal Confidentiality of Alcohol and Drug Abuse Patient Records regulations: The Federal rules restrict any use of the information to criminally investigate or prosecute any alcohol or drug abuse patient.[facility] HospitalIn the event this information is protected by the Federal Confidentiality of Alcohol and Drug Abuse Patient Records regulations: The Federal rules restrict any use of the information to criminally investigate or prosecute any alcohol or drug abuse patient.[facility] HospitalIn the event this information is protected by the Federal Confidentiality of Alcohol and Drug Abuse Patient Records regulations: The Federal rules restrict any use of the information to criminally investigate or prosecute any alcohol or drug abuse patient.[facility] HospitalIn the event this information is protected by the Federal Confidentiality of Alcohol and Drug Abuse Patient Records regulations: The Federal rules restrict any use of the information to criminally investigate or prosecute any alcohol or drug abuse patient.[facility] HospitalIn the event this information is protected by the Federal Confidentiality of Alcohol and Drug Abuse Patient Records regulations: The Federal rules restrict any use of the information to criminally investigate or prosecute any alcohol or drug abuse patient.[facility] HospitalIn the event this information is protected by the Federal Confidentiality of Alcohol and Drug Abuse Patient Records regulations: The Federal rules restrict any use of the information to criminally investigate or prosecute any alcohol or drug abuse patient.[facility] HospitalIn the event this information is protected by the Federal Confidentiality of Alcohol and Drug Abuse Patient Records regulations: The Federal rules restrict any use of the information to criminally investigate or prosecute any alcohol or drug abuse patient.[facility] HospitalIn the event this information is protected by the Federal Confidentiality of Alcohol and Drug Abuse Patient Records regulations: The Federal rules restrict any use of the information to criminally investigate or prosecute any alcohol or drug abuse patient.[facility] HospitalIn the event this information is protected by the Federal Confidentiality of Alcohol and Drug Abuse Patient Records regulations: The Federal rules restrict any use of the information to criminally investigate or prosecute any alcohol or drug abuse patient.[facility] HospitalIn the event this information is protected by the Federal Confidentiality of Alcohol and Drug Abuse Patient Records regulations: The Federal rules restrict any use of the information to criminally investigate or prosecute any alcohol or drug abuse patient.[facility] HospitalIn the event this information is protected by the Federal Confidentiality of Alcohol and Drug Abuse Patient Records regulations: The Federal rules restrict any use of the information to criminally investigate or prosecute any alcohol or drug abuse patient.[facility] HospitalIn the event this information is protected by the Federal Confidentiality of Alcohol and Drug Abuse Patient Records regulations: The Federal rules restrict any use of the information to criminally investigate or prosecute any alcohol or drug abuse patient.[facility] HospitalIn the event this information is protected by the Federal Confidentiality of Alcohol and Drug Abuse Patient Records regulations: The Federal rules restrict any use of the information to criminally investigate or prosecute any alcohol or drug abuse patient.[facility] HospitalIn the event this information is protected by the Federal Confidentiality of Alcohol and Drug Abuse Patient Records regulations: The Federal rules restrict any use of the information to criminally investigate or prosecute any alcohol or drug abuse patient.[facility] HospitalIn the event this information is protected by the Federal Confidentiality of Alcohol and Drug Abuse Patient Records regulations: The Federal rules restrict any use of the information to criminally investigate or prosecute any alcohol or drug abuse patient.[facility] HospitalIn the event this information is protected by the Federal Confidentiality of Alcohol and Drug Abuse Patient Records regulations: The Federal rules restrict any use of the information to criminally investigate or prosecute any alcohol or drug abuse patient.[facility] HospitalIn the event this information is protected by the Federal Confidentiality of Alcohol and Drug Abuse Patient Records regulations: The Federal rules restrict any use of the information to criminally investigate or prosecute any alcohol or drug abuse patient.[facility] HospitalIn the event this information is protected by the Federal Confidentiality of Alcohol and Drug Abuse Patient Records regulations: The Federal rules restrict any use of the information to criminally investigate or prosecute any alcohol or drug abuse patient.[facility] HospitalIn the event this information is protected by the Federal Confidentiality of Alcohol and Drug Abuse Patient Records regulations: The Federal rules restrict any use of the information to criminally investigate or prosecute any alcohol or drug abuse patient.[facility] HospitalIn the event this information is protected by the Federal Confidentiality of Alcohol and Drug Abuse Patient Records regulations: The Federal rules restrict any use of the information to criminally investigate or prosecute any alcohol or drug abuse patient.[facility] HospitalIn the event this information is protected by the Federal Confidentiality of Alcohol and Drug Abuse Patient Records regulations: The Federal rules restrict any use of the information to criminally investigate or prosecute any alcohol or drug abuse patient.[facility] HospitalIn the event this information is protected by the Federal Confidentiality of Alcohol and Drug Abuse Patient Records regulations: The Federal rules restrict any use of the information to criminally investigate or prosecute any alcohol or drug abuse patient.[facility] HospitalIn the event this information is protected by the Federal Confidentiality of Alcohol and Drug Abuse Patient Records regulations: The Federal rules restrict any use of the information to criminally investigate or prosecute any alcohol or drug abuse patient.[facility] HospitalIn the event this information is protected by the Federal Confidentiality of Alcohol and Drug Abuse Patient Records regulations: The Federal rules restrict any use of the information to criminally investigate or prosecute any alcohol or drug abuse patient.[facility] HospitalIn the event this information is protected by the Federal Confidentiality of Alcohol and Drug Abuse Patient Records regulations: The Federal rules restrict any use of the information to criminally investigate or prosecute any alcohol or drug abuse patient.[facility] HospitalIn the event this information is protected by the Federal Confidentiality of Alcohol and Drug Abuse Patient Records regulations: The Federal rules restrict any use of the information to criminally investigate or prosecute any alcohol or drug abuse patient.[facility] HospitalIn the event this information is protected by the Federal Confidentiality of Alcohol and Drug Abuse Patient Records regulations: The Federal rules restrict any use of the information to criminally investigate or prosecute any alcohol or drug abuse patient.[facility] HospitalIn the event this information is protected by the Federal Confidentiality of Alcohol and Drug Abuse Patient Records regulations: The Federal rules restrict any use of the information to criminally investigate or prosecute any alcohol or drug abuse patient.[facility] HospitalIn the event this information is protected by the Federal Confidentiality of Alcohol and Drug Abuse Patient Records regulations: The Federal rules restrict any use of the information to criminally investigate or prosecute any alcohol or drug abuse patient.[facility] HospitalIn the event this information is protected by the Federal Confidentiality of Alcohol and Drug Abuse Patient Records regulations: The Federal rules restrict any use of the information to criminally investigate or prosecute any alcohol or drug abuse patient.[facility] HospitalIn the event this information is protected by the Federal Confidentiality of Alcohol and Drug Abuse Patient Records regulations: The Federal rules restrict any use of the information to criminally investigate or prosecute any alcohol or drug abuse patient.[facility] HospitalIn the event this information is protected by the Federal Confidentiality of Alcohol and Drug Abuse Patient Records regulations: The Federal rules restrict any use of the information to criminally investigate or prosecute any alcohol or drug abuse patient.[facility] HospitalIn the event this information is protected by the Federal Confidentiality of Alcohol and Drug Abuse Patient Records regulations: The Federal rules restrict any use of the information to criminally investigate or prosecute any alcohol or drug abuse patient.[facility] HospitalIn the event this information is protected by the Federal Confidentiality of Alcohol and Drug Abuse Patient Records regulations: The Federal rules restrict any use of the information to criminally investigate or prosecute any alcohol or drug abuse patient.[facility] HospitalIn the event this information is protected by the Federal Confidentiality of Alcohol and Drug Abuse Patient Records regulations: The Federal rules restrict any use of the information to criminally investigate or prosecute any alcohol or drug abuse patient.[facility] Reason for Visit (unrecogniz ed section and content) Reason Comments PT Discharge Specialty Diagnoses / Procedures Referred By Contac t Referred To Contact [facility] Diagnoses Chronic midline low back pain without sciatica Procedures CONSULT TO PHYSICAL THERAPY PHYSICAL THERAPY EVALUATION HIGH COMPLEX 45 MINS Jesus Manuel Worley, DO [address] [place] [address] [facility] [place] [address] [place] [address] Referral ID Status Reason Start Date Expiration Date Visits Requested Visits Authorized [id number] Authorized Auto-Generat ed Referral 10/07/2023 10/06/2024 25 25 Reason Comments Physical Therapy Reason Comments mammogram orders Reason Comments Urinary Urgency frequency , burning x2 days Reason Comments Results Reason Comments Urinary Frequency Specialty Diagnoses / Procedures Referred By Contac t Referred To Contact Urology Diagnoses Urinary frequency Frequent UTI Procedures CONSULT TO UROLOGY OFFICE/OUTPATIENT NEW HIGH MDM 60-74 MINUTES Jen Humphrey APRN.RESOURCE CONSERVATION MANAGER [address] [place] [id number] Referral ID Status Reason Start Date Expiration Date V isits Requested Visits Authorized [id number] Closed PCP Requested Referral 06/03/2022 06/03/2023 1 1 Reason Comments Hives Hives all over body x 3 days Reason Comments Information Reason Comments Radiology US Specialty Diagnoses / Procedures Referred By Contac t Referred To Contact US IMAGING Diagnoses Recurrent UTI Procedures US KIDNEY/BLADDER US RETROPERITONEAL REAL TIME W/IMAGE COMPLETE Vani Lamar PA-C [address] [place] [id number] Us Imaging Referral ID Status Reason Start Date Expiration Date V isits Requested Visits Authorized [id number] Closed Auto-Generate d Referral 06/06/2022 07/06/2023 1 1 Reason Comments Orders Reason Comments Radiology US Specialty Diagnoses / Procedures Referred By Contac t Referred To Contact US IMAGING Diagnoses Pelvic pain Procedures US FEMALE PELVIS TRANSABD LTD US PELVIC NONOBSTETRIC IMAGE DCMTN LIMITED/F/U Maria R Humphrey MD [address] [place] [address] Us Imaging Referral ID Status Reason Start Date Expiration Date V isits Requested Visits Authorized [id number] Closed Auto-Generate d Referral 06/18/2022 07/18/2023 1 1 Reason Onset Date Comments Refill Request 06/25/2022 Reason Comments Rash Specialty Diagnoses / Procedures Referred By Contac t Referred To Contact MR IMAGING Diagnoses Uterine leiomyoma, unspecified location Procedures MRI FEMALE PELVIS WO/W IVCON MRI PELVIS W/O & W/CONTRAST MATERIAL Maria R Humphrey MD [address] [place] [address] Mr Imaging Referral ID Status Reason Start Date Expiration Date V isits Requested Visits Authorized [id number] Closed Auto-Generate d Referral 06/21/2022 08/06/2022 1 [...] Comments Imm/Inj Reason Comments 6 Month Exam Reason Onset Date Comments Refill Request 12/30/2023 Reason Comments PT Eval Reason Comments Eye Problem X1 day itchy and [place] gabriel Reason Comments new order needs sent to [facility] for Ozempic Reason Comments Follow Up Ozempic Reason Comments flu and covid Reason Comments Orders Reason Comments Forms Reason Comments Patient Question Ozempic Reason Onset Date Comments Refill Request 02/03/2025 Reason Comments Full Body Skin Check Reason Comments 6 Month Exam Reason Comments Appointment Cancelled Reason Comments Med Change Request Care Teams (unrecognized sec tion and content) Pole Peeler Relationship Specialty Start Date End Date Jesus Manuel Worley, [address] [place] [address] PCP - General Family Practice 12/13/14 Pole Peeler Relationship Specialty Start Date End Date Jesus Manuel Worley, DO [address] [place] [address] PCP - General Family Practice 12/13/14 Pole Peeler Relationship Specialty Start Date End Date Jesus Manuel Worley, DO [address] [place] [address] PCP - General Family Practice 12/13/14 Pole Peeler Relationship Specialty Start Date End Date Jesus Manuel Worley, DO [address] [place] [address] PCP - General Family Practice 12/13/14 Pole Peeler Relationship Specialty Start Date End Date Jesus Manuel Worley, DO [address] [place] [address] PCP - General Family Practice 12/13/14 Pole Peeler Relationship Specialty Start Date End Date Jesus Manuel Worley, DO [address] [place] [address] PCP - General Family Practice 12/13/14 Pole Peeler Relationship Specialty Start Date End Date Jesus Manuel Worley, DO [address] [place] [address] PCP - General Family Practice 12/13/14 Pole Peeler Relationship Specialty Start Date End Date Jesus Manuel Worley, DO [address] [place] [address] PCP - General Family Practice 12/13/14 Pole Peeler Relationship Specialty Start Date End Date Jesus Manuel Worley, DO [address] [place] [address] PCP - General Family Practice 12/13/14 Pole Peeler Relationship Specialty Start Date End Date Jesus Manuel Worley, DO [address] [place] [address] PCP - General Family Practice 12/13/14 Pole Peeler Relationship Specialty Start Date End Date Jesus Manuel Worley, DO [address] [place] [address] PCP - General Family Practice 12/13/14 Pole Peeler Relationship Specialty Start Date End Date Jesus Manuel Worley, DO [address] [place] [address] PCP - General Family Medicine 12/13/14 Pole Peeler Relationship Specialty Start Date End Date Jesus Manuel Worley, DO [address] [place] [address] PCP - General Family Medicine 12/13/14 Pole Peeler Relationship Specialty Start Date End Date Jesus Manuel Worley, DO [address] [place] [address] PCP - General Family Medicine 12/13/14 Pole Peeler Relationship Specialty Start Date End Date Jesus Manuel Worley, DO [address] [place] [address] PCP - General Family Medicine 12/13/14 Pole Peeler Relationship Specialty Start Date End Date Jesus Manuel Worley, DO [address] [place] [address] PCP - General Family Medicine 12/13/14 Pole Peeler Relationship Specialty Start Date End Date Jesus Manuel Worley, DO [address] [place] [address] PCP - General Family Medicine 12/13/14 Pole Peeler Relationship Specialty Start Date End Date Jesus Manuel Worley, DO [address] [place] [address] PCP - General Family Medicine 12/13/14 Pole Peeler Relationship Specialty Start Date End Date Jesus Manuel Worley, DO [address] [place] [address] PCP - General Family Medicine 12/13/14 Pole Peeler Relationship Specialty Start Date End Date Jesus Manuel Worley, DO [address] [place] [address] PCP - General Family Medicine 12/13/14 Pole Peeler Relationship Specialty Start Date End Date Jesus Manuel Worley, DO [address] [place] [address] PCP - General Family Medicine 12/13/14 Pole Peeler Relationship Specialty Start Date End Date Jesus Manuel Worley, DO [address] [place] [address] PCP - General Family Medicine 12/13/14 Pole Peeler Relationship Specialty Start Date End Date Jesus Manuel Worley, DO [address] [place] [address] PCP - General Family Medicine 12/13/14 Pole Peeler Relationship Specialty Start Date End Date Jesus Manuel Worley, DO [address] [place] [address] PCP - General Family Medicine 12/13/14 Pole Peeler Relationship Specialty Start Date End Date Jesus Manuel Worley, DO [address] [place] [address] PCP - General Family Medicine 12/13/14 Pole Peeler Relationship Specialty Start Date End Date Jesus Manuel Worley DO [address] [place] [address] PCP - General Family Medicine 12/13/14 Pole Peeler Relationship Specialty Start Date End Date Jesus Manuel Worley DO [address] [place] [address] PCP - General Family Medicine 12/13/14 Pole Peeler Relationship Specialty Start Date End Date Jesus Manuel Worley DO [address] [place] [address] PCP - General Family Medicine 12/13/14 Pole Peeler Relationship Specialty Start Date End Date Jesus Manuel Worley DO [address] [place] [address] PCP - General Family Medicine 12/13/14 Pole Peeler Relationship Specialty Start Date End Date Jesus Manuel Worley DO [address] [place] [address] PCP - General Family Medicine 12/13/14 Pole Peeler Relationship Specialty Start Date End Date Jesus Manuel Worley DO [address] [place] [address] PCP - General Family Medicine 12/13/14 Pole Peeler Relationship Specialty Start Date End Date Jesus Manuel Worley DO [address] [place] [address] PCP - General Family Medicine 12/13/14 Pole Peeler Relationship Specialty Start Date End Date Jesus Manuel Worley DO [address] [place] [address] PCP - General Family Medicine 12/13/14 Pole Peeler Relationship Specialty Start Date End Date Jesus Manuel Worley DO [address] [place] [address] PCP - General Family Medicine 12/13/14 Pole Peeler Relationship Specialty Start Date End Date Jesus Manuel Worley DO [address] [place] [address] PCP - General Family Medicine 12/13/14 Pole Peeler Relationship Specialty Start Date End Date Jesus Manuel Worley DO [address] [place] [address] PCP - General Family Medicine 12/13/14 Pole Peeler Relationship Specialty Start Date End Date Jesus Manuel Worley DO [address] [place] [address] PCP - General Family Medicine 12/13/14 Team Status: Active Member Role Status Dates Dr. Jesus Manuel Worley DO Family Provider Active Dr. Jesus Manuel Worley DO Primary Care Provider Active Team Status: Inactive Member Role Status Dates Dr. Jesus Manuel Worley DO Primary Care Provider, Referr ing Provider Active Dr. Amarilis Richey MD Attending Provider Active Team Status: Inactive Member Role Status Dates Dr. Jesus Manuel Worley DO Primary Care Provider Active Dr. Vane Bradley MD Emergency Provider Active Pole Peeler Relationship Specialty Start Date End Date Jesus Manuel Worley DO [address] [place] [address] PCP - General Family Medicine 12/13/14 Pole Peeler Relationship Specialty Start Date End Date Jesus Manuel Worley DO [address] [place] [address] PCP - General Family Medicine 12/13/14 Pole Peeler Relationship Specialty Start Date End Date Jesus Manuel Worley DO [address] [place] [address] PCP - General Family Medicine 12/13/14 Pole Peeler Relationship Specialty Start Date End Date Jesus Manuel Worley DO [address] [place] [address] PCP - General Family Medicine 12/13/14 Pole Peeler Relationship Specialty Start Date End Date Jesus Manuel Worley DO [address] [place] [address] PCP - General Family Medicine 12/13/14 Pole Peeler Relationship Specialty Start Date End Date Jesus Manuel Worley DO [address] [facility] [address] PCP - General Family Medicine 12/13/14 Pole Peeler Relationship Specialty Start Date End Date Jesus Manuel Worley DO [address] [facility] [place] [address] PCP - General Family Medicine 12/13/14 Pole Peeler Relationship Specialty Start Date End Date Jesus Manuel Worley DO [address] [place] [address] PCP - General Family Medicine 12/13/14 Pole Peeler Relationship Specialty Start Date End Date Jesus Manuel Worley DO [address] [place] [address] PCP - General Family Medicine 12/13/14 Pole Peeler Relationship Specialty Start Date End Date Jesus Manuel Worley DO [address] [place] [address] PCP - General Family Medicine 12/13/14 Pole Peeler Relationship Specialty Start Date End Date Jesus Manuel Worley DO [address] [facility] [place] [address] PCP - General Family Medicine 12/13/14 Estefanía Mosley APRN.RESOURCE CONSERVATION MANAGER [address] [place] [address] Bank Sales And Service Manager Family [facility] 09/13/24 Beatris Case, MANAGER SHIFT.RESOURCE CONSERVATION MANAGER [address] [place] [address] Bank Sales And Service Manager Family Medicine 09/13/24 Pole Peeler Relationship Specialty Start Date End Date Jesus Manuel Worley DO [address] [place] [address] PCP - General Family Medicine 12/13/14 Estefanía Mosley, MANAGER SHIFT.RESOURCE CONSERVATION MANAGER [address] [place] [address] [facility] 09/13/24 Beatris Case, MANAGER SHIFT.RESOURCE CONSERVATION MANAGER [address] [place] [address] [facility] 09/13/24 Pole Peeler Relationship Specialty Start Date End Date Jesus Manuel Worley DO [address] [place] [address] PCP - General Family Medicine 12/13/14 Estefanía Mosley, MANAGER SHIFT.RESOURCE CONSERVATION MANAGER [address] [place] [address] Bank Sales And Service Manager Family [facility] 09/13/24 Beatris Case, MANAGER SHIFT.RESOURCE CONSERVATION MANAGER [address] [place] [address] [facility] 09/13/24 Pole Peeler Relationship Specialty Start Date End Date Jesus Manuel Worley DO [address] [place] [address] PCP - General Family Medicine 12/13/14 Estefanía Mosley, MANAGER SHIFT.RESOURCE CONSERVATION MANAGER [address] [place] [address] Bank Sales And Service Manager Family [facility] 09/13/24 Beatris Case, MANAGER SHIFT.RESOURCE CONSERVATION MANAGER [address] [place] [address] [facility] 09/13/24 Pole Peeler Relationship Specialty Start Date End Date Jesus Manuel Worley DO [address] [place] [address] PCP - General Family Medicine 12/13/14 Estefanía Mosley, MANAGER SHIFT.RESOURCE CONSERVATION MANAGER [address] [place] [address] [facility] 09/13/24 IdaliaBeatris, MANAGER SHIFT.RESOURCE CONSERVATION MANAGER [address] [place] [address] [facility] 09/13/24 Pole Peeler Relationship Specialty Start Date End Date Jesus Manuel Worley DO [address] [place] [address] PCP - General Family Medicine 12/13/14 Estefanía Mosley, MANAGER SHIFT.RESOURCE CONSERVATION MANAGER [address] [place] [address] [facility] 09/13/24 Beatris Case, MANAGER SHIFT.RESOURCE CONSERVATION MANAGER [address] [place] [address] [facility] 09/13/24 Pole Peeler Relationship Specialty Start Date End Date Jesus Manuel Worley DO [address] [place] [address] PCP - General Family Medicine 12/13/14 Estefanía Mosley, MANAGER SHIFT.RESOURCE CONSERVATION MANAGER [address] [place] [address] Bank Sales And Service Manager Family [facility] 09/13/24 IdaliaBeatris, MANAGER SHIFT.RESOURCE CONSERVATION MANAGER [address] [place] [address] [facility] And [facility] 09/13/24 Pole Peeler Relationship Specialty Start Date End Date Jesus Manuel Worley DO [address] [place] [address] PCP - General Family Medicine 12/13/14 [facility] Center[facility], MANAGER SHIFT.RESOURCE CONSERVATION MANAGER [address] [place] [address] Bank Sales And Service [facility] 09/13/24 Pole Peeler Relationship Specialty Start Date End Date Jesus Manuel Worley DO [address] [place] [address] PCP - General Family Medicine 12/13/14 IdaliaBeatris, MANAGER SHIFT.RESOURCE CONSERVATION MANAGER [address] [place] [address] [facility] 09/13/24 Pole Peeler Relationship Specialty Start Date End Date Jesus Manuel Worley DO [address] [place] [address] PCP - General Family Medicine 12/13/14 IdaliaBeatris, MANAGER SHIFT.RESOURCE CONSERVATION MANAGER [address] [place] [address] [facility] Sales And Service [facility] 09/13/24 Pole Peeler Relationship Specialty Start Date End Date Jesus Manuel Worley DO [address] [place] [address] PCP - General Family Medicine 12/13/14 IdaliaBeatris, MANAGER SHIFT.RESOURCE CONSERVATION MANAGER [address] [place] [address] [facility] 09/13/24 Pole Peeler Relationship Specialty Start Date End Date Jesus Manuel Worley DO [address] [place] [address] PCP - General Family Medicine 12/13/14 IdaliaBeatris, MANAGER SHIFT.RESOURCE CONSERVATION MANAGER [address] [place] [address] [facility] 09/13/24 Pole Peeler Relationship Specialty Start Date End Date Jesus Manuel Worley DO [address] [place] [address] PCP - General Family Medicine 12/13/14 [facility] Center[facility], MANAGER SHIFT.RESOURCE CONSERVATION MANAGER [address] [place] [address] Bank Sales And Service [facility] 09/13/24 Dunia Moscoso, MANAGER SHIFT.RESOURCE CONSERVATION MANAGER [address] [place] [address] [facility] 03/22/25 Goals (unrecognized section and content) Goals may be documented in a n alternate sectionGoals may be documented in an alternate sectionGoals may be documented in an alternate sectionGoals may be documented in an alternate sectionGoals may be documented in an alternate section INFORMATION SOURCE (unrecogn ized section and content) DATE CREATED AUTHOR 07/07/2022 [facility] DATE CREATED AUTHOR AUTHOR'S ORGANIZ ATION 12/28/2023 [facility] DATE CREATED AUTHOR AUTHOR'S ORGANIZ ATION 05/11/2025 [facility] FOR RECORDS PERTAINING TO PATIENTS WHO ARE [...] BE BASED ON THE PRIMARY CLINICAL RECORDS. [employer] [facility]. provides no warranty or guarantee of the accuracy or completeness of information in this document.
[2025-06-27 08:01] VITALS: BP 88/67; PULSE 67; RESP 16; O2SAT 97
[2025-06-27 08:38] VITALS: BP 103/72; PULSE 64; RESP 16; TEMP 36.8; O2SAT 98
[2025-06-27 08:39] VITALS: BP 103/72; PULSE 64; RESP 16; O2SAT 98
== END 2025-06-27 08:39 | disposition home or self-care (01) ==
PROVIDERS: Emergency Provider Emergency Medicine; PCP Student in an Organized Health Care Education/Training Program; Visit Provider Emergency Medicine
DX: L50.0 Allergic urticaria (principal); F32.A Depression, unspecified; Z79.899 Other long term (current) drug therapy
CPT/HCPCS: 96374; 96375; 99282; A4216

== ENCOUNTER 2025-07-07 04:57 | Emergency (ER) | payer OTHER, SELFPAY ==
[2025-07-07 05:00] VITALS: BP 123/87; PULSE 72; RESP 16; TEMP 36.5; O2SAT 95; BMI 26.1
--- NOTE | 2025-07-07 05:28 | EX.ED.DYSGE1 ---
HPI History of Present Illness Chief Complaint: Rash Informant: patient Narrative Narrative: Patient is a 50-year-old female with past medical history of depression. She states she was sleeping and when she awoke she felt like her face was irritated and itching and therefore she went and looked in the mirror and noticed a rash across her face and thought there might be some swelling to her lips. Patient was recently seen for similar event roughly 1 to 2 weeks ago without obvious new exposure. She states symptoms completely resolved from that time and she states her still been no new exposure. She denies any trouble breathing or swallowing but with concern that the rash and swelling to the face could worsen she presents for evaluation [facility] Medical History Depression Home Medications ?Medication ?Instructions ?Recorded ?Last Taken ?Type sertraline 50 mg tablet 50 mg PO DAILY 06/23/16 06/23/16 History epinephrine 0.3 mg/0.3 mL 0.3 mg (0.3 mL) IM Q10M PRN PRN 06/13/22 Unknown Rx injection, auto-injector (EpiPen anaphylaxis #2 ea 2-Oscar) etonogestrel 0.12 mg-ethinyl 1 vag ring vaginal Q4W 09/09/23 Unknown History estradiol 0.015 mg/24 hr vaginal ring (NuvaRing) epinephrine 0.3 mg/0.3 mL 0.3 mg (0.3 mL) IM Q20M PRN 06/27/25 Unknown Rx injection, auto-injector anaphylaxis #2 ea prednisone 20 mg tablet 40 mg (2 x 20 mg) PO DAILY 5 days 07/07/25 Unknown Rx #10 tabs Allergy/AdvReac Type Severity Reaction Status Date / Time azithromycin (From Zithromax Allergy Hives Verified 07/07/25 04:58 Z-Oscar) bacitracin (From Neosporin Allergy Hives Verified 07/07/25 04:58 ([id number])) cephalexin (From Keflex) Allergy Hives Verified 07/07/25 04:58 citric acid (From Bicitra) Allergy Hives Verified 07/07/25 04:58 neomycin (From Neosporin Allergy Hives Verified 07/07/25 04:58 ([id number])) polymyxin B (From Neosporin Allergy Hives Verified 07/07/25 04:58 ([id number])) sodium citrate (From Bicitra) Allergy Hives Verified 07/07/25 04:58 Family History Father Cancer, Onset Age: 71 multiple, lymphoma Sudden cardiac Hypertension Mother Fibroids Surgical History History of Hx laparoscopic cholecystectomy Social History adopted: No household members: family number of children: 2 current occupational status: employed 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 - [employer] current occupational exposures/hazards: No pets and animals: Yes (foster cats) leisure activities: exercise history of recent travel: No sexually active: Yes Smoking Status: Never smoker alcohol intake: current alcohol intake frequency: holidays/special occasions only Alcohol type: hard liquor details: very rare, family history of alcohol use substance use type: does not use diet: vegan and vegetarian well-balanced diet: daily or most days caffeine: Yes (black coffee ) eating out: rarely or never during the past year weight has: decreased > 10 lbs what type of physical activity do you participate in: weight training and other details: barre and pilates frequency: 3-4 times per week seatbelt use: always do you feel safe at home: Yes additional social history: [employer] [facility] ED Constitutional Constitutional ED: Denies chills or fever(s) Eyes Eyes: Denies change in vision ENT ENT ED: Reports other Details: Positive facial rash and lip swelling ; Denies rhinorrhea or sore throat Cardiovascular Cardiovascular: Denies chest pain Respiratory/Chest Respiratory/Chest: Denies cough or dyspnea Gastrointestinal Gastrointestinal: Denies abdominal pain, diarrhea, nausea or vomiting Musculoskeletal Musculoskeletal: Denies myalgias Integumentary Reports rash Neurologic Neurologic: Denies headache(s) Hematologic/Lymphatic Hematologic/Lymphatic: Denies easy bleeding or easy bruising Allergic/Immunologic Allergic/Immunologic ED: Reports mouth swelling; Denies tongue swelling EXAM Physical Exam Const Vital Signs: 07/07/25 05:00 07/07/25 05:03 Temperature 97.7 F L Temperature Source Oral Pulse Rate 72 Respiratory Rate 16 Respiratory Effort Normal Non-Labored Respiratory Pattern Normal Blood Pressure 123/87 H Blood Pressure Mean 99 Pulse Ox 95 Oxygen Delivery Method Room Air Positive well nourished and well developed General Appearance ED: well developed HEENT HEENT Narrative: Normocephalic atraumatic Patient has erythematous blanchable urticarial rash across the face without tongue or lip swelling No oral lesions no airway edema or compromise; no secondary findings in the posterior pharynx to suggest infection Eyes PERRL and EOMs intact bilaterally Neck supple Resp normal respiratory effort and clear to auscultation bilaterally Resp Narrative: No nasal flaring retractions tachypnea or accessory muscle use No stridor noted Cardio regular rate and regular rhythm Extremity normal to inspection Neuro oriented x3, CN's II-XII intact bilaterally and no sensory deficits noted Sensorium / Orientation: alert Motor Exam: strength 5/5 throughout Psych mental status grossly normal Skin Skin Narrative: Erythematous blanchable urticarial lesions across the face upper arms as well as upper back and legs without involvement of the palms or soles No vesicular or pustule lesions No skin sloughing or excoriation noted MDM MDM MDM Narrative Medical decision making narrative: Patient arrived with stable vitals. She had sensation of lip swelling but there was none appreciated on physical exam and there was no signs of anaphylaxis or angioedema. She denied any new exposures but the rash is systemic which would indicate an allergic reaction. However at this time as she does not have signs of respiratory distress angioedema or anaphylaxis do not feel the need for testing or imaging studies. Patient was given prednisone Benadryl and Pepcid secondary to the acute allergic reaction. At this time as there is low concern for progression to anaphylaxis I do not feel the need to observe for any further in the ER and to prescribed a short course of prednisone to prevent any further allergic reaction symptoms. However as there is no obvious signs of infection angioedema or anaphylaxis she can be discharged home and follow-up with your family doctor to discuss referral to an personal lines advisor to delineate the underlying cause of her symptoms History & Record Review Discussion w/independent historian: Patient Discharge Plan Triage Chief Complaint: Rash ED Provider: Artur Samson Dx/Rx/DC Orders Clinical Impression: Urticaria, Allergic reaction, Depression Instructions: ED General Allergic Reactions, ED Hives (Adult) Prescriptions: New prednisone 20 mg tablet 40 mg PO DAILY 5 Days Qty: 10 0RF No Action etonogestrel-ethinyl estradiol [NuvaRing] 0.12-0.015 mg/24 hr ring 1 vag ring vaginal Q4W Rx Instructions: leave in place for 3 weeks of a 4-week cycle sertraline 50 MG tablet 50 mg PO DAILY Patient Comments: mental health epinephrine [EpiPen 2-Oscar] 0.3 mg/0.3 mL auto-injector 0.3 mg IM Q10M PRN PRN (Reason: anaphylaxis) Qty: 2 0RF Rx Instructions: for 2 doses epinephrine 0.3 mg/0.3 mL auto-injector 0.3 mg IM Q20M PRN (Reason: anaphylaxis) Qty: 2 0RF Rx Instructions: do not exceed 3 doses per episode Primary Care Provider: Jesus Manuel Worley Referrals: Jesus Manuel Worley DO [Primary Care Provider, Medical] Activity Restrictions/Additional Instructions: Please continue the steroid as directed to help control any allergic reaction/hives. Follow-up with your family doctor to seek referral to an personal lines advisor to further assess any mental reason for your allergic reaction. If there is any difficulty swallowing or breathing or you have any further concerns please return to the ER for repeat evaluation Print Language: Swedish Disposition Disposition: Home, Self Care Discharge Date/Time: 07/07/25 05:43
[2025-07-07 05:29] VITALS: BP 123/87; PULSE 71; RESP 16; TEMP 36.5; O2SAT 98
== END 2025-07-07 05:43 | disposition home or self-care (01) ==
LOC: ED 05:35
PROVIDERS: Emergency Provider Emergency Medicine; PCP Student in an Organized Health Care Education/Training Program; Visit Provider Emergency Medicine
DX: L50.0 Allergic urticaria (principal); F32.A Depression, unspecified; Z79.899 Other long term (current) drug therapy
CPT/HCPCS: 99284